=== PATIENT | male | born 1990 | race Caucasian/White ===

== ENCOUNTER 2024-02-25 16:17 | Outpatient (OUT) | payer OTHER, SELFPAY ==
[2024-02-25 16:43] LABS: Bilirubin Urine NEGATIVE (NEGATIVE); Blood Urine NEGATIVE (NEGATIVE); Clarity Urine CLEAR (CLEAR); Color Urine YELLOW (YELLOW); Glucose Urine UA NEGATIVE (NEGATIVE); Ketones Urine NEGATIVE (NEGATIVE); Leukocyte Esterase Urine NEGATIVE (NEGATIVE); Nitrite Urine NEGATIVE (NEGATIVE); Protein Urine NEGATIVE (NEG/TRACE); Specific Gravity Urine >=1.030 (1.005-1.025); Urobilinogen Urine 0.2 EU/dL (0.2-1.0)
[2024-02-25 16:44] LABS: Basophils Percent Auto 0.3 % (0.2-2.0); Eosinophils Absolute Auto 0.1 10^3/uL (0.0-0.7); Eosinophils Percent Auto 0.7 % (0.9-7.0); Hematocrit 46.3 % (42.0-54.0); Hemoglobin 15.6 g/dL (14.0-18.0); Immature Granulocytes Abs Auto 0.03 10^3/uL (0.00-0.03); Immature Granulocytes Pct Auto 0.2 % (0.0-0.5); Lymphocytes Absolute Auto 3.2 10^3/uL (1.2-3.8); Lymphocytes Percent Auto 25.8 % (20.5-60.0); Mean Corpuscular HGB Conc 33.7 g/dL (29.9-35.2); Mean Corpuscular Hemoglobin 29.8 pg (25.9-34.0); Mean Corpuscular Volume 88.4 fL (80.0-94.0); Mean Platelet Volume 9.9 fL (9.5-13.5); Monocytes Absolute Auto 0.8 10^3/uL (0.3-0.8); Monocytes Percent Auto 6.2 % (1.7-12.0); Neutrophils Absolute Auto 8.2 10^3/uL (1.4-6.5); Neutrophils Percent Auto 66.8 % (43.0-75.0); Platelet Count 349 10^3/uL (150-450); Red Blood Count 5.24 10^6/uL (4.70-6.10); Red Cell Distribution Width 12.4 % (11.0-15.0); White Blood Count 12.3 10^3/uL (4.0-11.0)
[2024-02-25 16:46] LABS: Urine Microscopic Indicated NO
[2024-02-25 16:52] LABS: Estimated Average Glucose 117 mg/dL; Glycohemoglobin A1C 5.7 % (4.5-6.2)
[2024-02-25 16:58] LABS: Creatinine Urine Random 216.52 mg/dL (20.00-300.00); Microalbum Creatinine Ratio Ur 7.3 mg/g (0.0-29.9); Microalbumin Urine Random 1.6 mg/dL (<=30.0)
[2024-02-25 17:06] LABS: Alanine Aminotransferase 60 U/L (16-63); Albumin Level 3.9 g/dL (3.4-5.0); Alkaline Phosphatase 54 U/L (46-116); Anion Gap 15.8; Aspartate Amino Transferase 19 U/L (15-37); BUN Creatinine Ratio 20.8; Bilirubin Total 0.5 mg/dL (0.2-1.0); Calcium 9.6 mg/dL (8.5-10.1); Chloride 100 mmol/L (98-107); Chol HDL Ratio 5.7; Cholesterol 278 mg/dL (<=200); Estimated GFR (African America >60 (>=60); Estimated GFR (Non-African Ame >60 (>=60); Globulin 4.1 g/dL; Glucose 81 mg/dL (74-106); HDL Cholesterol 49 mg/dL (40-60); Potassium 3.8 mmol/L (3.5-5.1); Sodium 139 mmol/L (136-145); Thyroid Stimulating Hormone 1.629 uIU/mL (0.358-3.740); Triglycerides 248 mg/dL (<=150); VLDL CHOLESTEROL 49.6 mg/dL
== END 2024-02-25 16:18 | disposition home or self-care (01) ==
LOC: LAB 16:20
PROVIDERS: PCP Nurse Practitioner; Visit Provider Nurse Practitioner
DX: R73.03 Prediabetes (principal); I10 Essential (primary) hypertension; F17.200 Nicotine dependence, unspecified, uncomplicated; E66.9 Obesity, unspecified; E78.2 Mixed hyperlipidemia
CPT/HCPCS: 36415; 80053; 80061; 81003; 82043; 82570; 83036; 84443; 85025

== ENCOUNTER 2024-03-16 06:45 | Outpatient (OUT) | payer OTHER, SELFPAY ==
--- OUTSIDE RECORDS SUMMARY | 2024-03-16 06:51 | XMS_ITS | CCD ---
Author Organization [place] [employer] [place] [facility] [employer] [facility] Care Team Providers Care Mortgage Banker Name Role Phone AICHHOLZ, OFFICE MAIL CLERK GENE Consulting Unavailable AICHHOLZ, OFFICE MAIL CLERK GENE Primary Care Unavailable AICHHOLZ, OFFICE MAIL CLERK GENE Admitting Unavailable AICHHOLZ, OFFICE MAIL CLERK GENE Attending Unavailable AICHHOLZ, OFFICE MAIL CLERK GENE Consulting Unavailable AICHHOLZ, OFFICE MAIL CLERK GENE Admitting Unavailable JERRELL ARZATE Primary Care Unavailable AICHHOLZ, OFFICE MAIL CLERK GENE Referring Unavailable AICHHOLZ, OFFICE MAIL CLERK GENE Attending Unavailable AICHHOLZ, OFFICE MAIL CLERK GENE Consulting Unavailable AICHHOLZ, OFFICE MAIL CLERK GENE Primary Care Unavailable AICHHOLZ, OFFICE MAIL CLERK GENE Admitting Unavailable AICHHOLZ, OFFICE MAIL CLERK GENE Attending Unavailable AICHHOLZ, GENE Attending Unavailable Allergies Allergy Classification Reported Allergen(s) Allergy Type Date of Onset Reaction(s) Facility (1 source) Penicillin Drug Allergy 03-15-2013 [facility] Repository Problems Active Problems Problem Classification Problem Date Documented Da te Episodic/Chronic Anxiety disorders (1 source) Anxiety disorder, unspecified; Translations: [ANXIETY DISORDER UNSPECIFIED] Onset: 03-25-2022 Chronic Diabetes mellitus without complication (1 source) Type 2 diabetes mellitus without complications; Translations: [TYPE 2 DM WITHOUT COMPLICATIONS] Onset: 07-09-2022 Chronic Disorders of lipid metabolism (5 sources) Hyperlipidemia, unspecified; Translations: [HYPERLIPIDEMIA UNSPECIFIED] Onset: 05-07-2022 Chronic Other nutritional; endocrine; and metabolic disorders (4 sources) Other disorders of plasma-protein metabolism, not elsewhere classified; 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 Cornell Sharma GLYCOHEMOGLOBIN A1Con 2021 ADA RECOMMENDATION SEE BELOW Normal [facility] Comment on above: Result Comment: ADA RECOMMENDED LIMIT 4.0 - 6.0 ADA THERAPEUTIC TARGET < 7.0 ACTION SUGGESTED > 7.0 Performed By: #### A 1C #### [facility] [address] [address] [address] Cornell Sharma Glucose [Mass/Vol] 114 mg/dL Normal [facility] Comment on above: Performed By: #### A 1C #### [facility] [address] [address] [address] Cornell Sharma HbA1c (Bld) [Mass fraction] 5.6 % Normal 4.5-6.2 [facility] Comment on above: Performed By: #### A 1C #### [facility] [address] [address] [address] Cornell Sharma LIPID PROFILEon 07-06-2022 CHOL-HDL RATIO NORM SEE BELOW Normal [facility] Comment on above: Result Comment: 3.3 - 4.4 LOW RISK 4.4 - 7.1 AVERAGE RISK 7.1 - 11.0 MODERATE RISK >11.0 HIGH RISK Performed By: #### A ST, GLUC, ALT, LIPID #### [facility] [address] [address] [address] Cornell Sharma Cholesterol [Mass/Vol] 197 mg/dL Normal <=200 [facility] Comment on above: Performed By: #### A ST, GLUC, ALT, LIPID #### [facility] [address] [address] [address] Cornell Sharma Cholesterol in HDL [Mass/Vol] 53 mg/dL Normal 40-60 [facility] Comment on above: Performed By: #### A ST, GLUC, ALT, LIPID #### [facility] [address] [address] [address] Cornell Sharma Cholesterol in LDL [Mass/Vol] 118.2 mg/dL Normal [facility] Comment on above: Performed By: #### A ST, GLUC, ALT, LIPID #### [facility] [address] [address] [address] Cornell Sharma Cholesterol.total/Cho lesterol in HDL [Mass ratio] 3.7 {ratio} Normal [facility] Comment on above: Performed By: #### A ST, GLUC, ALT, LIPID #### [facility] [address] [address] [address] Cornell Sharma HDL NORMAL > or = 60 mg/dl - LOW CARDIOVASCULAR RISK <40 mg/dl - HIGH CARDIOVASCULAR RISK Normal [facility] Comment on above: Performed By: #### A ST, GLUC, ALT, LIPID #### [facility] [address] [address] [address] Cornell Sharma LDL CALC NORMAL SEE BELOW Normal [facility] Comment on above: Result Comment: <100 mg/dl OPTIMAL 100 - 129 mg/dl NEAR OR ABOVE OPTIMAL 130 - 159 mg/dl BORDERLINE HIGH 160 - 189 mg/dl HIGH >190 mg/dl VERY HIGH Performed By: #### A ST, GLUC, ALT, LIPID #### [facility] [address] [address] [address] Cornell Sharma Triglyceride [Mass/Vol] 129 mg/dL Normal <=150 [facility] Comment on above: Performed By: #### A ST, GLUC, ALT, LIPID #### [facility] [address] [address] [address] Cornell Sharma VLDL CALC 25.8 mg/dL Normal [facility] Comment on above: Performed By: #### A ST, GLUC, ALT, LIPID #### [facility] [address] [address] [address] Cornell Sharma SGGyu 07-06-2022 AST [Catalytic activity/Vol] 15 U/L Normal 15-37 [facility] Comment on above: Performed By: #### A ST, GLUC, ALT, LIPID #### [facility] [address] [address] [address] Cornell Sharma SGPTon 07-06-2022 ALT [Catalytic activity/Vol] 50 U/L Normal 16-63 [facility] Comment on above: Performed By: #### A ST, GLUC, ALT, LIPID #### [facility] [address] [address] [address] Cornell Sharma LIPID PROFILEon 05-06-2022 CHOL-HDL RATIO NORM SEE BELOW Normal [facility] Comment on above: Result Comment: 3.3 - 4.4 LOW RISK 4.4 - 7.1 AVERAGE RISK 7.1 - 11.0 MODERATE RISK >11.0 HIGH RISK Performed By: #### L IPID, LIVER #### [facility] [address] [address] [address] Cornell Sharma Cholesterol [Mass/Vol] 181 mg/dL Normal <=200 [facility] Comment on above: Performed By: #### L IPID, LIVER #### [facility] [address] [address] [address] Cornell Sharma Cholesterol in HDL [Mass/Vol] 39 mg/dL Critically low 40-60 [facility] Comment on above: Performed By: #### L IPID, LIVER #### [facility] [address] [address] [address] Cornell Sharma Cholesterol in LDL [Mass/Vol] 81.6 mg/dL Normal [facility] Comment on above: Performed By: #### L IPID, LIVER #### [facility] [address] [place] [address] Dr. Cornell Sharma Cholesterol.total/Cho lesterol in HDL [Mass ratio] 4.6 {ratio} Normal [facility] Comment on above: Performed By: #### L IPID, LIVER #### [facility] [address] [place] [address] Dr. Cornell Sharma HDL NORMAL > or = 60 mg/dl - LOW CARDIOVASCULAR RISK <40 mg/dl - HIGH CARDIOVASCULAR RISK Normal [facility] Comment on above: Performed By: #### L IPID, LIVER #### [facility] [address] [place] [address] Dr. Cornlel Sharma LDL CALC NORMAL SEE BELOW Normal [facility] Comment on above: Result Comment: <100 mg/dl OPTIMAL 100 - 129 mg/dl NEAR OR ABOVE OPTIMAL 130 - 159 mg/dl BORDERLINE HIGH 160 - 189 mg/dl HIGH >190 mg/dl VERY HIGH Performed By: #### L IPID, LIVER #### [facility] [address] [place] [address] Dr. Cornell Sharma Triglyceride [Mass/Vol] 302 mg/dL Critically high <=150 [facility] Comment on above: Performed By: #### L IPID, LIVER #### [facility] [address] [place] [address] Dr. Cornell Sharma VLDL CALC 60.4 mg/dL Normal [facility] Comment on above: Performed By: #### L IPID, LIVER #### [facility] [address] [place] [address] Dr. Cornell Sharma LIVER PROFILEon 05-06-2022 Albumin [Mass/Vol] 3.6 g/dL Normal 3.4-5.0 [facility] Comment on above: Performed By: #### L IPID, LIVER #### [facility] [address] [place] [address] Dr. Cornell Sharma Albumin/Globulin [Mass ratio] 0.9 {ratio} Normal [facility] Comment on above: Performed By: #### L IPID, LIVER #### [facility] [address] [place] [address] Dr. Cornell Sharma ALP [Catalytic activity/Vol] 56 U/L Normal 46-116 [facility] Comment on above: Performed By: #### L IPID, LIVER #### [facility] [address] [place] [address] Dr. Cornell Sharma ALT [Catalytic activity/Vol] 46 U/L Normal 16-63 [facility] Comment on above: Performed By: #### L IPID, LIVER #### [facility] [address] [place] [address] Dr. Cornell Sharma AST [Catalytic activity/Vol] 17 U/L Normal 15-37 [facility] Comment on above: Performed By: #### L IPID, LIVER #### [facility] [address] [place] [address] Dr. Cornell Sharma BILI, CONJUGATED 0.1 mg/dL Normal 0.0-0.2 [facility] Comment on above: Performed By: #### L IPID, LIVER #### [facility] [address] [place] [address] Dr. Cornell Sharma Bilirubin [Mass/Vol] 0.3 mg/dL Normal 0.2-1.0 [facility] Comment on above: Performed By: #### L IPID, LIVER #### [facility] [address] [place] [address] Dr. Cornell Sharma Globulin (S) [Mass/Vol] 3.9 g/dL Normal [facility] Comment on above: Performed By: #### L IPID, LIVER #### [facility] [address] [place] [address] Dr. Cornell Sharma Protein [Mass/Vol] 7.5 g/dL Normal 6.4-8.2 [facility] Comment on above: Performed By: #### L IPID, LIVER #### [facility] [address] [place] [address] Dr. Cornell Sharma CBC AUTO DIFFon 03-15-2022 BASO # 0.0 103/ul Normal 0.0-0.1 [facility] Comment on above: Performed By: #### C BC #### [facility] [address] [place] [address] Dr. Cornell Sharma Basophils/100 WBC (Bld) 0.5 % Normal 0.2-2.0 [facility] Comment on above: Performed By: #### C BC #### [facility] [address] [place] [address] Dr. Cornell Sharma EO # 0.1 103/ul Normal 0.0-0.7 [facility] Comment on above: Performed By: #### C BC #### [facility] [address] [place] [address] Dr. Cornell Sharma Eosinophils/100 WBC (Bld) 1.1 % Normal 0.9-7.0 [facility] Comment on above: Performed By: #### C BC #### [facility] [address] [place] [address] Dr. Cornell Sharma Erythrocyte distribution width (RBC) [Ratio] 13.2 % Normal 11.0-15.0 [facility] Comment on above: Performed By: #### C BC #### [facility] [address] [place] [address] Dr. Cornell Sharma Hematocrit (Bld) [Volume fraction] 44.7 % Normal 42.0-54.0 [facility] Comment on above: Performed By: #### C BC #### [facility] [address] [place] [address] Dr. Cornell Sharma Hemoglobin (Bld) [Mass/Vol] 14.4 g/dL Normal 14.0-18.0 [facility] Comment on above: Performed By: #### C BC #### [facility] [address] [place] [address] Dr. Cornell Sharma IG # 0.02 10e3/ul Normal 0.00-0.03 [facility] Comment on above: Performed By: #### C BC #### [facility] [address] [place] [address] Dr. Cornell Sharma IG % 0.3 % Normal 0.0-0.5 [facility] Comment on above: Performed By: #### C BC #### [facility] [address] [place] [address] Dr. Cornell Sharma LYMPH # 2.2 103/ul Normal 1.2-3.8 [facility] Comment on above: Performed By: #### C BC #### [facility] [address] [place] [address] Dr. Cornell Sharma Lymphocytes/100 WBC (Bld) 28.8 % Normal 20.5-60.0 [facility] Comment on above: Performed By: #### C BC #### [facility] [address] [place] [address] Dr. Cornell Sharma MANUAL DIFF REQ NO Normal [facility] Comment on above: Performed By: #### C BC #### [facility] [address] [place] [address] Dr. Cornell Sharma MCH (RBC) [Entitic mass] 29.4 pg Normal 25.9-34.0 [facility] Comment on above: Performed By: #### C BC #### [facility] [address] [place] [address] Dr. Cornell Sharma MCHC (RBC) [Mass/Vol] 32.2 g/dL Normal 29.9-35.2 [facility] Comment on above: Performed By: #### C BC #### [facility] [address] [place] [address] Dr. Cornell Sharma MCV (RBC) [Entitic vol] 91.2 fL Normal 80.0-94.0 [facility] Comment on above: Performed By: #### C BC #### [facility] [address] [place] [address] Dr. Cornell Sharma MONO # 0.7 103/ul Normal 0.3-0.8 [facility] Comment on above: Performed By: #### C BC #### [facility] [address] [place] [address] Dr. Cornell Sharma Monocytes/100 WBC (Bld) 9.1 % Normal 1.7-12.0 [facility] Comment on above: Performed By: #### C BC #### [facility] [address] [place] [address] Dr. Cornell Sharma NEUT # 4.6 103/ul Normal 1.4-6.5 [facility] Comment on above: Performed By: #### C BC #### [facility] [address] [place] [address] Dr. Cornell Sharma Neutrophils/100 WBC (Bld) 60.2 % Normal 43.0-75.0 [facility] Comment on above: Performed By: #### C BC #### [facility] [address] [place] [address] Dr. Cornell Sharma Platelet mean volume (Bld) [Entitic vol] 9.9 fL Normal 9.5-13.5 [facility] Comment on above: Performed By: #### C BC #### [facility] [address] [place] [address] Dr. Cornell Sharma PLT 294 103/ul Normal 150-450 [facility] Comment on above: Performed By: #### C BC #### [facility] [address] [place] [address] Dr. Cornell Sharma RBC 4.90 106/ul Normal 4.70-6.10 [facility] Comment on above: Performed By: #### C BC #### [facility] [address] [place] [address] Dr. Cornell Sharma WBC 7.6 103/ul Normal 4.0-11.0 [facility] Comment on above: Performed By: #### C BC #### [facility] [address] [place] [address] Dr. Cornell Sharma FREE T4on 03-15-2022 Free T4 [Mass/Vol] 0.83 ng/dL Normal 0.76-1.46 [facility] Comment on above: Performed By: #### M ALBR #### [facility] [address] [place] [address] Dr. Cornell Sharma GLYCOHEMOGLOBIN A1Con 2021 ADA RECOMMENDATION SEE BELOW Normal [facility] Comment on above: Result Comment: ADA RECOMMENDED LIMIT 4.0 - 6.0 ADA THERAPEUTIC TARGET < 7.0 ACTION SUGGESTED > 7.0 Performed By: #### M ALBR #### [facility] [address] [place] [address] Dr. Cornell Sharma Glucose [Mass/Vol] 120 mg/dL Critically high 74-106 [facility] Comment on above: Performed By: #### M ALBR #### [facility] [address] [place] [address] Dr. Cornell Sharma HbA1c (Bld) [Mass fraction] 5.8 % Normal 4.5-6.2 [facility] Comment on above: Performed By: #### M ALBR #### [facility] [address] [address] [address] Cornell Sharma LIPID PROFILEon 03-15-2022 CHOL-HDL RATIO NORM SEE BELOW Normal [facility] Comment on above: Result Comment: 3.3 - 4.4 LOW RISK 4.4 - 7.1 AVERAGE RISK 7.1 - 11.0 MODERATE RISK >11.0 HIGH RISK Performed By: #### M ALBR #### [facility] [address] [address] [address] Cornell Sharma Cholesterol [Mass/Vol] 228 mg/dL Critically high <=200 [facility] Comment on above: Performed By: #### M ALBR #### [facility] [address] [address] [address] Cornell Sharma Cholesterol in HDL [Mass/Vol] 39 mg/dL Critically low 40-60 [facility] Comment on above: Performed By: #### M ALBR #### [facility] [address] [address] [address] Cornell Sharma Cholesterol in LDL [Mass/Vol] 143.6 mg/dL Normal [facility] Comment on above: Performed By: #### M ALBR #### [facility] [address] [address] [address] Cornell Sharma Cholesterol.total/Cho lesterol in HDL [Mass ratio] 5.8 {ratio} Normal [facility] Comment on above: Performed By: #### M ALBR #### [facility] [address] [address] [address] Cornell Sharma HDL NORMAL > or = 60 mg/dl - LOW CARDIOVASCULAR RISK <40 mg/dl - HIGH CARDIOVASCULAR RISK Normal [facility] Comment on above: Performed By: #### M ALBR #### [facility] [address] [address] [address] Cornell Sharma LDL CALC NORMAL SEE BELOW Normal [facility] Comment on above: Result Comment: <100 mg/dl OPTIMAL 100 - 129 mg/dl NEAR OR ABOVE OPTIMAL 130 - 159 mg/dl BORDERLINE HIGH 160 - 189 mg/dl HIGH >190 mg/dl VERY HIGH Performed By: #### M ALBR #### [facility] [address] [address] [address] Cornell Sharma Triglyceride [Mass/Vol] 227 mg/dL Critically high <=150 [facility] Comment on above: Performed By: #### M ALBR #### [facility] [address] [place] [address] Dr. Cornell Sharma VLDL CALC 45.4 mg/dL Normal [facility] Comment on above: Performed By: #### M ALBR #### [facility] [address] [place] [address] Dr. Cornell Sharma MICROALBUMIN, RAND URon - mALB <1.3 Normal <=30.0 [facility] Comment on above: Performed By: #### M ALBR #### [facility] [address] [place] [address] Dr. Cornell Sharma PROF 14(COMP METB)on 022 Albumin [Mass/Vol] 2.5 g/dL Critically low 3.4-5.0 [facility] Comment on above: Performed By: #### M ALBR #### [facility] [address] [place] [address] Dr. Cornell Sharma Albumin/Globulin [Mass ratio] 0.5 {ratio} Normal [facility] Comment on above: Performed By: #### M ALBR #### [facility] [address] [place] [address] Dr. Cornell Sharma ALP [Catalytic activity/Vol] 57 U/L Normal 46-116 [facility] Comment on above: Performed By: #### M ALBR #### [facility] [address] [place] [address] Dr. Cornell Sharma ALT [Catalytic activity/Vol] 55 U/L Normal 16-63 [facility] Comment on above: Performed By: #### M ALBR #### [facility] [address] [place] [address] Dr. Cornell Sharma Anion gap [Moles/Vol] 12.5 mmol/L Normal [facility] Comment on above: Performed By: #### M ALBR #### [facility] [address] [address] [address] Cornell Sharma AST [Catalytic activity/Vol] 14 U/L Critically low 15-37 [facility] Comment on above: Performed By: #### M ALBR #### [facility] [address] [place] [address] Dr. Cornell Sharma Bilirubin [Mass/Vol] 0.2 mg/dL Normal 0.2-1.0 [facility] Comment on above: Performed By: #### M ALBR #### [facility] [address] [place] [address] Dr. Cornell Sharma Calcium [Mass/Vol] 9.4 mg/dL Normal 8.5-10.1 [facility] Comment on above: Performed By: #### M ALBR #### [facility] [address] [place] [address] Dr. Cornell Sharma Chloride [Moles/Vol] 103 mmol/L Normal 98-107 [facility] Comment on above: Performed By: #### M ALBR #### [facility] [address] [place] [address] Dr. Cornell Sharma CO2 [Moles/Vol] 27.9 mmol/L Normal 21.0-32.0 [facility] Comment on above: Performed By: #### M ALBR #### [facility] [address] [place] [address] Dr. Cornell Sharma Creatinine [Mass/Vol] 0.74 mg/dL Normal 0.70-1.30 [facility] Comment on above: Performed By: #### M ALBR #### [facility] [address] [place] [address] Dr. Cornell Sharma EGFR-AF GHANAIAN >60 Normal >=60 [facility] Comment on above: Performed By: #### M ALBR #### [facility] [address] [place] [address] Dr. Cornell Sharma EGFR-NON AF GHANAIAN >60 Normal >=60 [facility] Comment on above: Performed By: #### M ALBR #### [facility] [address] [place] [address] Dr. Cornell Sharma Globulin (S) [Mass/Vol] 5.0 g/dL Normal [facility] Comment on above: Performed By: #### M ALBR #### [facility] [address] [place] [address] Dr. Cornell Sharma Potassium [Moles/Vol] 4.4 mmol/L Normal 3.5-5.1 [facility] Comment on above: Performed By: #### M ALBR #### [facility] [address] [place] [address] Dr. Cornell Sharma Protein [Mass/Vol] 7.5 g/dL Normal 6.4-8.2 [facility] Comment on above: Performed By: #### M ALBR #### [facility] [address] [place] [address] Dr. Cornell Sharma Sodium [Moles/Vol] 139 mmol/L Normal 136-145 [facility] Comment on above: Performed By: #### M ALBR #### [facility] [address] [place] [address] Dr. Cornell Sharma Urea nitrogen [Mass/Vol] 16.0 mg/dL Normal 7.0-18.0 [facility] Comment on above: Performed By: #### M ALBR #### [facility] [address] [place] [address] Dr. Cornell Sharma Urea nitrogen/Creatinine [Mass ratio] 21.6 mg/mg Normal [facility] Comment on above: Performed By: #### M ALBR #### [facility] [address] [place] [address] Dr. Cornell Sharma TSHon 03-15-2022 TSH 0.941 uIU/mL Normal 0.358-3.740 [facility] Comment on above: Performed By: #### M ALBR #### [facility] [address] [place] [address] Dr. Cornell Sharma TSH RANGE SEE BELOW Normal [facility] Comment on above: Result Comment: <0.3 4 UIU/ml HYPERTHYROID 0.34-5.60 UIU/ml EUTHYROID >5.60 UIU/ml HYPOTHYROID Performed By: #### M ALBR #### [facility] [address] [address] [address] Cornell Sharma UA RANDOM W/MICROSCOPICon BACTERIA NONE SEEN Normal NONE SEEN [facility] Comment on above: Performed By: #### U AMIC #### [facility] [address] [address] [address] Cornell Sharma Bilirubin Ql (U) Negative Normal NEGATIVE [facility] Comment on above: Performed By: #### U AMIC #### [facility] [address] [address] [address] Cornell Sharma CAST NONE SEEN Normal NONE SEEN [facility] Comment on above: Performed By: #### U AMIC #### [facility] [address] [address] [address] Cornell Sharma Clarity (U) CLEAR Normal CLEAR [facility] Comment on above: Performed By: #### U AMIC #### [facility] [address] [address] [address] Cornell Sharma Color (U) LT. YELLOW Normal YELLOW [facility] Comment on above: Performed By: #### U AMIC #### [facility] [address] [address] [address] Cornell Sharma Crystals LM Nom (Urine sed) NONE SEEN Normal NONE SEEN [facility] Comment on above: Performed By: #### U AMIC #### [facility] [address] [address] [address] Cornell Sharma Epithelial cells LM Ql (Urine sed) RARE Normal NONE SEEN /RARE [facility] Comment on above: Performed By: #### U AMIC #### [facility] [address] [address] [address] Cornell Sharma Glucose Ql (U) Negative Normal NEGATIVE [facility] Comment on above: Performed By: #### U AMIC #### [facility] [address] [address] [address] Cornell Sharma Hemoglobin Ql (U) Negative Normal NEGATIVE The [facility] Comment on above: Performed By: #### U AMIC #### [facility] [address] [address] [address] Cornell Sharma Ketones Ql (U) Negative Normal NEGATIVE [facility] Comment on above: Performed By: #### U AMIC #### [facility] [address] [place] [address] Dr. Cornell Sharma LEUKOCYTES Negative Normal NEGATIVE [facility] Comment on above: Performed By: #### U AMIC #### [facility] [address] [place] [address] Dr. Cornell Sharma MUCOUS NONE SEEN Normal NONE SEEN [facility] Comment on above: Performed By: #### U AMIC #### [facility] [address] [place] [address] Dr. Cornell Sharma Nitrite Ql (U) Negative Normal NEGATIVE [facility] Comment on above: Performed By: #### U AMIC #### [facility] [address] [place] [address] Dr. Cornell Sharma pH (U) 6.0 [pH] Normal 5-9 [facility] Comment on above: Performed By: #### U AMIC #### [facility] [address] [place] [address] Dr. Cornell Sharma RBC 0-2 Normal 0-2 [facility] Comment on above: Performed By: #### U AMIC #### [facility] [address] [place] [address] Dr. Cornell Sharma SPEC GRAVITY 1.025 Normal 1.005-<=1.025 The [facility] Comment on above: Performed By: #### U AMIC #### [facility] [address] [place] [address] Dr. Cornell Sharma UA PROTEIN Negative Normal NEGATIVE/ TRACE [facility] Comment on above: Performed By: #### U AMIC #### [facility] [address] [place] [address] Dr. Cornell Sharma Urobilinogen Qn (U) 0.2 {Ezequiel'U}/dL Normal 0.2 - 1. 0 [facility] Comment on above: Performed By: #### U AMIC #### [facility] [address] [place], [place] [address] Dr. Cornell Sharma WBC NONE SEEN Normal NONE SEEN [facility] Comment on above: Performed By: #### U AMIC #### [facility] [address] [place], [place] [address] Dr. Cornell Sharma Encounters Encounter Date Encounter Type Care Provider Facility Start: 02-25-2024 End: 02-25-2024 ambulatory GENE CRYSTAL Not Available Start: 07-06-2022 End: 07-07-2022 ambulatory OFFICE MAIL CLERK GENE CLEMENSHOLZ Facility:[facility] Start: 05-06-2022 End: 05-07-2022 ambulatory OFFICE MAIL CLERK GENE CLEMENSHOLZ Facility:[facility] Start: 03-15-2022 End: 03-16-2022 ambulatory OFFICE MAIL CLERK GENE CRYSTAL Facility:[facility] Payers Date Payer Category Payer Unknown [id number] 2.16.84 [id number] 1989 Unknown [id number] 2.16.84 [id number] 1989 Unknown [id number] 2.16.84 [id number] 1989 Unknown [id number] 2.16.84 [id number] 1959 Unknown [id number] Summary Purpose Family History No Family History Records FoundNo Family History Records Found Advance Directives No Advanced Directives Records FoundNo Advanced Directives Records Found Additional Source Comments (unrecognized sect ion and content) No Status Records FoundNo Status Records Found INFORMATION SOURCE (unrecogn ized section and content) DATE CREATED AUTHOR [facility]2022 [facility] DATE CREATED AUTHOR AUTHOR'S ORGANIZ ATDEBBIE 02/27/2024 [facility] EPIC FOR RECORDS PERTAINING TO PATIENTS WHO ARE OR HAVE BEEN ENROLLED IN A CHEMICAL DEPENDENCY/SUBSTANCEABUSE PROGRAM, SOME INFORMATION MAY BE OMITTED. This clinical summary was aggregated from multiple sources. Caution should be exercised in using it in the provision of clinical care. This summary normalizes information from multiple sources, and as a consequence, information in this document may materially change the coding, format and clinical context of patient data. In addition, data may be omitted in some cases. CLINICAL DECISIONS SHOULD BE BASED ON THE PRIMARY CLINICAL RECORDS. [facility] [employer] [facility]. provides no warranty or guarantee of the accuracy or completeness of information in this document.
--- NOTE | 2024-03-16 10:56 | P.STRESS_ITS ---
Stress Test Stress Test Requesting physician: Trina Talley General Information: Reason for Stress Test: Chest pain Cardiac History and Risk Factors: DM2, HTN. Family history of CAD. Resting 12 - Lead Electrocardiogram: Rate & rhythm: Normal sinus at a rate of 73. [employer]: Normal T-waves: Normal orientation ST-segments: Normal orientation Stress Test: Protocol: Daljit protocol was followed Exercise capacity: Fair exercise capacity. Total exercise time of 5 minutes 19 seconds reached Daljit stage 2 at 2.5MPH, 12% grade, & 7 METs. Blood pressure: Initial: 118/80, Maximum: 172/98 Rate & rhythm: Patient remained in sinus rhythm during the exercise and recovery portions of the study.? The maximum heart rate was 160, which was 86% of the maximum predicted heart rate. ST-segments & T-waves: There were no T-wave changes or ST-segment changes when compared to the baseline EKG. Patient response/symptoms: There were no symptoms similar to the chief complaint. Interpretation: Normal exercise stress test without electrocardiographical evidence of ischemia. Asymptomatic of chief complaint. Johnson treadmill score is 5.3, which places patient in a low risk category. Clinical correlation required.
== END 2024-03-16 06:46 | disposition home or self-care (01) ==
LOC: CARD 06:45
PROVIDERS: PCP Nurse Practitioner; Visit Provider Nurse Practitioner
DX: R07.89 Other chest pain (principal); I10 Essential (primary) hypertension
CPT/HCPCS: 93017

== ENCOUNTER 2024-04-20 15:59 | Outpatient (OUT) | payer OTHER, SELFPAY ==
[2024-04-20 16:21] LABS: Basophils Percent Auto 0.3 % (0.2-2.0); Eosinophils Absolute Auto 0.1 10^3/uL (0.0-0.7); Eosinophils Percent Auto 0.5 % (0.9-7.0); Hemoglobin 15.1 g/dL (14.0-18.0); Immature Granulocytes Pct Auto 0.9 % (0.0-0.5); Lymphocytes Absolute Auto 2.4 10^3/uL (1.2-3.8); Lymphocytes Percent Auto 20.5 % (20.5-60.0); Mean Corpuscular HGB Conc 34.3 g/dL (29.9-35.2); Mean Corpuscular Hemoglobin 30.3 pg (25.9-34.0); Mean Corpuscular Volume 88.2 fL (80.0-94.0); Mean Platelet Volume 9.3 fL (9.5-13.5); Monocytes Percent Auto 8.3 % (1.7-12.0); Neutrophils Absolute Auto 8.2 10^3/uL (1.4-6.5); Neutrophils Percent Auto 69.5 % (43.0-75.0); Platelet Count 348 10^3/uL (150-450); Red Blood Count 4.99 10^6/uL (4.70-6.10); Red Cell Distribution Width 12.8 % (11.0-15.0); White Blood Count 11.7 10^3/uL (4.0-11.0)
--- OUTSIDE RECORDS SUMMARY | 2024-04-20 16:24 | XMS_ITS | CCD ---
Author Organization [place] [employer] [facility] [employer] [facility] Care Team Providers Care Sand Digger Name Role Phone AICHHOLZ, GREENKEEPER GENE Consulting Unavailable AICHHOLZ, GREENKEEPER GENE Primary Care Unavailable AICHHOLZ, GREENKEEPER GENE Admitting Unavailable AICHHOLZ, GREENKEEPER GENE Attending Unavailable AICHHOLZ, GREENKEEPER GENE Consulting Unavailable AICHHOLZ, GREENKEEPER GENE Admitting Unavailable JERRELL ARZATE Primary Care Unavailable AICHHOLZ, GREENKEEPER GENE Referring Unavailable AICHHOLZ, GREENKEEPER GENE Attending Unavailable AICHHOLZ, GREENKEEPER GENE Consulting Unavailable AICHHOLZ, GREENKEEPER GENE Primary Care Unavailable AICHHOLZ, GREENKEEPER GENE Admitting Unavailable AICHHOLZ, GREENKEEPER GENE Attending Unavailable AICHHOLZ, GENE Attending Unavailable Allergies Allergy Classification Reported Allergen(s) Allergy Type Date of Onset Reaction(s) Facility (1 source) Penicillin Drug Allergy 03-15-2013 [facility] Repository Problems Active Problems Problem Classification [...] 07-06-2022 Glucose [Mass/Vol] 105 mg/dL Normal 74-106 [facility] Comment on above: Performed By: #### A ST, GLUC, ALT, LIPID #### [facility] [address] [address] [address] Cornell Sharma GLYCOHEMOGLOBIN A1Con 2021 ADA RECOMMENDATION SEE BELOW Normal [facility] Comment on above: Result Comment: ADA RECOMMENDED LIMIT 4.0 - 6.0 ADA THERAPEUTIC TARGET < 7.0 ACTION SUGGESTED > 7.0 Performed By: #### A 1C #### [facility] [address] [address] [address] Cornell Sharma Glucose [Mass/Vol] 114 mg/dL Normal [facility] Comment on above: Performed By: #### A 1C #### [facility] [address] [address] [address] Cornell Sharma HbA1c (Bld) [Mass fraction] 5.6 % Normal 4.5-6.2 [facility] Comment on above: Performed By: #### A 1C #### [facility] [address] [address] [address] Cornell Sharma LIPID PROFILEon 07-06-2022 CHOL-HDL RATIO NORM SEE BELOW Normal [facility] Comment on above: Result Comment: 3.3 - 4.4 LOW RISK 4.4 - 7.1 AVERAGE RISK 7.1 - 11.0 MODERATE RISK >11.0 HIGH RISK Performed By: #### A ST, GLUC, ALT, LIPID #### [facility] [address] [address] [address] Cornell Sharma Cholesterol [Mass/Vol] 197 mg/dL Normal <=200 [facility] Comment on above: Performed By: #### A ST, GLUC, ALT, LIPID #### [facility] [address] [address] [address] Cornell Sharma Cholesterol in HDL [Mass/Vol] 53 mg/dL Normal 40-60 [facility] Comment on above: Performed By: #### A ST, GLUC, ALT, LIPID #### [facility] [address] [address] [address] Cornell Sharma Cholesterol in LDL [Mass/Vol] 118.2 mg/dL Normal [facility] Comment on above: Performed By: #### A ST, GLUC, ALT, LIPID #### [facility] [address] [address] [address] Cornell Sharma Cholesterol.total/Cho lesterol in HDL [Mass ratio] 3.7 {ratio} Normal [facility] Comment on above: Performed By: #### A ST, GLUC, ALT, LIPID #### [facility] [address] [address] [address] Cornell Sharma HDL NORMAL > or = 60 mg/dl - LOW CARDIOVASCULAR RISK <40 mg/dl - HIGH CARDIOVASCULAR RISK Normal [facility] Comment on above: Performed By: #### A ST, GLUC, ALT, LIPID #### [facility] [address] [address] [address] Cornell Sharma LDL CALC NORMAL SEE BELOW Normal [facility] Comment on above: Result Comment: <100 mg/dl OPTIMAL 100 - 129 mg/dl NEAR OR ABOVE OPTIMAL 130 - 159 mg/dl BORDERLINE HIGH 160 - 189 mg/dl HIGH >190 mg/dl VERY HIGH Performed By: #### A ST, GLUC, ALT, LIPID #### [facility] [address] [address] [address] Cornell Sharma Triglyceride [Mass/Vol] 129 mg/dL Normal <=150 [facility] Comment on above: Performed By: #### A ST, GLUC, ALT, LIPID #### [facility] [address] [address] [address] Cornell Sharma VLDL CALC 25.8 mg/dL Normal [facility] Comment on above: Performed By: #### A ST, GLUC, ALT, LIPID #### [facility] [address] [address] [address] Cornell Sharma SGGuy 07-06-2022 AST [Catalytic activity/Vol] 15 U/L Normal 15-37 [facility] Comment on above: Performed By: #### A ST, GLUC, ALT, LIPID #### [facility] [address] [address] [address] Cornell Sharma SGPTon 07-06-2022 ALT [Catalytic activity/Vol] 50 U/L Normal 16-63 [facility] Comment on above: Performed By: #### A ST, GLUC, ALT, LIPID #### [facility] [address] [address] [address] Cornell Sharma LIPID PROFILEon 05-06-2022 CHOL-HDL RATIO NORM SEE BELOW Normal [facility] Comment on above: Result Comment: 3.3 - 4.4 LOW RISK 4.4 - 7.1 AVERAGE RISK 7.1 - 11.0 MODERATE RISK >11.0 HIGH RISK Performed By: #### L IPID, LIVER #### [facility] [address] [address] [address] Cornell Sharma Cholesterol [Mass/Vol] 181 mg/dL Normal <=200 [facility] Comment on above: Performed By: #### L IPID, LIVER #### [facility] [address] [address] [address] Cornell Sharma Cholesterol in HDL [Mass/Vol] 39 mg/dL Critically low 40-60 [facility] Comment on above: Performed By: #### L IPID, LIVER #### [facility] [address] [address] [address] Cornell Sharma Cholesterol in LDL [Mass/Vol] 81.6 mg/dL Normal [facility] Comment on above: Performed By: #### L IPID, LIVER #### [facility] [address] [place] [address] Dr. Cornell Sharma Cholesterol.total/Cho lesterol in HDL [Mass ratio] 4.6 {ratio} Normal [facility] Comment on above: Performed By: #### L IPID, LIVER #### [facility] [address] [place] [address] Dr. Cornell Sharma HDL NORMAL > or = 60 mg/dl - LOW CARDIOVASCULAR RISK <40 mg/dl - HIGH CARDIOVASCULAR RISK Normal [facility] Comment on above: Performed By: #### L IPID, LIVER #### [facility] [address] [place] [address] Dr. Cornell Sharma LDL CALC NORMAL SEE BELOW Normal [facility] Comment on above: Result Comment: <100 mg/dl OPTIMAL 100 - 129 mg/dl NEAR OR ABOVE OPTIMAL 130 - 159 mg/dl BORDERLINE HIGH 160 - 189 mg/dl HIGH >190 mg/dl VERY HIGH Performed By: #### L IPID, LIVER #### [facility] [address] [place] [address] Dr. Cornell Sharma Triglyceride [Mass/Vol] 302 mg/dL Critically high <=150 [facility] Comment on above: Performed By: #### L IPID, LIVER #### [facility] [address] [place] [address] Dr. Cornell Sharma VLDL CALC 60.4 mg/dL Normal [facility] Comment on above: Performed By: #### L IPID, LIVER #### [facility] [address] [place] [address] Dr. Cornell Sharma LIVER PROFILEon 05-06-2022 Albumin [Mass/Vol] 3.6 g/dL Normal 3.4-5.0 [facility] Comment on above: Performed By: #### L IPID, LIVER #### [facility] [address] [place] [address] Dr. Cornell Sharma Albumin/Globulin [Mass ratio] 0.9 {ratio} Normal [facility] Comment on above: Performed By: #### L IPID, LIVER #### [facility] [address] [place] [address] Dr. Cornell Sharma ALP [Catalytic activity/Vol] 56 U/L Normal 46-116 [facility] Comment on above: Performed By: #### L IPID, LIVER #### [facility] [address] [place] [address] Dr. Cornell Sharma ALT [Catalytic activity/Vol] 46 U/L Normal 16-63 [facility] Comment on above: Performed By: #### L IPID, LIVER #### [facility] [address] [place] [address] Dr. Cornell Sharma AST [Catalytic activity/Vol] 17 U/L Normal 15-37 [facility] Comment on above: Performed By: #### L IPID, LIVER #### [facility] [address] [place] [address] Dr. Cornell Sharma BILI, CONJUGATED 0.1 mg/dL Normal 0.0-0.2 [facility] Comment on above: Performed By: #### L IPID, LIVER #### [facility] [address] [place] [address] Dr. Cornell Sharma Bilirubin [Mass/Vol] 0.3 mg/dL Normal 0.2-1.0 [facility] Comment on above: Performed By: #### L IPID, LIVER #### [facility] [address] [place] [address] Dr. Cornell Sharma Globulin (S) [Mass/Vol] 3.9 g/dL Normal [facility] Comment on above: Performed By: #### L IPID, LIVER #### [facility] [address] [place] [address] Dr. Cornell Sharma Protein [Mass/Vol] 7.5 g/dL Normal 6.4-8.2 [facility] Comment on above: Performed By: #### L IPID, LIVER #### [facility] [address] [place] [address] Dr. Cornell Sharma CBC AUTO DIFFon 03-15-2022 BASO # 0.0 103/ul Normal 0.0-0.1 [facility] Comment on above: Performed By: #### C BC #### [facility] [address] [place] [address] Dr. Cornell Sharma Basophils/100 WBC (Bld) 0.5 % Normal 0.2-2.0 [facility] Comment on above: Performed By: #### C BC #### [facility] [address] [place] [address] Dr. Cornell Sharma EO # 0.1 103/ul Normal 0.0-0.7 [facility] Comment on above: Performed By: #### C BC #### [facility] [address] [place] [address] Dr. Cornell Sharma Eosinophils/100 WBC (Bld) 1.1 % Normal 0.9-7.0 [facility] Comment on above: Performed By: #### C BC #### [facility] [address] [place] [address] Dr. Cornell Sharma Erythrocyte distribution width (RBC) [Ratio] 13.2 % Normal 11.0-15.0 [facility] Comment on above: Performed By: #### C BC #### [facility] [address] [place] [address] Dr. Cornell Sharma Hematocrit (Bld) [Volume fraction] 44.7 % Normal 42.0-54.0 [facility] Comment on above: Performed By: #### C BC #### [facility] [address] [place] [address] Dr. Cornell Sharma Hemoglobin (Bld) [Mass/Vol] 14.4 g/dL Normal 14.0-18.0 [facility] Comment on above: Performed By: #### C BC #### [facility] [address] [place] [address] Dr. Cornell Sharma IG # 0.02 10e3/ul Normal 0.00-0.03 [facility] Comment on above: Performed By: #### C BC #### [facility] [address] [place] [address] Dr. Cornell Sharma IG % 0.3 % Normal 0.0-0.5 [facility] Comment on above: Performed By: #### C BC #### [facility] [address] [place] [address] Dr. Cornell Sharma LYMPH # 2.2 103/ul Normal 1.2-3.8 [facility] Comment on above: Performed By: #### C BC #### [facility] [address] [place] [address] Dr. Cornell Sharma Lymphocytes/100 WBC (Bld) 28.8 % Normal 20.5-60.0 [facility] Comment on above: Performed By: #### C BC #### [facility] [address] [place] [address] Dr. Cornell Sharma MANUAL DIFF REQ NO Normal [facility] Comment on above: Performed By: #### C BC #### [facility] [address] [place] [address] Dr. Cornell Sharma MCH (RBC) [Entitic mass] 29.4 pg Normal 25.9-34.0 [facility] Comment on above: Performed By: #### C BC #### [facility] [address] [place] [address] Dr. Cornell Sharma MCHC (RBC) [Mass/Vol] 32.2 g/dL Normal 29.9-35.2 [facility] Comment on above: Performed By: #### C BC #### [facility] [address] [place] [address] Dr. Cornell Sharma MCV (RBC) [Entitic vol] 91.2 fL Normal 80.0-94.0 [facility] Comment on above: Performed By: #### C BC #### [facility] [address] [place] [address] Dr. Cornell Sharma MONO # 0.7 103/ul Normal 0.3-0.8 [facility] Comment on above: Performed By: #### C BC #### [facility] [address] [place] [address] Dr. Cornell Sharma Monocytes/100 WBC (Bld) 9.1 % Normal 1.7-12.0 [facility] Comment on above: Performed By: #### C BC #### [facility] [address] [place] [address] Dr. Cornell Sharma NEUT # 4.6 103/ul Normal 1.4-6.5 [facility] Comment on above: Performed By: #### C BC #### [facility] [address] [place] [address] Dr. Cornell Sharma Neutrophils/100 WBC (Bld) 60.2 % Normal 43.0-75.0 [facility] Comment on above: Performed By: #### C BC #### [facility] [address] [place] [address] Dr. Cornell Sharma Platelet mean volume (Bld) [Entitic vol] 9.9 fL Normal 9.5-13.5 [facility] Comment on above: Performed By: #### C BC #### [facility] [address] [place] [address] Dr. Cornell Sharma PLT 294 103/ul Normal 150-450 [facility] Comment on above: Performed By: #### C BC #### [facility] [address] [place] [address] Dr. Cornell Sharma RBC 4.90 106/ul Normal 4.70-6.10 [facility] Comment on above: Performed By: #### C BC #### [facility] [address] [place] [address] Dr. Cornell Sharma WBC 7.6 103/ul Normal 4.0-11.0 [facility] Comment on above: Performed By: #### C BC #### [facility] [address] [place] [address] Dr. Cornell Sharma FREE T4on 03-15-2022 Free T4 [Mass/Vol] 0.83 ng/dL Normal 0.76-1.46 [facility] Comment on above: Performed By: #### M ALBR #### [facility] [address] [place] [address] Dr. Cornell Sharma GLYCOHEMOGLOBIN A1Con 2021 ADA RECOMMENDATION SEE BELOW Normal [facility] Comment on above: Result Comment: ADA RECOMMENDED LIMIT 4.0 - 6.0 ADA THERAPEUTIC TARGET < 7.0 ACTION SUGGESTED > 7.0 Performed By: #### M ALBR #### [facility] [address] [place] [address] Dr. Cornell Sharma Glucose [Mass/Vol] 120 mg/dL Critically high 74-106 [facility] Comment on above: Performed By: #### M ALBR #### [facility] [address] [place] [address] Dr. Cornell Sharma HbA1c (Bld) [Mass fraction] 5.8 % Normal 4.5-6.2 [facility] Comment on above: Performed By: #### M ALBR #### [facility] [address] [address] [address] Cornell Sharma LIPID PROFILEon 03-15-2022 CHOL-HDL RATIO NORM SEE BELOW Normal [facility] Comment on above: Result Comment: 3.3 - 4.4 LOW RISK 4.4 - 7.1 AVERAGE RISK 7.1 - 11.0 MODERATE RISK >11.0 HIGH RISK Performed By: #### M ALBR #### [facility] [address] [address] [address] Cornell Sharma Cholesterol [Mass/Vol] 228 mg/dL Critically high <=200 [facility] Comment on above: Performed By: #### M ALBR #### [facility] [address] [address] [address] Cornell Sharma Cholesterol in HDL [Mass/Vol] 39 mg/dL Critically low 40-60 [facility] Comment on above: Performed By: #### M ALBR #### [facility] [address] [address] [address] Cornell Sharma Cholesterol in LDL [Mass/Vol] 143.6 mg/dL Normal [facility] Comment on above: Performed By: #### M ALBR #### [facility] [address] [address] [address] Cornell Sharma Cholesterol.total/Cho lesterol in HDL [Mass ratio] 5.8 {ratio} Normal [facility] Comment on above: Performed By: #### M ALBR #### [facility] [address] [address] [address] Cornell Sharma HDL NORMAL > or = 60 mg/dl - LOW CARDIOVASCULAR RISK <40 mg/dl - HIGH CARDIOVASCULAR RISK Normal [facility] Comment on above: Performed By: #### M ALBR #### [facility] [address] [address] [address] Cornell Sharma LDL CALC NORMAL SEE BELOW Normal [facility] Comment on above: Result Comment: <100 mg/dl OPTIMAL 100 - 129 mg/dl NEAR OR ABOVE OPTIMAL 130 - 159 mg/dl BORDERLINE HIGH 160 - 189 mg/dl HIGH >190 mg/dl VERY HIGH Performed By: #### M ALBR #### [facility] [address] [address] [address] Cornell Sharma Triglyceride [Mass/Vol] 227 mg/dL Critically high <=150 [facility] Comment on above: Performed By: #### M ALBR #### [facility] [address] [place] [address] Dr. Cornell Sharma VLDL CALC 45.4 mg/dL Normal [facility] Comment on above: Performed By: #### M ALBR #### [facility] [address] [place] [address] Dr. Cornell Sharma MICROALBUMIN, RAND URon - mALB <1.3 Normal <=30.0 [facility] Comment on above: Performed By: #### M ALBR #### [facility] [address] [place] [address] Dr. Cornell Sharma PROF 14(COMP METB)on 022 Albumin [Mass/Vol] 2.5 g/dL Critically low 3.4-5.0 [facility] Comment on above: Performed By: #### M ALBR #### [facility] [address] [place] [address] Dr. Cornell Sharma Albumin/Globulin [Mass ratio] 0.5 {ratio} Normal [facility] Comment on above: Performed By: #### M ALBR #### [facility] [address] [place] [address] Dr. Cornell Sharma ALP [Catalytic activity/Vol] 57 U/L Normal 46-116 [facility] Comment on above: Performed By: #### M ALBR #### [facility] [address] [place] [address] Dr. Cornell Sharma ALT [Catalytic activity/Vol] 55 U/L Normal 16-63 [facility] Comment on above: Performed By: #### M ALBR #### [facility] [address] [place] [address] Dr. Cornell Sharma Anion gap [Moles/Vol] 12.5 mmol/L Normal [facility] Comment on above: Performed By: #### M ALBR #### [facility] [address] [address] [address] Cornell Sharma AST [Catalytic activity/Vol] 14 U/L Critically low 15-37 [facility] Comment on above: Performed By: #### M ALBR #### [facility] [address] [place] [address] Dr. Cornell Sharma Bilirubin [Mass/Vol] 0.2 mg/dL Normal 0.2-1.0 [facility] Comment on above: Performed By: #### M ALBR #### [facility] [address] [place] [address] Dr. Cornell Sharma Calcium [Mass/Vol] 9.4 mg/dL Normal 8.5-10.1 [facility] Comment on above: Performed By: #### M ALBR #### [facility] [address] [place] [address] Dr. Cornell Sharma Chloride [Moles/Vol] 103 mmol/L Normal 98-107 [facility] Comment on above: Performed By: #### M ALBR #### [facility] [address] [place] [address] Dr. Cornell Sharma CO2 [Moles/Vol] 27.9 mmol/L Normal 21.0-32.0 [facility] Comment on above: Performed By: #### M ALBR #### [facility] [address] [place] [address] Dr. Cornell Sharma Creatinine [Mass/Vol] 0.74 mg/dL Normal 0.70-1.30 [facility] Comment on above: Performed By: #### M ALBR #### [facility] [address] [place] [address] Dr. Cornell Sharma EGFR-AF HONDURAN >60 Normal >=60 [facility] Comment on above: Performed By: #### M ALBR #### [facility] [address] [place] [address] Dr. Cornell Sharma EGFR-NON AF HONDURAN >60 Normal >=60 [facility] Comment on above: Performed By: #### M ALBR #### [facility] [address] [place] [address] Dr. Cornell Sharma Globulin (S) [Mass/Vol] 5.0 g/dL Normal [facility] Comment on above: Performed By: #### M ALBR #### [facility] [address] [place] [address] Dr. Cornell Sharma Potassium [Moles/Vol] 4.4 mmol/L Normal 3.5-5.1 [facility] Comment on above: Performed By: #### M ALBR #### [facility] [address] [place] [address] Dr. Cornell Sharma Protein [Mass/Vol] 7.5 g/dL Normal 6.4-8.2 [facility] Comment on above: Performed By: #### M ALBR #### [facility] [address] [place] [address] Dr. Cornell Sharma Sodium [Moles/Vol] 139 mmol/L Normal 136-145 [facility] Comment on above: Performed By: #### M ALBR #### [facility] [address] [place] [address] Dr. Cornell Sharma Urea nitrogen [Mass/Vol] 16.0 mg/dL Normal 7.0-18.0 [facility] Comment on above: Performed By: #### M ALBR #### [facility] [address] [place] [address] Dr. Cornell Sharma Urea nitrogen/Creatinine [Mass ratio] 21.6 mg/mg Normal [facility] Comment on above: Performed By: #### M ALBR #### [facility] [address] [place] [address] Dr. Cornell Sharma TSHon 03-15-2022 TSH 0.941 uIU/mL Normal 0.358-3.740 [facility] Comment on above: Performed By: #### M ALBR #### [facility] [address] [place] [address] Dr. Cornell Sharma TSH RANGE SEE BELOW Normal [facility] Comment on above: Result Comment: <0.3 4 UIU/ml HYPERTHYROID 0.34-5.60 UIU/ml EUTHYROID >5.60 UIU/ml HYPOTHYROID Performed By: #### M ALBR #### [facility] [address] [address] [address] Cornell Sharma UA RANDOM W/MICROSCOPICon BACTERIA NONE SEEN Normal NONE SEEN [facility] Comment on above: Performed By: #### U AMIC #### [facility] [address] [address] [address] Cornell Sharma Bilirubin Ql (U) Negative Normal NEGATIVE [facility] Comment on above: Performed By: #### U AMIC #### [facility] [address] [address] [address] Cornell Sharma CAST NONE SEEN Normal NONE SEEN [facility] Comment on above: Performed By: #### U AMIC #### [facility] [address] [address] [address] Cornell Sharma Clarity (U) CLEAR Normal CLEAR [facility] Comment on above: Performed By: #### U AMIC #### [facility] [address] [address] [address] Cornell Sharma Color (U) LT. YELLOW Normal YELLOW [facility] Comment on above: Performed By: #### U AMIC #### [facility] [address] [address] [address] Cornell Sharma Crystals LM Nom (Urine sed) NONE SEEN Normal NONE SEEN [facility] Comment on above: Performed By: #### U AMIC #### [facility] [address] [address] [address] Cornell Sharma Epithelial cells LM Ql (Urine sed) RARE Normal NONE SEEN /RARE [facility] Comment on above: Performed By: #### U AMIC #### [facility] [address] [address] [address] Cornell Sharma Glucose Ql (U) Negative Normal NEGATIVE [facility] Comment on above: Performed By: #### U AMIC #### [facility] [address] [address] [address] Cornell Sharma Hemoglobin Ql (U) Negative Normal NEGATIVE [facility] Comment on above: Performed By: #### U AMIC #### [facility] [address] [address] [address] Cornell Sharma Ketones Ql (U) Negative Normal NEGATIVE [facility] Comment on above: Performed By: #### U AMIC #### [facility] [address] [place] [address] Dr. Cornell Sharma LEUKOCYTES Negative Normal NEGATIVE [facility] [facility] Comment on above: Performed By: #### U AMIC #### [facility] [address] [place] [address] Dr. Cornell Sharma MUCOUS NONE SEEN Normal NONE SEEN [facility] Comment on above: Performed By: #### U AMIC #### [facility] [address] [place] [address] Dr. Cornell Sharma Nitrite Ql (U) Negative Normal NEGATIVE [facility] Comment on above: Performed By: #### U AMIC #### [facility] [address] [place] [address] Dr. Cornell Sharma pH (U) 6.0 [pH] Normal 5-9 [facility] Comment on above: Performed By: #### U AMIC #### [facility] [address] [place] [address] Dr. Cornell Sharma RBC 0-2 Normal 0-2 [facility] Comment on above: Performed By: #### U AMIC #### [facility] [address] [place] [address] Dr. Cornell Sharma SPEC GRAVITY 1.025 Normal 1.005-<=1.025 [facility] Comment on above: Performed By: #### U AMIC #### [facility] [address] [place] [address] Dr. Cornell Sharma UA PROTEIN Negative Normal NEGATIVE/ TRACE [facility] Comment on above: Performed By: #### U AMIC #### [facility] [address] [place] [address] Dr. Cornell Sharma Urobilinogen Qn (U) 0.2 {Ezequiel'U}/dL Normal 0.2 - 1. 0 [facility] Comment on above: Performed By: #### U AMIC #### [facility] [address] [place], [place] [address] Dr. Cornell Sharma WBC NONE SEEN Normal NONE SEEN [facility] Comment on above: Performed By: #### U AMIC #### [facility] [address] [place], [place] [address] Dr. Cornell Sharma Encounters Encounter Date Encounter Type Care Provider Facility Start: 02-25-2024 End: 02-25-2024 ambulatory GENE CRYSTAL Not Available Start: 07-06-2022 End: 07-07-2022 ambulatory GREENKEEPER GENE CLEMENSHOLZ Facility:[facility] Start: 05-06-2022 End: 05-07-2022 ambulatory GREENKEEPER GENE CLEMENSHOLZ Facility:[facility] Start: 03-15-2022 End: 03-16-2022 ambulatory GREENKEEPER GENE CRYSTAL Facility:[facility] Payers Date Payer Category Payer Unknown [id number] 2.16.84 [id number] 1989 Unknown [id number] 2.16.84 [id number] 1989 Unknown [id number] 2.16.84 [id number] 1989 Unknown [id number] 2.16.84 [id number] 1959 Unknown [id number] Summary Purpose Family History No Family History Records FoundNo Family History Records Found Advance Directives No Advanced Directives Records FoundNo Advanced Directives Records Found Additional Source Comments (unrecognized sect ion and content) No Status Records FoundNo Status Records Found INFORMATION SOURCE (unrecogn ized section and content) DATE CREATED AUTHOR [facility]/20/2022 [facility] DATE CREATED AUTHOR AUTHOR'S ORGANIZ ATDEBBIE 02/27/2024 [facility] EPIC FOR RECORDS PERTAINING TO [...] BE BASED ON THE PRIMARY CLINICAL RECORDS. [facility]. provides no warranty or guarantee of the accuracy or completeness of information in this document.
[2024-04-20 16:47] LABS: Alanine Aminotransferase 153 U/L (16-63); Albumin Level 3.8 g/dL (3.4-5.0); Alkaline Phosphatase 67 U/L (46-116); Amylase 29 U/L (25-115); Anion Gap 14.8; Aspartate Amino Transferase 45 U/L (15-37); BUN Creatinine Ratio 16.9; Bilirubin Total 0.4 mg/dL (0.2-1.0); Calcium 8.6 mg/dL (8.5-10.1); Carbon Dioxide 26.5 mmol/L (21.0-32.0); Chloride 100 mmol/L (98-107); Chol HDL Ratio 2.8; Cholesterol 94 mg/dL (<=200); Estimated GFR (African America >60 (>=60); Estimated GFR (Non-African Ame >60 (>=60); Globulin 3.8 g/dL; Glucose 94 mg/dL (74-106); HDL Cholesterol 34 mg/dL (40-60); Potassium 3.3 mmol/L (3.5-5.1); Sodium 138 mmol/L (136-145); Total Protein 7.6 g/dL (6.4-8.2); Triglycerides 90 mg/dL (<=150)
== END 2024-04-20 16:00 | disposition home or self-care (01) ==
PROVIDERS: PCP Nurse Practitioner; Visit Provider Nurse Practitioner
DX: R11.2 Nausea with vomiting, unspecified (principal); D72.829 Elevated white blood cell count, unspecified; E78.2 Mixed hyperlipidemia
CPT/HCPCS: 36415; 80053; 80061; 82150; 83690; 85025

== ENCOUNTER 2024-04-23 10:00 | Outpatient (OUT) | payer OTHER, SELFPAY ==
--- NOTE | 2024-04-23 10:00 | CA_ITS ---
Patient Name: DRAGAN MATSON MR#: [id number] : 1990 Exam Date: 04/23/2024 Ordering Doctor: YENI Talley CNP ECHOCARDIOGRAM REPORT PROCEDURE: CA ECHO DOPPLER COMPLETE INDICATIONS: Chest pain, hypertension, diabetes COMPARISON: None. DESCRIPTION: COMPLETE ECHOCARDIOGRAM Real-time transthoracic echocardiography with 2D, M-mode, spectral and color flow Doppler performed. QUALITY: Technical quality was good. LEFT VENTRICLE: Normal chamber size. Normal left ventricular wall thickness. Normal systolic function. LV EF: Normal left ventricular ejection fraction, (55-60%). DIASTOLIC: Normal diastolic function. ATRIAL SEPTUM: LEFT ATRIUM: Normal chamber size. RIGHT ATRIUM: Normal chamber size. RIGHT VENTRICLE: Normal chamber size. Normal right ventricular systolic function. TRICUSPID VALVE: Normal mobility and thickness. No stenosis with no regurgitation. Unable to assess right-sided pressures due to lack of measurable tricuspid regurgitation. MITRAL VALVE: Normal mobility and thickness. No evidence of mitral valve stenosis. There is no mitral annular calcification. No mitral regurgitation. AORTIC VALVE: Normal trileaflet appearance. No visible sclerosis. Normal leaflet mobility. No evidence of aortic valve stenosis. No aortic regurgitation. AORTIC ROOT: Normal diameter and appearance. Ascending aorta is normal in size. PULMONIC VALVE: Normal thickness and mobility. No stenosis. No regurgitation. PERICARDIUM: No evidence of pericardial effusion. IVC: Collapses with inspirations. IVC is normal in size. PLEURA: CONCLUSION: 1. Normal left ventricular size and systolic function. LVEF is 55 to 60%. 2. Normal right ventricular size and systolic function. 3. Normal diastolic function. 4. No significant valvular dysfunction. 5. Unable to assess right-sided pressures due to lack of measurable tricuspid regurgitation. 6. No pericardial effusion. Adult Echocardiography Procedure Report Left Ventricle LVEDD (3.7 - 5.6 cm): 4.64 cm LVESD (2.2 - 4.0 cm): 2.94 cm LVIVS thickness (0.6 - 1.2 cm): 0.98 cm LVPW thickness (0.5 - 1.0 cm): 0.92 cm e': 0.10 m/s E - e': 7.20 LVOT Max Gradient: 3.24 mm[Hg] LVOT Area (cm2): 0.90 m/s Peak Velocity (LVOT): 0.90 m/s Mean Velocity (LVOT): 0.54 m/s LVOT Diameter 2.69 cm Left Atrium LA Volume Index (2D A2C): 18.50 ml/m2 Left Atrium Systolic Dimension: 3.47 cm Mitral Valve MV E to A Ratio: 1.33 Mitral Valve A-Wave Peak Velocity: 0.53 m/s Mitral Valve E-Wave Peak Velocity: 0.71 m/s Right Ventricle Aorta AO Root Diam: 3.78 cm Ascending Ao Diam: 2.64 cm Aortic Valve AoV Area (Peak Ag): 5.48 cm2, 5.48 cm2 AoV Area (VTI): 5.08 cm2, 5.08 cm2 Peak Velocity(Antegrade Flow): 0.93 m/s Peak Gradient(Antegrade Flow): 3.46 mm[Hg] Mean Velocity(Antegrade Flow): 0.65 m/s Mean Gradient(Antegrade Flow): 1.88 mm[Hg] Velocity Time Integral: 19.62 cm Tricuspid Valve Pulmonic Valve Mean Gradient: 3.04 mm[Hg] Mean Velocity: 0.82 m/s Peak Velocity: 1.19 m/s, 1.17 m/s Peak Gradient: 5.51 mm[Hg], 5.68 mm[Hg] Right Atrium Right Atrium Systolic Pressure: 52.76 ml, 52.76 ml Dictated by: Barry Beckham M.D. on 04/23/2024 at 20:20 Approved by: Barry Beckham M.D. on 04/23/2024 at 20:22
--- OUTSIDE RECORDS SUMMARY | 2024-04-23 10:06 | XMS_ITS ---
Patient Summarization (C-CDA 2.1 CCD) Created on: April 23, 2024 DRAGAN MATSON : 1990 Sex: Male Author Organization Sample organization Care Team Providers Care Visiting Teacher Name Role Phone AICHHOLZ, PERINATAL SPECIALIST GENE Consulting Unavailable AICHHOLZ, PERINATAL SPECIALIST GENE Primary Care Unavailable AICHHOLZ, PERINATAL SPECIALIST GENE Admitting Unavailable AICHHOLZ, PERINATAL SPECIALIST GENE Attending Unavailable AICHHOLZ, PERINATAL SPECIALIST GENE Consulting Unavailable AICHHOLZ, PERINATAL SPECIALIST GENE Admitting Unavailable JERRELL ARZATE Primary Care Unavailable AICHHOLZ, PERINATAL SPECIALIST GENE Referring Unavailable AICHHOLZ, PERINATAL SPECIALIST GENE Attending Unavailable AICHHOLZ, PERINATAL SPECIALIST GENE Consulting Unavailable AICHHOLZ, PERINATAL SPECIALIST GENE Primary Care Unavailable AICHHOLZ, PERINATAL SPECIALIST GENE Admitting Unavailable AICHHOLZ, PERINATAL SPECIALIST GENE Attending Unavailable AICHHOLZ, GENE Attending Unavailable AICHHOLZ, GENE Attending Unavailable Allergies Allergy Classification Reported Allergen(s) Allergy Type Date of Onset Reaction(s) Facility (1 source) Penicillin Drug Allergy 03-15-2013 [facility] Encounters Encounter Date Encounter Type Care Provider Facility Start: 04-20-2024 End: 04-20-2024 ambulatory GENE AICHHOLZ Not Available Start: 02-25-2024 End: 02-25-2024 ambulatory GENE AICHHOLZ Not Available Start: 07-06-2022 End: 07-07-2022 ambulatory PERINATAL SPECIALIST GENE AICHHOLZ Facility:[facility] Start: 05-06-2022 End: 05-07-2022 ambulatory PERINATAL SPECIALIST GENE AICHHOLZ Facility:[facility] Start: 03-15-2022 End: 03-16-2022 ambulatory PERINATAL SPECIALIST GENE AICHHOLZ Facility:[facility] Payers Date Payer Category Payer Unknown [id number] 2.16.84 [id number] 1990 Unknown [id number] 2.16.84 [id number] 1990 Unknown [id number] 2.16.84 [id number] 1989 Unknown [id number] 2.16.84 [id number] 1989 Unknown [id number] 2.16.84 [id number] 1959 Unknown [id number] Problems Active Problems Problem Classification Problem Date [...] 07-06-2022 Glucose [Mass/Vol] 105 mg/dL Normal 74-106 [facility] [place] [facility] Comment on above: Performed By: #### A ST, GLUC, ALT, LIPID #### [facility] [address] [place], [place] [address] Dr. Cornell Sharma GLYCOHEMOGLOBIN A1Con 2021 ADA RECOMMENDATION SEE BELOW Normal [facility] [place] [facility] Comment on above: Result Comment: ADA RECOMMENDED LIMIT 4.0 - 6.0 ADA THERAPEUTIC TARGET < 7.0 ACTION SUGGESTED > 7.0 Performed By: #### A 1C #### [facility] [address] [place] [address] [address] Cornell Sharma Glucose [Mass/Vol] 114 mg/dL Normal [facility] Comment on above: Performed By: #### A 1C #### [facility] [address] [address] [address] Cornell Sharma HbA1c (Bld) [Mass fraction] 5.6 % Normal 4.5-6.2 [facility] Comment on above: Performed By: #### A 1C #### [facility] [address] [address] [address] Cornell Sharma LIPID PROFILEon 07-06-2022 CHOL-HDL RATIO NORM SEE BELOW Normal [facility] Comment on above: Result Comment: 3.3 - 4.4 LOW RISK 4.4 - 7.1 AVERAGE RISK 7.1 - 11.0 MODERATE RISK >11.0 HIGH RISK Performed By: #### A ST, GLUC, ALT, LIPID #### [facility] [address] [address] [address] Cornell Sharma Cholesterol [Mass/Vol] 197 mg/dL Normal <=200 [facility] Comment on above: Performed By: #### A ST, GLUC, ALT, LIPID #### [facility] [address] [address] [address] Cornell Sharma Cholesterol in HDL [Mass/Vol] 53 mg/dL Normal 40-60 [facility] Comment on above: Performed By: #### A ST, GLUC, ALT, LIPID #### [facility] [address] [address] [address] Cornell Sharma Cholesterol in LDL [Mass/Vol] 118.2 mg/dL Normal [facility] Comment on above: Performed By: #### A ST, GLUC, ALT, LIPID #### [facility] [address] [address] [address] Cornell Sharma Cholesterol.total/Cho lesterol in HDL [Mass ratio] 3.7 {ratio} Normal [facility] Comment on above: Performed By: #### A ST, GLUC, ALT, LIPID #### [facility] [address] [address] [address] Cornell Sharma HDL NORMAL > or = 60 mg/dl - LOW CARDIOVASCULAR RISK <40 mg/dl - HIGH CARDIOVASCULAR RISK Normal [facility] Comment on above: Performed By: #### A ST, GLUC, ALT, LIPID #### [facility] [address] [address] [address] Cornell Sharma LDL CALC NORMAL SEE BELOW Normal [facility] Comment on above: Result Comment: <100 mg/dl OPTIMAL 100 - 129 mg/dl NEAR OR ABOVE OPTIMAL 130 - 159 mg/dl BORDERLINE HIGH 160 - 189 mg/dl HIGH >190 mg/dl VERY HIGH Performed By: #### A ST, GLUC, ALT, LIPID #### [facility] [address] [address] [address] Cornell Sharma Triglyceride [Mass/Vol] 129 mg/dL Normal <=150 [facility] Comment on above: Performed By: #### A ST, GLUC, ALT, LIPID #### [facility] [address] [address] [address] Cornell Sharma VLDL CALC 25.8 mg/dL Normal [facility] Comment on above: Performed By: #### A ST, GLUC, ALT, LIPID #### [facility] [address] [address] [address] Cornell Anaya 07-06-2022 AST [Catalytic activity/Vol] 15 U/L Normal 15-37 [facility] Comment on above: Performed By: #### A ST, GLUC, ALT, LIPID #### [facility] [address] [address] [address] Cornell Whitney 07-06-2022 ALT [Catalytic activity/Vol] 50 U/L Normal 16-63 [facility] Comment on above: Performed By: #### A ST, GLUC, ALT, LIPID #### [facility] [address] [address] [address] Cornell Sharma LIPID PROFILEon 05-06-2022 CHOL-HDL RATIO NORM SEE BELOW Normal [facility] Comment on above: Result Comment: 3.3 - 4.4 LOW RISK 4.4 - 7.1 AVERAGE RISK 7.1 - 11.0 MODERATE RISK >11.0 HIGH RISK Performed By: #### L IPID, LIVER #### [facility] [address] [address] [address] Cornell Sharma Cholesterol [Mass/Vol] 181 mg/dL Normal <=200 [facility] Comment on above: Performed By: #### L IPID, LIVER #### [facility] [address] [address] [address] Cornell Sharma Cholesterol in HDL [Mass/Vol] 39 mg/dL Critically low 40-60 [facility] Comment on above: Performed By: #### L IPID, LIVER #### [facility] [address] [address] [address] Cornell Sharma Cholesterol in LDL [Mass/Vol] 81.6 mg/dL Normal [facility] Comment on above: Performed By: #### L IPID, LIVER #### [facility] [address] [address] [address] Cornell Sharma Cholesterol.total/Cho lesterol in HDL [Mass ratio] 4.6 {ratio} Normal [facility] Comment on above: Performed By: #### L IPID, LIVER #### [facility] [address] [address] [address] Cornell Sharma HDL NORMAL > or = 60 mg/dl - LOW CARDIOVASCULAR RISK <40 mg/dl - HIGH CARDIOVASCULAR RISK Normal [facility] Comment on above: Performed By: #### L IPID, LIVER #### [facility] [address] [address] [address] Cornell Sharma LDL CALC NORMAL SEE BELOW Normal [facility] Comment on above: Result Comment: <100 mg/dl OPTIMAL 100 - 129 mg/dl NEAR OR ABOVE OPTIMAL 130 - 159 mg/dl BORDERLINE HIGH 160 - 189 mg/dl HIGH >190 mg/dl VERY HIGH Performed By: #### L IPID, LIVER #### [facility] [address] [address] [address] Cornell Sharma Triglyceride [Mass/Vol] 302 mg/dL Critically high <=150 [facility] Comment on above: Performed By: #### L IPID, LIVER #### [facility] [address] [address] [address] Cornell Sharma VLDL CALC 60.4 mg/dL Normal [facility] Comment on above: Performed By: #### L IPID, LIVER #### [facility] [address] [place] [address] Dr. Cornell Sharma LIVER PROFILEon 05-06-2022 Albumin [Mass/Vol] 3.6 g/dL Normal 3.4-5.0 [facility] [place] [facility] Comment on above: Performed By: #### L IPID, LIVER #### [facility] [address] [place] [address] Dr. Cornell Sharma Albumin/Globulin [Mass ratio] 0.9 {ratio} Normal [facility] Comment on above: Performed By: #### L IPID, LIVER #### [facility] [address] [place] [address] Dr. Cornell Sharma ALP [Catalytic activity/Vol] 56 U/L Normal 46-116 [facility] Comment on above: Performed By: #### L IPID, LIVER #### [facility] [address] [place] [address] Dr. Cornell Sharma ALT [Catalytic activity/Vol] 46 U/L Normal 16-63 [facility] Comment on above: Performed By: #### L IPID, LIVER #### [facility] [address] [place] [address] Dr. Cornell Sharma AST [Catalytic activity/Vol] 17 U/L Normal 15-37 [facility] Comment on above: Performed By: #### L IPID, LIVER #### [facility] [address] [place] [address] Dr. Cornell Sharma BILI, CONJUGATED 0.1 mg/dL Normal 0.0-0.2 [facility] Comment on above: Performed By: #### L IPID, LIVER #### [facility] [address] [place] [address] Dr. Cornell Sharma Bilirubin [Mass/Vol] 0.3 mg/dL Normal 0.2-1.0 [facility] Comment on above: Performed By: #### L IPID, LIVER #### [facility] [address] [place] [address] Dr. Cornell Sharma Globulin (S) [Mass/Vol] 3.9 g/dL Normal [facility] Comment on above: Performed By: #### L IPID, LIVER #### [facility] [address] [place] [address] Dr. Cornell Sharma Protein [Mass/Vol] 7.5 g/dL Normal 6.4-8.2 [facility] Comment on above: Performed By: #### L IPID, LIVER #### [facility] [address] [place] [address] Dr. Cornell Sharma CBC AUTO DIFFon 03-15-2022 BASO # 0.0 103/ul Normal 0.0-0.1 [facility] Comment on above: Performed By: #### C BC #### [facility] [address] [place] [address] Dr. Cornell Sharma Basophils/100 WBC (Bld) 0.5 % Normal 0.2-2.0 [facility] Comment on above: Performed By: #### C BC #### [facility] [address] [place] [address] Dr. Cornell Sharma EO # 0.1 103/ul Normal 0.0-0.7 [facility] Comment on above: Performed By: #### C BC #### [facility] [address] [place] [address] Dr. Cornell Sharma Eosinophils/100 WBC (Bld) 1.1 % Normal 0.9-7.0 [facility] Comment on above: Performed By: #### C BC #### [facility] [address] [place] [address] Dr. Cornell Sharma Erythrocyte distribution width (RBC) [Ratio] 13.2 % Normal 11.0-15.0 [facility] Comment on above: Performed By: #### C BC #### [facility] [address] [place] [address] Dr. Cornell Sharma Hematocrit (Bld) [Volume fraction] 44.7 % Normal 42.0-54.0 [facility] Comment on above: Performed By: #### C BC #### [facility] [address] [place] [address] Dr. Cornell Sharma Hemoglobin (Bld) [Mass/Vol] 14.4 g/dL Normal 14.0-18.0 [facility] Comment on above: Performed By: #### C BC #### [facility] [address] [place] [address] Dr. Cornell Sharma IG # 0.02 10e3/ul Normal 0.00-0.03 [facility] Comment on above: Performed By: #### C BC #### [facility] [address] [place] [address] Dr. Cornell Sharma IG % 0.3 % Normal 0.0-0.5 [facility] Comment on above: Performed By: #### C BC #### [facility] [address] [place] [address] Dr. Cornell Sharma LYMPH # 2.2 103/ul Normal 1.2-3.8 [facility] Comment on above: Performed By: #### C BC #### [facility] [address] [place] [address] Dr. Cornell Sharma Lymphocytes/100 WBC (Bld) 28.8 % Normal 20.5-60.0 [facility] Comment on above: Performed By: #### C BC #### [facility] [address] [place] [address] Dr. Cornell Sharma MANUAL DIFF REQ NO Normal [facility] Comment on above: Performed By: #### C BC #### [facility] [address] [place] [address] Dr. Cornell Sharma MCH (RBC) [Entitic mass] 29.4 pg Normal 25.9-34.0 [facility] Comment on above: Performed By: #### C BC #### [facility] [address] [place] [address] Dr. Cornell Sharma MCHC (RBC) [Mass/Vol] 32.2 g/dL Normal 29.9-35.2 [facility] Comment on above: Performed By: #### C BC #### [facility] [address] [place] [address] Dr. Cornell Sharma MCV (RBC) [Entitic vol] 91.2 fL Normal 80.0-94.0 [facility] Comment on above: Performed By: #### C BC #### [facility] [address] [place] [address] Dr. Cornell Sharma MONO # 0.7 103/ul Normal 0.3-0.8 [facility] Comment on above: Performed By: #### C BC #### [facility] [address] [place] [address] Dr. Cornell Sharma Monocytes/100 WBC (Bld) 9.1 % Normal 1.7-12.0 [facility] Comment on above: Performed By: #### C BC #### [facility] [address] [place] [address] Dr. Cornell Sharma NEUT # 4.6 103/ul Normal 1.4-6.5 [facility] Comment on above: Performed By: #### C BC #### [facility] [address] [place] [address] Dr. Cornell Sharma Neutrophils/100 WBC (Bld) 60.2 % Normal 43.0-75.0 [facility] Comment on above: Performed By: #### C BC #### [facility] [address] [place] [address] Dr. Cornell Sharma Platelet mean volume (Bld) [Entitic vol] 9.9 fL Normal 9.5-13.5 [facility] Comment on above: Performed By: #### C BC #### [facility] [address] [place] [address] Dr. Cornell Sharma PLT 294 103/ul Normal 150-450 [facility] Comment on above: Performed By: #### C BC #### [facility] [address] [place] [address] Dr. Cornell Sharma RBC 4.90 106/ul Normal 4.70-6.10 [facility] Comment on above: Performed By: #### C BC #### [facility] [address] [place] [address] Dr. Cornell Sharma WBC 7.6 103/ul Normal 4.0-11.0 [facility] Comment on above: Performed By: #### C BC #### [facility] [address] [address] [address] Cornell Sharma FREE T4on 03-15-2022 Free T4 [Mass/Vol] 0.83 ng/dL Normal 0.76-1.46 [facility] Comment on above: Performed By: #### M ALBR #### [facility] [address] [place] [address] Dr. Cornell Sharma GLYCOHEMOGLOBIN A1Con 2021 ADA RECOMMENDATION SEE BELOW Normal [facility] Comment on above: Result Comment: ADA RECOMMENDED LIMIT 4.0 - 6.0 ADA THERAPEUTIC TARGET < 7.0 ACTION SUGGESTED > 7.0 Performed By: #### M ALBR #### [facility] [address] [place] [address] Dr. Cornell Sharma Glucose [Mass/Vol] 120 mg/dL Critically high 74-106 [facility] Comment on above: Performed By: #### M ALBR #### [facility] [address] [place] [address] Dr. Cornell Sharma HbA1c (Bld) [Mass fraction] 5.8 % Normal 4.5-6.2 [facility] Comment on above: Performed By: #### M ALBR #### [facility] [address] [place] [address] Dr. Cornell Sharma LIPID PROFILEon 03-15-2022 CHOL-HDL RATIO NORM SEE BELOW Normal [facility] Comment on above: Result Comment: 3.3 - 4.4 LOW RISK 4.4 - 7.1 AVERAGE RISK 7.1 - 11.0 MODERATE RISK >11.0 HIGH RISK Performed By: #### M ALBR #### [facility] [address] [place] [address] Dr. Cornell Sharma Cholesterol [Mass/Vol] 228 mg/dL Critically high <=200 [facility] Comment on above: Performed By: #### M ALBR #### [facility] [address] [place] [address] Dr. Cornell Sharma Cholesterol in HDL [Mass/Vol] 39 mg/dL Critically low 40-60 [facility] Comment on above: Performed By: #### M ALBR #### [facility] [address] [place] [address] Dr. Cornell Sharma Cholesterol in LDL [Mass/Vol] 143.6 mg/dL Normal [facility] Comment on above: Performed By: #### M ALBR #### [facility] [address] [place] [address] Dr. Cornell Sharma Cholesterol.total/Cho lesterol in HDL [Mass ratio] 5.8 {ratio} Normal [facility] Comment on above: Performed By: #### M ALBR #### [facility] [address] [place] [address] Dr. Cornell Sharma HDL NORMAL > or = 60 mg/dl - LOW CARDIOVASCULAR RISK <40 mg/dl - HIGH CARDIOVASCULAR RISK Normal [facility] Comment on above: Performed By: #### M ALBR #### [facility] [address] [place] [address] Dr. Cornell Sharma LDL CALC NORMAL SEE BELOW Normal [facility] Comment on above: Result Comment: <100 mg/dl OPTIMAL 100 - 129 mg/dl NEAR OR ABOVE OPTIMAL 130 - 159 mg/dl BORDERLINE HIGH 160 - 189 mg/dl HIGH >190 mg/dl VERY HIGH Performed By: #### M ALBR #### [facility] [address] [place] [address] Dr. Cornell Sharma Triglyceride [Mass/Vol] 227 mg/dL Critically high <=150 [facility] Comment on above: Performed By: #### M ALBR #### [facility] [address] [place] [address] Dr. Cornell Sharma VLDL CALC 45.4 mg/dL Normal [facility] Comment on above: Performed By: #### M ALBR #### [facility] [address] [place] [address] Dr. Cornell Sharma MICROALBUMIN, RAND URon 05-2 mALB <1.3 Normal <=30.0 [facility] Comment on above: Performed By: #### M ALBR #### [facility] [address] [place] [address] Dr. Cornell Sharma PROF 14(COMP METB)on 022 Albumin [Mass/Vol] 2.5 g/dL Critically low 3.4-5.[address] [facility] Comment on above: Performed By: #### M ALBR #### [facility] [address] [place] [address] Dr. Cornell Sharma Albumin/Globulin [Mass ratio] 0.5 {ratio} Normal [facility] Comment on above: Performed By: #### M ALBR #### [facility] [address] [place] [address] Dr. Cornell Sharma ALP [Catalytic activity/Vol] 57 U/L Normal 46-116 [facility] Comment on above: Performed By: #### M ALBR #### [facility] [address] [place] [address] Dr. Cornell Sahrma ALT [Catalytic activity/Vol] 55 U/L Normal 16-63 [facility] Comment on above: Performed By: #### M ALBR #### [facility] [address] [place] [address] Dr. Cornell Sharma Anion gap [Moles/Vol] 12.5 mmol/L Normal [facility] Comment on above: Performed By: #### M ALBR #### [facility] [address] [place] [address] Dr. Cornell Sharma AST [Catalytic activity/Vol] 14 U/L Critically low 15-37 [facility] Comment on above: Performed By: #### M ALBR #### [facility] [address] [place] [address] Dr. Cornell Sharma Bilirubin [Mass/Vol] 0.2 mg/dL Normal 0.2-1.0 [facility] Comment on above: Performed By: #### M ALBR #### [facility] [address] [place] [address] Dr. Cornell Sharma Calcium [Mass/Vol] 9.4 mg/dL Normal 8.5-10.1 [facility] Comment on above: Performed By: #### M ALBR #### [facility] [address] [address] [address] Cornell Sharma Chloride [Moles/Vol] 103 mmol/L Normal 98-107 [facility] Comment on above: Performed By: #### M ALBR #### [facility] [address] [address] [address] Cornell Sharma CO2 [Moles/Vol] 27.9 mmol/L Normal 21.0-32.0 [facility] Comment on above: Performed By: #### M ALBR #### [facility] [address] [address] [address] Cornell Sharma Creatinine [Mass/Vol] 0.74 mg/dL Normal 0.70-1.30 [facility] Comment on above: Performed By: #### M ALBR #### [facility] [address] [place] [address] Dr. Cornell Sharma EGFR-AF TUVALUAN >60 Normal >=60 [facility] Comment on above: Performed By: #### M ALBR #### [facility] [address] [place] [address] Dr. Cornell Sharma EGFR-NON AF TUVALUAN >60 Normal >=60 [facility] Comment on above: Performed By: #### M ALBR #### [facility] [address] [place] [address] Dr. Cornell Sharma Globulin (S) [Mass/Vol] 5.0 g/dL Normal [facility] Comment on above: Performed By: #### M ALBR #### [facility] [address] [address] [address] Cornell Sharma Potassium [Moles/Vol] 4.4 mmol/L Normal 3.5-5.1 [facility] Comment on above: Performed By: #### M ALBR #### [facility] [address] [place] [address] Dr. Cornell Sharma Protein [Mass/Vol] 7.5 g/dL Normal 6.4-8.2 [facility] Comment on above: Performed By: #### M ALBR #### [facility] [address] [address] [address] Cornell Sharma Sodium [Moles/Vol] 139 mmol/L Normal 136-145 [facility] Comment on above: Performed By: #### M ALBR #### [facility] [address] [address] [address] Cornell Sharma Urea nitrogen [Mass/Vol] 16.0 mg/dL Normal 7.0-18.0 [facility] Comment on above: Performed By: #### M ALBR #### [facility] [address] [place] [address] Dr. Cornell Sharma Urea nitrogen/Creatinine [Mass ratio] 21.6 mg/mg Normal [facility] Comment on above: Performed By: #### M ALBR #### [facility] [address] [place] [address] Dr. Cornell Sharma TSHon 03-15-2022 TSH 0.941 uIU/mL Normal 0.358-3.740 [facility] Comment on above: Performed By: #### M ALBR #### [facility] [address] [place] [address] Dr. Cornell Sharma TSH RANGE SEE BELOW Normal [facility] Comment on above: Result Comment: <0.3 4 UIU/ml HYPERTHYROID 0.34-5.60 UIU/ml EUTHYROID >5.60 UIU/ml HYPOTHYROID Performed By: #### M ALBR #### [facility] [address] [place] [address] Dr. Cronell Sharma UA RANDOM W/MICROSCOPICon BACTERIA NONE SEEN Normal NONE SEEN [facility] Comment on above: Performed By: #### U AMIC #### [facility] [address] [place] [address] Dr. Cornell Sharma Bilirubin Ql (U) Negative Normal NEGATIVE [facility] Comment on above: Performed By: #### U AMIC #### [facility] Laboratory [address] [place] [address] Dr. Cornell Sharma CAST NONE SEEN Normal NONE SEEN [facility] Comment on above: Performed By: #### U AMIC #### [facility] [address] [address] [address] Cornell Sharma Clarity (U) CLEAR Normal CLEAR [facility] Comment on above: Performed By: #### U AMIC #### [facility] [address] [address] [address] Cornell Sharma Color (U) LT. YELLOW Normal YELLOW [facility] Comment on above: Performed By: #### U AMIC #### [facility] [address] [address] [address] Cornell Sharma Crystals LM Nom (Urine sed) NONE SEEN Normal NONE SEEN [facility] Comment on above: Performed By: #### U AMIC #### [facility] [address] [place] [address] Dr. Cornell Sharma Epithelial cells LM Ql (Urine sed) RARE Normal NONE SEEN /RARE [facility] Comment on above: Performed By: #### U AMIC #### [facility] [address] [place] [address] Dr. Cornell Sharma Glucose Ql (U) Negative Normal NEGATIVE [facility] Comment on above: Performed By: #### U AMIC #### [facility] [address] [place] [address] Dr. Cornell Sharma Hemoglobin Ql (U) Negative Normal NEGATIVE [facility] Comment on above: Performed By: #### U AMIC #### [facility] [address] [place] [address] Dr. Cornell Sharma Ketones Ql (U) Negative Normal NEGATIVE [facility] Comment on above: Performed By: #### U AMIC #### [facility] [address] [place] [address] Dr. Cornell Sharma LEUKOCYTES Negative Normal NEGATIVE [facility] Comment on above: Performed By: #### U AMIC #### [facility] [address] [place] [address] Dr. Cornell Sharma MUCOUS NONE SEEN Normal NONE SEEN [facility] Comment on above: Performed By: #### U AMIC #### [facility] [address] [address] [address] Cornell Sharma Nitrite Ql (U) Negative Normal NEGATIVE [facility] Comment on above: Performed By: #### U AMIC #### [facility] [address] [address] [address] Cornell Sharma pH (U) 6.0 [pH] Normal 5-9 [facility] Comment on above: Performed By: #### U AMIC #### [facility] [address] [place] [address] Dr. Cornell Sharma RBC 0-2 Normal 0-2 [facility] Comment on above: Performed By: #### U AMIC #### [facility] [address] [address] [address] Cornell Sharma SPEC GRAVITY 1.025 Normal 1.005-<=1.025 [facility] Comment on above: Performed By: #### U AMIC #### [facility] [address] [place] [address] Dr. Cornell Sharma UA PROTEIN Negative Normal NEGATIVE/ TRACE [facility] Comment on above: Performed By: #### U AMIC #### [facility] [address] [place] [address] Dr. Cornell Sharma Urobilinogen Qn (U) 0.2 {Ezequiel'U}/dL Normal 0.2 - 1. 0 [facility] Comment on above: Performed By: #### U AMIC #### [facility] [address] [place] [address] Dr. Cornell Sharma WBC NONE SEEN Normal NONE SEEN [facility] Comment on above: Performed By: #### U AMIC #### [facility] [address] [place] [address] Dr. Cornell Sharma Summary Purpose Family History No Family History Records FoundNo Family History Records Found Advance Directives No Advanced Directives Records FoundNo Advanced Directives Records Found Additional Source Comments (unrecognized sect ion and content) No Status Records FoundNo Status Records Found INFORMATION SOURCE (unrecogn ized section and content) DATE CREATED AUTHOR 07/20/2022 [facility] DATE CREATED AUTHOR AUTHOR'S ORGANIZ ATION 04/22/2024 [facility] EPIC FOR RECORDS PERTAINING [...] BE BASED ON THE PRIMARY CLINICAL RECORDS. [facility] provides no warranty or guarantee of the accuracy or completeness of information in this document.
--- OUTSIDE RECORDS SUMMARY | 2024-04-23 10:11 | XMS_ITS | CCD ---
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 SUPPORT ENGINEER [facility] Care Team Providers Care Grab Jack Man Name Role Phone AICHHOLZ, TRAVEL ATTENDANTS GENE Consulting Unavailable AICHHOLZ, TRAVEL ATTENDANTS GENE Primary Care Unavailable AICHHOLZ, TRAVEL ATTENDANTS GENE Admitting Unavailable AICHHOLZ, TRAVEL ATTENDANTS GENE Attending Unavailable AICHHOLZ, TRAVEL ATTENDANTS GENE Consulting Unavailable AICHHOLZ, TRAVEL ATTENDANTS GENE Admitting Unavailable JERRELL ARZATE Primary Care Unavailable AICHHOLZ, TRAVEL ATTENDANTS GENE Referring Unavailable AICHHOLZ, TRAVEL ATTENDANTS GENE Attending Unavailable AICHHOLZ, TRAVEL ATTENDANTS GENE Consulting Unavailable AICHHOLZ, TRAVEL ATTENDANTS GENE Primary Care Unavailable AICHHOLZ, TRAVEL ATTENDANTS GENE Admitting Unavailable AICHHOLZ, TRAVEL ATTENDANTS GENE Attending Unavailable AICHHOLZ, GENE Attending Unavailable AICHHOLZ, GENE Attending Unavailable Allergies Allergy Classification Reported Allergen(s) Allergy Type Date of Onset Reaction(s) Facility (1 source) Penicillin Drug Allergy 03-15-2013 [facility] Repository Problems Active Problems Problem [...] 07-06-2022 Glucose [Mass/Vol] 105 mg/dL Normal 74-106 [facility] Comment on above: Performed By: #### A ST, GLUC, ALT, LIPID #### [facility] [address] [address] [address] Cornell Sharma GLYCOHEMOGLOBIN A1Con 2021 ADA RECOMMENDATION SEE BELOW Normal [facility] Comment on above: Result Comment: ADA RECOMMENDED LIMIT 4.0 - 6.0 ADA THERAPEUTIC TARGET < 7.0 ACTION SUGGESTED > 7.0 Performed By: #### A 1C #### [facility] [address] [address] [address] Cornell Sharma Glucose [Mass/Vol] 114 mg/dL Normal [facility] Comment on above: Performed By: #### A 1C #### [facility] [address] [address] [address] Cornell Sharma HbA1c (Bld) [Mass fraction] 5.6 % Normal 4.5-6.2 [facility] Comment on above: Performed By: #### A 1C #### [facility] [address] [address] [address] Cornell Sharma LIPID PROFILEon 07-06-2022 CHOL-HDL RATIO NORM SEE BELOW Normal [facility] Comment on above: Result Comment: 3.3 - 4.4 LOW RISK 4.4 - 7.1 AVERAGE RISK 7.1 - 11.0 MODERATE RISK >11.0 HIGH RISK Performed By: #### A ST, GLUC, ALT, LIPID #### [facility] [address] [address] [address] Cornell Sharma Cholesterol [Mass/Vol] 197 mg/dL Normal <=200 [facility] Comment on above: Performed By: #### A ST, GLUC, ALT, LIPID #### [facility] [address] [address] [address] Cornell Sharma Cholesterol in HDL [Mass/Vol] 53 mg/dL Normal 40-60 [facility] Comment on above: Performed By: #### A ST, GLUC, ALT, LIPID #### [facility] [address] [address] [address] Cornell Sharma Cholesterol in LDL [Mass/Vol] 118.2 mg/dL Normal [facility] Comment on above: Performed By: #### A ST, GLUC, ALT, LIPID #### [facility] [address] [address] [address] Cornell Sharma Cholesterol.total/Cho lesterol in HDL [Mass ratio] 3.7 {ratio} Normal [facility] Comment on above: Performed By: #### A ST, GLUC, ALT, LIPID #### [facility] [address] [address] [address] Cornell Sharma HDL NORMAL > or = 60 mg/dl - LOW CARDIOVASCULAR RISK <40 mg/dl - HIGH CARDIOVASCULAR RISK Normal [facility] Comment on above: Performed By: #### A ST, GLUC, ALT, LIPID #### [facility] [address] [address] [address] Cornell Sharma LDL CALC NORMAL SEE BELOW Normal [facility] Comment on above: Result Comment: <100 mg/dl OPTIMAL 100 - 129 mg/dl NEAR OR ABOVE OPTIMAL 130 - 159 mg/dl BORDERLINE HIGH 160 - 189 mg/dl HIGH >190 mg/dl VERY HIGH Performed By: #### A ST, GLUC, ALT, LIPID #### [facility] [address] [address] [address] Cornell Sharma Triglyceride [Mass/Vol] 129 mg/dL Normal <=150 [facility] Comment on above: Performed By: #### A ST, GLUC, ALT, LIPID #### [facility] [address] [address] [address] Cornell Sharma VLDL CALC 25.8 mg/dL Normal [facility] Comment on above: Performed By: #### A ST, GLUC, ALT, LIPID #### [facility] [address] [address] [address] Cornell Sharma SGGuy 07-06-2022 AST [Catalytic activity/Vol] 15 U/L Normal 15-37 [facility] Comment on above: Performed By: #### A ST, GLUC, ALT, LIPID #### [facility] [address] [address] [address] Cornell Sharma SGPTon 07-06-2022 ALT [Catalytic activity/Vol] 50 U/L Normal 16-63 [facility] Comment on above: Performed By: #### A ST, GLUC, ALT, LIPID #### [facility] [address] [address] [address] Cornell Sharma LIPID PROFILEon 05-06-2022 CHOL-HDL RATIO NORM SEE BELOW Normal [facility] Comment on above: Result Comment: 3.3 - 4.4 LOW RISK 4.4 - 7.1 AVERAGE RISK 7.1 - 11.0 MODERATE RISK >11.0 HIGH RISK Performed By: #### L IPID, LIVER #### [facility] [address] [place] [address] Dr. Cornell Sharma Cholesterol [Mass/Vol] 181 mg/dL Normal <=200 [facility] Comment on above: Performed By: #### L IPID, LIVER #### [facility] [address] [address] [address] Cornell Sharma Cholesterol in HDL [Mass/Vol] 39 mg/dL Critically low 40-60 [facility] Comment on above: Performed By: #### L IPID, LIVER #### [facility] [address] [address] [address] Cornell Sharma Cholesterol in LDL [Mass/Vol] 81.6 mg/dL Normal [facility] Comment on above: Performed By: #### L IPID, LIVER #### [facility] [address] [address] [address] Cornell Sharma Cholesterol.total/Cho lesterol in HDL [Mass ratio] 4.6 {ratio} Normal [facility] Comment on above: Performed By: #### L IPID, LIVER #### [facility] [address] [address] [address] Cornell Sharma HDL NORMAL > or = 60 mg/dl - LOW CARDIOVASCULAR RISK <40 mg/dl - HIGH CARDIOVASCULAR RISK Normal [facility] Comment on above: Performed By: #### L IPID, LIVER #### [facility] [address] [place] [address] Dr. Cornell Sharma LDL CALC NORMAL SEE BELOW Normal [facility] Comment on above: Result Comment: <100 mg/dl OPTIMAL 100 - 129 mg/dl NEAR OR ABOVE OPTIMAL 130 - 159 mg/dl BORDERLINE HIGH 160 - 189 mg/dl HIGH >190 mg/dl VERY HIGH Performed By: #### L IPID, LIVER #### [facility] [address] [address] [address] Cornell Sharma Triglyceride [Mass/Vol] 302 mg/dL Critically high <=150 [facility] Comment on above: Performed By: #### L IPID, LIVER #### [facility] [address] [place] [address] Dr. Cornell Sharma VLDL CALC 60.4 mg/dL Normal [facility] Comment on above: Performed By: #### L IPID, LIVER #### [facility] [address] [place] [address] Dr. Cornell Sharma LIVER PROFILEon 05-06-2022 Albumin [Mass/Vol] 3.6 g/dL Normal 3.4-5.0 [facility] Comment on above: Performed By: #### L IPID, LIVER #### [facility] [address] [place] [address] Dr. Cornell Sharma Albumin/Globulin [Mass ratio] 0.9 {ratio} Normal [facility] Comment on above: Performed By: #### L IPID, LIVER #### [facility] [address] [place] [address] Dr. Cornell Sharma ALP [Catalytic activity/Vol] 56 U/L Normal 46-116 [facility] Comment on above: Performed By: #### L IPID, LIVER #### [facility] [address] [place] [address] Dr. Cornell Sharma ALT [Catalytic activity/Vol] 46 U/L Normal 16-63 [facility] Comment on above: Performed By: #### L IPID, LIVER #### [facility] [address] [place] [address] Dr. Cornell Sharma AST [Catalytic activity/Vol] 17 U/L Normal 15-37 [facility] Comment on above: Performed By: #### L IPID, LIVER #### [facility] [address] [place] [address] Dr. Cornell Sharma BILI, CONJUGATED 0.1 mg/dL Normal 0.0-0.2 [facility] Comment on above: Performed By: #### L IPID, LIVER #### [facility] [address] [place] [address] Dr. Cornell Sharma Bilirubin [Mass/Vol] 0.3 mg/dL Normal 0.2-1.0 [facility] Comment on above: Performed By: #### L IPID, LIVER #### [facility] [address] [place] [address] Dr. Cornell Sharma Globulin (S) [Mass/Vol] 3.9 g/dL Normal [facility] Comment on above: Performed By: #### L IPID, LIVER #### [facility] [address] [place] [address] Dr. Cornell Sharma Protein [Mass/Vol] 7.5 g/dL Normal 6.4-8.2 [facility] Comment on above: Performed By: #### L IPID, LIVER #### [facility] [address] [place] [address] Dr. Cornell Sharma CBC AUTO DIFFon 03-15-2022 BASO # 0.0 103/ul Normal 0.0-0.1 [facility] Comment on above: Performed By: #### C BC #### [facility] [address] [place] [address] Dr. Cornell Sharma Basophils/100 WBC (Bld) 0.5 % Normal 0.2-2.0 [facility] Comment on above: Performed By: #### C BC #### [facility] [address] [place] [address] Dr. Cornell Sharma EO # 0.1 103/ul Normal 0.0-0.7 [facility] Comment on above: Performed By: #### C BC #### [facility] [address] [place] [address] Dr. Cornell Sharma Eosinophils/100 WBC (Bld) 1.1 % Normal 0.9-7.0 [facility] Comment on above: Performed By: #### C BC #### [facility] [address] [place] [address] Dr. Cornell Sharma Erythrocyte distribution width (RBC) [Ratio] 13.2 % Normal 11.0-15.0 [facility] Comment on above: Performed By: #### C BC #### [facility] [address] [place] [address] Dr. Cornell Sharma Hematocrit (Bld) [Volume fraction] 44.7 % Normal 42.0-54.0 [facility] Comment on above: Performed By: #### C BC #### [facility] [address] [place] [address] Dr. Cornell Sharma Hemoglobin (Bld) [Mass/Vol] 14.4 g/dL Normal 14.0-18.0 [facility] Comment on above: Performed By: #### C BC #### [facility] [address] [place] [address] Dr. Cornell Sharma IG # 0.02 10e3/ul Normal 0.00-0.03 [facility] Comment on above: Performed By: #### C BC #### [facility] [address] [place] [address] Dr. Cornell Sharma IG % 0.3 % Normal 0.0-0.5 [facility] Comment on above: Performed By: #### C BC #### [facility] [address] [place] [address] Dr. Cornell Sharma LYMPH # 2.2 103/ul Normal 1.2-3.8 [facility] Comment on above: Performed By: #### C BC #### [facility] [address] [place] [address] Dr. Cornell Sharma Lymphocytes/100 WBC (Bld) 28.8 % Normal 20.5-60.0 [facility] Comment on above: Performed By: #### C BC #### [facility] [address] [place] [address] Dr. Cornell Sharma MANUAL DIFF REQ NO Normal [facility] Comment on above: Performed By: #### C BC #### [facility] [address] [place] [address] Dr. Cornell Sharma MCH (RBC) [Entitic mass] 29.4 pg Normal 25.9-34.0 [facility] Comment on above: Performed By: #### C BC #### [facility] [address] [place] [address] Dr. Cornell Sahrma MCHC (RBC) [Mass/Vol] 32.2 g/dL Normal 29.9-35.2 [facility] Comment on above: Performed By: #### C BC #### [facility] [address] [place] [address] Dr. Cornell Sharma MCV (RBC) [Entitic vol] 91.2 fL Normal 80.0-94.0 [facility] Comment on above: Performed By: #### C BC #### [facility] [address] [place] [address] Dr. Cornell Sharma MONO # 0.7 103/ul Normal 0.3-0.8 [facility] Comment on above: Performed By: #### C BC #### [facility] [address] [place] [address] Dr. Cornell Sharma Monocytes/100 WBC (Bld) 9.1 % Normal 1.7-12.0 [facility] Comment on above: Performed By: #### C BC #### [facility] [address] [place] [address] Dr. Cornell Sharma NEUT # 4.6 103/ul Normal 1.4-6.5 [facility] Comment on above: Performed By: #### C BC #### [facility] [address] [place] [address] Dr. Cornell Sharma Neutrophils/100 WBC (Bld) 60.2 % Normal 43.0-75.0 [facility] Comment on above: Performed By: #### C BC #### [facility] [address] [place] [address] Dr. Cornell Sharma Platelet mean volume (Bld) [Entitic vol] 9.9 fL Normal 9.5-13.5 [facility] Comment on above: Performed By: #### C BC #### [facility] [address] [place] [address] Dr. Cornell Sharma PLT 294 103/ul Normal 150-450 [facility] Comment on above: Performed By: #### C BC #### [facility] [address] [place] [address] Dr. Cornell Sharma RBC 4.90 106/ul Normal 4.70-6.10 [facility] Comment on above: Performed By: #### C BC #### [facility] [address] [place] [address] Dr. Cornell Sharma WBC 7.6 103/ul Normal 4.0-11.0 [facility] Comment on above: Performed By: #### C BC #### [facility] [address] [place] [address] Dr. Cornell Sharma FREE T4on 03-15-2022 Free T4 [Mass/Vol] 0.83 ng/dL Normal 0.76-1.46 [facility] Comment on above: Performed By: #### M ALBR #### [facility] [address] [place] [address] Dr. Cornell Sharma GLYCOHEMOGLOBIN A1Con 2021 ADA RECOMMENDATION SEE BELOW Normal [facility] Comment on above: Result Comment: ADA RECOMMENDED LIMIT 4.0 - 6.0 ADA THERAPEUTIC TARGET < 7.0 ACTION SUGGESTED > 7.0 Performed By: #### M ALBR #### [facility] [address] [place] [address] Dr. Cornell Sharma Glucose [Mass/Vol] 120 mg/dL Critically high 74-106 [facility] Comment on above: Performed By: #### M ALBR #### [facility] [address] [place] [address] Dr. Cornell Sharma HbA1c (Bld) [Mass fraction] 5.8 % Normal 4.5-6.2 [facility] Comment on above: Performed By: #### M ALBR #### [facility] [address] [address] [address] Cornell Sharma LIPID PROFILEon 03-15-2022 CHOL-HDL RATIO NORM SEE BELOW Normal [facility] Comment on above: Result Comment: 3.3 - 4.4 LOW RISK 4.4 - 7.1 AVERAGE RISK 7.1 - 11.0 MODERATE RISK >11.0 HIGH RISK Performed By: #### M ALBR #### [facility] [address] [address] [address] Cornell Sharma Cholesterol [Mass/Vol] 228 mg/dL Critically high <=200 [facility] Comment on above: Performed By: #### M ALBR #### [facility] [address] [address] [address] Cornell Sharma Cholesterol in HDL [Mass/Vol] 39 mg/dL Critically low 40-60 [facility] Comment on above: Performed By: #### M ALBR #### [facility] [address] [address] [address] Cornell Sharma Cholesterol in LDL [Mass/Vol] 143.6 mg/dL Normal [facility] Comment on above: Performed By: #### M ALBR #### [facility] [address] [address] [address] Cornell Sharma Cholesterol.total/Cho lesterol in HDL [Mass ratio] 5.8 {ratio} Normal [facility] Comment on above: Performed By: #### M ALBR #### [facility] [address] [address] [address] Cornell Sharma HDL NORMAL > or = 60 mg/dl - LOW CARDIOVASCULAR RISK <40 mg/dl - HIGH CARDIOVASCULAR RISK Normal [facility] Comment on above: Performed By: #### M ALBR #### [facility] [address] [address] [address] Cornell Sharma LDL CALC NORMAL SEE BELOW Normal [facility] Comment on above: Result Comment: <100 mg/dl OPTIMAL 100 - 129 mg/dl NEAR OR ABOVE OPTIMAL 130 - 159 mg/dl BORDERLINE HIGH 160 - 189 mg/dl HIGH >190 mg/dl VERY HIGH Performed By: #### M ALBR #### [facility] [address] [address] [address] Cornell Sharma Triglyceride [Mass/Vol] 227 mg/dL Critically high <=150 [facility] Comment on above: Performed By: #### M ALBR #### [facility] [address] [address] [address] Cornell Sharma VLDL CALC 45.4 mg/dL Normal [facility] Comment on above: Performed By: #### M ALBR #### [facility] [address] [address] [address] Cornell Sharma MICROALBUMIN, RAND URon 02-18 mALB <1.3 Normal <=30.0 [facility] Comment on above: Performed By: #### M ALBR #### [facility] [address] [place] [address] Dr. Cornell Sharma PROF 14(COMP METB)on 022 Albumin [Mass/Vol] 2.5 g/dL Critically low 3.4-5.0 [facility] Comment on above: Performed By: #### M ALBR #### [facility] [address] [address] [address] Cornell Sharma Albumin/Globulin [Mass ratio] 0.5 {ratio} Normal [facility] Comment on above: Performed By: #### M ALBR #### [facility] [address] [place] [address] Dr. Cornell Sharma ALP [Catalytic activity/Vol] 57 U/L Normal 46-116 [facility] Comment on above: Performed By: #### M ALBR #### [facility] [address] [address] [address] Cornell Sharma ALT [Catalytic activity/Vol] 55 U/L Normal 16-63 [facility] Comment on above: Performed By: #### M ALBR #### [facility] [address] [place] [address] Dr. Cornell Sharma Anion gap [Moles/Vol] 12.5 mmol/L Normal [facility] Comment on above: Performed By: #### M ALBR #### [facility] [address] [address] [address] Cornell Sharma AST [Catalytic activity/Vol] 14 U/L Critically low 15-37 [facility] Comment on above: Performed By: #### M ALBR #### [facility] [address] [address] [address] Cornell Sharma Bilirubin [Mass/Vol] 0.2 mg/dL Normal 0.2-1.0 [facility] Comment on above: Performed By: #### M ALBR #### [facility] [address] [address] [address] Cornell Sharma Calcium [Mass/Vol] 9.4 mg/dL Normal 8.5-10.1 [facility] Comment on above: Performed By: #### M ALBR #### [facility] [address] [place] [address] Dr. Cornell Sharma Chloride [Moles/Vol] 103 mmol/L Normal 98-107 [facility] Comment on above: Performed By: #### M ALBR #### [facility] [address] [address] [address] Cornell Sharma CO2 [Moles/Vol] 27.9 mmol/L Normal 21.0-32.0 [facility] Comment on above: Performed By: #### M ALBR #### [facility] [address] [place] [address] Dr. Cornell Sharma Creatinine [Mass/Vol] 0.74 mg/dL Normal 0.70-1.30 [facility] Comment on above: Performed By: #### M ALBR #### [facility] [address] [place] [address] Dr. Cornell Sharma EGFR-AF BAHAMIAN >60 Normal >=60 [facility] Comment on above: Performed By: #### M ALBR #### [facility] [address] [place] [address] Dr. Cornell Sharma EGFR-NON AF BAHAMIAN >60 Normal >=60 [facility] Comment on above: Performed By: #### M ALBR #### [facility] [address] [place] [address] Dr. Cornell Sharma Globulin (S) [Mass/Vol] 5.0 g/dL Normal [facility] Comment on above: Performed By: #### M ALBR #### [facility] [address] [address] [address] Cornell Sharma Potassium [Moles/Vol] 4.4 mmol/L Normal 3.5-5.1 [facility] Comment on above: Performed By: #### M ALBR #### [facility] [address] [place] [address] Dr. Cornell Sharma Protein [Mass/Vol] 7.5 g/dL Normal 6.4-8.2 [facility] Comment on above: Performed By: #### M ALBR #### [facility] [address] [place] [address] Dr. Cornell Sharma Sodium [Moles/Vol] 139 mmol/L Normal 136-145 [facility] Comment on above: Performed By: #### M ALBR #### [facility] [address] [place] [address] Dr. Cornell Sharma Urea nitrogen [Mass/Vol] 16.0 mg/dL Normal 7.0-18.0 [facility] Comment on above: Performed By: #### M ALBR #### [facility] [address] [place] [address] Dr. Cornell Sharma Urea nitrogen/Creatinine [Mass ratio] 21.6 mg/mg Normal [facility] Comment on above: Performed By: #### M ALBR #### [facility] [address] [place] [address] Dr. Cornell Sharma TSHon 03-15-2022 TSH 0.941 uIU/mL Normal 0.358-3.740 [facility] Comment on above: Performed By: #### M ALBR #### [facility] [address] [place] [address] Dr. Cornell Sharma TSH RANGE SEE BELOW Normal [facility] Comment on above: Result Comment: <0.3 4 UIU/ml HYPERTHYROID 0.34-5.60 UIU/ml EUTHYROID >5.60 UIU/ml HYPOTHYROID Performed By: #### M ALBR #### [facility] [address] [place] [address] Dr. Cornell Sharma UA RANDOM W/MICROSCOPICon BACTERIA NONE SEEN Normal NONE SEEN [facility] Comment on above: Performed By: #### U AMIC #### [facility] [address] [place] [address] Dr. Cornell Sharma Bilirubin Ql (U) Negative Normal NEGATIVE [facility] Comment on above: Performed By: #### U AMIC #### [facility] [address] [address] [address] Cornell Sharma CAST NONE SEEN Normal NONE SEEN [facility] Comment on above: Performed By: #### U AMIC #### [facility] [address] [place] [address] Dr. Cornell Sharma Clarity (U) CLEAR Normal CLEAR [facility] Comment on above: Performed By: #### U AMIC #### [facility] [address] [address] [address] Cornell Sharma Color (U) LT. YELLOW Normal YELLOW [facility] Comment on above: Performed By: #### U AMIC #### [facility] [address] [place] [address] Dr. Cornell Sharma Crystals LM Nom (Urine sed) NONE SEEN Normal NONE SEEN [facility] Comment on above: Performed By: #### U AMIC #### [facility] [address] [place] [address] Dr. Cornell Sharma Epithelial cells LM Ql (Urine sed) RARE Normal NONE SEEN /RARE [facility] Comment on above: Performed By: #### U AMIC #### [facility] [address] [address] [address] Cornell Sharma Glucose Ql (U) Negative Normal NEGATIVE [facility] [place] [facility] Comment on above: Performed By: #### U AMIC #### [facility] [address] [place] [address] Dr. Cornell Sharma Hemoglobin Ql (U) Negative Normal NEGATIVE The [facility] Comment on above: Performed By: #### U AMIC #### [facility] [address] [address] [address] Cornell Sharma Ketones Ql (U) Negative Normal NEGATIVE [facility] Comment on above: Performed By: #### U AMIC #### [facility] [address] [address] [address] Cornell Sharma LEUKOCYTES Negative Normal NEGATIVE [facility] Comment on above: Performed By: #### U AMIC #### [facility] [address] [address] [address] Cornell Sharma MUCOUS NONE SEEN Normal NONE SEEN [facility] Comment on above: Performed By: #### U AMIC #### [facility] [address] [place] [address] Dr. Cornell Sharma Nitrite Ql (U) Negative Normal NEGATIVE [facility] Comment on above: Performed By: #### U AMIC #### [facility] [address] [place] [address] Dr. Cornell Sharma pH (U) 6.0 [pH] Normal 5-9 [facility] Comment on above: Performed By: #### U AMIC #### [facility] [address] [address] [address] Cornell Sharma RBC 0-2 Normal 0-2 [facility] Comment on above: Performed By: #### U AMIC #### [facility] [address] [place] [address] Dr. Cornell Sharma SPEC GRAVITY 1.025 Normal 1.005-<=1.025 The [facility] Comment on above: Performed By: #### U AMIC #### [facility] [address] [place] [address] Dr. Cornell Sharma UA PROTEIN Negative Normal NEGATIVE/ TRACE The [facility] Comment on above: Performed By: #### U AMIC #### [facility] [address] [place] [address] Dr. Cornell Sharma Urobilinogen Qn (U) 0.2 {Ezequiel'U}/dL Normal 0.2 - 1. 0 [facility] Comment on above: Performed By: #### U AMIC #### [facility] [address] [place], [place] [address] Dr. Cornell Sharma WBC NONE SEEN Normal NONE SEEN [facility] Comment on above: Performed By: #### U AMIC #### [facility] [address] [place], [place] [address] Dr. Cornell Sharma Encounters Encounter Date Encounter Type Care Provider Facility Start: 04-20-2024 End: 04-20-2024 ambulatory GENE AICHHOLZ Not Available Start: 02-25-2024 End: 02-25-2024 ambulatory GENE AICHHOLZ Not Available Start: 07-06-2022 End: 07-07-2022 ambulatory [facility] GENE AICHHOLZ Facility:[facility] Start: 05-06-2022 End: 05-07-2022 ambulatory [facility] GENE AICHHOLZ Facility:[facility] Start: 03-15-2022 End: 03-16-2022 ambulatory [facility] GENE AICHHOLZ Facility:[facility] Payers Date Payer Category Payer Unknown [id number] 2.16.84 [id number] 1989 Unknown [id number] 2.16.84 [id number] 1989 Unknown [id number] 2.16.84 [id number] 1989 Unknown [id number] 2.16.84 [id number] 1989 Unknown [id number] 2.16.84 [id number] 1959 Unknown [id number] Summary Purpose Family History No Family History Records FoundNo Family History Records Found Advance Directives No Advanced Directives Records FoundNo Advanced Directives Records Found Additional Source Comments (unrecognized sect ion and content) No Status Records FoundNo Status Records Found INFORMATION SOURCE (unrecogn ized section and content) DATE CREATED AUTHOR [facility]/20/[address] [facility] DATE CREATED AUTHOR AUTHOR'S ORGANIZ ATION 04/22/2024 [facility] EPIC FOR RECORDS PERTAINING [...] BE BASED ON THE PRIMARY CLINICAL RECORDS. [facility] [employer] [facility] provides no warranty or guarantee of the accuracy or completeness of information in this document.
== END 2024-04-23 10:02 | disposition home or self-care (01) ==
PROVIDERS: PCP Nurse Practitioner; Visit Provider Nurse Practitioner
DX: R07.89 Other chest pain (principal); I10 Essential (primary) hypertension
CPT/HCPCS: 93306

== ENCOUNTER 2024-04-29 15:42 | Outpatient (OUT) | payer OTHER, SELFPAY ==
[2024-04-29 16:13] LABS: Basophils Absolute Auto 0.1 10^3/uL (0.0-0.1); Basophils Percent Auto 0.6 % (0.2-2.0); Eosinophils Absolute Auto 0.1 10^3/uL (0.0-0.7); Eosinophils Percent Auto 0.8 % (0.9-7.0); Hematocrit 39.1 % (42.0-54.0); Hemoglobin 13.2 g/dL (14.0-18.0); Immature Granulocytes Abs Auto 0.12 10^3/uL (0.00-0.03); Immature Granulocytes Pct Auto 1.2 % (0.0-0.5); Lymphocytes Absolute Auto 2.9 10^3/uL (1.2-3.8); Lymphocytes Percent Auto 29.6 % (20.5-60.0); Mean Corpuscular HGB Conc 33.8 g/dL (29.9-35.2); Mean Corpuscular Hemoglobin 30.5 pg (25.9-34.0); Mean Corpuscular Volume 90.3 fL (80.0-94.0); Mean Platelet Volume 9.5 fL (9.5-13.5); Monocytes Absolute Auto 0.6 10^3/uL (0.3-0.8); Monocytes Percent Auto 6.1 % (1.7-12.0); Neutrophils Percent Auto 61.7 % (43.0-75.0); Platelet Count 279 10^3/uL (150-450); Red Blood Count 4.33 10^6/uL (4.70-6.10); Red Cell Distribution Width 12.8 % (11.0-15.0); White Blood Count 9.8 10^3/uL (4.0-11.0)
[2024-04-29 17:37] LABS: Alanine Aminotransferase 33 U/L (16-63); Albumin Globulin Ratio 0.9; Albumin Level 2.9 g/dL (3.4-5.0); Alkaline Phosphatase 52 U/L (46-116); Anion Gap 9.9; Aspartate Amino Transferase <5 U/L (15-37); BUN Creatinine Ratio 16.9; Bilirubin Total 0.2 mg/dL (0.2-1.0); Calcium 8.5 mg/dL (8.5-10.1); Carbon Dioxide 29.5 mmol/L (21.0-32.0); Chloride 105 mmol/L (98-107); Estimated GFR (African America >60 (>=60); Estimated GFR (Non-African Ame >60 (>=60); Globulin 3.4 g/dL; Sodium 141 mmol/L (136-145); Total Protein 6.3 g/dL (6.4-8.2)
[2024-04-29 18:49] LABS: Glucose 155 mg/dL (74-106); Potassium 3.4 mmol/L (3.5-5.1)
== END 2024-04-29 15:43 | disposition home or self-care (01) ==
LOC: LAB 15:44
PROVIDERS: PCP Nurse Practitioner; Visit Provider Nurse Practitioner
DX: R11.2 Nausea with vomiting, unspecified (principal); D72.829 Elevated white blood cell count, unspecified
CPT/HCPCS: 36415; 80053; 85025

== ENCOUNTER 2025-03-25 16:46 | Outpatient (OUT) | payer OTHER, SELFPAY ==
--- OUTSIDE RECORDS SUMMARY | 2025-03-25 16:49 | XMS_ITS | Clinical Summary ---
Author Organization [facility] Healthcare Address [address] [place] [address] Care Team Providers Care Security Compliance Engineer Name Role Phone Trina Talley NP Unavailable [phone] Too Head MD Primary Care Provider [phone] Trina Talley SOLE SKIVER Unavailable [phone] Trina Talley NP Unavailable [phone] Allergies Active Allergy Reactions Criticality Noted Date Comments Penicillin V Rash Low 02/25/2024 Medications pen needle 31G x 6 mm miscIndications:Pr e-diabetes For daily use with victoza injection. Use as instructed 100 each 3 05/27/20 24 025 Active Continuous Glucose Sensor (Dexcom G7 Sensor) misc 1 each by Other route Daily 06/22/20 24 Active aspirin 81 MG EC tablet Take 81 mg by mouth Daily Active atorvastatin (Lipitor) 20 MG tabletIndications: Mixed hyperlipidemia (CMS/HCC) Take 1 tablet (20 mg) by mouth at bedtime 90 tablet 1 11/25/19 25 Active buPROPion XL (Wellbutrin XL) 150 MG 24 hr tabletIndications: Moderate episode of recurrent major depressive disorder (CMS/HCC) Take 1 tablet (150 mg) by mouth Daily Do not crush, chew, or split. 90 tablet 1 11/25/19 25 Active dapagliflozin (Farxiga) 5 MGIndications:Pre- diabetes Take 1 tablet (5 mg) by mouth Daily 90 tablet 1 11/25/19 25 Active FLUoxetine (PROzac) 10 MG capsuleIndications :NORMAN (generalized anxiety disorder) (CMS/HCC) Take 1 capsule (10 mg) by mouth Daily 90 capsule 1 11/25/19 25 Active omeprazole (PriLOSEC) [address] capsuleIndications :Gastroesophageal reflux disease without esophagitis Take 1 capsule (40 mg) by mouth in the morning. Take before meals. 90 capsule 1 11/25/19 25 Active losartan (Cozaar) 50 MG tabletIndications: Primary hypertension (CMS/HCC) Take 1 tablet (50 mg) by mouth Daily 90 tablet 12/07/19 25 Active Dulaglutide (Trulicity) 1.5 MG/0.5ML solution auto-injectorIndic ations:Type 2 diabetes mellitus without complication, without long-term current use of insulin Inject 1.5 mg under the skin every 7 (seven) days for 28 days 2 mL 3 01/25/20 25 Active glucose blood (True Metrix Blood Glucose Test) test stripIndications:P re-diabetes Daily. Use as instructed 100 each 4 02/25/20 24 025 Active Problems Problem Noted Date Diagnosed Date Needs flu shot 08/25/2024 Assessment & Plan (08/25/2024 3:38 PM EST): decline Sciatica of left side 08/25/2024 Assessment & Plan (08/25/2024 3:50 PM EST): Ice to affected area 3-4 times daily for 20 minutes each NSAIDS and muscle relaxer Stretching exercises Morbid (severe) obesity due to excess calories 0 05/25/2024 Assessment & Plan (01/24/2025 7:25 AM EDT): Discussed with patient their BMI (actual, verses recommended). We have also discussed lifestyle modifications: attempts to perform physical activity as chronic conditions allow, also to monitor dietary intake: increasing protein/fruits/veggies and lowering carb intake (unless contraindicated). Limit sodas, juices, and sugary drinks. Also discussed oral medications that can be utilized for weight loss, as well as surgical options for weight loss. Assessment & Plan (11/25/2024 7:40 AM EST): Discussed with patient their BMI (actual, verses recommended). We have also discussed lifestyle modifications: attempts to perform physical activity as chronic conditions allow, also to monitor dietary intake: increasing protein/fruits/veggies and lowering carb intake (unless contraindicated). Limit sodas, juices, and sugary drinks. Also discussed oral medications that can be utilized for weight loss, as well as surgical options for weight loss. Assessment & Plan (08/25/2024 7:23 AM EST): Discussed with patient their BMI (actual, verses recommended). We have also discussed lifestyle modifications: attempts to perform physical activity as chronic conditions allow, also to monitor dietary intake: increasing protein/fruits/veggies and lowering carb intake (unless contraindicated). Limit sodas, juices, and sugary drinks. Also discussed oral medications that can be utilized for weight loss, as well as surgical options for weight loss. Body mass index (BMI) 40.0-44.9, adult 4 Hypoglycemia 05/25/2024 Moderate episode of recurrent major depressive d isorder 05/25/2024 Overview (11/25/2024): PHQ 9=3 NORMAN 7=3 Assessment & Plan (11/25/2024 3:27 PM EST): Current meds: fluoxetine and wellbutrin PHQ 9=3 NORMAN 7=3 No dose changes Assessment & Plan (05/25/2024 5:15 PM EDT): Cont fluoxetine Will add wellbutrin XL in 2 weeeks Take medication only as directed. This medication will take approximately 4-6 weeks to become effective. If any suicidal thoughts, thoughts of hurting others, or hallucinations contact the office or proceed to the Emergency Room for mental health evaluation. Medication may cause dry mouth, dizziness, and in some cases worsening in depression symptoms. Please contact the office if these occur. Nausea and vomiting 04/20/2024 Assessment & Plan (04/20/2024 3:46 PM EDT): Possible side effect of sertraline, we will discontinue Will check labs Give zofran prn Elevated WBC count 04/20/2024 Assessment & Plan (04/20/2024 3:47 PM EDT): Recheck CBC NORMAN (generalized anxiety disorder) 02/25/2024 Overview (11/25/2024): 11/25/24: PHQ 9= 3, NORMAN 7=3 Assessment & Plan (01/24/2025 7:26 AM EDT): Current meds: wellbutrin as well as fluoxetine PHQ 9=3 NORMAN 7=3 Feels good on current regimine Assessment & Plan (11/25/2024 3:27 PM EST): Current meds: wellbutrin as well as fluoxetine PHQ 9=3 NORMAN 7=3 Feels good on current regimine Assessment & Plan (08/25/2024 3:31 PM EST): Continue wellbutrin and fluoxetine Assessment & Plan (07/14/2024 4:37 PM EDT): Only currently on wellbutrin , will add back fluoxetine, and fu in 6 weeks Assessment & Plan (04/20/2024 3:47 PM EDT): Stop sertraline Trial fluoxetine Take medication only as directed. This medication will take approximately 4-6 weeks to become effective. If any suicidal thoughts, thoughts of hurting others, or hallucinations contact the office or proceed to the Emergency Room for mental health evaluation. Medication may cause dry mouth, dizziness, and in some cases worsening in depression symptoms. Please contact the office if these occur. Fu in 4 weeks Assessment & Plan (02/25/2024 4:29 PM EDT): Start sertraline at 50mg daily. Take medication only as directed. This medication will take approximately 4-6 weeks to become effective. If any suicidal thoughts, thoughts of hurting others, or hallucinations contact the office or proceed to the Emergency Room for mental health evaluation. Medication may cause dry mouth, dizziness, and in some cases worsening in depression symptoms. Please contact the office if these occur. Fu in 4 weeks Gastroesophageal reflux disease without esophagi tis 02/25/2024 Assessment & Plan (01/24/2025 7:25 AM EDT): Omeprazole is working, cannot tolerated being off of the medication Recommendations: freq small meals, nothing to eat or drink at least 2 hours prior to bed, limit caffeine, alcohol, as well as spicy foods Meds to limit or avoid if possible: NSAIDS if possible Elevate HOB if possible Current med: omeprazole Assessment & Plan (11/25/2024 7:40 AM EST): Omeprazole is working, cannot tolerated being off of the medication Recommendations: freq small meals, nothing to eat or drink at least 2 hours prior to bed, limit caffeine, alcohol, as well as spicy foods Meds to limit or avoid if possible: NSAIDS if possible Elevate HOB if possible Current med: omeprazole Assessment & Plan (08/25/2024 3:37 PM EST): Omeprazole is working, cannot tolerated being off of the medication Recommendations: freq small meals, nothing to eat or drink at least 2 hours prior to bed, limit caffeine, alcohol, as well as spicy foods Meds to limit or avoid if possible: NSAIDS if possible Elevate HOB if possible Mixed hyperlipidemia 02/25/2024 Assessment & Plan (04/20/2024 3:47 PM EDT): Check labs Assessment & Plan (02/25/2024 4:28 PM EDT): Restart statin, check labs Primary hypertension 02/25/2024 Assessment & Plan (01/24/2025 7:25 AM EDT): Please check blood pressure daily and record DASH diet Limit caffeine Take medication as directed Contact office if chest pain, pressure, dizziness, shortness of breath, swelling legs Recommend slow position changes Current meds: losartan Assessment & Plan (11/25/2024 7:39 AM EST): Please check blood pressure daily and record DASH diet Limit caffeine Take medication as directed Contact office if chest pain, pressure, dizziness, shortness of breath, swelling legs Recommend slow position changes Current meds: losartan Assessment & Plan (08/25/2024 7:23 AM EST): Please check blood pressure daily and record DASH diet Limit caffeine Take medication as directed Contact office if chest pain, pressure, dizziness, shortness of breath, swelling legs Recommend slow position changes Assessment & Plan (02/25/2024 4:27 PM EDT): Restart blood pressure meds Recommend weight loss as well Check labs JAKOB (obstructive sleep apnea) 02/25/2024 Assessment & Plan (02/25/2024 4:27 PM EDT): Non compliant with use of PAP Tension headache 02/25/2024 Hypoalbuminemia 02/25/2024 Other chest pain 02/25/2024 Assessment & Plan (02/25/2024 4:31 PM EDT): Strong family hx of CAD and early AL Pt is also smoker, DM not taking meds currently and HTN Will order EKG, as well as stress test and ECHO Differentials: anxiety, GERD as well Type 2 diabetes mellitus wit hout complication, without long-term current use of insulin 02/25/2024 Assessment & Plan (01/24/2025 3:33 PM EDT): >>ASSESSMENT AND PLAN FOR PRE-DIABETES WRITTEN ON 02/25/2024 4:28 PM BY TRINA TALLEY NP Weight gain, has been off meds Check labs Restart farxiga, and try to get ozempic approved Assessment & Plan (01/24/2025 3:33 PM EDT): >>ASSESSMENT AND PLAN FOR PRE-DIABETES WRITTEN ON 04/20/2024 3:47 PM BY TRINA TALLEY NP Continue with farxiga, will try victoza in 4 weeks when stomach symptoms are better Assessment & Plan (01/24/2025 3:33 PM EDT): >>ASSESSMENT AND PLAN FOR PRE-DIABETES WRITTEN ON 05/25/2024 4:21 PM BY TRINA TALLEY NP Continue with rodrigo, appears to be tolerating well Insurance will not cover current established once a week GLP 1 meds Instead we must trial older GLP1 such as byetta and victoza or bydrueon. We will trial victoza and go from there. Also he is having some episodes of hypoglycemia where he is getting to 60's. He is asking for a CGM to help monitor for fluctuations in blood sugar Assessment & Plan (01/24/2025 3:33 PM EDT): >>ASSESSMENT AND PLAN FOR PRE-DIABETES WRITTEN ON 07/14/2024 4:35 PM BY TRINA TALLEY NP Continue victoza for another month Assessment & Plan (01/24/2025 3:33 PM EDT): >>ASSESSMENT AND PLAN FOR PRE-DIABETES WRITTEN ON 08/25/2024 3:54 PM BY TRINA TALLEY NP Check blood sugars daily, notify if <70 or >200. Take medications (pills or insulin) as directed. Monitor for s/s of hypoglycemia (sweaty, dizziness, nausea, vomiting, or shakiness). Watch for increase in thirst, urination, or appetite. Inspect feet frequently monitoring for open wounds , and also recommend yearly eye exam. Pt should attempt to remain as physically active as chronic conditions allow, as well as trying to follow a diet low in carbohydrates, and simple sugars. Check A1c test in office today 5.6% Assessment & Plan (01/24/2025 3:33 PM EDT): >>ASSESSMENT AND PLAN FOR PRE-DIABETES WRITTEN ON 11/25/2024 7:41 AM BY TRINA TALLEY NP Check blood sugars daily, notify if <70 or >200. Take medications (pills or insulin) as directed. Monitor for s/s of hypoglycemia (sweaty, dizziness, nausea, vomiting, or shakiness). Watch for increase in thirst, urination, or appetite. Inspect feet frequently monitoring for open wounds , and also recommend yearly eye exam. Pt should attempt to remain as physically active as chronic conditions allow, as well as trying to follow a diet low in carbohydrates, and simple sugars. Current meds: farxiga, statin, Difficulty with getting GLP 1 coverage A1c: 5.6 on 08/25/24 Assessment & Plan (01/24/2025 3:34 PM EDT): Check blood sugars daily, notify if <70 or >200. Take medications (pills or insulin) as directed. Monitor for s/s of hypoglycemia (sweaty, dizziness, nausea, vomiting, or shakiness). Watch for increase in thirst, urination, or appetite. Inspect feet frequently monitoring for open wounds , and also recommend yearly eye exam. Pt should attempt to remain as physically active as chronic conditions allow, as well as trying to follow a diet low in carbohydrates, and simple sugars. Current meds: asa, farxiga, statin, trulicity A1c: Resolved Problems Problem Noted Date Diagnosed Date Resolved Date Obesity (BMI 30-39.9) 02/25/20242023 Tobacco dependence 02/25/2024 Assessment & Plan (08/25/2024 7:22 AM EST): The patient has been advised of the risks of continued smoking: stroke, AL, all forms of cancer, lung disease, and . Options for quitting smoking include: cold turkey, hypnosis, acupuncture, nicotine replacement meds (gum, lozenges, and patches), Buproprion, and Varenicline. At this time pt is encouraged to evaluate their goals for wanting to quit smoking, and reach out to provider when ready to start this process Assessment & Plan (02/25/2024 4:28 PM EDT): Recommend quitting smoking Encounters Date Type Department Care Team Description 01/24/2025 3:00 PM EDT Office Visit [facility] [address] [place] [address] Trina Talley NP Type 2 diabetes mellitus without complication, without long-term current use of insulin (Primary Dx); Primary hypertension (CMS/HCC); Gastroesophageal reflux disease without esophagitis; Morbid (severe) obesity due to excess calories (CMS/HCC); Pre-diabetes 01/24/2025 Bamboo flowsheet [facility] [address] [place] [phone] Trina Talley NP 01/19/2025 Travel from Last 3 Months Family History Medical History Relation Name Comments Diabetes Father Heart attack Father Hypertension Father Diabetes Maternal Grandfather Heart attack Maternal Grandfather Hypertension Maternal Grandfather Diabetes Maternal Grandmother bowel cancer Maternal Grandmother Diabetes Mother Diabetes Paternal Grandfather Diabetes Paternal Grandmother Relation Name Status Comments Father Maternal Grandfather Maternal Grandmother Mother Paternal Grandfather Paternal Grandmother Social History Tobacco Use Types Packs/Day Years Used Date Smoking Tobacco: Former Cigarettes Q uit: 2021 Smokeless Tobacco: Current Snuff Tobacco Cessation:Ready to Q uit: Not Asked; Counseling Given: Not Answered Alcohol Use Standard Drinks/Week Comments Never 0 (1 standard drink = 0.6 oz pure alcohol) caffine: 20oz coffee cup that is filled 5-7 times daily [id number] Health Literacy Answer Date Recor ded How often do you need to hav e someone help you when you read instructions, pamphlets, or other written material from your doctor or pharmacy? Never 04/13/2024 Social Connection and Isolat ion Panel [NHANES] Answer Date Recorded In a typical week, how many times do you talk on the phone with family, friends, or neighbors? More than three times a week 04/13/2024 How often do you get togethe r with friends or relatives? Once a week 04/13/2024 How often do you attend chur or presybeterian services? 1 to 4 times per year 04/13/2024 Do you belong to any clubs o r organizations such as yazidi groups, unions, fraternal or athletic groups, or school groups? Yes 04/13/2024 How often do you attend meet ings of the clubs or organizations you belong to? More than 4 times per year 04/13/2024 Are you , , di vorced, , never , or living with a partner? 04/13/2024 AUDIT-C Answer Date Recorded Q1: How often do you have a drink containing alc ohol? Monthly or less 04/13/2024 Q2: How many drinks containi ng alcohol do you have on a typical day when you are drinking? 1 or 2 04/13/2024 Q3: How often do you have si x or more drinks on one occasion? Less than monthly 04/13/2024 Overall Financial Resource Strain (CARDIA) Answe r Date Recorded How hard is it for you to pa y for the very basics like food, housing, medical care, and heating? Not hard at all 04/13/2024 [facility] - Occupational Stress Questionnaire Answer Date Recorded Do you feel stress - tense, restless, nervous, or anxious, or unable to sleep at night because your mind is troubled all the time - these days? To some extent 04/13/2024 Exercise Vital Sign Answer Date Recorde d On average, how many days pe r week do you engage in moderate to strenuous exercise (like a brisk walk)? Patient declined On average, how many minutes do you engage in exercise at this level? Patient declined 04/13/2024 Hunger Vital Sign Answer Date Recorded Within the past 12 months, y ou worried that your food would run out before you got the money to buy more. Never true 04/13/20 24 Within the past 12 months, t he food you bought just didn't last and you didn't have money to get more. Never true 04/13/2024 PRAPARE - Transportation Answer Date Re corded In the past 12 months, has l ack of transportation kept you from medical appointments or from getting medications? No 03/21 In the past 12 months, has l ack of transportation kept you from meetings, work, or from getting things needed for daily living? No 04/13/2024 Housing Stability Vital Sign Answer Manuel e Recorded In the last 12 months, was t here a time when you were not able to pay the mortgage or rent on time? No 04/13/2024 Number of Times Moved in the Last Year Not on fi le 04/13/2024 At any time in the past 12 m [facility], were you homeless or living in a assisted (including now)? No 04/13/2024 Sex and Gender Information Value Date Recorded Sex Assigned at Not on file Legal Sex Male 6:44 PM EDT Gender Identity Not on file Sexual Orientation Not on file Last Filed Vital Signs Vital Sign Reading Time Taken Comments Blood Pressure 128/70 01/24/2025 3:07 PM EDT Pulse 90 01/24/2025 3:07 PM EDT Temperature 36.9 C (98.5 F) 01/24/2025 3:07 PM EDT Respiratory Rate 18 01/24/2025 3:07 PM EDT Oxygen Saturation 94% 01/24/2025 3:07 PM EDT Inhaled Oxygen Concentration - - Weight 144 kg (318 lb 3.2 oz) 01/24/2025 3:07 PM EDT Height 182.9 cm (6') 11/25/2024 3:03 PM EST Body Mass Index 43.16 11/25/2024 3:03 PM EST Plan of Treatment Upcoming Encounters Date Type Department Care Team (Late st Contact Info) Description 04/26/2025 3:00 PM EDT Office Visit [facility] [address] [place] [address] Trina Talley NP [address] [place] [address] Health Maintenance Due Date Last Done Comments Diabetes: Retinopathy Screening 1999 Diabetes: Hemoglobin A1C 11/25/2024 08/25/2024 Diabetes: Urine Protein Screening 02/24/2025 024 Influenza Vaccine Discontinued Procedures Procedure Name Priority Date/Time Associated Diagnosis Comments POCT GLYCOSYLATED HEMOGLOBIN (HGB A1C) Routine 08/25/2024 5:08 PM EST Pre-diabetes from Last 3 Months or Most Recently Relevant to Health Maintenance Results * POCT glycosylated hemoglobin (Hb A1C) docked device (08/25/2024 5:08 PM EST) Hemoglobin A1C 5.6 Blood Venous blood specimen / Unknown 08/25/2024 5:08 PM EST Trina Talley NP POINT OF CARE TEST ENTER/EDIT O RDERABLES Final Result from Last 3 Months or Most Recently Relevant to Health Maintenance Insurance [employer] Care Teams Security Compliance Engineer Relationship Specialty Start Date End Date Too Head MD [address] [place] [phone] PCP - General Family Medicine 02/25/24 Trina Talley NP [address] [place] [phone] PCP - [facility] 07/20/24 Trina Talley NP [address] [place] [phone] Referring Physician Nurse Practitioner 05/12/23 Trina Talley NP [address] [place] [phone] Nurse Practitioner Family Medicine 02/25/24
--- OUTSIDE RECORDS SUMMARY | 2025-03-25 16:49 | XMS_ITS | Patient Health Record ---
Author Organization [facility] in [place] Address [address] [place] [address] Care Team Providers Care Chief Radiology Name Role Phone Tiara Arcos MD Primary Care Provider Unavailabl e Allergies Allergen (clinical drug ingredient) Drug/Non Drug Allergy documented on EMR Reaction Allergy Type Onset Date Status Penicillin (uncoded) Unknown Allergy Active Reason For Referral No Information Medications Medication SIG (Take, Route, Frequency, Duration) Notes Start Date End Date Status metFORMIN HCl 500 MG 1 tablet with meals Orally Twice a day Active Omeprazole 40 MG 1 capsule Orally Onc e a day Active Cyproheptadine HCl 4 MG 1 tablet Orally Twice a day Active Gabapentin 300 MG 1 capsule Orally Thr ee times a day Active Cyclobenzaprine HCl 10 MG 1 tablet Orall y Three times a day Active Percocet 5-325 MG 1-2 tablet as needed Orally every 4-6 hrs for 7 days Active Rizatriptan Benzoate 5 MG 1 tablet as ne eded one time Orally Once a day Active Social History Tobacco Use: Social History Observation Description Date Details (start date - stop date) Current Smoker NA - NA Tobacco Use/Smoking Question Answer Notes Patient is a current smoker Problems Problem Type SNOMED Code ICD Code Onset Dates Problem Status W/U Status Risk Notes Problem 220779603 Plica syndrome, 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 Problem [id number] Complete tear of anterior cruciate ligament of right knee, initial encounter (S83.511A) Active confirmed Plan Of Treatment No Information Insurance Providers Payer Name Payer Address Payer Phone Subscriber Number Group Number Insured Name Patient Relationship to Insured Coverage Start Date Coverage End Date [employer] [place] [employer] [address] [place] [address] [id number] Jose Carey Self - patient is the insured 3 Medical (General) History Medical History History ICD Code Diabetes 2 Surgical History Surgery Date(Month/Year) Gall Bladder 2009 LT Knee 2008
--- OUTSIDE RECORDS SUMMARY | 2025-03-25 16:49 | XMS_ITS | Encounter Summary ---
Author Organization [facility] Address [address] [place] [address] Care Team Providers Care Gameplay Programmer Name Role Phone Trina Talley REPORTER ANCHOR Unavailable [phone] Too Head MD Primary Care Provider [phone] Trina Talley REPORTER ANCHOR Unavailable [phone] Trina Talley NP Unavailable [phone] Reason for Visit * Reason Comments Med Change Request Encounter Details Date Type Department Care Team (Late st Contact Info) Description 10/11/2024 Refill [facility] [address] [place] [address] Trina Talley NP [address] [place] [address] Pre-diabetes Social History Tobacco Use Types Packs/Day Years Used Date Smoking Tobacco: Former Cigarettes Q uit: 2021 Smokeless Tobacco: Current Snuff Alcohol Use Standard Drinks/Week Comments Never 0 [...] 04/13/2024 How often do you attend chur ch or holiness services? 1 to 4 times per year 04/13/2024 Do you belong to any clubs o r organizations such as islam groups, unions, fraternal or athletic groups, or [...] and heating? Not hard at all 04/13/2024 [facility] [place] of Occupat ional Health - Occupational Stress Questionnaire Answer Date Recorded [...] any time in the past 12 m [facility], were you homeless or living in a fpc (including now)? No 04/13/2024 Sex and Gender Information Value Date Recorded Sex Assigned at Not on file Legal Sex Male 6:44 PM EDT Gender Identity Not on file Sexual Orientation Not on file documented as of this encounter Plan of Treatment Upcoming Encounters Date Type Department Care Team (Late st Contact Info) Description 04/26/2025 3:00 PM EDT [facility] [address] [place] [address] Trina Talley NP [address] [place] [address] documented as of this encounter Visit Diagnoses Diagnosis Pre-diabetes Other abnormal glucose documented in this encounter Care Teams Gameplay Programmer Relationship Specialty Start Date End Date Too Head MD [address] [place] [address] PCP - General Family Medicine 02/25/24 Trina Talley NP [address] [place] [address] PCP - [facility] 07/20/24 Trina Talley NP [address] [place] [address] Referring Physician Nurse Practitioner 05/12/23 Trina Talley NP [address] [place] [address] Nurse Practitioner Family Medicine 02/25/24 documented as of this encounter
--- OUTSIDE RECORDS SUMMARY | 2025-03-25 16:49 | XMS_ITS | Encounter Summary ---
Author Organization [facility] Address [address] [place] [address] Care Team Providers Care Stage Settings Painter Name Role Phone Trina Talley NP Unavailable [phone] Too Head MD Primary Care Provider [phone] Trina Talley WEB OPERATIONS ADMINISTRATOR Unavailable [phone] Trina Talley NP Unavailable [phone] Encounter Details Date Type Department Care Team (Late st Contact Info) Description 04/26/2024 Orders Only [facility] [address] [place] [address] Trina Talley NP [address] [place] [address] Social History Tobacco Use Types Packs/Day Years [...] often do you attend chur ch or tenriism services? 1 to 4 times per year 04/13/2024 Do you belong to any clubs o r organizations such as jewish groups, unions, fraternal or athletic groups, or [...] and heating? Not hard at all 04/13/2024 [facility] of Occupat ional Health - Occupational Stress [...] any time in the past [address] [facility], were you homeless or living [...] 04/26/2025 3:00 PM EDT Office Visit [facility] [address] [place] [address] Trina Talley NP [address] [facility] [place] [address] documented as of this encounter Procedures Procedure Name Priority Date/Time Associated Diagnosis Comments ECHOCARDIOGRAM WITH DOPPLER IF INDICATED Routine 04/26/2024 9:00 AM EDT documented in this encounter Results * ECHOCARDIOGRAM WITH DOPPLER IF INDICATED (04/26/2024 9:00 AM EDT) Anatomical Region Laterality Modality Radiographic Nancy ging Trina Talley NP IMG XR PROCEDURES Final Result documented in this encounter Visit Diagnoses Not on filedocumented in this encounter Care Teams Stage Settings Painter Relationship Specialty Start Date End Date Too Head MD [address] [place] [address] PCP - General Family Medicine 02/25/24 Trina Talley NP [address] [place] [address] [facility] 07/20/24 Trina Talley NP [address] [place] [address] Referring Physician Nurse Practitioner 05/12/23 Trina Talley NP [address] [place] [address] Nurse Practitioner Family Medicine 02/25/24 documented as of this encounter
--- OUTSIDE RECORDS SUMMARY | 2025-03-25 16:49 | XMS_ITS | Encounter Summary ---
Author Organization [facility] Address [address] [place] [address] Care Team Providers Care Kraft Digester Operator Name Role Phone Trina Talley ENGINE SETTER Unavailable [phone] Too Head MD Primary Care Provider [phone] Trina Talley ENGINE SETTER Unavailable [phone] Trina Talley NP Unavailable [phone] Reason for Visit * Reason Comments Med Refill Encounter Details Date Type Department Care Team (Late st Contact Info) Description 08/30/2024 Refill [facility] [address] [place] [address] Trina Talley NP [address] [place] [address] Gastroesophageal reflux disease without esophagitis Social History Tobacco Use Types Packs/Day Years [...] How often do you attend chur or denominational services? 1 to 4 times per year 04/13/2024 Do you belong to any clubs o r organizations such as congregation groups, unions, fraternal or athletic groups, or [...] and heating? Not hard at all 04/13/2024 [facility] of Occupat ional Health - Occupational Stress [...] any time in the past 12 m [facility], were you homeless or living in [...] 04/26/2025 3:00 PM EDT [facility] [address] [place] [address] Trina Talley NP [address] [place] [address] documented as of this encounter Visit Diagnoses Diagnosis Gastroesophageal reflux disease without esophagitis Esophageal reflux documented in this encounter Care Teams Kraft Digester Operator Relationship Specialty Start Date End Date Too Head MD [address] [place] [address] PCP - General Family Medicine 02/25/24 Trina Talley NP [address] [place] [address] PCP - [facility] 07/20/24 Trina Talley NP [address] [place] [address] Referring Physician Nurse Practitioner 05/12/23 Trina Talley NP [address] [place] [address] Nurse Practitioner Family Medicine 02/25/24 documented as of this encounter
--- OUTSIDE RECORDS SUMMARY | 2025-03-25 16:49 | XMS_ITS | Encounter Summary ---
Author Organization [facility] Address [address] [place] [address] Care Team Providers Care Land Surveying Manager Name Role Phone Trina Talley PROGRAM COUNSELOR Unavailable [phone] Too Head MD Primary Care Provider [phone] Trina Talley PROGRAM COUNSELOR Unavailable [phone] Trina Talley PROGRAM COUNSELOR Unavailable [phone] Reason for Visit * Reason Comments Med Refill Encounter Details Date Type Department Care Team (Late Contact Info) Description 02/26/[address] [facility] [address] [place] [address] Trina Talley, PROGRAM COUNSELOR [address] [place] [address] Social History Tobacco Use Types Packs/Day Years Used Date Smoking Tobacco: Former Cigarettes Q uit: 2021 Smokeless Tobacco: Current Snuff Alcohol Use Standard Drinks/Week Comments Never 0 (1 standard drink = 0.6 oz pure alcohol) caffine: 20oz coffee cup that is filled 5-7 times daily Sex and Gender Information Value Date Recorded Sex Assigned at Not on file Legal Sex Male 6:44 PM EDT Gender Identity Not on file Sexual Orientation Not on file documented as of this encounter Plan of Treatment Upcoming Encounters Date Type Department Care Team ([facility] Contact Info) Description 04/26/2025 3:00 PM EDT Office Visit [facility] [address] [place] [address] Trina Talley NP [address] [place] [address] documented as of this encounter Visit Diagnoses Not on filedocumented in this encounter Care Teams Land Surveying Manager Relationship Specialty Start Date End Date Too Head MD [address] [place] [address] PCP - General Family [facility] 02/25/24 Trina Talley NP [address] [place] [address] PCP - [facility] 07/20/24 Trina Talley NP [address] [place] [address] Referring Physician Nurse Practitioner 05/12/23 Trina Talley NP [address] [place] [address] Nurse Practitioner Family Medicine 02/25/24 documented as of this encounter
--- OUTSIDE RECORDS SUMMARY | 2025-03-25 16:49 | XMS_ITS | Encounter Summary ---
Author Organization [facility] Address [address] [place] [address] Care Team Providers Care Veneer Grader Name Role Phone Trina Talley NP Unavailable [phone] Too Head MD Primary Care Provider [phone] Trina Talley COMMERCIAL INSTRUCTOR SUPERVISOR Unavailable [phone] Trina Talley NP Unavailable [phone] Encounter Details Date Type Department Care Team (Late st Contact Info) Description 04/23/2024 Clinisync Result Encounter [facility] External Department Unsolicited Trina Talley, COMMERCIAL INSTRUCTOR SUPERVISOR [address] [place] [address] Social History Tobacco Use Types Packs/Day Years [...] often do you attend chur ch or muslim services? 1 to 4 times per year 04/13/2024 Do you belong to any clubs o r organizations such as sabianist groups, unions, fraternal or athletic groups, or [...] and heating? Not hard at all 04/13/2024 [facility] of Occupat ional Health - Occupational Stress [...] any time in the past 12 m [facility], were you homeless or living in a alf (including now)? No 04/13/2024 Sex and Gender Information Value Date Recorded Sex Assigned at Not on file Legal Sex Male 6:44 PM EDT Gender Identity Not on file Sexual Orientation Not on file documented as of this encounter Plan of Treatment Upcoming Encounters Date Type Department Care Team (Late st Contact Info) Description 04/26/2025 3:00 PM EDT Office Visit [facility] [address] [place] [address] Trina Talley NP [address] [place] [address] documented as of this encounter Procedures Procedure Name Priority Date/Time Associated Diagnosis Comments CA ECHO DOPPLER COMPLETE 04/23/2024 8:22 PM EDT documented in this encounter Results * CA ECHO DOPPLER COMPLETE (04/23/2024 8:22 PM EDT) Anatomical Region Laterality Modality Other 04/23/2024 8:22 PM EDT Narrative 04/23/2024 8:23 PM EDT The [address] [address] Cardiology Report Signed Patient: JOSE CAREY MR#: [id number] : 1990 Acct:[id number] Age/Sex: 34 / M ADM Date: 04/23/24 Loc: CARD Attending Dr: Trina Talley NP Ordering Physician: Trina Talley NP Date of Service: 04/23/24 Procedure(s): CA echo doppler complete Accession Number(s): [id number] cc: Trina Talley NP Patient Name: JOSE CAREY MR#: [id number] : 1990 Exam Date: 04/23/2024 Ordering Doctor: YENI Talley CNP ECHOCARDIOGRAM REPORT PROCEDURE: CA ECHO DOPPLER COMPLETE INDICATIONS: Chest pain, hypertension, diabetes COMPARISON: None. DESCRIPTION: COMPLETE ECHOCARDIOGRAM Real-time transthoracic echocardiography with 2D, M-mode, spectral and color flow Doppler performed. QUALITY: Technical quality was good. LEFT VENTRICLE: Normal chamber size. Normal left ventricular wall thickness. Normal systolic function. LV EF: Normal left ventricular ejection fraction, (55-60%). DIASTOLIC: Normal diastolic function. ATRIAL SEPTUM: LEFT ATRIUM: Normal chamber size. RIGHT ATRIUM: Normal chamber size. RIGHT VENTRICLE: Normal chamber size. Normal right ventricular systolic function. TRICUSPID VALVE: Normal mobility and thickness. No stenosis with no regurgitation. Unable to assess right-sided pressures due to lack of measurable tricuspid regurgitation. MITRAL VALVE: Normal mobility and thickness. No evidence of mitral valve stenosis. There is no mitral annular calcification. No mitral regurgitation. AORTIC VALVE: Normal trileaflet appearance. No visible sclerosis. Normal leaflet mobility. No evidence of aortic valve stenosis. No aortic regurgitation. AORTIC ROOT: Normal diameter and appearance. Ascending aorta is normal in size. PULMONIC VALVE: Normal thickness and mobility. No stenosis. No regurgitation. PERICARDIUM: No evidence of pericardial effusion. IVC: Collapses with inspirations. IVC is normal in size. PLEURA: CONCLUSION: 1. Normal left ventricular size and systolic function. LVEF is 55 to 60%. 2. Normal right ventricular size and systolic function. 3. Normal diastolic function. 4. No significant valvular dysfunction. 5. Unable to assess right-sided pressures due to lack of measurable tricuspid regurgitation. 6. No pericardial effusion. Adult Echocardiography Procedure Report Left Ventricle LVEDD (3.7 - 5.6 cm): 4.64 cm LVESD (2.2 - 4.0 cm): 2.94 cm LVIVS thickness (0.6 - 1.2 cm): 0.98 cm LVPW thickness (0.5 - 1.0 cm): 0.92 cm e': 0.10 m/s E - e': 7.20 LVOT Max Gradient: 3.24 mm[Hg] LVOT Area (cm2): 0.90 m/s Peak Velocity (LVOT): 0.90 m/s Mean Velocity (LVOT): 0.54 m/s LVOT Diameter 2.69 cm Left Atrium LA Volume Index (2D A2C): 18.50 ml/m2 Left Atrium Systolic Dimension: 3.47 cm Mitral Valve MV E to A Ratio: 1.33 Mitral Valve A-Wave Peak Velocity: 0.53 m/s Mitral Valve E-Wave Peak Velocity: 0.71 m/s Right Ventricle Aorta AO Root Diam: 3.78 cm Ascending Ao Diam: 2.64 cm Aortic Valve AoV Area (Peak Ag): 5.48 cm2, 5.48 cm2 AoV Area (VTI): 5.08 cm2, 5.08 cm2 Peak Velocity(Antegrade Flow): 0.93 m/s Peak Gradient(Antegrade Flow): 3.46 mm[Hg] Mean Velocity(Antegrade Flow): 0.65 m/s Mean Gradient(Antegrade Flow): 1.88 mm[Hg] Velocity Time Integral: 19.62 cm Tricuspid Valve Pulmonic Valve Mean Gradient: 3.04 mm[Hg] Mean Velocity: 0.82 m/s Peak Velocity: 1.19 m/s, 1.17 m/s Peak Gradient: 5.51 mm[Hg], 5.68 mm[Hg] Right Atrium Right Atrium Systolic Pressure: 52.76 ml, 52.76 ml Dictated by: Alyssa Beckham M.D. on 04/23/2024 at 20:20 Approved by: Alyssa Beckham M.D. on 04/23/2024 at 20:22 Dictated By: ALYSSA BECKHAM Signed By: 04/23/242022 DD/ 21 TD/TT: Flight Crew Ordnanceman: Procedure Note Radiology, Radiologist, MD - 04/23/2024 [place] [address] Cardiology Report Signed Patient: JOSE CAREY [facility]#: [id number] : 1990Acct:[id number] Age/Sex: 34 / MADM Date: 04/23/24 Loc: CARD Attending Dr: Trina Talley NP Ordering Physician: Trina Talley NP Date of Service: 04/23/24 Procedure(s): CA echo doppler complete Accession Number(s): [id number] cc: Trina Talley NP Patient Name: JOSE CAREY MR#: [id number] : 1990 Exam Date: 04/23/2024 Ordering Doctor: YENI Talley CNP ECHOCARDIOGRAM REPORT PROCEDURE: CA ECHO DOPPLER COMPLETE INDICATIONS: Chest pain, hypertension, diabetes COMPARISON: None. DESCRIPTION: COMPLETE ECHOCARDIOGRAM Real-time transthoracic echocardiography with 2D, M-mode, spectral and color flow Dopplerperformed. QUALITY: Technical quality was good. LEFT VENTRICLE: Normal chamber size. Normal left ventricular wall thickness. Normal systolic function. LV EF: Normal left ventricular ejection fraction, (55-60%). DIASTOLIC: Normal diastolic function. ATRIAL SEPTUM: LEFT ATRIUM: Normal chamber size. RIGHT ATRIUM: Normal chamber size. RIGHT VENTRICLE: Normal chamber size. Normal right ventricularsystolic function. TRICUSPID VALVE: Normal mobility and thickness. No stenosis with no regurgitation. Unable to assess right-sided pressures due to lack of measurable tricuspid regurgitation. MITRAL VALVE: Normal mobility and thickness. No evidence of mitralvalve stenosis. There is no mitral annular calcification. No mitralregurgitation. AORTIC VALVE: Normal trileaflet appearance. No visible sclerosis.Normal leaflet mobility. No evidence of aortic valve stenosis. No aortic regurgitation. AORTIC ROOT: Normal diameter and appearance. Ascending aorta is normalin size. PULMONIC VALVE: Normal thickness and mobility. No stenosis. No regurgitation. PERICARDIUM: No evidence of pericardial effusion. IVC: Collapses with inspirations. IVC is normal in size. PLEURA: CONCLUSION: 1. Normal left ventricular size and systolic function. LVEF is 55 to 60%. 2. Normal right ventricular size and systolic function. 3. Normal diastolic function. 4. No significant valvular dysfunction. 5. Unable to assess right-sided pressures due to lack of measurabletricuspid regurgitation. 6. No pericardial effusion. Adult Echocardiography Procedure Report Left Ventricle LVEDD (3.7 - 5.6 cm): 4.64 cm LVESD (2.2 - 4.0 cm): 2.94 cm LVIVS thickness (0.6 - 1.2 cm): 0.98 cm LVPW thickness (0.5 - 1.0 cm): 0.92 cm e': 0.10 m/s E - e': 7.20 LVOT Max Gradient: 3.24 mm[Hg] LVOT Area (cm2): 0.90 m/s Peak Velocity (LVOT): 0.90 m/s Mean Velocity (LVOT): 0.54 m/s LVOT Diameter 2.69 cm Left Atrium LA Volume Index (2D A2C): 18.50 ml/m2 Left Atrium Systolic Dimension: 3.47 cm Mitral Valve MV E to A Ratio: 1.33 Mitral Valve A-Wave Peak Velocity: 0.53 m/s Mitral Valve E-Wave Peak Velocity: 0.71 m/s Right Ventricle Aorta AO Root Diam: 3.78 cm Ascending Ao Diam: 2.64 cm Aortic Valve AoV Area (Peak Ag): 5.48 cm2, 5.48 cm2 AoV Area (VTI): 5.08 cm2, 5.08 cm2 Peak Velocity(Antegrade Flow): 0.93 m/s Peak Gradient(Antegrade Flow): 3.46 mm[Hg] Mean Velocity(Antegrade Flow): 0.65 m/s Mean Gradient(Antegrade Flow): 1.88 mm[Hg] Velocity Time Integral: 19.62 cm Tricuspid Valve Pulmonic Valve Mean Gradient: 3.04 mm[Hg] Mean Velocity: 0.82 m/s Peak Velocity: 1.19 m/s, 1.17 m/s Peak Gradient: 5.51 mm[Hg], 5.68 mm[Hg] Right Atrium Right Atrium Systolic Pressure: 52.76 ml, 52.76 ml Dictated by: Alyssa Beckham M.D. on 04/23/2024 at 20:20 Approved by: Alyssa Beckham M.D. on 04/23/2024 at 20:22 Dictated By: ALYSSA BECKHAM Signed By:04/23/242022 DD/ 21 TD/TT: Flight Crew Ordnanceman: us Trina Talley COMMERCIAL INSTRUCTOR SUPERVISOR [facility] Final Result documented in this encounter Visit Diagnoses Not on filedocumented in this encounter Care Teams Veneer Grader Relationship Specialty Start Date End Date Too Head MD [address] [place] [address] PCP - General Family Medicine 02/25/24 Trina Talley NP [address] [place] [address] PCP - [facility] 07/20/24 Trina Talley NP [address] [place] [address] Referring Physician Nurse Practitioner 05/12/23 Trina Talley NP [address] [place] [address] Nurse Practitioner Family Medicine 02/25/24 documented as of this encounter
--- OUTSIDE RECORDS SUMMARY | 2025-03-25 16:49 | XMS_ITS | Encounter Summary ---
Author Organization [facility] Address [address] [place] [address] Care Team Providers Care Sock Knitting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 Name Role Phone Trina Talley ELECTRO MECHANICAL DESIGNER Unavailable [phone] Head MD Primary Care Provider [phone] Trina Talley ELECTRO MECHANICAL DESIGNER Unavailable [phone] Trina Talley NP Unavailable [phone] Reason for Visit * Reason Comments Med Refill Encounter Details Date Type Department Care Team (Late st Contact Info) Description 06/23/2024 Refill [facility] [address] [place] [address] Trina aTlley NP [address] [place] [address] [place]MAN (generalized anxiety disorder) ([facility]) Social History Tobacco Use Types Packs/Day Years [...] often do you attend chur ch or baptism services? 1 to 4 times per year [...] and heating? Not hard at all 04/13/2024 [facility] [place] of Occupat ional Health - Occupational Stress [...] any time in the past 12 m [facility], were you homeless or living in a jail (including now)? No 04/13/2024 Sex and Gender Information Value Date Recorded Sex Assigned at Not on file Legal Sex Male 6:44 PM EDT Gender Identity Not on file Sexual Orientation Not on file documented as of this encounter Plan of Treatment Upcoming Encounters Date Type Department Care Team (Late st Contact Info) Description 04/26/2025 3:00 PM EDT Office Visit [facility] [address] [place] [address] Trina Talley NP [address] [place] [address] documented as of this encounter Visit Diagnoses Diagnosis NORMAN (generalized anxiety disorder) ([facility]) Generalized anxiety disorder documented in this encounter Care Teams Sock Knitting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 Start Date End Date Too Head MD [address] [place] [address] PCP - General Family Medicine 02/25/24 Trina Talley NP [address] [place] [address] PCP - [facility] 07/20/24 Trina Talley NP [address] [place] [address] Referring Physician Nurse Practitioner 05/12/23 Trina Talley NP [address] [place] [address] Nurse Practitioner Family Medicine 02/25/24 documented as of this encounter
--- OUTSIDE RECORDS SUMMARY | 2025-03-25 16:49 | XMS_ITS | Encounter Summary ---
Author Organization [facility] Address [address] [place] [address] Care Team Providers Care Switch House Operator Name Role Phone Trina Talley INDUSTRIAL MANUFACTURING TECHNICIAN Unavailable [phone] Head MD Primary Care Provider [phone] Trina Talley INDUSTRIAL MANUFACTURING TECHNICIAN Unavailable [phone] Trina Talley INDUSTRIAL MANUFACTURING TECHNICIAN Unavailable [phone] Reason for Visit * Reason Onset Date Comments Med Refill 06/22/2024 Encounter Details Date Type Department Care Team (Late st Contact Info) Description 06/22/2024 Refill [facility] [address] [place] [address] Trina Talley INDUSTRIAL MANUFACTURING TECHNICIAN [address] [place] [phone] NORMAN (generalized anxiety disorder) ([facility]) Social History Tobacco Use Types Packs/Day Years [...] often do you attend chur ch or quaker services? 1 to 4 times per year 04/13/2024 Do you belong to any clubs o r organizations such as adventist groups, unions, fraternal or athletic groups, or [...] and heating? Not hard at all 04/13/2024 [facility] - Occupational Stress [...] No 04/13/2024 Housing Stability Vital Sign Answer Amnuel e Recorded In the last 12 months, was t here a time when you were not able to pay the mortgage or rent on time? No 04/13/2024 Number of Times Moved in the Last Year Not on fi le 04/13/2024 At any time in the past 12 m [facility], were you homeless or living in a fci (including now)? No 04/13/2024 Sex and Gender [...] Office Visit [facility] [address] [place] [address] Trina Talley NP [address] [place] [phone] documented as of this encounter Visit Diagnoses Diagnosis NORMAN (generalized anxiety disorder) ([facility] Generalized anxiety disorder documented in this encounter Care Teams Switch House Operator Relationship Specialty Start Date End Date Too Head MD [address] [place] [phone] PCP - General Family Medicine 02/25/24 Trina Talley NP [address] [place] [phone] PCP - [facility] 07/20/24 Trina Talley NP [address] [place] [phone] Referring Physician Nurse Practitioner 05/12/23 Trina Talley NP [address] [place] [address] Nurse Practitioner Family Medicine 02/25/24 documented as of this encounter
--- OUTSIDE RECORDS SUMMARY | 2025-03-25 16:49 | XMS_ITS | Clinical Summary ---
Author Organization [facility] Address [address] [place] [address] Care Team Providers Care Moss Picker Name Role Phone Tiara Arcos MD Primary Care Provider Unavailab le Allergies Active Allergy Reactions Criticality Noted Date Comments Penicillins Rash Low 01/24/2017 Medications insulin glargine (LANTUS) 100 UNIT/ML injection vial Inject 10 Units into the skin every morning Active gabapentin (NEURONTIN) 300 MG capsule Take 300 mg by mouth 3 times daily Active omeprazole (PRILOSEC) 40 MG delayed release capsule Take 40 mg by mouth daily Active metFORMIN (GLUCOPHAGE) 500 MG tablet Take 500 mg by mouth daily Active cyclobenzaprine (FLEXERIL) 10 MG tablet Take 10 mg by mouth 4 times daily as needed for Muscle spasms Active cyproheptadine (PERIACTIN) 4 MG tabletIndicatio ns:Takes 2 tabs (=8mg) q8h prn Take 8 mg by mouth every 8 hours as needed Indications: Takes 2 tabs (=8mg) q8h prn Active rizatriptan (MAXALT) 5 MG tabletIndicatio ns:Max 2 tabs in 24 hours, no more than 5 tabs per week. Take 5 mg by mouth once as needed for Migraine Indications: Max 2 tabs in 24 hours, no more than 5 tabs per week. May repeat in 2 hours if needed Active Social History Tobacco Use Types Packs/Day Years Used Date Smoking Tobacco: Every Day Cigarettes Smokeless Tobacco: Former Comments:a pack a week Alcohol Use Standard Drinks/Week Comments No 0 (1 standard drink = 0.6 oz pur e alcohol) Sex and Gender Information Value Date Recorded Sex Assigned at Not on file Legal Sex Male 9:32 PM EST Gender Identity Not on file Sexual Orientation Not on file Last Filed Vital Signs Vital Sign Reading Time Taken Comments Blood Pressure 130/76 02/11/2017 4:30 PM EDT Pulse 98 02/11/2017 4:30 PM EDT Temperature 36.8 C (98.2 F) 02/11/2017 4:30 PM EDT Respiratory Rate 13 02/11/2017 4:30 PM EDT Oxygen Saturation 92% 02/11/2017 4:30 PM EDT Inhaled Oxygen Concentration - - Weight 128.2 kg (282 lb 10.1 oz) 01/24/2017 1:52 PM EDT Height 182.9 cm (6') 01/24/2017 1:52 PM EDT Body Mass Index 38.33 01/24/2017 1:52 PM EDT Plan of Treatment Not on file Insurance PLAN Member Subscriber Plan / Payer (Ef fective 2014-Present) Name:Jose Carey Relation to Subscriber:Self Name:Cherry Jose Payer ID:Not on file Group ID:Not on file Type:Not on file [address] Care Teams Moss Picker Relationship Specialty Start Date End Date Tiara Arcos MD [address] [place] [address] PCP - General 01/20/17
--- OUTSIDE RECORDS SUMMARY | 2025-03-25 16:53 | XMS_ITS | CCD ---
Author Organization [facility] Inform ion Partnership [facility] Care Team Providers Care Websphere Administrator Name Role Phone AICHBROOKLYNZ, SURGICAL PRODUCT SALES CONSULTANT TRINA Consulting Unavailable AICHHOLZ, SURGICAL PRODUCT SALES CONSULTANT TRINA Primary Care Unavailable AICHHOLZ, SURGICAL PRODUCT SALES CONSULTANT TRINA Admitting Unavailable AICHHOLZ, SURGICAL PRODUCT SALES CONSULTANT TRINA Attending Unavailable AICHHOLZ, SURGICAL PRODUCT SALES CONSULTANT TRINA Consulting Unavailable AICHHOLZ, SURGICAL PRODUCT SALES CONSULTANT TRINA Admitting Unavailable JERRELL ARZATE Primary Care Unavailable AICHHOLZ, SURGICAL PRODUCT SALES CONSULTANT TRINA Referring Unavailable AICHHOLZ, SURGICAL PRODUCT SALES CONSULTANT TRINA Attending Unavailable AICHHOLZ, SURGICAL PRODUCT SALES CONSULTANT TRINA Consulting Unavailable AICHHOLZ, SURGICAL PRODUCT SALES CONSULTANT TRINA Primary Care Unavailable AICHHOLZ, SURGICAL PRODUCT SALES CONSULTANT TRINA Admitting Unavailable AICHHOLZ, SURGICAL PRODUCT SALES CONSULTANT TRINA Attending Unavailable Aichholz BACTERIOLOGIST DAIRY, Trina Unavailable Too Head MD Primary Care Provider Aichholz BACTERIOLOGIST DAIRY, Trina Unavailable Aichholz BACTERIOLOGIST DAIRY, Trina Unavailable AICHHOLZ, TRINA Attending Unavailable AICHHOLZ, TRINA Attending Unavailable AICHHOLZ, TRINA Attending Unavailable AICHHOLZ, TRINA Attending Unavailable AICHHOLZ, TRINA Attending Unavailable AICHHOLZ, TRINA Attending Unavailable AICHHOLZ, TRINA Attending Unavailable Allergies Allergy Classification Reported Allergen(s) Allergy Type Date of Onset Reaction(s) Facility (1 source) Penicillin Drug Allergy 03-15-2013 [facility] Repository (20 sources) Penicillin V Drug Allergy 02-25-2024 [facility] Work Phone: Medications Current Medications Medication Drug Class(es) Dates Sig (Normalized) Sig (Original) aspirin 81 mg delayed release oral tablet (6 sources) Platelet Aggregation Inhibitor, Nonsteroidal Anti-inflammatory Drug take 1 tablet by mouth once daily aspirin 81 MG EC tablet Take 81 mg by mouth Daily Active atorvastatin 20 mg oral tablet (20 sources) HMG-CoA Reductase Inhibitor Start: 05-25-2024 End: 02-23-2025 take 1 tablet by mouth at bedtime atorvastatin (Lipitor) 20 MG tablet Indications: Mixed hyperlipidemia (CMS/HCC) Take 1 tablet (20 mg) by mouth at bedtime 90 tablet 1 11/25/2024 02/23/2025 Active 24 hr buPROPion hydrochloride 150 mg extended release oral tablet (20 sources) Aminoketone Start: 11-14-2024 End: 02-23-2025 take 1 tablet by mouth once daily buPROPion XL (Wellbutrin XL) 150 MG 24 hr tablet Indications: Moderate episode of recurrent major depressive disorder (CMS/HCC) Take 1 tablet (150 mg) by mouth Daily Do not crush, chew, or split. 90 tablet 1 11/25/2024 02/23/2025 Active Start: 05-25-2024 End: 09-02-2024 take 1 tablet by mouth once daily buPROPion XL (Wellbutrin XL) 150 MG 24 hr tablet Indications: Moderate episode of recurrent major depressive disorder (CMS/HCC) Take 1 tablet (150 mg) by mouth Daily Do not crush, chew, or split. 30 tablet 2 08/03/2024 Active Continuous Glucose Sensor (Dexcom G7 Sensor) misc (20 sources) Start: 06-22-2024 Continuous Glucose Sensor (Dexcom G7 Sensor) misc 1 each by Other route Daily 06/22/2024 Active dapagliflozin 5 mg oral tablet (20 sources) Sodium-Glucose Cotransporter 2 Inhibitor Start: 08-23-2024 End: 02-23-2025 take 1 tablet by mouth once daily dapagliflozin (Farxiga) 5 MG Indications: Pre-diabetes Take 1 tablet (5 mg) by mouth Daily 90 tablet 1 11/25/2024 02/23/2025 Active Start: 05-27-2024 take 1 tablet by clinton th once daily dapagliflozin (Farxiga) 5 MG Indications: Pre-diabetes Take 1 tablet (5 mg) by mouth Daily 30 tablet 2 05/27/2024 Active 0.5 ml dulaglutide 3 mg/ml auto-injector (8 sources) GLP-1 Receptor Agonist Start: 01-24-2025 End: 02-21-2025 Dulaglutide (Trulicity) 1.5 MG/0.5ML solution auto-injector Indications: Type 2 diabetes mellitus without complication, without long-term current use of insulin Inject 1.5 mg under the skin every 7 (seven) days for 28 days 2 mL 3 01/24/2025 02/21/2025 Active Start: 11-25-2024 End: 01-24-2025 Dulaglutide (Trulicity) 0.75 MG/0.5ML solution auto-injector Indications: Pre-diabetes Inject 0.75 mg under the skin every 7 (seven) days for 28 days 2 mL 2 11/25/2024 01/24/2025 Discontinued (Therapy completed) FLUoxetine 10 mg oral capsule (20 sources) Serotonin Reuptake Inhibitor Start: 04-20-2024 End: 02-23-2025 take 1 capsule by mouth once daily FLUoxetine (PROzac) 10 MG capsule Indications: NORMAN (generalized anxiety disorder) (CMS/HCC) Take 1 capsule (10 mg) by mouth Daily 90 capsule 1 11/25/2024 02/23/2025 Active losartan potassium 50 mg oral tablet (20 sources) Angiotensin 2 Receptor Willem Start: 05-27-2024 End: 03-07-2025 take 1 tablet by mouth once daily losartan (Cozaar) 50 MG tablet Indications: Primary hypertension (CMS/HCC) Take 1 tablet (50 mg) by mouth Daily 90 tablet 1 12/07/2024 03/07/2025 Active naproxen 500 mg oral tablet (3 sources) Nonsteroidal Anti-inflammatory Drug Start: 08-25-2024 End: 09-09-2024 take 1 tablet by mouth in the morning naproxen (Naprosyn) 500 MG tablet Indications: Sciatica of left side Take 1 tablet (500 mg) by mouth in the morning and 1 tablet (500 mg) in the evening. Take with meals. Do all this for 15 days. Take with food. 30 tablet 08/25/2024 09/09/2024 Active omeprazole 40 mg delayed release oral capsule (20 sources) Proton Pump Inhibitor Start: 06-01-2024 End: 02-23-2025 take 1 capsule by mouth before mealtime omeprazole (PriLOSEC) [address] capsule Indications: Gastroesophageal reflux disease without esophagitis Take 1 capsule (40 mg) by mouth in the morning. Take before meals. 90 capsule 1 11/25/2024 02/23/2025 Active Completed/Discontinued Medications Medication Drug Class(es) Dates Sig (Normalized) Sig (Original) Continuous Glucose Tar Heat Exchanger Cleaner (Dexcom G7 Tar Heat Exchanger Cleaner) device (11 sources) Start: 05-25-2024 End: 09-02-2024 Continuous Glucose Tar Heat Exchanger Cleaner (Dexcom G7 Tar Heat Exchanger Cleaner) device Indications: Pre-diabetes , Hypoglycemia 1 each Daily 1 each 1 05/25/2024 09/02/2024 Start: 05-25-2024 End: 09-02-2024 Continuous Glucose Tar Heat Exchanger Cleaner (Dexcom G7 Tar Heat Exchanger Cleaner) device Indications: Pre-diabetes , Hypoglycemia 1 each Daily 1 each 1 05/25/2024 09/02/2024 Active 3 ml liraglutide 6 mg/ml pen injector (20 sources) GLP-1 Receptor Agonist Start: 10-11-2024 End: 11-25-2024 liraglutide (Victoza) 18 MG/3ML injection Indications: Pre-diabetes INJECT 0.6mg ONCE DAILY FOR 7 DAYS then INCREASE 1.2mg FOR 7 DAYS then INCREASE to 1.8 mg DAILY 9 mL 2 10/12/2024 11/25/2024 Discontinued (Cost of medication) Start: 08-13-2024 End: 10-11-2024 inject 1.8 mg by subcutaneous injection once daily liraglutide (Victoza) 18 MG/3ML injection Indications: Pre-diabetes Inject 1.8 mg under the skin Daily for 28 days 3 pen 2 08/13/2024 10/11/2024 Discontinued (Reorder) Start: 05-31-2024 End: 08-13-2024 liraglutide (Victoza) 18 MG/ 3ML injection Indications: Pre-diabetes Start with 0.6mg once a day for 7 days, then increase to 1.2mg for 7 days, then 1.8mg daily 9 mL 1 05/31/2024 08/13/2024 Discontinued Semaglutide,0.25 or 0.5MG/DO S, (Ozempic, 0.25 or 0.5 MG/DOSE,) 2 MG/3ML solution pen-injector (2 sources) Start: 09-23-2024 End: 10-11-2024 Semaglutide,0.25 or 0.5MG/DO S, (Ozempic, 0.25 or 0.5 MG/DOSE,) 2 MG/3ML solution pen-injector Indications: Pre-diabetes Inject 0.5 mg under the skin every 7 (seven) days for 28 days 3 mL 2 09/23/2024 10/11/2024 Discontinued (Cost of medication) Start: 09-23-2024 End: 10-21-2024 Semaglutide,0.25 or 0.5MG/DO S, (Ozempic, 0.25 or 0.5 MG/DOSE,) 2 MG/3ML solution pen-injector Indications: Pre-diabetes Inject 0.5 mg under the skin every 7 (seven) days for 28 days 3 mL 2 09/23/2024 10/21/2024 Active tiZANidine 4 mg oral tablet (12 sources) Central alpha-2 Adrenergic Agonist Start: 08-25-2024 End: 11-25-2024 take 1 tablet by mouth once tiZANidine (Zanaflex) 4 MG tablet Indications: Sciatica of left side Take 1 tablet (4 mg) by mouth every 12 (twelve) hours if needed for muscle spasms for up to 10 days 20 tablet 08/25/2024 11/25/2024 Discontinued (Therapy completed) Problems Active Problems Problem Classification Problem Date Documented Date Episodic/Chronic Anxiety disorders (20 sources) Anxiety disorder, unspecified; Translations: [Generalized anxiety disorder] Onset: 03-25-2022 02-25-2024 Chronic Diabetes mellitus without complication (5 sources) Type 2 diabetes mellitus without complications; Translations: [Type 2 diabetes mellitus] Onset: 07-09-2022 01-24-2025 Chronic Diabetes mellitus without complication (20 sources) Prediabetes; Translations: [Prediabetes] Onset: 03-15-2022 Episodic Diseases of white blood cells (20 sources) Leukocytosis; Translations: [Elevated white blood cell count, unspecified] Onset: 04-20-2024 04-20-2024 Chronic Disorders of lipid metabolism (20 sources) Hyperlipidemia, unspecified; Translations: [Mixed hyperlipidemia] Onset: 05-07-2022 Chronic Esophageal disorders (20 sources) Gastroesophageal reflux disease without esophagitis; Translations: [Gastro-esophageal reflux disease without esophagitis] Onset: 02-25-2024 02-25-2024 Chronic Essential hypertension (20 sources) Essential hypertension; Translations: [Essential (primary) hypertension] Onset: 02-25-2024 02-25-2024 Chronic Headache; including migraine (20 sources) Tension-type headache; Translations: [Tension-type headache, unspecified, not intractable] Onset: 02-25-2024 02-25-2024 Chronic Mood disorders (20 sources) Moderate recurrent major depression; Translations: [Major depressive disorder, recurrent, moderate] Onset: 05-25-2024 08-03-2024 Chronic Other endocrine disorders (20 sources) Hypoglycemia; Translations: [Hypoglycemia, unspecified] Onset: 05-25-2024 05-25-2024 Chronic Other nutritional; endocrine; and metabolic disorders (4 sources) Other disorders of plasma-protein metabolism, not elsewhere classified; Translations: [OTHER D/O PLASMA-PROTEIN METAB NEC] Onset: 05-06-2022 Chronic Other nutritional; endocrine; and metabolic disorders (20 sources) Hypoalbuminemia; Translations: [Other disorders of plasma-protein metabolism, not elsewhere classified] Onset: 02-25-2024 02-25-2024 Chronic Other nutritional; endocrine; and metabolic disorders (20 sources) Obesity caused by energy imbalance; Translations: [Morbid (severe) obesity due to excess calories] Onset: 05-25-2024 05-25-2024 Chronic Other nutritional; endocrine; and metabolic disorders (20 sources) Body mass index 40+ - severely obese; Translations: [Body mass index (BMI) 40.0-44.9, adult] Onset: 05-25-2024 05-25-2024 Chronic Residual codes; unclassified (20 sources) Obstructive sleep apnea syndrome; Translations: [Obstructive sleep apnea (adult) (pediatric)] Onset: 02-25-2024 02-25-2024 Chronic Past or Other Problems Problem Classification Problem Date Documented Da te Episodic/Chronic Immunizations and screening for infectious disease (17 sources) Needs influenza immunization; Translations: [Encounter for immunization] Onset: 08-25-2024 08-25-2024 Episodic Nausea and vomiting (20 sources) Nausea and vomiting; Translations: [Nausea with vomiting, unspecified] Onset: 04-20-2024 04-20-2024 Episodic Nonspecific chest pain (20 sources) Chest pain; Translations: [Other chest pain] Onset: 02-25-2024 02-25-2024 Episodic Other nutritional; endocrine; and metabolic disorders (20 sources) Body mass index 30+ - obesity; Translations: [Obesity, unspecified] Onset: 02-25-2024 Resolved: 05-25-2024 05-25-2024 Chronic Spondylosis; intervertebral disc disorders; other back problems (17 sources) Disorder of left sciatic nerve; 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, left side] Onset: 08-25-2024 08-25-2024 Episodic Substance-related disorders (20 sources) Tobacco dependence syndrome; Translations: [Nicotine dependence, unspecified, uncomplicated] Onset: 02-25-2024 Resolved: 08-25-2024 02-25-2024 Chronic Results Test Name Value Interpretation Reference Range Facility HbA1c (Bld) [Mass fraction]o n 08-25-2024 Interpretation and review of laboratory results [facility] 08-25-2024 HbA1c (Bld) [Mass fraction] 5.6 % [facility] GLUCOSE BLOODon 07-06-2022 Glucose [Mass/Vol] 105 mg/dL Normal 74-106 [facility] Comment on above: Performed By: #### A ST, GLUC, ALT, LIPID #### [facility] [address] [address] [address] Cornell Sharma GLYCOHEMOGLOBIN A1Con 2021 ADA RECOMMENDATION SEE BELOW Normal [facility] Comment on above: Result Comment: ADA RECOMMENDED LIMIT 4.0 - 6.0 ADA THERAPEUTIC TARGET < 7.0 ACTION SUGGESTED > 7.0 Performed By: #### A 1C #### [facility] [address] [address] [address] Cornell Sharma Glucose [Mass/Vol] 114 mg/dL Normal [facility] Comment on above: Performed By: #### A 1C #### [facility] [address] [place] [address] Dr. Cornell Sharma HbA1c (Bld) [Mass fraction] 5.6 % Normal 4.5-6.2 [facility] Comment on above: Performed By: #### A 1C #### [facility] [address] [address] [address] Cornell Sharma LIPID PROFILEon 07-06-2022 CHOL-HDL RATIO NORM SEE BELOW Normal [facility] Comment on above: Result Comment: 3.3 - 4.4 LOW RISK 4.4 - 7.1 AVERAGE RISK 7.1 - 11.0 MODERATE RISK >11.0 HIGH RISK Performed By: #### A ST, GLUC, ALT, LIPID #### [facility] [address] [address] [address] Cornell Sharma Cholesterol [Mass/Vol] 197 mg/dL Normal <=200 [facility] Comment on above: Performed By: #### A ST, GLUC, ALT, LIPID #### [facility] [address] [address] [address] Cornell Sharma Cholesterol in HDL [Mass/Vol] 53 mg/dL Normal 40-60 [facility] Comment on above: Performed By: #### A ST, GLUC, ALT, LIPID #### [facility] [address] [address] [address] Cornell Sharma Cholesterol in LDL [Mass/Vol] 118.2 mg/dL Normal [facility] Comment on above: Performed By: #### A ST, GLUC, ALT, LIPID #### [facility] [address] [address] [address] Cornell Sharma Cholesterol.total/Cho lesterol in HDL [Mass ratio] 3.7 {ratio} Normal [facility] Comment on above: Performed By: #### A ST, GLUC, ALT, LIPID #### [facility] [address] [address] [address] Cornell Sharma HDL NORMAL > or = 60 mg/dl - LOW CARDIOVASCULAR RISK <40 mg/dl - HIGH CARDIOVASCULAR RISK Normal [facility] Comment on above: Performed By: #### A ST, GLUC, ALT, LIPID #### [facility] [address] [address] [address] Cornell Sharma LDL CALC NORMAL SEE BELOW Normal [facility] Comment on above: Result Comment: <100 mg/dl OPTIMAL 100 - 129 mg/dl NEAR OR ABOVE OPTIMAL 130 - 159 mg/dl BORDERLINE HIGH 160 - 189 mg/dl HIGH >190 mg/dl VERY HIGH Performed By: #### A ST, GLUC, ALT, LIPID #### [facility] [address] [place] [address] Dr. Cornell Sharma Triglyceride [Mass/Vol] 129 mg/dL Normal <=150 [facility] Comment on above: Performed By: #### A ST, GLUC, ALT, LIPID #### [facility] [address] [address] [address] Cornell Sharma VLDL CALC 25.8 mg/dL Normal [facility] Comment on above: Performed By: #### A ST, GLUC, ALT, LIPID #### [facility] [address] [place] [address] Dr. Cornell Sharma SGOTon 07-06-2022 AST [Catalytic activity/Vol] 15 U/L Normal 15-37 [facility] Comment on above: Performed By: #### A ST, GLUC, ALT, LIPID #### [facility] [address] [place] [address] Dr[facility] ALT [Catalytic activity/Vol] 50 U/L Normal 16-63 [facility] Comment on above: Performed By: #### A ST, GLUC, ALT, LIPID #### [facility] [address] [place] [address] Dr. Cornell Sharma LIPID PROFILEon 05-06-2022 CHOL-HDL RATIO NORM SEE BELOW Normal [facility] Comment on above: Result Comment: 3.3 - 4.4 LOW RISK 4.4 - 7.1 AVERAGE RISK 7.1 - 11.0 MODERATE RISK >11.0 HIGH RISK Performed By: #### L IPID, LIVER #### [facility] [address] [address] [address] Cornell Sharma Cholesterol [Mass/Vol] 181 mg/dL Normal <=200 [facility] Comment on above: Performed By: #### L IPID, LIVER #### [facility] [address] [place] [address] Dr. Cornell Sharma Cholesterol in HDL [Mass/Vol] 39 mg/dL Critically low 40-60 [facility] Comment on above: Performed By: #### L IPID, LIVER #### [facility] [address] [address] [address] Cornell Sharma Cholesterol in LDL [Mass/Vol] 81.6 mg/dL Normal [facility] Comment on above: Performed By: #### L IPID, LIVER #### [facility] [address] [address] [address] Cornell Sharma Cholesterol.total/Cho lesterol in HDL [Mass ratio] 4.6 {ratio} Normal [facility] Comment on above: Performed By: #### L IPID, LIVER #### [facility] [address] [address] [address] Cornell Sharma HDL NORMAL > or = 60 mg/dl - LOW CARDIOVASCULAR RISK <40 mg/dl - HIGH CARDIOVASCULAR RISK Normal [facility] Comment on above: Performed By: #### L IPID, LIVER #### [facility] [address] [place] [address] Dr. Cornell Sharma LDL CALC NORMAL SEE BELOW Normal [facility] Comment on above: Result Comment: <100 mg/dl OPTIMAL 100 - 129 mg/dl NEAR OR ABOVE OPTIMAL 130 - 159 mg/dl BORDERLINE HIGH 160 - 189 mg/dl HIGH >190 mg/dl VERY HIGH Performed By: #### L IPID, LIVER #### [facility] [address] [place] [address] Dr. Cornell Sharma Triglyceride [Mass/Vol] 302 mg/dL Critically high <=150 [facility] Comment on above: Performed By: #### L IPID, LIVER #### [facility] [address] [place] [address] Dr. Cornell Sharma VLDL CALC 60.4 mg/dL Normal [facility] Comment on above: Performed By: #### L IPID, LIVER #### [facility] [address] [place] [address] Dr. Cornell Sharma LIVER PROFILEon 05-06-2022 Albumin [Mass/Vol] 3.6 g/dL Normal 3.4-5.0 [facility] Comment on above: Performed By: #### L IPID, LIVER #### [facility] [address] [address] [address] Cornell Sharma Albumin/Globulin [Mass ratio] 0.9 {ratio} Normal [facility] Comment on above: Performed By: #### L IPID, LIVER #### [facility] [address] [address] [address] Cornell Sharma ALP [Catalytic activity/Vol] 56 U/L Normal 46-116 [facility] Comment on above: Performed By: #### L IPID, LIVER #### [facility] [address] [address] [address] Cornell Sharma ALT [Catalytic activity/Vol] 46 U/L Normal 16-63 [facility] Comment on above: Performed By: #### L IPID, LIVER #### [facility] [address] [address] [address] Cornell Sharma AST [Catalytic activity/Vol] 17 U/L Normal 15-37 [facility] Comment on above: Performed By: #### L IPID, LIVER #### [facility] [address] [address] [address] Cornell Sharma BILI, CONJUGATED 0.1 mg/dL Normal 0.0-0.2 [facility] Comment on above: Performed By: #### L IPID, LIVER #### [facility] [address] [address] [address] Cornell Sharma Bilirubin [Mass/Vol] 0.3 mg/dL Normal 0.2-1.0 [facility] Comment on above: Performed By: #### L IPID, LIVER #### [facility] [address] [address] [address] Cornell Sharma Globulin (S) [Mass/Vol] 3.9 g/dL Normal [facility] Comment on above: Performed By: #### L IPID, LIVER #### [facility] [address] [address] [address] Cornell Sharma Protein [Mass/Vol] 7.5 g/dL Normal 6.4-8.2 [facility] Comment on above: Performed By: #### L IPID, LIVER #### [facility] [address] [address] [address] Cornell Sharma CBC AUTO DIFFon 03-15-2022 BASO # 0.0 103/ul Normal 0.0-0.1 [facility] Comment on above: Performed By: #### C BC #### [facility] [address] [address] [address] Cornell Sharma Basophils/100 WBC (Bld) 0.5 % Normal 0.2-2.0 [facility] Comment on above: Performed By: #### C BC #### [facility] [address] [address] [address] Cornell Sharma EO # 0.1 103/ul Normal 0.0-0.7 [facility] Comment on above: Performed By: #### C BC #### [facility] [address] [place] [address] Dr. Cornell Sharma Eosinophils/100 WBC (Bld) 1.1 % Normal 0.9-7.0 [facility] Comment on above: Performed By: #### C BC #### [facility] [address] [address] [address] Cornell Sharma Erythrocyte distribution width (RBC) [Ratio] 13.2 % Normal 11.0-15.0 [facility] Comment on above: Performed By: #### C BC #### [facility] [address] [place] [address] Dr. Cornell Sharma Hematocrit (Bld) [Volume fraction] 44.7 % Normal 42.0-54.0 [facility] Comment on above: Performed By: #### C BC #### [facility] [address] [address] [address] Cornell Sharma Hemoglobin (Bld) [Mass/Vol] 14.4 g/dL Normal 14.0-18.0 [facility] Comment on above: Performed By: #### C BC #### [facility] [address] [address] [address] Cornell Sharma IG # 0.02 10e3/ul Normal 0.00-0.03 [facility] Comment on above: Performed By: #### C BC #### [facility] [address] [place] [address] Dr. Cornell Sharma IG % 0.3 % Normal 0.0-0.5 [facility] Comment on above: Performed By: #### C BC #### [facility] [address] [place] [address] Dr. Cornell Sharma LYMPH # 2.2 103/ul Normal 1.2-3.8 [facility] Comment on above: Performed By: #### C BC #### [facility] [address] [place] [address] Dr. Cornell Sharma Lymphocytes/100 WBC (Bld) 28.8 % Normal 20.5-60.0 [facility] Comment on above: Performed By: #### C BC #### [facility] [address] [place] [address] Dr. Cornell Sharma MANUAL DIFF REQ NO Normal [facility] Comment on above: Performed By: #### C BC #### [facility] [address] [place] [address] Dr. Cornell Sharma MCH (RBC) [Entitic mass] 29.4 pg Normal 25.9-34.0 [facility] Comment on above: Performed By: #### C BC #### [facility] [address] [place] [address] Dr. Cornell Sharma MCHC (RBC) [Mass/Vol] 32.2 g/dL Normal 29.9-35.2 [facility] Comment on above: Performed By: #### C BC #### [facility] [address] [place] [address] Dr. Cornell Sharma MCV (RBC) [Entitic vol] 91.2 fL Normal 80.0-94.0 [facility] Comment on above: Performed By: #### C BC #### [facility] [address] [place] [address] Dr. Cornell Sharma MONO # 0.7 103/ul Normal 0.3-0.8 [facility] Comment on above: Performed By: #### C BC #### [facility] [address] [place] [address] Dr. Cornell Sharma Monocytes/100 WBC (Bld) 9.1 % Normal 1.7-12.0 [facility] Comment on above: Performed By: #### C BC #### [facility] [address] [address] [address] Cornell Sharma NEUT # 4.6 103/ul Normal 1.4-6.5 [facility] Comment on above: Performed By: #### C BC #### [facility] [address] [place] [address] Dr. Cornell Sharma Neutrophils/100 WBC (Bld) 60.2 % Normal 43.0-75.0 [facility] Comment on above: Performed By: #### C BC #### [facility] [address] [place] [address] Dr. Cornell Sharma Platelet mean volume (Bld) [Entitic vol] 9.9 fL Normal 9.5-13.5 [facility] Comment on above: Performed By: #### C BC #### [facility] [address] [place] [address] Dr. Cornell Sharma PLT 294 103/ul Normal 150-450 [facility] Comment on above: Performed By: #### C BC #### [facility] [address] [place] [address] Dr. Cornell Sharma RBC 4.90 106/ul Normal 4.70-6.10 [facility] Comment on above: Performed By: #### C BC #### [facility] [address] [place] [address] Dr. Cornell Sharma WBC 7.6 103/ul Normal 4.0-11.0 [facility] Comment on above: Performed By: #### C BC #### [facility] [address] [place] [address] Dr. Cornell Sharma FREE T4on 03-15-2022 Free T4 [Mass/Vol] 0.83 ng/dL Normal 0.76-1.46 [facility] Comment on above: Performed By: #### M ALBR #### [facility] [address] [address] [address] Cornell Sharma GLYCOHEMOGLOBIN A1Con 2021 ADA RECOMMENDATION SEE BELOW Normal [facility] Comment on above: Result Comment: ADA RECOMMENDED LIMIT 4.0 - 6.0 ADA THERAPEUTIC TARGET < 7.0 ACTION SUGGESTED > 7.0 Performed By: #### M ALBR #### [facility] [address] [address] [address] Cornell Sharma Glucose [Mass/Vol] 120 mg/dL Critically high 74-106 [facility] Comment on above: Performed By: #### M ALBR #### [facility] [address] [place] [address] Dr. Cornell Sharma HbA1c (Bld) [Mass fraction] 5.8 % Normal 4.5-6.2 [facility] Comment on above: Performed By: #### M ALBR #### [facility] [address] [place] [address] Dr. Cornell Sharma LIPID PROFILEon 03-15-2022 CHOL-HDL RATIO NORM SEE BELOW Normal [facility] Comment on above: Result Comment: 3.3 - 4.4 LOW RISK 4.4 - 7.1 AVERAGE RISK 7.1 - 11.0 MODERATE RISK >11.0 HIGH RISK Performed By: #### M ALBR #### [facility] [address] [place] [address] Dr. Cornell Sharma Cholesterol [Mass/Vol] 228 mg/dL Critically high <=200 [facility] Comment on above: Performed By: #### M ALBR #### [facility] [address] [place] [address] Dr. Cornell Sharma Cholesterol in HDL [Mass/Vol] 39 mg/dL Critically low 40-60 [facility] Comment on above: Performed By: #### M ALBR #### [facility] [address] [place] [address] Dr. Cornell Sharma Cholesterol in LDL [Mass/Vol] 143.6 mg/dL Normal [facility] Comment on above: Performed By: #### M ALBR #### [facility] [address] [place] [address] Dr. Cornell Sharma Cholesterol.total/Cho lesterol in HDL [Mass ratio] 5.8 {ratio} Normal [facility] Comment on above: Performed By: #### M ALBR #### [facility] [address] [address] [address] Cornell Sharma HDL NORMAL > or = 60 mg/dl - LOW CARDIOVASCULAR RISK <40 mg/dl - HIGH CARDIOVASCULAR RISK Normal [facility] Comment on above: Performed By: #### M ALBR #### [facility] [address] [address] [address] Cornell Sharma LDL CALC NORMAL SEE BELOW Normal [facility] Comment on above: Result Comment: <100 mg/dl OPTIMAL 100 - 129 mg/dl NEAR OR ABOVE OPTIMAL 130 - 159 mg/dl BORDERLINE HIGH 160 - 189 mg/dl HIGH >190 mg/dl VERY HIGH Performed By: #### M ALBR #### [facility] [address] [address] [address] Cornell Sharma Triglyceride [Mass/Vol] 227 mg/dL Critically high <=150 [facility] Comment on above: Performed By: #### M ALBR #### [facility] [address] [address] [address] Cornell Sharma VLDL CALC 45.4 mg/dL Normal [facility] Comment on above: Performed By: #### M ALBR #### [facility] [address] [address] [address] Cornell Sharma MICROALBUMIN, RAND URon - mALB <1.3 Normal <=30.0 [facility] Comment on above: Performed By: #### M ALBR #### [facility] [address] [address] [address] Cornell Sharma PROF 14(COMP METB)on 022 Albumin [Mass/Vol] 2.5 g/dL Critically low 3.4-5.0 [facility] Comment on above: Performed By: #### M ALBR #### [facility] [address] [address] [address] Cornell Sharma Albumin/Globulin [Mass ratio] 0.5 {ratio} Normal [facility] Comment on above: Performed By: #### M ALBR #### [facility] [address] [address] [address] Cornell Sharma ALP [Catalytic activity/Vol] 57 U/L Normal 46-116 [facility] Comment on above: Performed By: #### M ALBR #### [facility] [address] [address] [address] Cornell Sharma ALT [Catalytic activity/Vol] 55 U/L Normal 16-63 [facility] Comment on above: Performed By: #### M ALBR #### [facility] [address] [address] [address] Cornell Sharma Anion gap [Moles/Vol] 12.5 mmol/L Normal [facility] Comment on above: Performed By: #### M ALBR #### [facility] [address] [address] [address] Cornell Sharma AST [Catalytic activity/Vol] 14 U/L Critically low 15-37 [facility] Comment on above: Performed By: #### M ALBR #### [facility] [address] [address] [address] Cornell Sharma Bilirubin [Mass/Vol] 0.2 mg/dL Normal 0.2-1.0 [facility] Comment on above: Performed By: #### M ALBR #### [facility] [address] [address] [address] Cornell Sharma Calcium [Mass/Vol] 9.4 mg/dL Normal 8.5-10.1 [facility] Comment on above: Performed By: #### M ALBR #### [facility] [address] [address] [address] Cornell Sharma Chloride [Moles/Vol] 103 mmol/L Normal 98-107 [facility] Comment on above: Performed By: #### M ALBR #### [facility] [address] [address] [address] Cornell Sharma CO2 [Moles/Vol] 27.9 mmol/L Normal 21.0-32.0 [facility] Comment on above: Performed By: #### M ALBR #### [facility] [address] [address] [address] Cornell Sharma Creatinine [Mass/Vol] 0.74 mg/dL Normal 0.70-1.30 [facility] Comment on above: Performed By: #### M ALBR #### [facility] [address] [address] [address] Cornell Sharma EGFR-AF BENINESE >60 Normal >=60 [facility] Comment on above: Performed By: #### M ALBR #### [facility] [address] [address] [address] Cornell Sharma EGFR-NON AF BENINESE >60 Normal >=60 [facility] Comment on above: Performed By: #### M ALBR #### [facility] [address] [place] [address] Dr. Cornell Sharma Globulin (S) [Mass/Vol] 5.0 g/dL Normal [facility] Comment on above: Performed By: #### M ALBR #### [facility] [address] [place] [address] Dr. Cornell Sharma Potassium [Moles/Vol] 4.4 mmol/L Normal 3.5-5.1 [facility] Comment on above: Performed By: #### M ALBR #### [facility] [address] [place] [address] Dr. Cornell Sharma Protein [Mass/Vol] 7.5 g/dL Normal 6.4-8.2 [facility] Comment on above: Performed By: #### M ALBR #### [facility] [address] [place] [address] Dr. Cornell Sharma Sodium [Moles/Vol] 139 mmol/L Normal 136-145 [facility] Comment on above: Performed By: #### M ALBR #### [facility] [address] [place] [address] Dr. Cornell Sharma Urea nitrogen [Mass/Vol] 16.0 mg/dL Normal 7.0-18.0 [facility] Comment on above: Performed By: #### M ALBR #### [facility] [address] [place] [address] Dr. Cornell Sharma Urea nitrogen/Creatinine [Mass ratio] 21.6 mg/mg Normal [facility] Comment on above: Performed By: #### M ALBR #### [facility] [address] [place] [address] Dr. Cornell Sharma TSHon 03-15-2022 TSH 0.941 uIU/mL Normal 0.358-3.740 [facility] Comment on above: Performed By: #### M ALBR #### [facility] [address] [place] [address] Dr. Cornell Sharma TSH RANGE SEE BELOW Normal [facility] Comment on above: Result Comment: <0.3 4 UIU/ml HYPERTHYROID 0.34-5.60 UIU/ml EUTHYROID >5.60 UIU/ml HYPOTHYROID Performed By: #### M ALBR #### [facility] [address] [place] [address] Dr. Cornell Sharma UA RANDOM W/MICROSCOPICon BACTERIA NONE SEEN Normal NONE SEEN [facility] Comment on above: Performed By: #### U AMIC #### [facility] [address] [place] [address] Dr. Cornell Sharma Bilirubin Ql (U) Negative Normal NEGATIVE [facility] Comment on above: Performed By: #### U AMIC #### [facility] [address] [place] [address] Dr. Cornell Sharma CAST NONE SEEN Normal NONE SEEN [facility] Comment on above: Performed By: #### U AMIC #### [facility] [address] [place] [address] Dr. Cornell Sharma Clarity (U) CLEAR Normal CLEAR [facility] Comment on above: Performed By: #### U AMIC #### [facility] [address] [place] [address] Dr. Cornell Sharma Color (U) LT. YELLOW Normal YELLOW [facility] Comment on above: Performed By: #### U AMIC #### [facility] [address] [address] [address] Cornell Sharma Crystals LM Nom (Urine sed) NONE SEEN Normal NONE SEEN [facility] Comment on above: Performed By: #### U AMIC #### [facility] [address] [address] [address] Cornell Sharma Epithelial cells LM Ql (Urine sed) RARE Normal NONE SEEN /RARE [facility] Comment on above: Performed By: #### U AMIC #### [facility] [address] [address] [address] Cornell Sharma Glucose Ql (U) Negative Normal NEGATIVE [facility] Comment on above: Performed By: #### U AMIC #### [facility] [address] [place] [address] Dr. Cornell Sharma Hemoglobin Ql (U) Negative Normal NEGATIVE [facility] Comment on above: Performed By: #### U AMIC #### [facility] [address] [place] [address] Dr. Cornell Sharma Ketones Ql (U) Negative Normal NEGATIVE [facility] Comment on above: Performed By: #### U AMIC #### [facility] [address] [address] [address] Cornell Sharma LEUKOCYTES Negative Normal NEGATIVE [facility] Comment on above: Performed By: #### U AMIC #### [facility] [address] [place] [address] Dr. Cornell Sharma MUCOUS NONE SEEN Normal NONE SEEN [facility] Comment on above: Performed By: #### U AMIC #### [facility] [address] [place] [address] Dr. Cornell Sharma Nitrite Ql (U) Negative Normal NEGATIVE [facility] Comment on above: Performed By: #### U AMIC #### [facility] [address] [place] [address] Dr. Cornell Sharma pH (U) 6.0 [pH] Normal 5-9 [facility] Comment on above: Performed By: #### U AMIC #### [facility] [address] [place] [address] Dr. Cornell Sharma RBC 0-2 Normal 0-2 [facility] Comment on above: Performed By: #### U AMIC #### [facility] [address] [address] [address] Cornell Sharma SPEC GRAVITY 1.025 Normal 1.005-<=1.025 [facility] Comment on above: Performed By: #### U AMIC #### [facility] [address] [address] [address] Cornell Sharma UA PROTEIN Negative Normal NEGATIVE/ TRACE [facility] Comment on above: Performed By: #### U AMIC #### [facility] [address] [address] [address] Cornell Sharma Urobilinogen Qn (U) 0.2 {Ezequiel'U}/dL Normal 0.2 - 1. 0 [facility] Comment on above: Performed By: #### U AMIC #### [facility] [address] [place] [address] Dr. Cornell Sharma WBC NONE SEEN Normal NONE SEEN [facility] Comment on above: Performed By: #### U AMIC #### [facility] [address] [place] [address] Dr. Cornell Sharma Vital Signs Date Time Vital Sign Value Performing Clinician Zan flannery 01-24-2025 15:07-0400 Body mass index (BMI) [Ratio] 43.16 kg/m2 Trina Talley [employer]IST [employer] Work Phone: [facility] 01-24-2025 [id number] Body temperature 98.49 [degF] Trina Talley BACTERIOLOGIST [employer] Work Phone: [facility] 01-24-2025 [id number] Body weight 144.34 kg Trina Talley BACTERIOLOGIST [employer] Work Phone: [facility] 01-24-2025 15:07-040 Diastolic blood pressure 70 mm[Hg] Trina Talley BACTERIOLOGIST [employer] Work Phone: [facility] 01-24-2025 15:07-0400 Heart rate 90 /min Trina Talley BACTERIOLOGIST [employer] Work Phone: [facility] 01-24-2025 15:07-0400 Respiratory rate 18 /min Trina Aichholz BACTERIOLOGIST [employer] Work Phone: [facility] 01-24-2025 15:07-0400 SaO2% (BldA) [Mass fraction] 94 % Trina Aichholz BACTERIOLOGIST [employer] Work Phone: [facility] 01-24-2025 15:07-0400 Systolic blood pressure 128 mm[Hg] Trina Aichholz BACTERIOLOGIST [employer] Work Phone: [facility] 11-25-2024 15:03-0500 Body height 182.9 cm Trina Aichholz BACTERIOLOGIST [employer] Work Phone: [facility] 11-25-2024 15:03-0500 Body mass index (BMI) [Ratio] 42.15 kg/m2 Trina Aichholz BACTERIOLOGIST [employer] Work Phone: [facility] 11-25-2024 15:03-0500 Body temperature 98.71 [degF] Trina Aichholz BACTERIOLOGIST [employer] Work Phone: [facility] 11-25-2024 15:03-0500 Body weight 140.98 kg Trina Aichholz BACTERIOLOGIST [employer] Work Phone: [facility] 11-25-2024 15:03-0500 Diastolic blood pressure 88 mm[Hg] Trina Aichholz BACTERIOLOGIST [employer] Work Phone: [facility] 11-25-2024 15:03-0500 Heart rate 82 /min Trina Aichholz BACTERIOLOGIST [employer] Work Phone: [facility] 11-25-2024 15:03-0500 Respiratory rate 18 /min Trina Aichholz BACTERIOLOGIST [employer] Work Phone: [facility] 11-25-2024 15:03-0500 SaO2% (BldA) [Mass fraction] 95 % Trina Aichholz BACTERIOLOGIST [employer] Work Phone: [facility] 11-25-2024 15:03-0500 Systolic blood pressure 122 mm[Hg] Trina Aichholz BACTERIOLOGIST [employer] Work Phone: [facility] 08-25-2024 15:08-0500 Body height 182.9 cm Trina Talley BACTERIOLOGIST [employer] Work Phone: [facility] 08-25-2024 15:08-0500 Body mass index (BMI) [Ratio] 41.47 kg/m2 Trinazoey Costaz BACTERIOLOGIST [employer] Work Phone: [facility] 08-25-2024 15:08-0500 Body temperature 97.81 [degF] Trina Costaz BACTERIOLOGIST [employer] Work Phone: [facility] 08-25-2024 15:08-0500 Body weight 138.71 kg Trina Costaz BACTERIOLOGIST [employer] Work Phone: [facility] 08-25-2024 15:08-0500 Diastolic blood pressure 84 mm[Hg] Trina Costaz BACTERIOLOGIST [employer] Work Phone: [facility] 08-25-2024 15:08-0500 Heart rate 75 /min Trina Talley BACTERIOLOGIST [employer] Work Phone: [facility] 08-25-2024 15:08-0500 Respiratory rate 18 /min Trina Costaz BACTERIOLOGIST [employer] Work Phone: [facility] 08-25-2024 15:08-0500 SaO2% (BldA) [Mass fraction] 93 % Trina Talley BACTERIOLOGIST [employer] Work Phone: [facility] 08-25-2024 15:08-0500 Systolic blood pressure 122 mm[Hg] Trina Costaz BACTERIOLOGIST [employer] Work Phone: [facility] 07-14-2024 15:08-0400 Body height 182.9 cm Trina Costaz BACTERIOLOGIST [employer] Work Phone: [facility] 07-14-2024 15:08-0400 Body mass index (BMI) [Ratio] 41.88 kg/m2 Trinazoey Costaz BACTERIOLOGIST [employer] Work Phone: [facility] 07-14-2024 15:08-0400 Body temperature 98.8 [degF] Trina Aichholz BACTERIOLOGIST [employer] Work Phone: [facility] 07-14-2024 15:08-0400 Body weight 140.07 kg Trina Aichholz BACTERIOLOGIST [employer] Work Phone: [facility] 07-14-2024 15:08-0400 Diastolic blood pressure 74 mm[Hg] Trina Aichholz BACTERIOLOGIST [employer] Work Phone: [facility] 07-14-2024 15:08-0400 Heart rate 87 /min Trina Aichholz BACTERIOLOGIST [employer] Work Phone: [facility] 07-14-2024 15:08-0400 Respiratory rate 19 /min Trina Aichholz BACTERIOLOGIST [employer] Work Phone: [facility] 07-14-2024 15:08-0400 SaO2% (BldA) [Mass fraction] 94 % Trina Aichholz BACTERIOLOGIST [employer] Work Phone: [facility] 07-14-2024 15:08-0400 Systolic blood pressure 108 mm[Hg] Trina Aichholz BACTERIOLOGIST DAIRY Work Phone: [facility] Healthcare Encounters Encounter Date Encounter Type Care Provider Facility Start: 01-24-2025 End: 01-24-2025 Office outpatient visit 25 minutes Trina Aichholz BACTERIOLOGIST DAIRY Work Phone: [facility] Comment on above: Type 2 diabetes lele itus without complication, without long- term current use of insulin (Primary Dx); Primary hypertension (CMS/HCC); Gastroesophageal reflux disease without esophagitis; Morbid (severe) obesity due to excess calories (CMS/[facility]); Pre-diabetes Start: 01-24-2025 End: 01-24-2025 ambulatory TRINA AICHHOLZ Not Available Start: 01-24-2025 End: 01-24-2025 Bamboo flowsheet Trina Aichholz BACTERIOLOGIST [employer]Y Work Phone: [facility] Start: 01-24-2025 End: 01-24-2025 Bamboo flowsheet Trina Aichholz BACTERIOLOGIST DAIRY Work Phone: [facility] Start: 12-06-2024 End: 12-07-2024 Refill Trina Aichholz BACTERIOLOGIST DAIRY Work Phone: [facility] Comment on above: Primary hypertension ([facility]/HCC) Start: 11-25-2024 End: 11-25-2024 Office outpatient visit 25 minutes Trina Aichholz BACTERIOLOGIST DAIRY Work Phone: [facility] Comment on above: Pre-diabetes (Primar y Dx); Morbid (severe) obesity due to excess calories ([facility]/HCC); Body mass index (BMI) 40.0-44.9, adult ([facility]); Primary hypertension ([facility]/HCC); Gastroesophageal reflux disease without esophagitis; NORMAN (generalized anxiety disorder) ([facility]); Moderate episode of recurrent major depressive disorder ([facility]); Mixed hyperlipidemia ([facility]) Start: 11-25-2024 End: 11-25-2024 ambulatory TRINA AICHHOLZ Not Available Start: 11-25-2024 End: 11-25-2024 Bamboo flowsheet Trina Aichholz BACTERIOLOGIST [employer]IRY Work Phone: [facility] Start: 11-25-2024 End: 11-25-2024 Bamboo flowsheet Trina Aichholz BACTERIOLOGIST DAIRY Work Phone: [facility] Start: 11-13-2024 End: 11-14-2024 Refill Trina Aichholz BACTERIOLOGIST DAIRY Work Phone: [facility] Comment on above: Moderate episode of recurrent major depressive disorder (CMS/HCC) Start: 10-18-2024 End: 10-18-2024 Refill Trina Aichholz BACTERIOLOGIST DAIRY Work Phone: [facility] Comment on above: NORMAN (generalized anx iety disorder) ([facility]/HCC) Start: 10-11-2024 End: 10-14-2024 Refill Trina Aichholz BACTERIOLOGIST [employer]IRY Work Phone: [facility] Comment on above: Pre-diabetes Start: 09-23-2024 End: 09-23-2024 Refill Trina Aichholz BACTERIOLOGIST [employer] Work Phone: [facility] Comment on above: Pre-diabetes (Primar y Dx) Start: 08-29-2024 End: 08-30-2024 Refill Trina Aichholz BACTERIOLOGIST DAIRY Work Phone: [facility] Comment on above: Gastroesophageal ref lux disease without esophagitis Start: 08-25-2024 End: 08-25-2024 Office outpatient visit 25 minutes Trina Julissaz BACTERIOLOGIST [employer] Work Phone: [facility] Comment on above: Pre-diabetes (Primar y Dx); Morbid (severe) obesity due to excess calories (CMS/HCC); Body mass index (BMI) 40.0-44.9, adult (CMS/HCC); Primary hypertension (CMS/HCC); Gastroesophageal reflux disease without esophagitis; NORMAN (generalized anxiety disorder) (CMS/HCC); Mixed hyperlipidemia (CMS/HCC); Needs flu shot; Sciatica of left side Start: 08-25-2024 End: 08-25-2024 ambulatory TRINA AICHHOLZ Not Available Start: 08-25-2024 End: 08-25-2024 Bamboo flowsheet Trina Aichholz BACTERIOLOGIST [employer]IRY Work Phone: [facility] Start: 08-25-2024 End: 08-25-2024 Bamboo flowsheet Trina Aichholz BACTERIOLOGIST [employer]IRY Work Phone: [facility] Start: 08-23-2024 End: 08-23-2024 Refill Trina Aichholz BACTERIOLOGIST [employer]IRY Work Phone: [facility] Comment on above: Primary hypertension (CMS/HCC) Start: 08-22-2024 End: 08-23-2024 Refill Trina Aichholz BACTERIOLOGIST [employer]Y Work Phone: [facility] Comment on above: Pre-diabetes Start: 08-13-2024 End: 08-13-2024 Refill Trina Aichholz BACTERIOLOGIST DAIRY Work Phone: [facility] Comment on above: Pre-diabetes Start: 08-03-2024 End: 08-03-2024 Refill Trina Aichholz BACTERIOLOGIST DAIRY Work Phone: [facility] Comment on above: Moderate episode of recurrent major depressive disorder ([facility]) Start: 07-14-2024 End: 07-14-2024 Office outpatient visit 15 minutes Trina Aichholz BACTERIOLOGIST DAIRY Work Phone: [facility] Comment on above: Pre-diabetes (Primar y Dx); NORMAN (generalized anxiety disorder) ([facility]); Morbid (severe) obesity due to excess calories ([facility]); Body mass index (BMI) 40.0-44.9, adult ([facility]) Start: 07-14-2024 End: 07-14-2024 ambulatory TRINA AICHHOLZ Not Available Start: 07-14-2024 End: 07-14-2024 Bamboo flowsheet Trina Aichholz BACTERIOLOGIST [employer]IRY Work Phone: [facility] Start: 07-14-2024 End: 07-14-2024 Bamboo flowsheet Trina Aichholz BACTERIOLOGIST DAIRY Work Phone: [facility] Start: 05-25-2024 End: 05-25-2024 ambulatory TRINA AICHHOLZ Not Available Start: 04-20-2024 End: 04-20-2024 ambulatory TRINA AICHHOLZ Not Available Start: 02-25-2024 End: 02-25-2024 ambulatory TRINA AICHHOLZ Not Available Start: 07-06-2022 End: 07-07-2022 ambulatory [employer] SALES CONSULTANT TRINA AICHHOLZ Facility:[facility] Start: 05-06-2022 End: 05-07-2022 ambulatory SUR[employer] PRODUCT SALES CONSULTANT TRINA AICHHOLZ Facility:[facility] Start: 03-15-2022 End: 03-16-2022 ambulatory [employer] SALES CONSULTANT TRINA AICHHOLZ Facility:[facility] Procedures Date Procedure Procedure Detail Performing Clinician Start: 08-25-2024 Hemoglobin glycosyla diana a1c Trina Aichholz BACTERIOLOGIST [employer] Work Phone: Plan of Treatment Date Care Activity Detail Author Start: 01-24-2025 End: 01-24-2025 Patient encounter procedure [facility] Comment on above: Primary hypertension (CMS/HCC) (Primary Dx); Gastroesophageal reflux disease without esophagitis; Morbid (severe) obesity due to excess calories (CMS/HCC); Pre-diabetes Start: 01-24-2025 End: 01-24-2026 CBC W Auto Differential panel - Blood CBC and differential Lab Routine Gastroesophageal reflux disease without esophagitis Expected: 01/24/2025 (Approximate), Expires: 01/24/2026 [facility] Work Phone: Comment on above: Expected: 01/24/2025 (Approximate), Expires: 01/24/2026 Start: 01-24-2025 End: 01-24-2026 Comprehensive metabolic 2000 panel - Serum or Plasma Comprehensive metabolic panel Lab Routine Primary hypertension (CMS/HCC) Morbid (severe) obesity due to excess calories (CMS/HCC) Pre-diabetes Expected: 01/24/2025 (Approximate), Expires: 01/24/2026 [facility] Comment on above: Expected: 01/24/2025 (Approximate), Expires: 01/24/2026 Start: 01-24-2025 End: 01-24-2026 Hemoglobin A1c/Hemoglobin.total in Blood Hemoglobin A1c Lab Routine Pre-diabetes Expected: 01/24/2025 (Approximate), Expires: 01/24/2026 [facility] Comment on above: Expected: 01/24/2025 (Approximate), Expires: 01/24/2026 Start: 01-24-2025 End: 01-24-2026 Lipid 1996 panel - Serum or Plasma Lipid panel Lab Routine Pre-diabetes Expected: 01/24/2025 (Approximate), Expires: 01/24/2026 [facility] Comment on above: Expected: 01/24/2025 (Approximate), Expires: 01/24/2026 Start: 01-24-2025 End: 01-24-2026 Microalbumin/Creatinine panel in random Urine Microalbumin / creatinine, urine ratio Lab Routine Primary hypertension (CMS/HCC) Pre-diabetes Expected: 01/24/2025 (Approximate), Expires: 01/24/2026 [facility] Comment on above: Expected: 01/24/2025 (Approximate), Expires: 01/24/2026 Start: 01-24-2025 End: 01-24-2026 Urinalysis complete panel - Urine Urinalysis with reflex microscopic (clean catch) Lab Routine Primary hypertension (CMS/HCC) Pre-diabetes Expected: 01/24/2025 (Approximate), Expires: 01/24/2026 [facility] Comment on above: Expected: 01/24/2025 (Approximate), Expires: 01/24/2026 Start: 11-25-2024 End: 11-25-2024 Patient encounter procedure [facility] Comment on above: Primary hypertension (CMS/HCC) (Primary Dx); Morbid (severe) obesity due to excess calories (CMS/HCC); Body mass index (BMI) 40.0-44.9, adult (CMS/HCC); Gastroesophageal reflux disease without esophagitis; Pre-diabetes; NORMAN (generalized anxiety disorder) (CMS/HCC); Moderate episode of recurrent major depressive disorder (CMS/HCC) Start: 08-25-2024 End: 08-25-2024 Patient encounter procedure [facility] Comment on above: Tobacco dependence ( Primary Dx); Morbid (severe) obesity due to excess calories (CMS/HCC); Body mass index (BMI) 40.0-44.9, adult (CMS/HCC); Primary hypertension (CMS/HCC); Gastroesophageal reflux disease without esophagitis; Pre-diabetes; NORMAN (generalized anxiety disorder) (CMS/HCC); Mixed hyperlipidemia (CMS/HCC) Start: 07-14-2024 End: 07-14-2024 Patient encounter procedure 07/14/2024 3:00 PM EDT Office Visit [facility] [address] [place] [id number] Trina Talley NP [address] [place] [address] Arrived [facility] Comment on above: Arrived Payers Date Payer Category Payer Medicaid [employer] [place] [employer] [id number] 2023-Present [address] [place] [id number] 2023 Medicaid (Managed Care) [facility] MEDICAID [id number] 1989 Unknown [id number] 1989 Unknown [id number] 593 1989 Unknown [id number] 593 1989 Unknown [id number] 1259 1989 Unknown [id number] 1259 1989 Unknown [id number] 1259 1989 Unknown [id number]. 1259 1989 Unknown [id number]. 1259 1989 Unknown [id number]. 1259 1989 Unknown [id number] 1259 1959 Unknown [id number] Social History Date Type Detail Facility Start: 02-25-2024 Tobacco smoking status COIS Ex-smoke r [facility] End: 10-20-2021 History of tobacco use Current smoker [facility] End: 10-20-2021 History of tobacco use Cigarette Smoker [facility] Start: 02-25-2024 Tobacco use and exposure User of smokeless tobacco [facility] History of tobacco use Snuff User [facility] Start: 07-14-2024 End: 01-24-2025 Alcoholic beverage intake Lifetime non-drinker (finding) [facility] Start: 02-25-2024 End: 04-13-2024 [facility] of [facility] Start: 02-25-2024 End: 04-13-2024 [id number] Health Literacy [facility] How often do you nee d to have someone help you when you read instructions, pamphlets, or other written material from your doctor or pharmacy [SILS] Never [facility] Do you belong to any clubs or organizations such as pentecostal groups, unions, fraternal or athletic groups, or school groups? Yes [facility] Are you now , , , , never or living with a partner? [facility] How often to you hav e a drink containing alcohol? Monthly or less [facility] How many standard dr inks containing alcohol do you have on a typical day? 1 or 2 [facility] How often do you hav e 6 or more drinks on 1 occasion? Less than monthly [facility] Do you feel stress - tense, restless, nervous, or anxious, or unable to sleep at night because your mind is troubled all the time - these days [OSQ] To some extent [facility] (I/We) worried wheth er (my/our) food would run out before (I/we) got money to buy more. Never true [facility] In the past 12 month s, was there a time when you were not able to pay the mortgage or rent on time? No [facility] Start: 02-25-2024 Alcohol Comment caffine: 20oz coffee cup that is filled 5-7 times daily [facility] Start: 1990 Sex assigned at Not on file [facility] Medical Equipment Procedure Code Equipment Code Equipment Origin al Text Equipment Identifier Dates [id number], [id number] Start: 02-25-2024 End: 05-27-2025 Clinical Notes 07-14-2024 to 01-24-2025 Trina Talley NP - 01/24/2025 3:00 PM Beatrice Talley NP - 01/24/2025 3:00 PM Beatrice Talley NP - 01/24/2025 7:26 AM Beatrice Talley NP - 01/24/2025 7:26 AM EDTPatient Instructions Note Date & Type Note Facility 01-24-2025 History of Presen t illness Narrative Associated Problem(s): Type 2 diabetes mellitus without complication, without long-term current use of insulin Check blood sugars daily, notify if <70 [...] Current meds: asa, farxiga, statin, trulicity A1c: Images from the original note were not included. Jose Carey is a 35 y.o. male presents with chief complaint of No chief complaint on file. HPI: CGM reads 14 day average: 110, 99% time in range, GMI 5.9% 30 day average 112, 99% time in range, GMI 6% 90 day: average 118, 99% time in range, GMI 6.1% Hypertension This is a chronic problem. The current episode started more than 1 year ago. The problem is unchanged. The problem is controlled. Associated symptoms include anxiety. Pertinent negatives include no chest pain, headaches, malaise/fatigue, palpitations, peripheral edema or shortness of breath. There are no associated agents to hypertension. Risk factors for coronary artery disease include diabetes mellitus, dyslipidemia, male gender and obesity. Past treatments include angiotensin blockers. The current treatment provides significant improvement. There are no compliance problems. There is no history of kidney disease, heart failure or PVD. Depression Visit Type: follow-up Patient is not experiencing: anhedonia, decreased concentration, depressed mood, excessive worry, insomnia, irritability, muscle tension, nervousness/anxiety, palpitations, shortness of breath, suicidal ideas, suicidal planning, thoughts of and weight gain. Frequency of symptoms: occasionally Severity: mild Sleep quality: fair Nighttime awakenings: one to two Compliance with medications: 76-100% Anxiety Presents for follow-up visit. Patient reports no chest pain, decreased concentration, depressed mood, dizziness, excessive worry, insomnia, irritability, muscle tension, nervous/anxious behavior, palpitations, shortness of breath or suicidal ideas. Symptoms occur occasionally. The severity of symptoms is mild. The quality of sleep is fair. Nighttime awakenings: one to two. Compliance with medications is 76-100%. Diabetes He presents for his follow-up diabetic visit. He has type 2 diabetes mellitus. His disease course has been stable. Pertinent negatives for hypoglycemia include no dizziness, headaches, nervousness/anxiousness, seizures or tremors. Pertinent negatives for diabetes include no chest pain, no polydipsia, no polyphagia and no polyuria. Pertinent negatives for diabetic complications include no PVD. SUBJECTIVE: MEDICATIONS: Current Outpatient Medications Medication Instructions aspirin 81 mg, Daily atorvastatin (LIPITOR) 20 mg, Oral, Nightly buPROPion XL (WELLBUTRIN XL) 150 mg, Oral, Daily, Do not crush, chew, or split. Continuous Glucose Sensor (Dexcom G7 Sensor) misc 1 each, Daily dapagliflozin (FARXIGA) 5 mg, Oral, Daily FLUoxetine (PROZAC) 10 mg, Oral, Daily glucose blood (True Metrix Blood Glucose Test) test strip Daily. Use as instructed losartan (COZAAR) 50 mg, Oral, Daily omeprazole (PRILOSEC) 40 mg, Oral, Daily before breakfast pen needle 31G x 6 mm misc For daily use with victoza injection. Use as instructed Trulicity 1.5 mg, Subcutaneous, Every 7 days ALLERGIES: Allergies Allergen Reactions Penicillin V Rash REVIEW OF SYMPTOMS: Review of Systems Constitutional: Negative for activity change, appetite change, irritability, malaise/fatigue, unexpected weight change and weight gain. HENT: Negative for ear pain, nosebleeds, sneezing, trouble swallowing and voice change. Eyes: Negative for pain, discharge and visual disturbance. Respiratory: Negative for apnea, chest tightness, shortness of breath and wheezing. Cardiovascular: Negative for chest pain, palpitations and leg swelling. Gastrointestinal: Negative for abdominal distention, blood in stool, constipation and diarrhea. Genitourinary: Negative for decreased urine volume, difficulty urinating, dysuria and hematuria. Skin: Negative for color change. Neurological: Negative for dizziness, tremors, seizures and headaches. Psychiatric/Behavioral: Positive for depression. Negative for agitation, decreased concentration, hallucinations, self-injury and suicidal ideas. The patient is not nervous/anxious and does not have insomnia. Hematological: Negative for adenopathy. Does not bruise/bleed easily. Endocrine: Negative for cold intolerance, heat intolerance, polydipsia, polyphagia and polyuria. Allergic/Immunologic: Negative for environmental allergies and food allergies. PAST MEDICAL HISTORY History reviewed. No pertinent past medical history. Past Surgical History: Procedure Laterality Date CHOLECYSTECTOMY family history includes Diabetes in his father, maternal grandfather, maternal grandmother, mother, paternal grandfather, and paternal grandmother; Heart attack in his father and maternal grandfather; Hypertension in his father and maternal grandfather; bowel cancer in his maternal grandmother. OBJECTIVE: Visit Vitals BP 128/70 (BP Location: Left arm, Patient Position: Sitting, BP Cuff Size: Large adult) Pulse 90 Temp 98.5 F (Temporal) Resp 18 Wt 318 lb 3.2 oz SpO2 94% BMI 43.16 kg/m Smoking Status Former BSA 2.7 m Physical Exam Vitals and nursing note reviewed. Constitutional: Appearance: Normal appearance. HENT: Head: Normocephalic. Right Ear: External ear normal. Left Ear: External ear normal. Nose: Nose normal. Mouth/Throat: Mouth: Mucous membranes are moist. Pharynx: Oropharynx is clear. Eyes: Extraocular Movements: Extraocular movements intact. Conjunctiva/sclera: Conjunctivae normal. Neck: Vascular: No carotid bruit. Cardiovascular: Rate and Rhythm: Normal rate and regular rhythm. Pulses: Normal pulses. Heart sounds: Murmur heard. Pulmonary: Effort: Pulmonary effort is normal. Breath sounds: Normal breath sounds. No wheezing or rhonchi. Abdominal: General: Bowel sounds are normal. Palpations: Abdomen is soft. Musculoskeletal: Cervical back: Neck supple. Right lower leg: No edema. Left lower leg: No edema. Skin: General: Skin is warm and dry. Capillary Refill: Capillary refill takes 2 to 3 seconds. Neurological: General: No focal deficit present. Mental Status: He is alert. Psychiatric: Mood and Affect: Mood normal. Behavior: Behavior normal. Thought Content: Thought content normal. Judgment: Judgment normal. ASSESSMENT AND PLAN: Follow up in about 3 months (around 04/25/2025) for Recheck. Problem List Items Addressed This Visit Gastroesophageal reflux disease without esophagitis Omeprazole is working, cannot tolerated being off of the medication Recommendations: freq small meals, nothing to eat or drink at least 2 hours prior to bed, limit caffeine, alcohol, as well as spicy foods Meds to limit or avoid if possible: NSAIDS if possible Elevate HOB if possible Current med: omeprazole Relevant Orders CBC and differential Primary hypertension (CMS/HCC) - Primary Please check blood pressure daily and record DASH diet Limit caffeine Take medication as directed Contact office if chest pain, pressure, dizziness, shortness of breath, swelling legs Recommend slow position changes Current meds: losartan Relevant Orders Comprehensive metabolic panel Urinalysis with reflex microscopic (clean catch) Microalbumin / creatinine, urine ratio Morbid (severe) obesity due to excess calories (CMS/HCC) Discussed with patient their BMI (actual, verses recommended). We have also discussed lifestyle modifications: attempts to perform physical activity as chronic conditions allow, also to monitor dietary intake: increasing protein/fruits/veggies and lowering carb intake (unless contraindicated). Limit sodas, juices, and sugary drinks. Also discussed oral medications that can be utilized for weight loss, as well as surgical options for weight loss. Relevant Orders Comprehensive metabolic panel Type 2 diabetes mellitus without complication, without long-term current use of insulin Check blood sugars daily, notify if <70 [...] Current meds: asa, farxiga, statin, trulicity A1c: Relevant Medications Dulaglutide (Trulicity) 1.5 MG/0.5ML solution auto-injector Other Visit Diagnoses Pre-diabetes Relevant Orders Comprehensive metabolic panel Lipid panel Urinalysis with reflex microscopic (clean catch) Microalbumin / creatinine, urine ratio Hemoglobin A1c Associated Problem(s): NORMAN (generalized anxiety disorder) (CMS/[facility]) Current meds: wellbutrin as well as fluoxetine PHQ 9=3 NORMAN 7=3 Feels good on current regimine Associated Problem(s): Pre-diabetes (Deleted) Check blood sugars daily, notify if <70 [...] Current meds: asa, farxiga, statin, trulicity A1c: Associated Problem(s): Morbid (severe) obesity due to excess calories ([facility]) Discussed with patient their BMI (actual, verses recommended). We have also discussed lifestyle modifications: attempts to perform physical activity as chronic conditions allow, also to monitor dietary intake: increasing protein/fruits/veggies and lowering carb intake (unless contraindicated). Limit sodas, juices, and sugary drinks. Also discussed oral medications that can be utilized for weight loss, as well as surgical options for weight loss. Associated Problem(s): Gastroesophageal reflux disease without esophagitis Omeprazole is working, cannot tolerated being off of the medication Recommendations: freq small meals, nothing to eat or drink at least 2 hours prior to bed, limit caffeine, alcohol, as well as spicy foods Meds to limit or avoid if possible: NSAIDS if possible Elevate HOB if possible Current med: omeprazole Associated Problem(s): Primary hypertension (CMS/HCC) Please check blood pressure daily and record DASH diet Limit caffeine Take medication as directed Contact office if chest pain, pressure, dizziness, shortness of breath, swelling legs Recommend slow position changes Current meds: losartan documented in this encounter [facility] 01-24-2025 Instructions Trina Talley NP - 01/24/2025 3:00 PM EDT Check labs, fasting 8 hours We are going to increase the trulicity dose to 1.5mg dose documented in this encounter [facility] 11-25-2024 History of Presen t illness Narrative Images from the original note were not included. Jose Carey is a 34 y.o. male presents with chief complaint of pre diabetes HPI: Pre diabetes: on statin, farxiga, has been prescribed victoza, pharmacy cannot get it, insurance will not approve generic, metformin caused low blood sugars and made him feel poorly. Is tolerating farxiga CGM reads: 30-90 day average: 122, 98% in range 2% high (as high as 244) , 3 day average 124 96% range, 4% high (200-220) +freq thirst and urination Hypertension This is a chronic problem. The current episode started more than 1 year ago. The problem is unchanged. The problem is controlled. Associated symptoms include anxiety. Pertinent negatives include no chest pain, headaches, palpitations, peripheral edema or shortness of breath. There are no associated agents to hypertension. Risk factors for coronary artery disease include diabetes mellitus, dyslipidemia, male gender, obesity and sedentary lifestyle. Past treatments include angiotensin blockers. The current treatment provides significant improvement. There are no compliance problems. There is no history of kidney disease or CAD/NM. GERD He reports no chest pain, no dysphagia, no early satiety, no globus sensation, no hoarse voice, no sore throat, no tooth decay or no wheezing. This is a chronic problem. The current episode started more than 1 year ago. The problem occurs occasionally. The problem has been unchanged. Risk factors include obesity. He has tried a PPI for the symptoms. The treatment provided significant relief. Depression Visit Type: follow-up Patient presents with the following symptoms: depressed mood, irritability and nervousness/anxiety. Patient is not experiencing: anhedonia, decreased concentration, excessive worry, feelings of hopelessness, memory impairment, palpitations, shortness of breath, suicidal ideas, suicidal planning, thoughts of and weight gain. Frequency of symptoms: most days Severity: mild Compliance with medications: 76-100% Anxiety Presents for follow-up visit. Symptoms include depressed mood, irritability and nervous/anxious behavior. Patient reports no chest pain, decreased concentration, dizziness, excessive worry, palpitations, shortness of breath or suicidal ideas. Symptoms occur most days. The severity of symptoms is mild. Compliance with medications is 76-100%. SUBJECTIVE: MEDICATIONS: Current Outpatient Medications Medication Instructions aspirin 81 mg, Daily atorvastatin (LIPITOR) 20 mg, Oral, Nightly buPROPion XL (WELLBUTRIN XL) 150 mg, Oral, Daily, Do not crush, chew, or split. Continuous Glucose Sensor (Dexcom G7 Sensor) misc 1 each, Daily dapagliflozin (FARXIGA) 5 mg, Oral, Daily FLUoxetine (PROZAC) 10 mg, Oral, Daily glucose blood (True Metrix Blood Glucose Test) test strip Daily. Use as instructed losartan (COZAAR) 50 mg, Oral, Daily omeprazole (PRILOSEC) 40 mg, Oral, Daily before breakfast pen needle 31G x 6 mm misc For daily use with victoza injection. Use as instructed Trulicity 0.75 mg, Subcutaneous, Every 7 days ALLERGIES: Allergies Allergen Reactions Penicillin V Rash REVIEW OF SYMPTOMS: Review of Systems Constitutional: Positive for irritability. Negative for activity change, appetite change, unexpected weight change and weight gain. HENT: Negative for ear pain, hoarse voice, nosebleeds, sneezing, sore throat, trouble swallowing and voice change. Eyes: Negative for pain, discharge and visual disturbance. Respiratory: Negative for apnea, chest tightness, shortness of breath and wheezing. Cardiovascular: Negative for chest pain, palpitations and leg swelling. Gastrointestinal: Negative for abdominal distention, blood in stool, constipation, diarrhea and dysphagia. GERD Genitourinary: Negative for decreased urine volume, difficulty urinating, dysuria and hematuria. Skin: Negative for color change. Neurological: Negative for dizziness, tremors, seizures and headaches. Psychiatric/Behavioral: Positive for depression. Negative for agitation, decreased concentration, hallucinations, self-injury and suicidal ideas. The patient is nervous/anxious. Depression Hematological: Negative for adenopathy. Does not bruise/bleed easily. Endocrine: Positive for polydipsia and polyuria. Negative for cold intolerance and heat intolerance. Allergic/Immunologic: Negative for environmental allergies and food allergies. PAST MEDICAL HISTORY History reviewed. No pertinent past medical history. Past Surgical History: Procedure Laterality Date CHOLECYSTECTOMY family history includes Diabetes in his father, maternal grandfather, maternal grandmother, mother, paternal grandfather, and paternal grandmother; Heart attack in his father and maternal grandfather; Hypertension in his father and maternal grandfather; bowel cancer in his maternal grandmother. OBJECTIVE: Visit Vitals BP 122/88 (BP Location: Left arm, Patient Position: Sitting, BP Cuff Size: Large adult) Pulse 82 Temp 98.7 F (Temporal) Resp 18 Ht 6' Wt 310 lb 12.8 oz SpO2 95% BMI 42.15 kg/m Smoking Status Former BSA 2.68 m Physical Exam Vitals and nursing note reviewed. Constitutional: Appearance: Normal appearance. HENT: Head: Normocephalic. Right Ear: External ear normal. Left Ear: External ear normal. Nose: Nose normal. Mouth/Throat: Mouth: Mucous membranes are moist. Pharynx: Oropharynx is clear. Eyes: Extraocular Movements: Extraocular movements intact. Conjunctiva/sclera: Conjunctivae normal. Cardiovascular: Rate and Rhythm: Normal rate and regular rhythm. Pulses: Normal pulses. Heart sounds: Normal heart sounds. Pulmonary: Effort: Pulmonary effort is normal. Breath sounds: Normal breath sounds. Abdominal: General: Bowel sounds are normal. Palpations: Abdomen is soft. Musculoskeletal: Cervical back: Neck supple. Skin: General: Skin is warm and dry. Capillary Refill: Capillary refill takes 2 to 3 seconds. Neurological: General: No focal deficit present. Mental Status: He is alert. Psychiatric: Mood and Affect: Mood normal. Behavior: Behavior normal. Thought Content: Thought content normal. Judgment: Judgment normal. ASSESSMENT AND PLAN: Follow up in about 2 months (around 01/23/2025) for Recheck. Problem List Items Addressed This Visit NORMAN (generalized anxiety disorder) ([facility]) Current meds: wellbutrin as well as fluoxetine PHQ 9=3 NORMAN 7=3 Feels good on current regimine Relevant Medications FLUoxetine (PROzac) 10 MG capsule Gastroesophageal reflux disease without esophagitis Omeprazole is working, cannot tolerated being off of the medication Recommendations: freq small meals, nothing to eat or drink at least 2 hours prior to bed, limit caffeine, alcohol, as well as spicy foods Meds to limit or avoid if possible: NSAIDS if possible Elevate HOB if possible Current med: omeprazole Relevant Medications omeprazole (PriLOSEC) [address] capsule Mixed hyperlipidemia ([facility]) Relevant Medications atorvastatin (Lipitor) 20 MG tablet Primary hypertension ([facility]) Please check blood pressure daily and record DASH diet Limit caffeine Take medication as directed Contact office if chest pain, pressure, dizziness, shortness of breath, swelling legs Recommend slow position changes Current meds: losartan Relevant Medications losartan (Cozaar) 50 MG tablet Pre-diabetes - Primary Check blood sugars daily, notify if <70 [...] GLP 1 coverage A1c: 5.6 on 08/25/24 Relevant Medications Dulaglutide (Trulicity) 0.75 MG/0.5ML solution auto-injector dapagliflozin (Farxiga) 5 MG Morbid (severe) obesity due to excess calories (CMS/HCC) Discussed with patient their BMI (actual, verses [...] loss. Body mass index (BMI) 40.0-44.9, adult (CMS/HCC) Moderate episode of recurrent major depressive disorder (CMS/HCC) Current meds: fluoxetine and wellbutrin PHQ 9=3 NORMAN 7=3 No dose changes Relevant Medications buPROPion XL (Wellbutrin XL) 150 MG 24 hr tablet Associated Problem(s): Moderate episode of recurrent major depressive disorder (CMS/HCC) Current meds: fluoxetine and wellbutrin PHQ 9=3 NORMAN 7=3 No dose changes Associated Problem(s): NORMAN (generalized anxiety disorder) (CMS/HCC) Current meds: wellbutrin as well as fluoxetine PHQ 9=3 NORMAN 7=3 Feels good on current regimine Associated Problem(s): Pre-diabetes Check blood sugars daily, notify if <70 [...] GLP 1 coverage A1c: 5.6 on 08/25/24 Associated Problem(s): Morbid (severe) obesity due to excess calories (CMS/HCC) Discussed with patient their BMI (actual, verses recommended). We have also discussed lifestyle modifications: attempts to perform physical activity as chronic conditions allow, also to monitor dietary intake: increasing protein/fruits/veggies and lowering carb intake (unless contraindicated). Limit sodas, juices, and sugary drinks. Also discussed oral medications that can be utilized for weight loss, as well as surgical options for weight loss. Associated Problem(s): Gastroesophageal reflux disease without esophagitis Omeprazole is working, cannot tolerated being off of the medication Recommendations: freq small meals, nothing to eat or drink at least 2 hours prior to bed, limit caffeine, alcohol, as well as spicy foods Meds to limit or avoid if possible: NSAIDS if possible Elevate HOB if possible Current med: omeprazole Associated Problem(s): Primary hypertension (CMS/HCC) Please check blood pressure daily and record DASH diet Limit caffeine Take medication as directed Contact office if chest pain, pressure, dizziness, shortness of breath, swelling legs Recommend slow position changes Current meds: losartan documented in this encounter [facility] 11-25-2024 Instructions Trina Talley NP - 11/25/2024 3:00 PM EST Trulicity 0.75mg once a week Keep taking farxiga documented in this encounter [facility] 08-25-2024 History of Presen t illness Narrative Associated Problem(s): Sciatica of left side Ice to affected area 3-4 times daily for 20 minutes each NSAIDS and muscle relaxer Stretching exercises Associated Problem(s): Needs flu shot decline Associated Problem(s): NORMAN (generalized anxiety disorder) ([facility]) Continue wellbutrin and fluoxetine Pt has had lower back into left thigh pain now for a week that is ongoing and new. Pt does not recalling anything happening, pt states it hurts to do any basic activities, pt had tried tylenol however did not work and is not currently doing anything for pain Images from the original note were not included. Jose Carey is a 34 y.o. male presents with chief complaint of No chief complaint on file. HPI: Depression and anxiety; doing well on wellbutrin and fluoxetine, no SI/HI/hallucinations. Feels good on current dose. Sleep is good as well HTN: no chest pain,pressure/dyspnea, no edema, no side effects Diabetes: 120-130 average, no low blood sugar, +freq thirst and urination. Occ NT in feet, no open sores, eye exam scheduled end of August 2024. Low back pain: about a week, no injury, sharp, constant, left side radiates from buttock to back of knee. Does have some underlying NT mid calf down both leg for years. No cauda equina, any movement or prolonged sit/stand/walk. Tried: motrin, aleve, tylenol, . No dysuria, no constipation issues SUBJECTIVE: MEDICATIONS: Current Outpatient Medications Medication Instructions atorvastatin (LIPITOR) 20 mg, Oral, Nightly buPROPion XL (WELLBUTRIN XL) 150 mg, Oral, Daily, Do not crush, chew, or split. Continuous Glucose Tar Heat Exchanger Cleaner (Dexcom G7 Tar Heat Exchanger Cleaner) device 1 each, Does not apply, Daily Continuous Glucose Sensor (Dexcom G7 Sensor) misc 1 each, Daily dapagliflozin (FARXIGA) 5 mg, Oral, Daily FLUoxetine (PROZAC) 10 mg, Oral, Daily glucose blood (True Metrix Blood Glucose Test) test strip Daily. Use as instructed liraglutide (VICTOZA) 1.8 mg, Subcutaneous, Daily losartan (COZAAR) 50 mg, Oral, Daily naproxen (NAPROSYN) 500 mg, Oral, 2 times daily with meals, Take with food omeprazole (PRILOSEC) 40 mg, Oral, Daily before breakfast pen needle 31G x 6 mm misc For daily use with victoza injection. Use as instructed tiZANidine (ZANAFLEX) 4 mg, Oral, Every 12 hours PRN ALLERGIES: Allergies Allergen Reactions Penicillin V Rash REVIEW OF SYMPTOMS: Review of Systems Constitutional: Negative for activity change, appetite change and unexpected weight change. HENT: Negative for ear pain, nosebleeds, sneezing, trouble swallowing and voice change. Eyes: Negative for pain, discharge and visual disturbance. Respiratory: Negative for apnea, chest tightness and wheezing. Cardiovascular: Negative for leg swelling. Gastrointestinal: Negative for abdominal distention, blood in stool, constipation and diarrhea. Genitourinary: Negative for decreased urine volume, difficulty urinating, dysuria and hematuria. Musculoskeletal: Positive for back pain. Skin: Negative for color change. Neurological: Positive for numbness. Negative for dizziness, tremors and seizures. Psychiatric/Behavioral: Negative for agitation, decreased concentration, hallucinations, self-injury and suicidal ideas. The patient is nervous/anxious. Depression Hematological: Negative for adenopathy. Does not bruise/bleed easily. Endocrine: Negative for cold intolerance, heat intolerance, polydipsia and polyuria. Allergic/Immunologic: Negative for environmental allergies and food allergies. PAST MEDICAL HISTORY History reviewed. No pertinent past medical history. Past Surgical History: Procedure Laterality Date CHOLECYSTECTOMY family history includes Diabetes in his father, maternal grandfather, maternal grandmother, mother, paternal grandfather, and paternal grandmother; Heart attack in his father and maternal grandfather; Hypertension in his father and maternal grandfather; bowel cancer in his maternal grandmother. OBJECTIVE: Visit Vitals BP 122/84 (BP Location: Left arm, Patient Position: Sitting, BP Cuff Size: Adult long) Pulse 75 Temp 97.8 F (Temporal) Resp 18 Ht 6' Wt 305 lb 12.8 oz SpO2 93% BMI 41.47 kg/m Smoking Status Former BSA 2.66 m Physical Exam Constitutional: Appearance: Normal appearance. He is obese. HENT: Head: Normocephalic. Right Ear: External ear normal. Left Ear: External ear normal. Nose: Nose normal. Mouth/Throat: Mouth: Mucous membranes are moist. Pharynx: Oropharynx is clear. Eyes: Extraocular Movements: Extraocular movements intact. Conjunctiva/sclera: Conjunctivae normal. Cardiovascular: Rate and Rhythm: Normal rate and regular rhythm. Pulses: Normal pulses. Heart sounds: Normal heart sounds. Pulmonary: Effort: Pulmonary effort is normal. Breath sounds: Normal breath sounds. Abdominal: General: Bowel sounds are normal. There is no distension. Palpations: Abdomen is soft. Tenderness: There is no abdominal tenderness. Musculoskeletal: Cervical back: Neck supple. Comments: Tenderness to left lower lumbar, Mild +SLR on the left , - on the right MMT 5/5 bilat LE Flex: 30, ext 10, pain the left lower lumbar with rotation to the right >left And bending bilat increases lower lumbar Skin: General: Skin is warm and dry. Capillary Refill: Capillary refill takes 2 to 3 seconds. Neurological: General: No focal deficit present. Mental Status: He is alert. Psychiatric: Mood and Affect: Mood normal. Behavior: Behavior normal. Thought Content: Thought content normal. Judgment: Judgment normal. ASSESSMENT AND PLAN: Follow up in about 3 months (around 11/25/2024) for Recheck. Problem List Items Addressed This Visit NORMAN (generalized anxiety disorder) ([facility]) Continue wellbutrin and fluoxetine Gastroesophageal reflux disease without esophagitis Omeprazole is working, cannot tolerated being off of the medication Recommendations: freq small meals, nothing to eat or drink at least 2 hours prior to bed, limit caffeine, alcohol, as well as spicy foods Meds to limit or avoid if possible: NSAIDS if possible Elevate HOB if possible Mixed hyperlipidemia ([facility]) Relevant Medications atorvastatin (Lipitor) 20 MG tablet Primary hypertension ([facility]) Please check blood pressure daily and record DASH diet Limit caffeine Take medication as directed Contact office if chest pain, pressure, dizziness, shortness of breath, swelling legs Recommend slow position changes Pre-diabetes - Primary Check blood sugars daily, notify if <70 [...] Check A1c test in office today 5.6% Relevant Orders POCT glycosylated hemoglobin (Hb A1C) docked device Morbid (severe) obesity due to excess calories ([facility]) Discussed with patient their BMI (actual, verses [...] loss. Body mass index (BMI) 40.0-44.9, adult ([facility]) Needs flu shot decline Sciatica of left side Ice to affected area 3-4 times daily for 20 minutes each NSAIDS and muscle relaxer Stretching exercises Relevant Medications naproxen (Naprosyn) 500 MG tablet tiZANidine (Zanaflex) 4 MG tablet Associated Problem(s): Pre-diabetes Check blood sugars daily, notify if <70 [...] Check A1c test in office today 5.6% Associated Problem(s): Gastroesophageal reflux disease without esophagitis Omeprazole is working, cannot tolerated being off of the medication Recommendations: freq small meals, nothing to eat or drink at least 2 hours prior to bed, limit caffeine, alcohol, as well as spicy foods Meds to limit or avoid if possible: NSAIDS if possible Elevate HOB if possible Associated Problem(s): Primary hypertension (CMS/HCC) Please check blood pressure daily and record DASH diet Limit caffeine Take medication as directed Contact office if chest pain, pressure, dizziness, shortness of breath, swelling legs Recommend slow position changes Associated Problem(s): Morbid (severe) obesity due to excess calories (CMS/HCC) Discussed with patient their BMI (actual, verses recommended). We have also discussed lifestyle modifications: attempts to perform physical activity as chronic conditions allow, also to monitor dietary intake: increasing protein/fruits/veggies and lowering carb intake (unless contraindicated). Limit sodas, juices, and sugary drinks. Also discussed oral medications that can be utilized for weight loss, as well as surgical options for weight loss. Associated Problem(s): Tobacco dependence (Resolved 08/25/2024) The patient has been advised of the risks of continued smoking: stroke, NM, all forms of cancer, lung disease, and . Options for quitting smoking include: cold turkey, hypnosis, acupuncture, nicotine replacement meds (gum, lozenges, and patches), Buproprion, and Varenicline. At this time pt is encouraged to evaluate their goals for wanting to quit smoking, and reach out to provider when ready to start this process documented in this encounter [facility] 08-25-2024 Instructions Trina Talley NP - 08/25/2024 3:00 PM EST Ice to affected area 3-4 times daily for 20 minutes each Muscle relaxers, anti inflammatory as directed Stretching exercises as well Call office in 7-10 days if not better documented in this encounter [facility] 07-14-2024 History of Presen t illness Narrative Associated Problem(s): NORMAN (generalized anxiety disorder) ([facility]) Only currently on wellbutrin , will add back fluoxetine, and fu in 6 weeks Associated Problem(s): Pre-diabetes Continue victoza for another month Blood sugars have been running in the 110-120s Pt unable to get fluoxetine Images from the original note were not included. Jose Carey is a 34 y.o. male presents with chief complaint of No chief complaint on file. HPI: Here for a recheck. Sugars are doing well,less than 120. No low blood sugars. He is taking victoza at max dose , has some days not hungry, and then other days can't stop eating, no abd pain, no NVD. Has not had his fluoxetine in several weeks, is taking wellbutrin XL. No SI/HI/hallucinations. SUBJECTIVE: MEDICATIONS: Current Outpatient Medications Medication Instructions atorvastatin (LIPITOR) 20 mg, Oral, Nightly buPROPion XL (WELLBUTRIN XL) 150 mg, Oral, Daily, Do not crush, chew, or split. Continuous Glucose Tar Heat Exchanger Cleaner (Dexcom G7 Tar Heat Exchanger Cleaner) device 1 each, Does not apply, Daily Continuous Glucose Sensor (Dexcom G7 Sensor) misc 1 each, Other, Daily dapagliflozin (FARXIGA) 5 mg, Oral, Daily Easy Comfort Pen [place] 31G X 5 MM misc 1 each, Subcutaneous, Daily FLUoxetine (PROZAC) 10 mg, Oral, Daily glucose blood (True Metrix Blood Glucose Test) test strip Daily. Use as instructed liraglutide (Victoza) 18 MG/3ML injection Start with 0.6mg once a day for 7 days, then increase to 1.2mg for 7 days, then 1.8mg daily losartan (COZAAR) 50 mg, Oral, Daily omeprazole (PRILOSEC) 40 mg, Oral, Daily before breakfast pen needle 31G x 6 mm misc For daily use with victoza injection. Use as instructed ALLERGIES: Allergies Allergen Reactions Penicillin V Rash REVIEW OF SYMPTOMS: Review of Systems Constitutional: Negative for activity change, appetite change and unexpected weight change. HENT: Negative for ear pain, nosebleeds, sneezing, trouble swallowing and voice change. Eyes: Negative for pain, discharge and visual disturbance. Respiratory: Negative for apnea, chest tightness and wheezing. Cardiovascular: Negative for leg swelling. Gastrointestinal: Negative for abdominal distention, blood in stool, constipation and diarrhea. Genitourinary: Negative for decreased urine volume, difficulty urinating, dysuria and hematuria. Skin: Negative for color change. Neurological: Negative for dizziness, tremors and seizures. Psychiatric/Behavioral: Negative for agitation, decreased concentration, hallucinations, self-injury and suicidal ideas. The patient is nervous/anxious. Hematological: Negative for adenopathy. Does not bruise/bleed easily. Endocrine: Negative for cold intolerance, heat intolerance, polydipsia and polyuria. Allergic/Immunologic: Negative for environmental allergies and food allergies. PAST MEDICAL HISTORY History reviewed. No pertinent past medical history. Past Surgical History: Procedure Laterality Date CHOLECYSTECTOMY family history includes Diabetes in his father, maternal grandfather, maternal grandmother, mother, paternal grandfather, and paternal grandmother; Heart attack in his father and maternal grandfather; Hypertension in his father and maternal grandfather; bowel cancer in his maternal grandmother. OBJECTIVE: Visit Vitals BP 108/74 (BP Location: Left arm, Patient Position: Sitting, BP Cuff Size: Adult long) Pulse 87 Temp 98.8 F (Temporal) Resp 19 Ht 6' Wt 308 lb 12.8 oz SpO2 94% BMI 41.88 kg/m Smoking Status Former BSA 2.67 m Physical Exam Vitals and nursing note reviewed. Constitutional: Appearance: Normal appearance. HENT: Head: Normocephalic. Right Ear: External ear normal. Left Ear: External ear normal. Nose: Nose normal. Mouth/Throat: Mouth: Mucous membranes are moist. Pharynx: Oropharynx is clear. Eyes: Extraocular Movements: Extraocular movements intact. Conjunctiva/sclera: Conjunctivae normal. Cardiovascular: Rate and Rhythm: Normal rate and regular rhythm. Pulses: Normal pulses. Heart sounds: Normal heart sounds. Pulmonary: Effort: Pulmonary effort is normal. Breath sounds: Normal breath sounds. Abdominal: General: Bowel sounds are normal. Palpations: Abdomen is soft. Musculoskeletal: Cervical back: Neck supple. Skin: General: Skin is warm and dry. Capillary Refill: Capillary refill takes 2 to 3 seconds. Neurological: General: No focal deficit present. Mental Status: He is alert. Psychiatric: Mood and Affect: Mood normal. Behavior: Behavior normal. Thought Content: Thought content normal. Judgment: Judgment normal. ASSESSMENT AND PLAN: No follow-ups on file. Problem List Items Addressed This Visit NORMAN (generalized anxiety disorder) (CMS/HCC) Only currently on wellbutrin , will add back fluoxetine, and fu in 6 weeks Relevant Medications FLUoxetine (PROzac) 10 MG capsule Pre-diabetes - Primary Continue victoza for another month Morbid (severe) obesity due to excess calories (CMS/HCC) Body mass index (BMI) 40.0-44.9, adult (CMS/[facility]) documented in this encounter [facility] Evaluation note Diagnosis Other chest pain- Primary Primary hypertension ([facility]/HCC) Unspecified essential hypertension Pre-diabetes Other abnormal glucose Obesity (BMI 30-39.9) Tobacco dependence Tobacco use disorder Mixed hyperlipidemia ([facility]/HCC) Mixed hyperlipidemia JAKOB (obstructive sleep apnea) Obstructive sleep apnea (adult) (pediatric) NORMAN (generalized anxiety disorder) ([facility]) Generalized anxiety disorder NORMAN (generalized anxiety disorder) ([facility])- Primary Generalized anxiety disorder Mixed hyperlipidemia ([facility]) Mixed hyperlipidemia Nausea and vomiting, unspecified vomiting type Leukocytosis, unspecified type Pre-diabetes Other abnormal glucose Obesity (BMI 30-39.9) Moderate episode of recurrent major depressive disorder ([facility])- Primary Morbid (severe) obesity due to excess calories ([facility]) Body mass index (BMI) 40.0-44.9, adult ([facility]) Mixed hyperlipidemia ([facility]) Mixed hyperlipidemia Pre-diabetes Other abnormal glucose Hypoglycemia Hypoglycemia, unspecified NORMAN (generalized anxiety disorder) ([facility]) Generalized anxiety disorder Pre-diabetes- Primary Other abnormal glucose NORMAN (generalized anxiety disorder) ([facility]) Generalized anxiety disorder Morbid (severe) obesity due to excess calories ([facility]) Body mass index (BMI) 40.0-44.9, adult ([facility]) Moderate episode of recurrent major depressive disorder ([facility]) documented in this encounter [facility] HealthcareEvaluation note* Diagnosis Other chest pain- Primary Primary hypertension ([facility]) Unspecified essential hypertension Pre-diabetes Other abnormal glucose Obesity (BMI 30-39.9) Tobacco dependence Tobacco use disorder Mixed hyperlipidemia ([facility]) Mixed hyperlipidemia JAKOB (obstructive sleep apnea) Obstructive sleep apnea (adult) (pediatric) NORMAN (generalized anxiety disorder) ([facility]) Generalized anxiety disorder NORMAN (generalized anxiety disorder) ([facility])- Primary Generalized anxiety disorder Mixed hyperlipidemia ([facility]) Mixed hyperlipidemia Nausea and vomiting, unspecified vomiting type Leukocytosis, unspecified type Pre-diabetes Other abnormal glucose Obesity (BMI 30-39.9) Moderate episode of recurrent major depressive disorder ([facility])- Primary Morbid (severe) obesity due to excess calories ([facility]) Body mass index (BMI) 40.0-44.9, adult ([facility]) Mixed hyperlipidemia ([facility]) Mixed hyperlipidemia Pre-diabetes Other abnormal glucose Hypoglycemia Hypoglycemia, unspecified NORMAN (generalized anxiety disorder) ([facility]) Generalized anxiety disorder Pre-diabetes- Primary Other abnormal glucose NORMAN (generalized anxiety disorder) ([facility]) Generalized anxiety disorder Morbid (severe) obesity due to excess calories ([facility]) Body mass index (BMI) 40.0-44.9, adult ([facility]) Pre-diabetes Other abnormal glucose documented in this encounter [facility] HealthcareEvaluation note* Diagnosis Other chest pain- Primary Primary hypertension ([facility]) Unspecified essential hypertension Pre-diabetes Other abnormal glucose Obesity (BMI 30-39.9) Tobacco dependence Tobacco use disorder Mixed hyperlipidemia ([facility]) Mixed hyperlipidemia JAKOB (obstructive sleep apnea) Obstructive sleep apnea (adult) (pediatric) NORMAN (generalized anxiety disorder) ([facility]) Generalized anxiety disorder NORMAN (generalized anxiety disorder) ([facility])- Primary Generalized anxiety disorder Mixed hyperlipidemia ([facility]) Mixed hyperlipidemia Nausea and vomiting, unspecified vomiting type Leukocytosis, unspecified type Pre-diabetes Other abnormal glucose Obesity (BMI 30-39.9) Moderate episode of recurrent major depressive disorder ([facility])- Primary Morbid (severe) obesity due to excess calories ([facility]) Body mass index (BMI) 40.0-44.9, adult ([facility]) Mixed hyperlipidemia ([facility]) Mixed hyperlipidemia Pre-diabetes Other abnormal glucose Hypoglycemia Hypoglycemia, unspecified NORMAN (generalized anxiety disorder) ([facility]) Generalized anxiety disorder Pre-diabetes- Primary Other abnormal glucose NORMAN (generalized anxiety disorder) ([facility]) Generalized anxiety disorder Morbid (severe) obesity due to excess calories ([facility]) Body mass index (BMI) 40.0-44.9, adult ([facility]) Pre-diabetes Other abnormal glucose documented in this encounter [facility] note* Diagnosis Other chest pain- Primary Primary hypertension ([facility]) Unspecified essential hypertension Pre-diabetes Other abnormal glucose Obesity (BMI 30-39.9) Tobacco dependence Tobacco use disorder Mixed hyperlipidemia ([facility]) Mixed hyperlipidemia JAKOB (obstructive sleep apnea) Obstructive sleep apnea (adult) (pediatric) NORMAN (generalized anxiety disorder) ([facility]) Generalized anxiety disorder NORMAN (generalized anxiety disorder) ([facility])- Primary Generalized anxiety disorder Mixed hyperlipidemia ([facility]) Mixed hyperlipidemia Nausea and vomiting, unspecified vomiting type Leukocytosis, unspecified type Pre-diabetes Other abnormal glucose Obesity (BMI 30-39.9) Moderate episode of recurrent major depressive disorder (CMS/HCC)- Primary Morbid (severe) obesity due to excess calories ([facility]) Body mass index (BMI) 40.0-44.9, adult ([facility]) Mixed hyperlipidemia ([facility]) Mixed hyperlipidemia Pre-diabetes Other abnormal glucose Hypoglycemia Hypoglycemia, unspecified NORMAN (generalized anxiety disorder) ([facility]) Generalized anxiety disorder Pre-diabetes- Primary Other abnormal glucose NORMAN (generalized anxiety disorder) ([facility]) Generalized anxiety disorder Morbid (severe) obesity due to excess calories ([facility]) Body mass index (BMI) 40.0-44.9, adult ([facility]) Primary hypertension ([facility]) Unspecified essential hypertension documented in this encounter [facility]* Diagnosis Other chest pain- Primary Primary hypertension ([facility]) Unspecified essential hypertension Pre-diabetes Other abnormal glucose Obesity (BMI 30-39.9) Tobacco dependence Tobacco use disorder Mixed hyperlipidemia ([facility]) Mixed hyperlipidemia JAKOB (obstructive sleep apnea) Obstructive sleep apnea (adult) (pediatric) NORMAN (generalized anxiety disorder) ([facility]) Generalized anxiety disorder NORMAN (generalized anxiety disorder) ([facility])- Primary Generalized anxiety disorder Mixed hyperlipidemia ([facility]) Mixed hyperlipidemia Nausea and vomiting, unspecified vomiting type Leukocytosis, unspecified type Pre-diabetes Other abnormal glucose Obesity (BMI 30-39.9) Moderate episode of recurrent major depressive disorder ([facility])- Primary Morbid (severe) obesity due to excess calories ([facility]) Body mass index (BMI) 40.0-44.9, adult ([facility]) Mixed hyperlipidemia ([facility]) Mixed hyperlipidemia Pre-diabetes Other abnormal glucose Hypoglycemia Hypoglycemia, unspecified NORMAN (generalized anxiety disorder) ([facility]) Generalized anxiety disorder Pre-diabetes- Primary Other abnormal glucose NORMAN (generalized anxiety disorder) ([facility]) Generalized anxiety disorder Morbid (severe) obesity due to excess calories ([facility]) Body mass index (BMI) 40.0-44.9, adult ([facility]) Pre-diabetes- Primary Other abnormal glucose Morbid (severe) obesity due to excess calories ([facility]) Body mass index (BMI) 40.0-44.9, adult ([facility]) Primary hypertension ([facility] Unspecified essential hypertension Gastroesophageal reflux disease without esophagitis Esophageal reflux NORMAN (generalized anxiety disorder) ([facility] Generalized anxiety disorder Mixed hyperlipidemia ([facility]) Mixed hyperlipidemia Needs flu shot Need for prophylactic vaccination and inoculation against influenza Sciatica of left side documented in this encounter [facility] HealthcareEvaluation note* Diagnosis Other chest pain- Primary Primary hypertension ([facility]) Unspecified essential hypertension Pre-diabetes Other abnormal glucose Obesity (BMI 30-39.9) Tobacco dependence Tobacco use disorder Mixed hyperlipidemia ([facility]) Mixed hyperlipidemia JAKOB (obstructive sleep apnea) Obstructive sleep apnea (adult) (pediatric) NORMAN (generalized anxiety disorder) ([facility] Generalized anxiety disorder NORMAN (generalized anxiety disorder) ([facility] Primary Generalized anxiety disorder Mixed hyperlipidemia ([facility]) Mixed hyperlipidemia Nausea and vomiting, unspecified vomiting type Leukocytosis, unspecified type Pre-diabetes Other abnormal glucose Obesity (BMI 30-39.9) Moderate episode of recurrent major depressive disorder ([facility])- Primary Morbid (severe) obesity due to excess calories ([facility]) Body mass index (BMI) 40.0-44.9, adult ([facility]) Mixed hyperlipidemia ([facility]) Mixed hyperlipidemia Pre-diabetes Other abnormal glucose Hypoglycemia Hypoglycemia, unspecified NORMAN (generalized anxiety disorder) ([facility]) Generalized anxiety disorder Pre-diabetes- Primary Other abnormal glucose NORMAN (generalized anxiety disorder) ([facility]) Generalized anxiety disorder Morbid (severe) obesity due to excess calories ([facility]) Body mass index (BMI) 40.0-44.9, adult ([facility]) Pre-diabetes- Primary Other abnormal glucose Morbid (severe) obesity due to excess calories ([facility]) Body mass index (BMI) 40.0-44.9, adult ([facility]) Primary hypertension ([facility]) Unspecified essential hypertension Gastroesophageal reflux disease without esophagitis Esophageal reflux NORMAN (generalized anxiety disorder) ([facility] Generalized anxiety disorder Mixed hyperlipidemia ([facility]) Mixed hyperlipidemia Needs flu shot Need for prophylactic vaccination and inoculation against influenza Sciatica of left side Gastroesophageal reflux disease without esophagitis Esophageal reflux documented in this encounter [facility] HealthcareEvaluation note* Diagnosis Other chest pain- Primary Primary hypertension ([facility]) Unspecified essential hypertension Pre-diabetes Other abnormal glucose Obesity (BMI 30-39.9) Tobacco dependence Tobacco use disorder Mixed hyperlipidemia ([facility]) Mixed hyperlipidemia JAKOB (obstructive sleep apnea) Obstructive sleep apnea (adult) (pediatric) NORMAN (generalized anxiety disorder) ([facility]) Generalized anxiety disorder NORMAN (generalized anxiety disorder) ([facility])- Primary Generalized anxiety disorder Mixed hyperlipidemia ([facility]) Mixed hyperlipidemia Nausea and vomiting, unspecified vomiting type Leukocytosis, unspecified type Pre-diabetes Other abnormal glucose Obesity (BMI 30-39.9) Moderate episode of recurrent major depressive disorder ([facility])- Primary Morbid (severe) obesity due to excess calories ([facility]) Body mass index (BMI) 40.0-44.9, adult ([facility]) Mixed hyperlipidemia ([facility]) Mixed hyperlipidemia Pre-diabetes Other abnormal glucose Hypoglycemia Hypoglycemia, unspecified NORMAN (generalized anxiety disorder) ([facility]) Generalized anxiety disorder Pre-diabetes- Primary Other abnormal glucose NORMAN (generalized anxiety disorder) ([facility]) Generalized anxiety disorder Morbid (severe) obesity due to excess calories ([facility]) Body mass index (BMI) 40.0-44.9, adult ([facility]) Pre-diabetes- Primary Other abnormal glucose Morbid (severe) obesity due to excess calories ([facility]) Body mass index (BMI) 40.0-44.9, adult ([facility]) Primary hypertension ([facility]) Unspecified essential hypertension Gastroesophageal reflux disease without esophagitis Esophageal reflux NORMAN (generalized anxiety disorder) ([facility]) Generalized anxiety disorder Mixed hyperlipidemia ([facility]) Mixed hyperlipidemia Needs flu shot Need for prophylactic vaccination and inoculation against influenza Sciatica of left side Pre-diabetes- Primary Other abnormal glucose documented in this encounter [facility] HealthcareEvaluation note* Diagnosis Pre-diabetes- Primary Other abnormal glucose NORMAN (generalized anxiety disorder) ([facility]) Generalized anxiety disorder Morbid (severe) obesity due to excess calories ([facility]) Body mass index (BMI) 40.0-44.9, adult ([facility]) documented in this encounter [facility] HealthcareEvaluation note* Diagnosis Other chest pain- Primary Primary hypertension ([facility]) Unspecified essential hypertension Pre-diabetes Other abnormal glucose Obesity (BMI 30-39.9) Tobacco dependence Tobacco use disorder Mixed hyperlipidemia ([facility]) Mixed hyperlipidemia JAKOB (obstructive sleep apnea) Obstructive sleep apnea (adult) (pediatric) NORMAN (generalized anxiety disorder) ([facility]) Generalized anxiety disorder NORMAN (generalized anxiety disorder) ([facility] Primary Generalized anxiety disorder Mixed hyperlipidemia ([facility]) Mixed hyperlipidemia Nausea and vomiting, unspecified vomiting type Leukocytosis, unspecified type Pre-diabetes Other abnormal glucose Obesity (BMI 30-39.9) Moderate episode of recurrent major depressive disorder ([facility])- Primary Morbid (severe) obesity due to excess calories ([facility]) Body mass index (BMI) 40.0-44.9, adult ([facility]) Mixed hyperlipidemia ([facility]) Mixed hyperlipidemia Pre-diabetes Other abnormal glucose Hypoglycemia Hypoglycemia, unspecified NORMAN (generalized anxiety disorder) ([facility]) Generalized anxiety disorder Pre-diabetes- Primary Other abnormal glucose NORMAN (generalized anxiety disorder) ([facility]) Generalized anxiety disorder Morbid (severe) obesity due to excess calories ([facility]) Body mass index (BMI) 40.0-44.9, adult ([facility]) Pre-diabetes- Primary Other abnormal glucose Morbid (severe) obesity due to excess calories ([facility]) Body mass index (BMI) 40.0-44.9, adult ([facility]) Primary hypertension ([facility] Unspecified essential hypertension Gastroesophageal reflux disease without esophagitis Esophageal reflux NORMAN (generalized anxiety disorder) ([facility]) Generalized anxiety disorder Mixed hyperlipidemia ([facility]) Mixed hyperlipidemia Needs flu shot Need for prophylactic vaccination and inoculation against influenza Sciatica of left side Pre-diabetes Other abnormal glucose documented in this encounter [facility]* Diagnosis Other chest pain- Primary Primary hypertension ([facility]) Unspecified essential hypertension Pre-diabetes Other abnormal glucose Obesity (BMI 30-39.9) Tobacco dependence Tobacco use disorder Mixed hyperlipidemia ([facility]) Mixed hyperlipidemia JAKOB (obstructive sleep apnea) Obstructive sleep apnea (adult) (pediatric) NORMAN (generalized anxiety disorder) ([facility] Generalized anxiety disorder NORMAN (generalized anxiety disorder) ([facility])- Primary Generalized anxiety disorder Mixed hyperlipidemia ([facility]) Mixed hyperlipidemia Nausea and vomiting, unspecified vomiting type Leukocytosis, unspecified type Pre-diabetes Other abnormal glucose Obesity (BMI 30-39.9) Moderate episode of recurrent major depressive disorder ([facility])- Primary Morbid (severe) obesity due to excess calories ([facility]) Body mass index (BMI) 40.0-44.9, adult ([facility]) Mixed hyperlipidemia ([facility]) Mixed hyperlipidemia Pre-diabetes Other abnormal glucose Hypoglycemia Hypoglycemia, unspecified NORMAN (generalized anxiety disorder) ([facility]) Generalized anxiety disorder Pre-diabetes- Primary Other abnormal glucose NORMAN (generalized anxiety disorder) ([facility]) Generalized anxiety disorder Morbid (severe) obesity due to excess calories ([facility]) Body mass index (BMI) 40.0-44.9, adult ([facility]) Pre-diabetes- Primary Other abnormal glucose Morbid (severe) obesity due to excess calories ([facility]) Body mass index (BMI) 40.0-44.9, adult ([facility]) Primary hypertension ([facility] Unspecified essential hypertension Gastroesophageal reflux disease without esophagitis Esophageal reflux NORMAN (generalized anxiety disorder) ([facility]) Generalized anxiety disorder Mixed hyperlipidemia ([facility]) Mixed hyperlipidemia Needs flu shot Need for prophylactic vaccination and inoculation against influenza Sciatica of left side Pre-diabetes Other abnormal glucose documented in this encounter [facility]* Diagnosis Other chest pain- Primary Primary hypertension ([facility]) Unspecified essential hypertension Pre-diabetes Other abnormal glucose Obesity (BMI 30-39.9) Tobacco dependence Tobacco use disorder Mixed hyperlipidemia ([facility]) Mixed hyperlipidemia JAKOB (obstructive sleep apnea) Obstructive sleep apnea (adult) (pediatric) NORMAN (generalized anxiety disorder) ([facility]) Generalized anxiety disorder NORMAN (generalized anxiety disorder) ([facility] Primary Generalized anxiety disorder Mixed hyperlipidemia ([facility]) Mixed hyperlipidemia Nausea and vomiting, unspecified vomiting type Leukocytosis, unspecified type Pre-diabetes Other abnormal glucose Obesity (BMI 30-39.9) Moderate episode of recurrent major depressive disorder ([facility])- Primary Morbid (severe) obesity due to excess calories ([facility]) Body mass index (BMI) 40.0-44.9, adult ([facility]) Mixed hyperlipidemia ([facility]) Mixed hyperlipidemia Pre-diabetes Other abnormal glucose Hypoglycemia Hypoglycemia, unspecified NORMAN (generalized anxiety disorder) ([facility]) Generalized anxiety disorder Pre-diabetes- Primary Other abnormal glucose NORMAN (generalized anxiety disorder) ([facility]) Generalized anxiety disorder Morbid (severe) obesity due to excess calories ([facility]) Body mass index (BMI) 40.0-44.9, adult ([facility]) Pre-diabetes- Primary Other abnormal glucose Morbid (severe) obesity due to excess calories ([facility]) Body mass index (BMI) 40.0-44.9, adult ([facility]) Primary hypertension ([facility]) Unspecified essential hypertension Gastroesophageal reflux disease without esophagitis Esophageal reflux NORMAN (generalized anxiety disorder) ([facility] Generalized anxiety disorder Mixed hyperlipidemia ([facility]) Mixed hyperlipidemia Needs flu shot Need for prophylactic vaccination and inoculation against influenza Sciatica of left side NORMAN (generalized anxiety disorder) ([facility]) Generalized anxiety disorder documented in this encounter [facility]* Diagnosis Other chest pain- Primary Primary hypertension ([facility]) Unspecified essential hypertension Pre-diabetes Other abnormal glucose Obesity (BMI 30-39.9) Tobacco dependence Tobacco use disorder Mixed hyperlipidemia ([facility]) Mixed hyperlipidemia JAKOB (obstructive sleep apnea) Obstructive sleep apnea (adult) (pediatric) NORMAN (generalized anxiety disorder) ([facility] Generalized anxiety disorder NORMAN (generalized anxiety disorder) ([facility])- Primary Generalized anxiety disorder Mixed hyperlipidemia ([facility]) Mixed hyperlipidemia Nausea and vomiting, unspecified vomiting type Leukocytosis, unspecified type Pre-diabetes Other abnormal glucose Obesity (BMI 30-39.9) Moderate episode of recurrent major depressive disorder ([facility])- Primary Morbid (severe) obesity due to excess calories ([facility]) Body mass index (BMI) 40.0-44.9, adult ([facility]) Mixed hyperlipidemia ([facility]) Mixed hyperlipidemia Pre-diabetes Other abnormal glucose Hypoglycemia Hypoglycemia, unspecified NORMAN (generalized anxiety disorder) ([facility]) Generalized anxiety disorder Pre-diabetes- Primary Other abnormal glucose NORMAN (generalized anxiety disorder) ([facility]) Generalized anxiety disorder Morbid (severe) obesity due to excess calories ([facility]) Body mass index (BMI) 40.0-44.9, adult ([facility]) Pre-diabetes- Primary Other abnormal glucose Morbid (severe) obesity due to excess calories ([facility]) Body mass index (BMI) 40.0-44.9, adult ([facility]) Primary hypertension ([facility] Unspecified essential hypertension Gastroesophageal reflux disease without esophagitis Esophageal reflux NORMAN (generalized anxiety disorder) ([facility] Generalized anxiety disorder Mixed hyperlipidemia ([facility]) Mixed hyperlipidemia Needs flu shot Need for prophylactic vaccination and inoculation against influenza Sciatica of left side Moderate episode of recurrent major depressive disorder ([facility]) documented in this encounter [facility] HealthcareEvaluation note* Diagnosis Other chest pain- Primary Primary hypertension ([facility]) Unspecified essential hypertension Pre-diabetes Other abnormal glucose Obesity (BMI 30-39.9) Tobacco dependence Tobacco use disorder Mixed hyperlipidemia ([facility]) Mixed hyperlipidemia JAKOB (obstructive sleep apnea) Obstructive sleep apnea (adult) (pediatric) NORMAN (generalized anxiety disorder) ([facility] Generalized anxiety disorder NROMAN (generalized anxiety disorder) ([facility])- Primary Generalized anxiety disorder Mixed hyperlipidemia ([facility]) Mixed hyperlipidemia Nausea and vomiting, unspecified vomiting type Leukocytosis, unspecified type Pre-diabetes Other abnormal glucose Obesity (BMI 30-39.9) Moderate episode of recurrent major depressive disorder ([facility])- Primary Morbid (severe) obesity due to excess calories ([facility]) Body mass index (BMI) 40.0-44.9, adult ([facility]) Mixed hyperlipidemia ([facility]) Mixed hyperlipidemia Pre-diabetes Other abnormal glucose Hypoglycemia Hypoglycemia, unspecified NORMAN (generalized anxiety disorder) ([facility]) Generalized anxiety disorder Pre-diabetes- Primary Other abnormal glucose NORMAN (generalized anxiety disorder) ([facility]) Generalized anxiety disorder Morbid (severe) obesity due to excess calories ([facility]) Body mass index (BMI) 40.0-44.9, adult ([facility]) Pre-diabetes- Primary Other abnormal glucose Morbid (severe) obesity due to excess calories ([facility]) Body mass index (BMI) 40.0-44.9, adult ([facility]) Primary hypertension ([facility]) Unspecified essential hypertension Gastroesophageal reflux disease without esophagitis Esophageal reflux NORMAN (generalized anxiety disorder) ([facility]) Generalized anxiety disorder Mixed hyperlipidemia ([facility]) Mixed hyperlipidemia Needs flu shot Need for prophylactic vaccination and inoculation against influenza Sciatica of left side Pre-diabetes- Primary Other abnormal glucose Morbid (severe) obesity due to excess calories ([facility]) Body mass index (BMI) 40.0-44.9, adult ([facility]) Primary hypertension ([facility]) Unspecified essential hypertension Gastroesophageal reflux disease without esophagitis Esophageal reflux NORMAN (generalized anxiety disorder) ([facility]) Generalized anxiety disorder Moderate episode of recurrent major depressive disorder ([facility]) Mixed hyperlipidemia ([facility]) Mixed hyperlipidemia documented in this encounter [facility] Diagnosis Other chest pain- Primary Primary hypertension ([facility]) Unspecified essential hypertension Pre-diabetes Other abnormal glucose Obesity (BMI 30-39.9) Tobacco dependence Tobacco use disorder Mixed hyperlipidemia ([facility]) Mixed hyperlipidemia JAKOB (obstructive sleep apnea) Obstructive sleep apnea (adult) (pediatric) NORMAN (generalized anxiety disorder) ([facility]) Generalized anxiety disorder NORMAN (generalized anxiety disorder) ([facility])- Primary Generalized anxiety disorder Mixed hyperlipidemia ([facility]) Mixed hyperlipidemia Nausea and vomiting, unspecified vomiting type Leukocytosis, unspecified type Pre-diabetes Other abnormal glucose Obesity (BMI 30-39.9) Moderate episode of recurrent major depressive disorder ([facility])- Primary Morbid (severe) obesity due to excess calories ([facility]) Body mass index (BMI) 40.0-44.9, adult ([facility]) Mixed hyperlipidemia ([facility]) Mixed hyperlipidemia Pre-diabetes Other abnormal glucose Hypoglycemia Hypoglycemia, unspecified NORMAN (generalized anxiety disorder) ([facility]) Generalized anxiety disorder Pre-diabetes- Primary Other abnormal glucose NORMAN (generalized anxiety disorder) ([facility]) Generalized anxiety disorder Morbid (severe) obesity due to excess calories ([facility]) Body mass index (BMI) 40.0-44.9, adult ([facility]) Pre-diabetes- Primary Other abnormal glucose Morbid (severe) obesity due to excess calories ([facility]) Body mass index (BMI) 40.0-44.9, adult ([facility]) Primary hypertension ([facility]) Unspecified essential hypertension Gastroesophageal reflux disease without esophagitis Esophageal reflux NORMAN (generalized anxiety disorder) ([facility]) Generalized anxiety disorder Mixed hyperlipidemia ([facility]) Mixed hyperlipidemia Needs flu shot Need for prophylactic vaccination and inoculation against influenza Sciatica of left side Pre-diabetes- Primary Other abnormal glucose Morbid (severe) obesity due to excess calories ([facility]) Body mass index (BMI) 40.0-44.9, adult ([facility]) Primary hypertension ([facility]) Unspecified essential hypertension Gastroesophageal reflux disease without esophagitis Esophageal reflux NORMAN (generalized anxiety disorder) ([facility]) Generalized anxiety disorder Moderate episode of recurrent major depressive disorder ([facility] Mixed hyperlipidemia ([facility] Mixed hyperlipidemia Primary hypertension ([facility]) Unspecified essential hypertension documented in this encounter [facility]* Diagnosis Other chest pain- Primary Primary hypertension ([facility]) Unspecified essential hypertension Pre-diabetes Other abnormal glucose Obesity (BMI 30-39.9) Tobacco dependence Tobacco use disorder Mixed hyperlipidemia ([facility]) Mixed hyperlipidemia JAKOB (obstructive sleep apnea) Obstructive sleep apnea (adult) (pediatric) NORMAN (generalized anxiety disorder) ([facility] Generalized anxiety disorder NORMAN (generalized anxiety disorder) ([facility])- Primary Generalized anxiety disorder Mixed hyperlipidemia ([facility]) Mixed hyperlipidemia Nausea and vomiting, unspecified vomiting type Leukocytosis, unspecified type Pre-diabetes Other abnormal glucose Obesity (BMI 30-39.9) Moderate episode of recurrent major depressive disorder ([facility])- Primary Morbid (severe) obesity due to excess calories ([facility]) Body mass index (BMI) 40.0-44.9, adult ([facility]) Mixed hyperlipidemia ([facility]) Mixed hyperlipidemia Pre-diabetes Other abnormal glucose Hypoglycemia Hypoglycemia, unspecified NORMAN (generalized anxiety disorder) ([facility]) Generalized anxiety disorder Pre-diabetes- Primary Other abnormal glucose NORMAN (generalized anxiety disorder) ([facility]) Generalized anxiety disorder Morbid (severe) obesity due to excess calories ([facility]) Body mass index (BMI) 40.0-44.9, adult ([facility]) Pre-diabetes- Primary Other abnormal glucose Morbid (severe) obesity due to excess calories ([facility]) Body mass index (BMI) 40.0-44.9, adult ([facility]) Primary hypertension ([facility]) Unspecified essential hypertension Gastroesophageal reflux disease without esophagitis Esophageal reflux NORMAN (generalized anxiety disorder) ([facility]) Generalized anxiety disorder Mixed hyperlipidemia ([facility]) Mixed hyperlipidemia Needs flu shot Need for prophylactic vaccination and inoculation against influenza Sciatica of left side Pre-diabetes- Primary Other abnormal glucose Morbid (severe) obesity due to excess calories ([facility]) Body mass index (BMI) 40.0-44.9, adult ([facility]) Primary hypertension ([facility]) Unspecified essential hypertension Gastroesophageal reflux disease without esophagitis Esophageal reflux NORMAN (generalized anxiety disorder) ([facility]) Generalized anxiety disorder Moderate episode of recurrent major depressive disorder ([facility]) Mixed hyperlipidemia ([facility]) Mixed hyperlipidemia Type 2 diabetes mellitus without complication, without long-term current use of insulin- Primary Primary hypertension ([facility]) Unspecified essential hypertension Gastroesophageal reflux disease without esophagitis Esophageal reflux Morbid (severe) obesity due to excess calories ([facility]) Pre-diabetes Other abnormal glucose documented in this encounter [facility] Summary Purpose Family History No Family History Records FoundNo Family History Records Found Advance Directives No Advanced Directives Records FoundNo Advanced Directives Records Found Additional Source Comments (unrecognized sect ion and content) No Status Records FoundNo Status Records Found INFORMATION SOURCE (unrecogn ized section and content) DATE CREATED AUTHOR 07/20/2022 [facility] DATE CREATED AUTHOR AUTHOR'S ORGANIZ ATION 01/25/2025 [facility] EPIC Reason for Visit (unrecogniz ed section and content) Reason Comments Med Refill Reason Onset Date Comments Med Refill 08/22/2024 Reason Onset Date Comments Med Refill 08/29/2024 Reason Onset Date Comments Med Refill 11/13/2024 Reason Comments pre diabetes Reason Onset Date Comments Med Refill 12/06/2024 Care Teams (unrecognized sec tion and content) Websphere Administrator Relationship Specialty Start Date End Date Too Head MD [address] [place] [address] PCP - General Family Medicine 02/25/24 Trina Talley NP [address] [place] [address] Referring Physician Nurse Practitioner 05/12/23 Trina Talley NP [address] [place] [address] Nurse Practitioner Family Medicine 02/25/24 Websphere Administrator Relationship Specialty Start Date End Date Too Head MD [address] [place] [address] PCP - General Family Medicine 02/25/24 Trina Talley NP [address] [place] [address] Referring Physician Nurse Practitioner 05/12/23 Trina Talley NP [address] [place] [address] Nurse Practitioner Family Medicine 02/25/24 Websphere Administrator Relationship Specialty Start Date End Date Too Head MD [address] [place] [address] PCP - General Family [facility] 02/25/24 Trina Talley NP [address] [place] [address] PCP - [facility] 07/20/24 Trina Talley NP [address] [place] [address] Referring Physician Nurse Practitioner 05/12/23 Trina Talley NP [address] [place] [address] Nurse Practitioner Family [facility] 02/25/24 Websphere Administrator Relationship Specialty Start Date End Date Too Head MD [address] [place] [address] PCP - [facility] 02/25/24 Trina Talley NP [address] [place] [address] PCP - [facility] 07/20/24 Trina Talley NP [address] [place] [address] Referring Physician Nurse Practitioner 05/12/23 Trina Talley NP [address] [place] [address] Nurse Practitioner Family Medicine 02/25/24 Websphere Administrator Relationship Specialty Start Date End Date Too Head MD [address] [place] [address] PCP - General Family [facility] 02/25/24 Trina Talley NP [address] [place] [address] PCP - [facility] 07/20/24 Trina Talley NP [address] [place] [address] Referring Physician Nurse Practitioner 05/12/23 Trina Talley NP [address] [place] [address] Nurse Practitioner Family [facility] 02/25/24 Websphere Administrator Relationship Specialty Start Date End Date Too Head MD [address] [place] [address] PCP - General [facility] 02/25/24 Trina Talley NP [address] [place] [address] PCP - [facility] 07/20/24 Trina Talley NP [address] [place] [address] Referring Physician Nurse Practitioner 05/12/23 Trina Talley NP [address] [place] [address] Nurse Practitioner Family Medicine 02/25/24 Websphere Administrator Relationship Specialty Start Date End Date Too Head MD [address] [place] [address] PCP - General Family Medicine 02/25/24 Trina Talley NP [address] [place] [address] Referring Physician Nurse Practitioner 05/12/23 Trina Talley NP [address] [place] [address] Nurse Practitioner Family Medicine 02/25/24 Websphere Administrator Relationship Specialty Start Date End Date Too Head MD [address] [place] [address] PCP - General Family Medicine 02/25/24 Trina Talley NP [address] [place] [address] Referring Physician Nurse Practitioner 05/12/23 Trina Talley NP [address] [place] [address] Nurse Practitioner Family Medicine 02/25/24 Websphere Administrator Relationship Specialty Start Date End Date Too Head MD [address] [place] [address] PCP - General Family Medicine 02/25/24 Trina Talley NP [address] [place] [address] PCP - [facility] 07/20/24 Trina Talley NP [address] [place] [address] Referring Physician Nurse Practitioner 05/12/23 Trina Talley NP [address] [place] [address] Nurse Practitioner Family Medicine 02/25/24 Websphere Administrator Relationship Specialty Start Date End Date Too Head MD [address] [place] [address]198[address] PCP - [facility] 02/25/24 Trina Talley NP [address] [place] [address] [facility] 07/20/24 Trina Talley NP [address] [place] [address] Referring Physician Nurse Practitioner 05/12/23 Trina Talley NP [address] [place] [address] Nurse Practitioner Family Medicine 02/25/24 Websphere Administrator Relationship Specialty Start Date End Date Too Head MD [address] [place] [address] PCP - General Family Medicine 02/25/24 Trina Talley NP [address] [place] [address] PCP - [facility] 07/20/24 Trina Talley NP [address] [place] [address] Referring Physician Nurse Practitioner 05/12/23 Trina Talley NP [address] [place] [address] Nurse Practitioner Family [facility] 02/25/24 Websphere Administrator Relationship Specialty Start Date End Date Too Head MD [address] [place] [address] PCP - General Family [facility] 02/25/24 Trina Talley NP [address] [place] [address] PCP - [facility] 07/20/24 Trina Talley NP [address] [place] [address] Referring Physician Nurse Practitioner 05/12/23 Trina Talley NP [address] [place] [address] Nurse Practitioner Family Medicine 02/25/24 Websphere Administrator Relationship Specialty Start Date End Date Too Head MD [address] [place] [address] PCP - General Family Medicine 02/25/24 Trina Talley NP [address] [place] [address] PCP - [facility] 07/20/24 Trina Talley NP [address] [place] [address] Referring Physician Nurse Practitioner 05/12/23 Trina Talley NP [address] [place] [address] Nurse Practitioner Family Medicine 02/25/24 Websphere Administrator Relationship Specialty Start Date End Date Too Head MD [address] [place] [address]10[address] PCP - General Family [facility] 02/25/24 Trina Talley NP [address] [place] [address] PCP - [facility] 07/20/24 Trina Talley NP [address] [place] [address] Referring Physician Nurse Practitioner 05/12/23 Trina Talley NP [address] [place] [address] Nurse Practitioner Family Medicine 02/25/24 Websphere Administrator Relationship Specialty Start Date End Date Too Head MD [address] [place] [address]10[address] PCP - General Family [facility] 02/25/24 Trina Talley NP [address] [place] [address] PCP - [facility] 07/20/24 Trina Talley NP [address] [place] [address] Referring Physician Nurse Practitioner 05/12/23 Trina Talley NP [address] [place] [address] Nurse Practitioner Family [facility] 02/25/24 Websphere Administrator Relationship Specialty Start Date End Date Too Head MD [address] [place] [address] PCP - [facility] 02/25/24 Trina Talley NP [address] [place] [address] PCP - [facility] 07/20/24 Trina Talley NP [address] [place] [address] Referring Physician Nurse Practitioner 05/12/23 Trina Talley NP [address] [place] [address] Nurse Practitioner Family Medicine 02/25/24 Websphere Administrator Relationship Specialty Start Date End Date Too Head MD [address] [place] [address]10[address]1002 PCP - General Family [facility] 02/25/24 Trina Talley NP [address] [place] [address] PCP - [facility] 07/20/24 Trina Talley NP [address] [place] [address] Referring Physician Nurse Practitioner 05/12/23 Trina Talley NP [address] [place] [address] Nurse Practitioner Family Medicine 02/25/24 FOR RECORDS PERTAINING TO PATIENTS WHO ARE [...] BE BASED ON THE PRIMARY CLINICAL RECORDS. [facility]. provides no warranty or guarantee of the accuracy or completeness of information in this document.
[2025-03-25 17:07] LABS: Bilirubin Urine SMALL (NEGATIVE); Blood Urine NEGATIVE (NEGATIVE); Clarity Urine CLEAR (CLEAR); Color Urine YELLOW (YELLOW); Glucose Urine UA 250 mg/dL (NEGATIVE); Ketones Urine TRACE mg/dL (NEGATIVE); Leukocyte Esterase Urine NEGATIVE (NEGATIVE); Nitrite Urine NEGATIVE (NEGATIVE); Protein Urine TRACE mg/dL (NEG/TRACE); Specific Gravity Urine >=1.030 (1.005-1.025); Urobilinogen Urine 0.2 EU/dL (0.2-1.0)
[2025-03-25 17:08] LABS: Basophils Absolute Auto 0.1 10^3/uL (0.0-0.1); Basophils Percent Auto 0.5 % (0.2-2.0); Eosinophils Absolute Auto 0.1 10^3/uL (0.0-0.7); Eosinophils Percent Auto 0.5 % (0.9-7.0); Hematocrit 44.8 % (42.0-54.0); Hemoglobin 15.8 g/dL (14.0-18.0); Immature Granulocytes Abs Auto 0.04 10^3/uL (0.00-0.03); Immature Granulocytes Pct Auto 0.3 % (0.0-0.5); Lymphocytes Absolute Auto 2.5 10^3/uL (1.2-3.8); Lymphocytes Percent Auto 18.9 % (20.5-60.0); Mean Corpuscular HGB Conc 35.3 g/dL (29.9-35.2); Mean Corpuscular Hemoglobin 30.4 pg (25.9-34.0); Mean Corpuscular Volume 86.2 fL (80.0-94.0); Mean Platelet Volume 9.5 fL (9.5-13.5); Monocytes Absolute Auto 0.8 10^3/uL (0.3-0.8); Monocytes Percent Auto 6.1 % (1.7-12.0); Neutrophils Absolute Auto 9.8 10^3/uL (1.4-6.5); Neutrophils Percent Auto 73.7 % (43.0-75.0); Platelet Count 356 10^3/uL (150-450); Red Cell Distribution Width 12.6 % (11.0-15.0); White Blood Count 13.3 10^3/uL (4.0-11.0)
[2025-03-25 17:13] LABS: Urine Microscopic Indicated NO
[2025-03-25 17:15] LABS: Creatinine Urine Random 328.34 mg/dL (20.00-300.00); Microalbum Creatinine Ratio Ur 5.1 mg/g (0.0-29.9); Microalbumin Urine Random 1.7 mg/dL (<=30.0)
[2025-03-25 17:17] LABS: Estimated Average Glucose 111 mg/dL; Glycohemoglobin A1C 5.5 % (4.5-6.2)
[2025-03-25 17:20] LABS: Alanine Aminotransferase 63 U/L (16-63); Albumin Level 3.9 g/dL (3.4-5.0); Alkaline Phosphatase 92 U/L (46-116); Anion Gap 16.6; Aspartate Amino Transferase 17 U/L (15-37); BUN Creatinine Ratio 21.2; Bilirubin Total 0.5 mg/dL (0.2-1.0); Calcium 9.6 mg/dL (8.5-10.1); Chloride 99 mmol/L (98-107); Chol HDL Ratio 3.3; Cholesterol 152 mg/dL (<=200); Estimated GFR (African America >60 (>=60 mL/min/1.73m^2); Estimated GFR (Non-African Ame >60 (>=60 mL/min/1.73m^2); Globulin 4.1 g/dL; Glucose 93 mg/dL (74-106); HDL Cholesterol 46 mg/dL (40-60); LDL Cholesterol Calculated 88.6 mg/dL; Potassium 3.6 mmol/L (3.5-5.1); Sodium 139 mmol/L (136-145); Triglycerides 87 mg/dL (<=150); VLDL CHOLESTEROL 17.4 mg/dL
== END 2025-03-25 16:47 | disposition home or self-care (01) ==
LOC: LAB 16:48
PROVIDERS: PCP Nurse Practitioner; Visit Provider Nurse Practitioner
DX: K21.9 Gastro-esophageal reflux disease without esophagitis (principal); I10 Essential (primary) hypertension; E66.01 Morbid (severe) obesity due to excess calories; R73.03 Prediabetes
CPT/HCPCS: 36415; 80053; 80061; 81003; 82043; 82570; 83036; 85025

== ENCOUNTER 2025-04-12 10:38 | Emergency (ER) | payer OTHER, SELFPAY ==
[2025-04-12] VITALS (13 sets, daily range): BP systolic 124–151; BP diastolic 72–97; PULSE 65–94; TEMP 36.9; O2SAT 95–100; BMI 42.0
--- OUTSIDE RECORDS SUMMARY | 2025-04-12 10:44 | XMS_ITS | Encounter Summary ---
Author Organization [facility] Address [address] [place] [address] Care Team Providers Care Rad Tech Name Role Phone Trina Talley REFINERY OPERATOR [employer] Unavailable [phone] Head MD Primary Care Provider [phone] Trina Talley REFINERY OPERATOR [employer] Unavailable [phone] Trina Talley REFINERY OPERATOR [employer] Unavailable [phone] Reason for Visit * Reason Onset Date Comments Med Refill 06/22/2024 Encounter Details Date Type Department Care Team (Late st Contact Info) Description 06/22/2024 Refill [facility] [address] [place] [address] Trina Talley REFINERY OPERATOR [employer] [address] [place] [address] NORMAN (generalized anxiety disorder) Social History Tobacco Use Types Packs/Day Years [...] often do you attend chur ch or orthodoxy services? 1 to 4 times per year 04/13/2024 Do you belong to any clubs o r organizations such as tenriism groups, unions, fraternal or athletic groups, or [...] and heating? Not hard at all 04/13/2024 [facility] - Occupational Stress [...] [facility] the [facility] were you [facility] or living in a long term (including now)? No 04/13/2024 Sex and Gender [...] Office Visit [facility] [address] [place] [address] Trina Talley NP [address] [place] [address] documented as of this encounter Visit Diagnoses Diagnosis NORMAN (generalized anxiety disorder) Generalized anxiety disorder documented in this encounter Care Teams Rad Tech Relationship Specialty Start Date End Date Too Head MD [address] [place] [address] PCP - General Family Medicine 02/25/24 Trina Talley NP [address] [place] [address] PCP - [facility] 07/20/24 Trina Talley NP [address] [place] [address] Referring Physician Nurse Practitioner 05/12/23 Trina Talley NP [address] [place] [address] Nurse Practitioner Family Medicine 02/25/24 documented as of this encounter
--- OUTSIDE RECORDS SUMMARY | 2025-04-12 10:44 | XMS_ITS | Encounter Summary ---
Author Organization [facility] Address [address] [place] [address] Care Team Providers Care Mixer Wet Pour Name Role Phone Trina Talley MANAGER E [employer] Unavailable [phone] Head MD Primary Care Provider [phone] Trina Talley MANAGER E [employer] Unavailable [phone] Trina Talley NP Unavailable [phone] Reason for Visit * Reason Comments Med Refill Encounter Details Date Type Department Care Team (Late st Contact Info) Description 06/23/2024 Refill [facility] [address] [place] [address] Trina Talley NP [address] [place] [address] NORMAN (generalized anxiety disorder) Social History Tobacco [...] How often do you attend chur or gnosticism services? 1 to 4 times per year 04/13/2024 Do you belong to any clubs o r organizations such as temple groups, unions, fraternal or athletic groups, or [...] and heating? Not hard at all 04/13/2024 [facility] - Occupational Stress [...] time in the past 12 m [facility], were you homeless or living in a prison (including now)? No 04/13/2024 Sex and Gender [...] Office Visit [facility] [address] [place] [address] Trina Talley NP [address] [place] [address] documented as of this encounter Visit Diagnoses Diagnosis NORMAN (generalized anxiety disorder) Generalized anxiety disorder documented in this encounter Care Teams Mixer Wet Pour Relationship Specialty Start Date End Date Too Head MD [address] [place] [address] PCP - General Family Medicine 02/25/24 Trina Talley NP [address] [place] [address] PCP - [facility] 07/20/24 Trina Talley NP [address] [place] [address] Referring Physician Nurse Practitioner 05/12/23 Trina Talley NP [address] [place] [address] Nurse Practitioner Family Medicine 02/25/24 documented as of this encounter
--- OUTSIDE RECORDS SUMMARY | 2025-04-12 10:44 | XMS_ITS | Encounter Summary ---
Author Organization [facility] Address [address] [place] [address] Care Team Providers Care Piler Name Role Phone Trina Talley PAPER CUTTING MACHINE OPERATOR Unavailable [phone] Head MD Primary Care Provider [phone] Trina Talley PAPER CUTTING MACHINE OPERATOR Unavailable [phone] Trina Talley NP Unavailable [phone] Reason for Visit * Reason Comments Med Refill Encounter Details Date Type Department Care Team (Late st Contact Info) Description 08/30/2024 Refill [facility] [address] [place] [address] Trina Talley NP [address] [place] [address] Gastroesophageal reflux disease without esophagitis Social History [...] How often do you attend chur or taoist services? 1 to 4 times per year 04/13/2024 Do you belong to any clubs o r organizations such as anabaptist groups, unions, fraternal or athletic groups, or [...] and heating? Not hard at all 04/13/2024 [facility] [place] of Occupat ional Health - Occupational Stress [...] any time in the past 12 m [facility], were you homeless or living in a nursing home (including now)? No 04/13/2024 Sex and Gender Information Value Date Recorded Sex Assigned at Not on file Legal Sex Male 6:44 PM EDT Gender Identity Not on file Sexual Orientation Not on file documented as of this encounter Plan of Treatment Upcoming Encounters Date Type Department Care Team (Late st Contact Info) Description 04/26/2025 3:00 PM EDT [facility] [address] [place] [address] Trina Talley NP [address] [place] [address] documented as of this encounter Visit Diagnoses Diagnosis Gastroesophageal reflux disease without esophagitis Esophageal reflux documented in this encounter Care Teams Piler Relationship Specialty Start Date End Date Too Head MD [address] [place] [address] PCP - General Family Medicine 02/25/24 Trina Talley NP [address] [place] [address] PCP - [facility] 07/20/24 Trina Talley NP [address] [place] [address] Referring Physician Nurse Practitioner 05/12/23 Trina Talley NP [address] [place] [address] Nurse Practitioner Family Medicine 02/25/24 documented as of this encounter
--- OUTSIDE RECORDS SUMMARY | 2025-04-12 10:44 | XMS_ITS | Clinical Summary ---
Author Organization [facility] Address [address] [place] [address] Care Team Providers Care Filler Shaker Name Role Phone Tiara Arcos MD Primary [...] on file Type:Not on file [address] Care Teams Filler Shaker Relationship Specialty Start Date End Date Tiara Arcos MD [address] [place] [address] PCP - General 01/20/17
--- OUTSIDE RECORDS SUMMARY | 2025-04-12 10:44 | XMS_ITS | Encounter Summary ---
Author Organization [facility] Address [address] [place] [address] Care Team Providers Care Supervisor Intermediates Name Role Phone Trina Talley DISPATCH ASSOCIATE Unavailable [phone] Head MD Primary Care Provider [phone] Trina Talley DISPATCH ASSOCIATE Unavailable [phone] Trina Talley DISPATCH ASSOCIATE Unavailable [phone] Reason for Visit * Reason Comments Med Refill Encounter Details Date Type Department Care Team (Late Contact Info) Description 02/26/2024 Refill [facility] [address] [place] [address] Trina Talley, DISPATCH ASSOCIATE [address] [place] [address] Social History Tobacco Use Types Packs/Day Years [...] Upcoming Encounters Date Type Department Care Team ([facility] Contact Info) Description 04/26/2025 3:00 PM EDT Office Visit [facility] [address] [place] [address] Trina Talley NP [address] [place] [address] documented as of this encounter Visit Diagnoses Not on filedocumented in this encounter Care Teams Supervisor Intermediates Relationship Specialty Start Date End Date Too Head MD [address] [place] [address] PCP - General Family [facility] 02/25/24 Trina Talley NP [address] [place] [address] PCP - [facility] 07/20/24 Trina Talley NP [address] [place] [address] Referring Physician Nurse Practitioner 05/12/23 Trina Talley NP [address] [place] [address] Nurse Practitioner Family Medicine 02/25/24 documented as of this encounter
--- OUTSIDE RECORDS SUMMARY | 2025-04-12 10:44 | XMS_ITS | Encounter Summary ---
Author Organization [facility] Address [address] [place] [address] Care Team Providers Care Auditor Name Role Phone Trina Talley NP Unavailable [phone] Head MD Primary Care Provider [phone] Trina Talley INSTRUCTIONAL MATERIALS DIRECTOR Unavailable [phone] Trina Talley NP Unavailable [phone] Encounter Details Date Type Department Care Team (Late st Contact Info) Description 04/26/2024 Orders Only [facility] [address] [place] [address] Trina Talley NP [address] [place] [address] Social History Tobacco Use Types Packs/Day Years [...] often do you attend chur ch or protestant services? 1 to 4 times per year [...] and heating? Not hard at all 04/13/2024 [facility] of Occupat ional Health - Occupational Stress [...] time in the past 12 m [facility], were you homeless or living in a retirement (including now)? No 04/13/2024 Sex and Gender [...] Visit [facility] [address] [place] [address] Trina Talley NP [address] [facility] [place] [address] documented as of this encounter Procedures Procedure [...] on filedocumented in this encounter Care Teams Auditor Relationship Specialty Start Date End Date Too Head MD [address] [place] [address] PCP - General Family Medicine 02/25/24 Trina Talley NP [address] [place] [address] [facility] 07/20/24 Trina Talley NP [address] [place] [address] Referring Physician Nurse Practitioner 05/12/23 Trina Talley NP [address] [place] [address] Nurse Practitioner Family Medicine 02/25/24 documented as of this encounter
--- OUTSIDE RECORDS SUMMARY | 2025-04-12 10:44 | XMS_ITS | Encounter Summary ---
Author Organization [facility] Address [address] [place] [address] Care Team Providers Care Slate Mixer Name Role Phone Trina Talley HEAD OF MATHEMATICS Unavailable [phone] Head MD Primary Care Provider [phone] Trina Talley HEAD OF MATHEMATICS Unavailable [phone] Trina Talley NP Unavailable [phone] Reason for Visit * Reason Comments Med Change Request Encounter Details Date Type Department Care Team (Late st Contact Info) Description 10/11/2024 Refill [facility] [address] [place] [address] Trina Talley NP [address] [place] [address] Pre-diabetes Social History Tobacco Use Types Packs/Day [...] often do you attend chur ch or anabaptism services? 1 to 4 times per year 04/13/2024 Do you belong to any clubs o r organizations such as christian groups, unions, fraternal or athletic groups, or [...] 04/13/2024 [facility] [place] of Occupat ional Health - Occupational Stress [...] any time in the past 12 m [facility], were you homeless or living in [...] 04/26/2025 3:00 PM EDT [facility] [address] [place] [address] Trina Talley NP [address] [place] [address] documented as of this encounter Visit Diagnoses Diagnosis Pre-diabetes Other abnormal glucose documented in this encounter Care Teams Slate Mixer Relationship Specialty Start Date End Date Too Head MD [address] [place] [address] PCP - General Family Medicine 02/25/24 Trina Talley NP [address] [place] [address] PCP - [facility] 07/20/24 Trina Talley NP [address] [place] [address] Referring Physician Nurse Practitioner 05/12/23 Trina Talley NP [address] [place] [address] Nurse Practitioner Family Medicine 02/25/24 documented as of this encounter
--- OUTSIDE RECORDS SUMMARY | 2025-04-12 10:44 | XMS_ITS | Encounter Summary ---
Author Organization [facility] Address [address] [place] [address] Care Team Providers Care Crts Name Role Phone Trina Talley NP Unavailable [phone] Head MD Primary Care Provider [phone] Trina Talley LANDSC[employer] MAINTENANCE INTERNSHIP Unavailable [phone] Trina Talley NP Unavailable [phone] Encounter Details Date Type Department Care Team (Late st Contact Info) Description 04/23/2024 Clinisync Result Encounter [facility] External Department Unsolicited Trina Talley, [employer]NA[employer] [address] [place] [address] Social History Tobacco Use Types Packs/Day Years [...] often do you attend chur ch or taoism services? 1 to 4 times per year 04/13/2024 Do you belong to any clubs o r organizations such as episcopal groups, unions, fraternal or athletic groups, or [...] and heating? Not hard at all 04/13/2024 [facility] of Occupat ional Health - Occupational [...] any time in the past 12 m [facility], were you homeless or living in a [...] Office Visit [facility] [address] [place] [address] Trina Talley NP [address] [place] [address] documented as of this encounter Procedures Procedure Name Priority Date/Time Associated Diagnosis Comments CA ECHO DOPPLER COMPLETE 04/23/2024 8:22 PM EDT documented in this encounter Results * CA ECHO DOPPLER COMPLETE (04/23/2024 8:22 PM EDT) Anatomical Region Laterality Modality Other 04/23/2024 8:22 PM EDT Narrative 04/23/2024 8:23 PM EDT The [address] [address] Cardiology Report Signed Patient: DRAGAN CAREY MR#: [id number] : 1990 Acct:[id number] Age/Sex: 34 / M ADM Date: 04/23/24 Loc: CARD Attending Dr: Trina Talley NP Ordering Physician: Trina Talley NP Date of Service: 04/23/24 Procedure(s): CA echo doppler complete Accession Number(s): [id number] cc: Trina Talley NP Patient Name: DRAGAN CAREY MR#: [id number] : 1990 Exam Date: 04/23/2024 Ordering Doctor: [...] BECKHAM Signed By: 04/23/242022 DD/ 21 TD/TT: Produce Field Merchandiser: Procedure Note Radiology, Radiologist, MD - 04/23/2024 [place] [address] Cardiology Report Signed Patient: DRAGAN CAREY [facility]#: [id number] : 1990Acct:[id number] Age/Sex: 34 / MADM Date: 04/23/24 Loc: CARD Attending Dr: Trina Talley NP Ordering Physician: Trina Talley NP Date of Service: 04/23/24 Procedure(s): CA echo doppler complete Accession Number(s): [id number] cc: Trina Talley NP Patient Name: DRAGAN CAREY MR#: [id number] : 1990 Exam Date: 04/23/2024 Ordering Doctor: [...] ALYSSA BECKHAM Signed By:04/23/242022 DD/ 21 TD/TT: Produce Field Merchandiser: us Trina Talley LANDSCAPE MAINTENANCE INTERNSHIP [facility] Final Result documented in this encounter Visit Diagnoses Not on filedocumented in this encounter Care Teams Crts Relationship Specialty Start Date End Date Too Head MD [address] [place] [address] PCP - General Family Medicine 02/25/24 Trina Talley NP [address] [place] [address] PCP - [facility] 07/20/24 Trina Talley NP [address] [place] [address] Referring Physician Nurse Practitioner 05/12/23 Trina Talley NP [address] [place] [address] Nurse Practitioner Family Medicine 02/25/24 documented as of this encounter
--- OUTSIDE RECORDS SUMMARY | 2025-04-12 10:44 | XMS_ITS | Clinical Summary ---
Author Organization [facility] Address [address] [place] [address] Care Team Providers Care Wastewater Treatment Plant Attendant Name Role Phone Trina Talley NP Unavailable [phone] Head MD Primary Care Provider [phone] Trina Talley HYDRAULIC PRESS IN OPERATOR Unavailable [phone] Tirna Talley NP Unavailable [phone] Allergies Active Allergy Reactions Criticality Noted Date Comments Penicillin V Rash Low 02/25/2024 Medications pen needle 31G x 6 mm miscIndications:Pr e-diabetes For daily use with victoza injection. Use as instructed 100 each 3 4 025 Active Continuous Glucose Sensor (Dexcom G7 Sensor) misc 1 each by Other route Daily 4 Active aspirin 81 MG EC tablet Take 81 mg by mouth Daily Active atorvastatin (Lipitor) 20 MG tabletIndications: Mixed hyperlipidemia Take 1 tablet (20 mg) by mouth at bedtime 90 tablet 1 5 Active buPROPion XL (Wellbutrin XL) 150 MG 24 hr tabletIndications: Moderate episode of recurrent major depressive disorder (HCC) Take 1 tablet (150 mg) by mouth Daily Do not crush, chew, or split. 90 tablet 1 5 Active dapagliflozin (Farxiga) 5 MGIndications:Pre- diabetes Take 1 tablet (5 mg) by mouth Daily 90 tablet 1 5 Active FLUoxetine (PROzac) 10 MG capsuleIndications :NORMAN (generalized anxiety disorder) Take 1 capsule (10 mg) by mouth Daily 90 capsule 1 5 Active omeprazole (PriLOSEC) [address] capsuleIndications :Gastroesophageal reflux disease without esophagitis Take 1 capsule (40 mg) by mouth in the morning. Take before meals. 90 capsule 1 5 Active losartan (Cozaar) 50 MG tabletIndications: Primary hypertension Take 1 tablet (50 mg) by mouth Daily 90 tablet 1 5 Active Dulaglutide (Trulicity) 1.5 MG/0.5ML solution auto-injectorIndic ations:Type 2 diabetes mellitus without complication, without long-term current use of insulin (HCC) Inject 1.5 mg under the skin every 7 (seven) days for 28 days 2 mL 3 5 Active Active Problems Problem Noted Date Diagnosed Date [...] Strong family hx of CAD and early OK Pt is also smoker, DM not taking [...] BY TRINA TALLEY NP Continue with farxiga, appears to be tolerating well Insurance will [...] of the risks of continued smoking: stroke, OK, all forms of cancer, lung disease, and [...] Encounters Date Type Department Care Team Description 03/25/2025 Clinisync Result Encounter [facility] External Department Unsolicited Trina Talley NP 01/24/2025 3:00 PM EDT Office Visit [facility] [address] [place] [address] Trina Talley NP Type 2 diabetes mellitus without complication, without long-term current use of insulin (HCC) (Primary Dx); Primary hypertension ; Gastroesophageal reflux disease without esophagitis; Morbid (severe) obesity due to excess calories ([facility]-HCC); Pre-diabetes 01/24/2025 Bamboo flowsheet [facility] [address] [place] [address] Trina Talley NP 01/19/2025 Travel from Last [...] any clubs o r organizations such as amish groups, unions, fraternal or athletic groups, or [...] and heating? Not hard at all 04/13/2024 [facility] [place] of Occupat ional Health - Occupational Stress [...] any time in the past 12 m [facility], were you homeless or living in a intermediate (including now)? No 04/13/2024 Sex and Gender [...] 3:00 PM EDT Office Visit [facility] [address] [place] [address] Trina Talley NP [address] [place] [address] Health Maintenance Due Date Last Done Comments Diabetes: Retinopathy Screening 1999 Diabetes: Hemoglobin A1C 06/25/2025 03/25/2025, 11/0 03/2024 Diabetes: Urine Protein Screening 03/25/2026 025 Influenza Vaccine Discontinued Procedures Procedure Name Priority Date/Time Associated Diagnosis Comments ALL LIPID PROFILE (FASTING) Routine 03/25/2025 4:57 PM EDT [facility] CMP (CMP) (FOR REMOTE [facility] USE) Routine 03/25/2025 4:57 PM EDT MLR HEMOGLOBIN A1C Routine 03/25/2025 4: 57 PM EDT ALL CBC WITH AUTO DIFF Routine 03/25/2025 4:57 PM EDT TBH MICROALB CREAT RATIO RANDOM Routine 03/25/2025 4:54 PM EDT TBH UA (CLEAN/CATCH) MICROSCOPIC IF INDICATE Routine 03/25/2025 4:54 PM EDT POCT GLYCOSYLATED HEMOGLOBIN (HGB A1C) Routine 08/25/2024 5:08 PM EST Pre-diabetes from Last 3 Months or Most Recently Relevant to Health Maintenance Results * MLR HEMOGLOBIN A1C (03/25/2025 4:57 PM EDT) GLYCOHEMOGLOBIN A1C 5.5 4.5 - 6.2 % TB Comment: ADA RECOMMENDED LIMIT 4.0 - 6.0 ADA THERAPEUTIC TARGET < 7.0 ACTION SUGGESTED > 7.0 ESTIMATED AVERAGE GLUCOSE 111 mg/dL TB 03/25/2025 4:57 PM EDT 03/25/2025 4:57 PM EDT Narrative CLINISYNC - 03/25/2025 5:23 PM EDT us Trina Talley NP [facility] Final Result [facility] * CCF CMP (CMP) (FOR REMOTE [facility] USE) (03/25/2025 4:57 PM EDT) SODIUM 139 136 - 145 mmol/L TBH POTASSIUM 3.6 3.5 - 5.1 mmol/L TBH CHLORIDE 99 98 - 107 mmol/L TBH CARBON DIOXIDE 27.0 21.0 - 32.0 mmol/L TBH ANION GAP 16.6 TBH GLUCOSE 93 74 - 106 mg/dL TBH BLOOD UREA NITROGEN 17.0 7.0 - 18.0 mg/dL TBH CREATININE 0.80 0.70 - 1.30 mg/dL TBH TBH EGFR-AF PANAMANIAN >60 >=60 mL/min/1. 73m 2 TBH TBH EGFR-NON AF PANAMANIAN >60 >=60 mL/min/1. 73m 2 TBH BUN CREATININE RATIO 21.2 TBH CALCIUM 9.6 8.5 - 10.1 mg/dL TBH BILIRUBIN TOTAL 0.5 0.2 - 1.0 mg/dL TBH ASPARTATE AMINO TRANSFERASE 17 15 - 37 U/L TBH ALANINE AMINOTRANSFERASE 63 16 - 63 U/L TBH ALKALINE PHOSPHATASE 92 46 - 116 U/L TBH TOTAL PROTEIN 8.0 6.4 - 8.2 g/dL TBH ALBUMIN LEVEL 3.9 3.4 - 5.0 g/dL TBH GLOBULIN 4.1 g/dL TB ALBUMIN GLOBULIN RATIO 1.0 TB 03/25/2025 4:57 PM EDT 03/25/2025 4:57 PM EDT Narrative CLINISYNC - 03/25/2025 5:23 PM EDT Trina Talley NP CLINISYNC Final Result Performing Organization Address [facility]/ZIP Co de Phone Number [facility] * ALL LIPID PROFILE (FASTING) (03/25/2025 4:57 PM EDT) TRIGLYCERIDES 87 <=150 mg/dL TBH CHOLESTEROL 152 <=200 mg/dL TB HDL CHOLESTEROL 46 40 - 60 mg/dL TB Comment: > or =60 mg/dl - LOW CARDIOVASCULAR RISK <40 mg/dl - HIGH CARDIOVASCULAR RISK LDL CHOLESTEROL CALCULATED 88.6 mg/dL TB Comment: <100 mg/dl OPTIMAL 100-129 mg/dl NEAR OR ABOVE OPTIMAL 130-159 mg/dl BORDERLINE HIGH 160-189 mg/dl HIGH >190 mg/dl VERY HIGH VLDL CHOLESTEROL 17.4 mg/dL TB CHOL HDL RATIO 3.3 TB Comment: 3.3 - 4.4 LOW RISK 4.4 - 7.1 AVERAGE RISK 7.1 - 11.0 MODERATE RISK >11.0 HIGH RISK 03/25/2025 4:57 PM EDT 03/25/2025 4:57 PM EDT Narrative CLINISYNC - 03/25/2025 5:23 PM EDT Trina Talley NP CLIN[facility]NC Final Result [facility] * (ABNORMAL) ALL CBC WITH AUTO DIFF (03/25/2025 4:57 PM EDT) TB WBC 13.3(H) 4.0 - 11.0 10 3/uL TBH TBH RBC 5.20 4.70 - 6.10 10 6/uL TBH TBH HGB 15.8 14.0 - 18.0 g/dL TBH TBH HCT 44.8 42.0 - 54.0 % TBH TBH MCV 86.2 80.0 - 94.0 fL TBH TBH MCH 30.4 25.9 - 34.0 pg TBH TBH MCHC 35.3(H) 29.9 - 35.2 g/dL TBH TBH RDW 12.6 11.0 - 15.0 % TBH TBH PLT 356 150 - 450 10 3/uL TBH TBH MPV 9.5 9.5 - 13.5 fL TBH NEUTROPHILS PERCENT AUTO 73.7 43.0 - 75.0 % TBH LYMPHOCYTES PERCENT AUTO 18.9(L) 20.5 - 60.0 % TBH MONOCYTES PERCENT AUTO 6.1 1.7 - 12.0 % TBH TBH EO % 0.5(L) 0.9 - 7.0 % TBH BASOPHILS PERCENT AUTO 0.5 0.2 - 2.0 % TBH IMMATURE GRANULOCYTES PCT AUTO 0.3 0.0 - 0.5 % TBH NEUTROPHILS ABSOLUTE AUTO 9.8(H) 1.4 - 6.5 10 3/uL TBH LYMPHOCYTES ABSOLUTE AUTO 2.5 1.2 - 3.8 10 3/uL TBH MONOCYTES ABSOLUTE AUTO 0.8 0.3 - 0.8 10 3/uL TBH TBH EO # 0.1 0.0 - 0.7 10 3/uL TBH BASOPHILS ABSOLUTE AUTO 0.1 0.0 - 0.1 10 3/uL TBH IMMATURE GRANULOCYTES ABS AUTO 0.04(H) 0.00 - 0.03 10 3/uL TBH 03/25/2025 4:57 PM EDT 03/25/2025 4:57 PM EDT Narrative CLINISYNC - 03/25/2025 5:12 PM EDT us Trina Talley NP CLINISYNC Final Result CLINISYNC TBH * (ABNORMAL) TBH UA (CLEAN/CATCH) MICROSCOPIC IF INDICATE (03/25/2025 4:54 PM EDT) COLOR URINE YELLOW YELLOW TBH CLARITY URINE CLEAR CLEAR TBH SPECIFIC GRAVITY URINE >=1.030(A) 1.005 - 1.025 TBH PH URINE 6.0 5.0 - 9.0 TBH PROTEIN URINE TRACE NEG/TRACE mg/dL TBH GLUCOSE URINE UA 250(A) NEGATIVE mg/dL TBH BILIRUBIN URINE SMALL(A) NEGATIVE TBH KETONES URINE TRACE(A) NEGATIVE mg/dL TBH BLOOD URINE NEGATIVE NEGATIVE TBH NITRITE URINE NEGATIVE NEGATIVE TBH UROBILINOGEN URINE 0.2 0.2 - 1.0 EU/dL TBH LEUKOCYTE ESTERASE URINE NEGATIVE NEGATIVE TBH URINE MICROSCOPIC INDICATED NO TBH 03/25/2025 4:54 PM EDT 03/25/2025 5:01 PM EDT Narrative CLINISYNC - 03/25/2025 5:13 PM EDT us Trina Talley NP CLINISYNC Final Result Performing Organization Address [facility] Co de Phone Number CLINISYKS TB * (ABNORMAL) TB MICROALB CREAT RATIO RANDOM (03/25/2025 4:54 PM EDT) MICROALBUMIN URINE RANDOM 1.7 <=30.0 mg/dL TB CREATININE URINE RANDOM 328.34(H) 20.00 - 300.00 mg/dL TB MICROALBUM CREATININE RATIO UR 5.1 0.0 - 29.9 mg/g TB Comment: NO MICROALBUMINURIA 0-29 MG/G CLINICAL MICROALBUMINURIA 30-300 MG/G MACROALBUMINURIA >300 MG/G 03/25/2025 4:54 PM EDT 03/25/2025 5:01 PM EDT Narrative CLINISYNC - 03/25/2025 5:22 PM EDT Trina Talley NP CLINISYNC Final Result CLINISYKS TB * POCT glycosylated hemoglobin (Hb A1C) docked device (08/25/2024 5:08 PM EST) Hemoglobin A1C 5.6 Blood Venous blood specimen / Unknown 08/25/2024 5:08 PM EST Trina Talley HYDRAULIC PRESS IN OPERATOR POINT OF CARE TEST ENTER/EDIT O RDERABLES Final Result from Last 3 Months or Most Recently Relevant to Health Maintenance Insurance [employer] Care Teams Wastewater Treatment Plant Attendant Relationship Specialty Start Date End Date Too Head MD [address] [place] [address] PCP - General Family Medicine 02/25/24 Trina Talley NP [address] [place] [address] PCP - [facility] 07/20/24 Trina Talley NP [address] [place] [address] Referring Physician Nurse Practitioner 05/12/23 Trina Talley NP [address] [place] [address] Nurse Practitioner Family Medicine 02/25/24
--- NOTE | 2025-04-12 11:11 | ECG_ITS ---
[facility] Test Date: 2025-04-12 Pat Name: DRAGAN MATSON Department: Room: - Gender: Male [employer] [employer]: : 1990 Requested By: [id number] Order Number: [id number] Reading MD: ALYSSA ESPINO M.D. Measurements Intervals [place] Rate: 85 P: 30 SD: 152 QRS: 14 QRSD: 94 T: 26 QT: 342 QTc: 384 Interpretive Statements 1100 Sinus rhythm 9110 normal ECG No previous ECG available for comparison Electronically Signed On 04-12-2025 21:54:11 EDT by ALYSSA ESPINO M.D.
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
[2025-04-12 11:55] LABS: ABG PCO2 40.2 mmHg (35.0-45.0); HCO3 ABG 27.9 mmol/L (22.0-26.0)
[2025-04-12 11:56] LABS: Allen Test POSITIVE (POSITIVE); Carboxyhemoglobin <1.0 % (1.5-4.9); Methemoglobin ABG <1.0 % (1.1-1.9); Oxygen Saturation ABG >100.0 %
[2025-04-12 11:57] LABS: Fractionated Inspired Oxygen 100 %; Liters per Minute 15; O2 Mode NRB; Puncture Site RR
[2025-04-12] MEDS: ACETAMINOPHEN 325 MG TABLET 650 MG PO (12:09)
== END 2025-04-12 12:49 | disposition home or self-care (01) ==
PROVIDERS: Emergency Provider Emergency Medicine; PCP Nurse Practitioner
DX: T59.891A Toxic effect of other specified gases, fumes and vapors, accidental (unintentional), initial encounter (principal); R06.02 Shortness of breath; Y92.69 Other specified industrial and construction area as the place of occurrence of the external cause
CPT/HCPCS: 36600; 82375; 82805; 83050; 93005; 99284

== ENCOUNTER 2025-04-13 10:12 | Emergency (ER) | payer OTHER, SELFPAY ==
[2025-04-13] VITALS (8 sets, daily range): BP systolic 154; BP diastolic 91; PULSE 72–82; TEMP 36.5; O2SAT 95–98; BMI 42.0
--- OUTSIDE RECORDS SUMMARY | 2025-04-13 10:24 | XMS_ITS | Encounter Summary ---
Author Organization [facility] Address [address] [place] [address] Care Team Providers Care Legal Support Analyst Name Role Phone Trina Talley ELEVATOR RUNNER Unavailable [phone] Head MD Primary Care Provider [phone] Trina Talley ELEVATOR RUNNER Unavailable [phone] Trina Talley ELEVATOR RUNNER Unavailable [phone] Reason for Visit * Reason Comments Med Refill Encounter Details Date Type Department Care Team (Late Contact Info) Description 02/26/2024 Refill [facility] [address] [place] [address] Trina Talley, ELEVATOR RUNNER [address] [place] [address] Social History Tobacco Use Types Packs/Day Years [...] Upcoming Encounters Date Type Department Care Team ([facility] Contact Info) Description 04/26/2025 3:00 PM EDT Office Visit [facility] [address] [place] [address] Trina Talley NP [address] [place] [address] documented as of this encounter Visit Diagnoses Not on filedocumented in this encounter Care Teams Legal Support Analyst Relationship Specialty Start Date End Date Too Head MD [address] [place] [address] PCP - General Family [facility] 02/25/24 Trina Talley NP [address] [place] [address] PCP - [facility] 07/20/24 Trina Talley NP [address] [place] [address] Referring Physician Nurse Practitioner 05/12/23 Trina Talley NP [address] [place] [address] Nurse Practitioner Family Medicine 02/25/24 documented as of this encounter
--- OUTSIDE RECORDS SUMMARY | 2025-04-13 10:24 | XMS_ITS | Encounter Summary ---
Author Organization [facility] Address [address] [place] [address] Care Team Providers Care Tax Accounting Manager Name Role Phone Trina Talley NP Unavailable [phone] Head MD Primary Care Provider [phone] Trina Talley CUSTOMIZER Unavailable [phone] Trina Talley NP Unavailable [phone] Encounter Details Date Type Department Care Team (Late st Contact Info) Description 04/12/2025 Abstract [facility] [address] [place] [address] Trina Talley NP [address] [place] [address] Social History Tobacco Use Types Packs/Day Years [...] often do you attend chur ch or christian services? 1 to 4 times per year 04/13/2024 Do you belong to any clubs o r organizations such as taoism groups, unions, fraternal or athletic groups, or [...] and heating? Not hard at all 04/13/2024 [facility] of Occupat ional Health - Occupational [...] any time in the past 12 m [facility], were you homeless or living in a [place] health care facility (including now)? No 04/13/2024 Sex and Gender Information Value Date Recorded Sex Assigned at Not on file Legal Sex Male 6:44 PM EDT Gender Identity Not on file Sexual Orientation Not on file documented as of this encounter Plan of Treatment Upcoming Encounters Date Type Department Care Team (Late st Contact Info) Description 04/26/2025 3:00 PM EDT [facility] [address] [place] [address] Trina Talley NP [address] [place] [address] documented as of this encounter Visit Diagnoses Not on filedocumented in this encounter Care Teams Tax Accounting Manager Relationship Specialty Start Date End Date Too Head MD [address] [place] [address] PCP - General Family Medicine 02/25/24 Trina Talley NP [address] [place] [address] PCP - [facility] 07/20/24 Trina Talley NP [address] [place] [address] Referring Physician Nurse Practitioner 05/12/23 Trina Talley NP [address] [facility] [place] [address] Nurse Practitioner Family Medicine 02/25/24 documented as of this encounter
--- OUTSIDE RECORDS SUMMARY | 2025-04-13 10:24 | XMS_ITS | Encounter Summary ---
Author Organization [facility] Address [address] [place] [address] Care Team Providers Care Recreation Therapy Director Name Role Phone Trina Talley C4 PLANNER Unavailable [phone] Head MD Primary Care Provider [phone] Trina Talley C4 PLANNER Unavailable [phone] Trina Talley NP Unavailable [phone] Reason for Visit * Reason Comments Med Refill Encounter Details Date Type Department Care Team (Late st Contact Info) Description 06/23/2024 Refill [facility] [address] [place] [address] Trina Talley NP [address] [place] [address] NORMAN (generalized anxiety disorder) Social History Tobacco [...] How often do you attend chur or roman catholic services? 1 to 4 times per year 04/13/2024 Do you belong to any clubs o r organizations such as judaism groups, unions, fraternal or athletic groups, or [...] and heating? Not hard at all 04/13/2024 [facility] [place] of Occupat ional Health - Occupational Stress [...] any time in the past 12 m [facility], were you homeless or living in a group home (including now)? No 04/13/2024 Sex and [...] Visit [facility] [address] [place] [address] Trina Talley NP [address] [place] [address] documented as of this encounter Visit Diagnoses Diagnosis NORMAN (generalized anxiety disorder) Generalized anxiety disorder documented in this encounter Care Teams Recreation Therapy Director Relationship Specialty Start Date End Date Too Head MD [address] [place] [address] PCP - General Family Medicine 02/25/24 Trina Talley NP [address] [place] [address] PCP - [facility] 07/20/24 Trina Talley NP [address] [place] [address] Referring Physician Nurse Practitioner 05/12/23 Trina Talley NP [address] [place] [address] Nurse Practitioner Family Medicine 02/25/24 documented as of this encounter
--- OUTSIDE RECORDS SUMMARY | 2025-04-13 10:24 | XMS_ITS | Encounter Summary ---
Author Organization [facility] Address [address] [place] [address] Care Team Providers Care Senior Sales Operations Analyst Name Role Phone Trina Talley DUMPER OPERATOR Unavailable [phone] Head MD Primary Care Provider [phone] Trina Talley DUMPER OPERATOR Unavailable [phone] Trina Talley NP Unavailable [phone] Reason for Visit * Reason Comments Med Change Request Encounter Details Date Type Department Care Team (Late st Contact Info) Description 10/11/2024 Refill [facility] [address] [place] [address] Trina Talley NP [address] [place] [address] Pre-diabetes Social History Tobacco Use Types Packs/Day [...] often do you attend chur ch or caodaism services? 1 to 4 times per year 04/13/2024 Do you belong to any clubs o r organizations such as sikh groups, unions, fraternal or athletic groups, or [...] and heating? Not hard at all 04/13/2024 [facility] [place] of Occupat ional Health - Occupational Stress [...] any time in the past 12 m [facility], were you homeless or living in [...] 04/26/2025 3:00 PM EDT [facility] [address] [place] [address] Trina Talley NP [address] [place] [address] documented as of this encounter Visit Diagnoses Diagnosis Pre-diabetes Other abnormal glucose documented in this encounter Care Teams Senior Sales Operations Analyst Relationship Specialty Start Date End Date Too Head MD [address] [place] [address] PCP - General Family Medicine 02/25/24 Trina Talley NP [address] [place] [address] PCP - [facility] 07/20/24 Trina Talley NP [address] [place] [address] Referring Physician Nurse Practitioner 05/12/23 Trina Talley NP [address] [place] [address] Nurse Practitioner Family Medicine 02/25/24 documented as of this encounter
--- OUTSIDE RECORDS SUMMARY | 2025-04-13 10:24 | XMS_ITS | Encounter Summary ---
Author Organization [facility] Address [address] [place] [address] Care Team Providers Care Shredder/Granulator Operator Name Role Phone Trina Talley NP Unavailable [phone] Head MD Primary Care Provider [phone] Trina Talley LOG BUNCHER Unavailable [phone] Trina Talley NP Unavailable [phone] Encounter Details Date Type Department Care Team (Late st Contact Info) Description 04/23/2024 Clinisync Result Encounter [facility] External Department Unsolicited Trina Talley, LOG BUNCHER [address] [place] [address] Social History Tobacco Use Types Packs/Day Years [...] any clubs o r organizations such as jainism groups, unions, fraternal or athletic groups, or [...] and heating? Not hard at all 04/13/2024 [facility] of Occupat ional Health - Occupational [...] any time in the past [address] [facility], were you homeless or living [...] Office Visit [facility] [address] [place] [address] Trina Talley NP [address] [place] [address] documented as of this encounter Procedures Procedure Name Priority Date/Time Associated Diagnosis Comments CA ECHO DOPPLER COMPLETE 04/23/2024 8:22 PM EDT documented in this encounter Results * CA ECHO DOPPLER COMPLETE (04/23/2024 8:22 PM EDT) Anatomical Region Laterality Modality Other 04/23/2024 8:22 PM EDT Narrative 04/23/2024 8:23 PM EDT The [address] [address] Cardiology Report Signed Patient: JOSE CAREY MR#: [id number] : 1990 Acct:[id number] Age/Sex: 34 / M ADM Date: 04/23/24 Loc: CARD Attending Dr: Trina Talley NP Ordering Physician: Trina Talley NP Date of Service: 04/23/24 Procedure(s): CA echo doppler complete Accession Number(s): [id number] cc: Trina Talley NP Patient Name: JOSE CAREY MR#: [id number] : 1990 Exam Date: 04/23/2024 Ordering Doctor: [...] BECKHAM Signed By: 04/23/242022 DD/ 21 TD/TT: Machine Guide Base Winder: Procedure Note Radiology, Radiologist, MD - 04/23/2024 [place] [address] Cardiology Report Signed Patient: JOSE CAREY [facility]#: [id number] : 1990Acct:[id number] Age/Sex: 34 / MADM Date: 04/23/24 Loc: CARD Attending Dr: Trina Talley NP Ordering Physician: Trina Talley NP Date of Service: 04/23/24 Procedure(s): CA echo doppler complete Accession Number(s): [id number] cc: Trina Talley NP Patient Name: JOSE CAREY MR#: [id number] : 1990 Exam Date: 04/23/2024 Ordering Doctor: [...] ALYSSA BECKHAM Signed By:04/23/242022 DD/ 21 TD/TT: Machine Guide Base Winder: us Trina Talley LOG BUNCHER [facility] Final Result documented in this encounter Visit Diagnoses Not on filedocumented in this encounter Care Teams Shredder/Granulator Operator Relationship Specialty Start Date End Date Too Head MD [address] [place] [address] PCP - General Family Medicine 02/25/24 Trina Talley NP [address] [place] [address] PCP - [facility] 07/20/24 Trina Talley NP [address] [place] [address] Referring Physician Nurse Practitioner 05/12/23 Trina Talley NP [address] [place] [address] Nurse Practitioner Family Medicine 02/25/24 documented as of this encounter
--- OUTSIDE RECORDS SUMMARY | 2025-04-13 10:24 | XMS_ITS | Clinical Summary ---
Author Organization [facility] Address [address] [place] [address] Care Team Providers Care Operations Boardman Name Role Phone Trina Talley NP Unavailable [phone] Head MD Primary Care Provider [phone] Trina Talley COMPANY DOCTOR Unavailable [phone] Trina Talley NP Unavailable [phone] Allergies Active Allergy Reactions Criticality Noted [...] 5 Active FLUoxetine (PROzac) 10 MG capsuleIndications :NROMAN (generalized anxiety disorder) Take 1 capsule (10 [...] Strong family hx of CAD and early MS Pt is also smoker, DM not taking [...] of the risks of continued smoking: stroke, MS, all forms of cancer, lung disease, and [...] Encounters Date Type Department Care Team Description 04/12/2025 Abstract [facility] [address] [place] [address] Trina Talley NP 03/25/2025 Clinisync Result Encounter [facility] External Department Unsolicited Trina Talley NP 01/24/2025 3:00 PM EDT Office Visit [facility] [address] [place] [address] Trina Talley NP Type 2 diabetes mellitus without complication, without long-term current use of insulin ([facility]) (Primary Dx); Primary hypertension ; Gastroesophageal reflux disease without esophagitis; Morbid (severe) obesity due to excess calories ([facility]); Pre-diabetes 01/24/2025 Olyao flowsheet [facility] [address] [place] [address] Trina Talley NP 01/19/2025 Travel from Last [...] often do you attend chur ch or church services? 1 to 4 times per year 04/13/2024 Do you belong to any clubs o r organizations such as restorationism groups, unions, fraternal or athletic groups, or [...] and heating? Not hard at all 04/13/2024 [facility] of Occupat ional [facility] - Occupational Stress Questionnaire Answer Date Recorded [...] any time in the past 12 m [facility], were you homeless or living in a halfway (including now)? No 04/13/2024 Sex and Gender [...] EDT Office Visit [facility] [address] [place] [address] Trina Talley NP [address] [place] [address] Health Maintenance Due Date Last Done Comments Diabetes: Retinopathy Screening 1999 Diabetes: Hemoglobin A1C 06/25/2025 03/25/2025, 11/0 03/2024 Diabetes: Urine Protein Screening 03/25/2026 025 Influenza Vaccine Discontinued Procedures Procedure Name Priority Date/Time Associated Diagnosis Comments ALL LIPID PROFILE (FASTING) Routine 03/25/2025 4:57 PM EDT [facility] CMP (CMP) (FOR REMOTE [facility] USE) Routine 03/25/2025 4:57 PM EDT MLR [...] Trina Talley NP [facility] Final Result [facility] * [facility] CMP (CMP) (FOR REMOTE [facility] USE) (03/25/2025 4:57 PM EDT) SODIUM 139 136 - 145 mmol/L [facility] POTASSIUM 3.6 3.5 - 5.1 mmol/L [facility] CHLORIDE 99 98 - 107 mmol/L [facility] CARBON DIOXIDE 27.0 21.0 - 32.0 mmol/L [facility] ANION GAP 16.6 [facility] GLUCOSE 93 74 - 106 mg/dL TB BLOOD UREA NITROGEN 17.0 7.0 - 18.0 mg/dL [facility] CREATININE 0.80 0.70 - 1.30 mg/dL TBH TBH EGFR-AF JORDANIAN >60 >=60 mL/min/1. 73m 2 TBH TBH EGFR-NON AF JORDANIAN >60 >=60 mL/min/1. 73m 2 TB BUN CREATININE RATIO 21.2 TBH CALCIUM 9.6 [...] - 5.0 g/dL [facility] GLOBULIN 4.1 g/dL [facility] ALBUMIN GLOBULIN RATIO 1.0 TB 03/25/2025 4:57 PM EDT 03/25/2025 4:57 PM EDT Narrative [facility] - 03/25/2025 5:23 PM EDT us Trina Talley NP [facility] Final Result Performing Organization Address City/[facility]/ZIP Co de Phone Number [facility] * ALL LIPID PROFILE (FASTING) (03/25/2025 4:57 [...] NP [facility] Final Result Performing Organization Address City/[facility]/ZIP Co de Phone Number [facility] * (ABNORMAL) ALL CBC WITH AUTO DIFF (03/25/2025 4:57 PM EDT) [facility] WBC 13.3(H) 4.0 - 11.0 10 3/uL [...] us Trina Talley NP [facility] Final Result [facility] * (ABNORMAL) [facility] UA (CLEAN/CATCH) MICROSCOPIC IF [...] Trina Talley NP [facility] Final Result [facility] * (ABNORMAL) TB MICROALB CREAT RATIO [...] Narrative [facility] - 03/25/2025 5:22 PM EDT us Trina Talley NP [facility] Final Result Performing Organization Address City/[facility]/ZIP Co de Phone Number [facility] TB * POCT glycosylated hemoglobin (Hb A1C) docked device (08/25/2024 5:08 PM EST) Hemoglobin A1C 5.6 Blood Venous blood specimen / Unknown 08/25/2024 5:08 PM EST Trina Talley COMPANY DOCTOR POINT OF CARE TEST ENTER/EDIT O RDERABLES Final Result from Last 3 Months or Most Recently Relevant to Health Maintenance Insurance [employer] Care Teams Operations [place] Relationship Specialty Start Date End Date Too Head MD [address] [place] [address] PCP - General Family Medicine 02/25/24 Trina Talley NP [address] [place] [address] PCP - [facility] 07/20/24 Trina Talley NP [address] [place] [address] Referring Physician Nurse Practitioner 05/12/23 Trina Talley NP [address] [place] [address] Nurse Practitioner Family Medicine 02/25/24
--- OUTSIDE RECORDS SUMMARY | 2025-04-13 10:24 | XMS_ITS | Encounter Summary ---
Author Organization [facility] Address [address] [place] [address] Care Team Providers Care Program Specialist Name Role Phone Trina Talley NP Unavailable [phone] Head MD Primary Care Provider [phone] Trina Talley CONSUMER STUDIES PROFESSOR Unavailable [phone] Trina Talley NP Unavailable [phone] Encounter Details Date Type Department Care Team (Late st Contact Info) Description 04/26/2024 Orders Only [facility] [address] [place] [address] Trina Talley NP [address] [place] [address] Social History Tobacco Use Types Packs/Day Years [...] often do you attend chur ch or evangelical services? 1 to 4 times per year 04/13/2024 Do you belong to any clubs o r organizations such as restoration groups, unions, fraternal or athletic groups, or [...] and heating? Not hard at all 04/13/2024 [facility] of Occupat ional Health - [...] any time in the past 12 m [facility], were you homeless or living in a [...] Visit [facility] [address] [place] [address] Trina Talley NP [address] [facility] [place] [address] documented as of this encounter Procedures Procedure [...] on filedocumented in this encounter Care Teams Program Specialist Relationship Specialty Start Date End Date Too Head MD [address] [place] [address] PCP - General Family Medicine 02/25/24 Trina Talley NP [address] [place] [address] [facility] 07/20/24 Trina Talley NP [address] [place] [address] Referring Physician Nurse Practitioner 05/12/23 Trina Talley NP [address] [place] [address] Nurse Practitioner Family Medicine 02/25/24 documented as of this encounter
--- OUTSIDE RECORDS SUMMARY | 2025-04-13 10:24 | XMS_ITS | Clinical Summary ---
Author Organization [facility] Address [address] [place] [address] Care Team Providers Care Desizing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 Head End Name Role Phone Tiara Arcos MD Primary [...] on file Type:Not on file [address] Care Teams Desizing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 Head End Relationship Specialty Start Date End Date Tiara Arcos MD [address] [place] [address] PCP - General 01/20/17
--- OUTSIDE RECORDS SUMMARY | 2025-04-13 10:24 | XMS_ITS | Encounter Summary ---
Author Organization [facility] Address [address] [place] [address] Care Team Providers Care Human Resources Admin Name Role Phone Trina Talley CUT OFF SAW SET UP OPERATOR Unavailable [phone] Head MD Primary Care Provider [phone] Trina Talley CUT OFF SAW SET UP OPERATOR Unavailable [phone] Trina Talley NP Unavailable [phone] Reason for Visit * Reason Comments Med Refill Encounter Details Date Type Department Care Team (Late st Contact Info) Description 08/30/2024 Refill [facility] [address] [place] [address] Trina Talley NP [address] [place] [address] Gastroesophageal reflux disease without esophagitis Social History [...] How often do you attend chur or mandaen services? 1 to 4 times per year 04/13/2024 Do you belong to any clubs o r organizations such as mandaeism groups, unions, fraternal or athletic groups, or [...] and heating? Not hard at all 04/13/2024 [facility] - Occupational Stress [...] any time in the past 12 m [facility], were you homeless or living in a senior care (including now)? No 04/13/2024 Sex and Gender Information Value Date Recorded Sex Assigned at Not on file Legal Sex Male 6:44 PM EDT Gender Identity Not on file Sexual Orientation Not on file documented as of this encounter Plan of Treatment Upcoming Encounters Date Type Department Care Team (Late st Contact Info) Description 04/26/2025 3:00 PM EDT [facility] [address] [place] [phone] Trina Talley NP [address] [place] [phone] documented as of this encounter Visit Diagnoses Diagnosis Gastroesophageal reflux disease without esophagitis Esophageal reflux documented in this encounter Care Teams Human Resources Admin Relationship Specialty Start Date End Date Too Head MD [address] [place] [phone] PCP - General Family Medicine 02/25/24 Trina Talley NP [address] [place] [phone] PCP - [facility] 07/20/24 Trina Talley NP [address] [place] [address] Referring Physician Nurse Practitioner 05/12/23 Trina Talley NP [address] [place] [phone] Nurse Practitioner Family Medicine 02/25/24 documented as of this encounter
--- OUTSIDE RECORDS SUMMARY | 2025-04-13 10:24 | XMS_ITS | Encounter Summary ---
Author Organization [facility] Address [address] [place] [address] Care Team Providers Care Water Safety Instructor Name Role Phone Trina Talley FARM TECHNICIAN Unavailable [phone] Head MD Primary Care Provider [phone] Trina Talley FARM TECHNICIAN Unavailable [phone] Trina Talley FARM TECHNICIAN Unavailable [phone] Reason for Visit * Reason Onset Date Comments Med Refill 06/22/2024 Encounter Details Date Type Department Care Team (Late st Contact Info) Description 06/22/2024 [facility]ill [facility] [address] [place] [address] Trina Talley FARM TECHNICIAN [address] [place] [phone] NORMAN (generalized anxiety disorder) Social History Tobacco [...] any clubs o r organizations such as mormon groups, unions, fraternal or athletic groups, or [...] and heating? Not hard at all 04/13/2024 [facility] - [...] time in the past 12 m [facility], were you homeless or living in a long-term (including now)? No 04/13/2024 Sex and Gender [...] Office Visit [facility] [address] [place] [address] Trina Talley NP [address] [place] [phone] documented as of this encounter Visit Diagnoses Diagnosis NORMAN (generalized anxiety disorder) Generalized anxiety disorder documented in this encounter Care Teams Water Safety Instructor Relationship Specialty Start Date End Date Too Head MD [address] [phone] PCP - General Family Medicine 02/25/24 Trina Talley NP [address] [place] [phone] PCP - [facility] 07/20/24 Trina Talley NP [address] [place] [phone] Referring Physician Nurse Practitioner 05/12/23 Trina Talley NP [address] [place] [address] Nurse Practitioner Family Medicine 02/25/24 documented as of this encounter
--- NOTE | 2025-04-13 10:30 | PC.NURSE ---
poor effort with lung assessment
--- NOTE | 2025-04-13 10:33 | CT_ITS ---
The [address] [address] Patient Name: DRAGAN MATSON MRN: [id number] date: 1990 Sex: M Assigned Patient Location: ER Current Patient Location: ER Accession/Order Number: [id number] Exam Date: 04/13/2025 11:41 Report Date: 04/13/2025 11:47 At the request of: COLTEN PALACIO MD Procedure: CT head/brain wo con CT BRAIN WITHOUT CONTRAST: CLINICAL HISTORY: dizzy, lightheaded, nausea and shortness of breath. Propane exposure yesterday. COMPARISON: None TECHNIQUE: Contiguous axial unenhanced images were obtained through the brain. This CT exam was performed using one or more following dose reduction techniques: Automated exposure control, adjustment of the mA and/or kV according to patient size, or use of iterative reconstruction technique. FINDINGS: The ventricles are normal in size and position. Cha-white differentiation is maintained. There is no evidence of recent infarction. No intracranial hemorrhage, mass effect or significant extra-axial collections are noted. There may be partial empty sella. The imaged paranasal sinuses and mastoid air cells are clear. CT/CT head/brain wo con IMPRESSION: NO ACUTE INTRACRANIAL ABNORMALITY. Impression dictated by: Jessica Bill M.D. 04/13/2025 11:47 AM Dictation Location: [place] [address] Electronically authenticated by: [id number] Y Date: 04/13/2025 11:47
--- NOTE | 2025-04-13 10:33 | ECG_ITS ---
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 Measurements Intervals [place] Rate: 76 P: 39 VA: 144 QRS: 34 QRSD: 96 T: 20 QT: 360 QTc: 391 Interpretive Statements 1100 Sinus rhythm 1102 Sinus arrhythmia 9110 normal ECG Compared to ECG 04/12/2025 10:50:48 No significant changes Electronically Signed On 04-13-2025 19:59:57 EDT by ALYSSA ESPINO M.D.
--- NOTE | 2025-04-13 10:33 | XR_ITS ---
The [place] [id number] Patient Name: DRAGAN MATSON MRN: [id number] date: 1990 Sex: M Assigned Patient Location: ER Current Patient Location: ER Accession/Order Number: [id number] Exam Date: 04/13/2025 11:39 Report Date: 04/13/2025 11:40 At the request of: COLTEN PALACIO MD Procedure: XR chest 1V PORTABLE AP ERECT CHEST 1029 hours CLINICAL HISTORY: Shortness of breath, nausea and lightheadedness COMPARISON: None Assessment is slightly limited by large body habitus. The heart is within normal limits. There is no vascular congestion. No consolidation is noted. There is no effusion or pneumothorax. The osseous structures are intact. XR/XR chest 1V IMPRESSION: NO ACUTE FINDINGS Impression dictated by: Jessica Bill M.D. 04/13/2025 11:40 AM Dictation Location: [place] [address] Electronically authenticated by: [id number] Y Date: 04/13/2025 11:40
--- NOTE | 2025-04-13 10:34 | ED_ITS ---
HPI HPI - General Adult General Chief complaint: Nausea/Vomiting/Diarrhea Stated complaint: NAUSEA, HEADACHE - [facility] Time Seen by Provider: 04/13/25 10:14 Source: patient Mode of arrival: walk-in History of Present Illness HPI narrative: 35-year-old male presents because he does not feel well. He is complaining of dizziness and a headache. He was seen here yesterday after being exposed to propane at work. He had an immeasurable carbon monoxide level. No fever and he slept well last night. Related Data Home Medications ?Medication ?Instructions ?Recorded ?Confirmed atorvastatin 20 mg tablet 20 mg PO QPM 04/13/25 bupropion HCl 150 mg 24 hr tablet, 150 mg PO DAILY 04/13/25 extended release dapagliflozin propanediol 5 mg 5 mg PO DAILY 04/13/25 04/13/25 tablet (Farxiga) dulaglutide 1.5 mg/0.5 mL 1.5 mg subcut QWEEK 04/13/25 04/13/25 subcutaneous pen injector ([facility] [address] [facility]) fluoxetine 10 mg capsule 10 mg PO DAILY 04/13/2503/21 losartan 50 mg tablet 50 mg PO DAILY 04/13/2503/21 omeprazole 40 mg capsule,delayed 40 mg PO QAM 04/13/25 04/13/25 release Previous Rx's ?Medication ?Instructions ?Recorded ondansetron 4 mg disintegrating 4 mg PO Q6H PRN nausea and 04/13/25 tablet vomiting #20 tabs Allergies Allergy/AdvReac Type Severity Reaction Status Date / Time Penicillins Allergy Severe Rash Verified 04/12/25 10:41 Opioid HPI Opioid Management Most Recent Opioid Data: Last Pain Scale 3 04/12/25, 12:09 Last DEC Pain Assessment 04/12/25, 12:09 Review of Systems ROS Narrative A ten point review of systems is negative except as noted above. PFSH PFSH Social History Little interest or pleasure in doing things: not at all Feeling down, depressed, or hopeless: not at all Exam Narrative Exam Narrative: Nurses note and vital signs reviewed and patient is not hypoxic. General: The patient appears well and in no apparent distress. Patient is resting comfortably on cart. Skin: Warm, dry, no pallor noted. There is no rash noted. Head: Normocephalic, atraumatic Eye: Normal conjunctiva, no drainage, EOMI. PERRL Ears, Nose, Mouth, and Throat: oral mucosa is moist. Nares patent. Cardiovascular: Regular Rate and Rhythm Respiratory: Patient is in no distress, no accessory muscle use, lungs are clear to auscultation, no wheezing, rales or rhonchi Back: non-tender GI: Soft and nontender Musculoskeletal: The patient has no evidence of calf tenderness, no pitting edema, symmetrical pulses noted bilaterally Neurological: A&O, normal speech Psychiatric: Cooperative Constitutional Vital Signs, click to edit/add: Last Vital Signs Temp 97.7 F 04/13/25 10:18 Pulse 72 04/13/25 11:20 Resp 11 L 04/13/25 11:20 BP 154/91 H 04/13/25 10:18 Pulse Ox 97 04/13/25 10:50 O2 Del Method Room Air 04/13/25 10:29 Course Vital Signs Vital signs: Vital Signs Temperature 97.7 F 04/13/25 10:18 Pulse Rate 82 04/13/25 10:18 Respiratory Rate 16 04/13/25 10:18 Blood Pressure 154/91 H 04/13/25 10:18 Pulse Oximetry 95 04/13/25 10:18 Oxygen Delivery Method Room Air 04/13/25 10:18 Temperature 97.7 F 04/13/25 10:18 Pulse Rate 72 04/13/25 11:20 Respiratory Rate 11 L 04/13/25 11:20 Blood Pressure 154/91 H 04/13/25 10:18 Pulse Oximetry 97 04/13/25 10:50 Oxygen Delivery Method Room Air 04/13/25 10:29 Medical Decision Making [facility] Narrative Medical decision making narrative: His workup here including CT brain is negative. His nausea is improved and he is discharged home with a prescription for Zofran and referral to neurology. Treatment diagnosis and follow-up were discussed with the patient. Differential Diagnosis Differential Diagnosis: Noxious inhalation, pneumonitis, intracranial hemorrhage Lab Data Lab results reviewed: Yes I reviewed the patient's lab results Labs: Lab Results 04/13/25 Range/Units 10:45 WBC 9.1 (4.0-11.0) 10^3/uL RBC 5.29 (4.70-6.10) 10^6/uL Hgb 15.7 (14.0-18.0) g/dL Hct 46.0 (42.0-54.0) % MCV 87.0 (80.0-94.0) fL MCH 29.7 (25.9-34.0) pg MCHC 34.1 (29.9-35.2) g/dL RDW 12.9 (11.0-15.0) % Plt Count 308 (150-450) 10^3/uL MPV 9.6 (9.5-13.5) fL Neut % (Auto) 65.2 (43.0-75.0) % Lymph % (Auto) 25.6 (20.5-60.0) % [place] % (Auto) 7.1 (1.7-12.0) % Eos % (Auto) 0.9 (0.9-7.0) % Baso % (Auto) 0.7 (0.2-2.0) % Neut # (Auto) 5.9 (1.4-6.5) 10^3/uL Lymph # (Auto) 2.3 (1.2-3.8) 10^3/uL [place] # (Auto) 0.7 (0.3-0.8) 10^3/uL Eos # (Auto) 0.1 (0.0-0.7) 10^3/uL Baso # (Auto) 0.1 (0.0-0.1) 10^3/uL Abs Immat Gran (auto) 0.05 H (0.00-0.03) 10^3/uL Imm/Tot Granulo (auto) 0.5 (0.0-0.5) % Sodium 140 (136-145) mmol/L Potassium 3.7 (3.5-5.1) mmol/L Chloride 102 (98-107) mmol/L Carbon Dioxide 30.7 (21.0-32.0) mmol/L Anion Gap 11.0 BUN 14.0 (7.0-18.0) mg/dL Creatinine 0.79 (0.70-1.30) mg/dL Est GFR ( Amer) >60 (>=60 mL/min/1.73m^2) Est GFR (Non-Af Amer) >60 (>=60 mL/min/1.73m^2) BUN/Creatinine Ratio 17.7 Glucose 93 (74-106) mg/dL Calcium 9.5 (8.5-10.1) mg/dL Imaging Data CT scan - head: Radiologist's impression: ITS Impressions Chest X-Ray 04/13/25 10:33 IMPRESSION: NO ACUTE FINDINGS Impression dictated by: Jessica Bill M.D. 04/13/2025 11:40 AM Dictation Location: [facility] Electronically authenticated by: [id number] Y Date: 04/13/2025 11:[address] 04/13/25 10:33 IMPRESSION: NO ACUTE INTRACRANIAL ABNORMALITY. Impression dictated by: Jessica Bill M.D. 04/13/2025 11:47 AM Dictation Location: [facility] Electronically authenticated by: [id number] Y Date: 04/13/2025 11:47 ECG Data Attestation: I personally reviewed and interpreted this ECG as follows: (EKG on my interpretation shows sinus rhythm with a rate of 76 and no acute change) Discharge Plan Discharge Chief Complaint: Nausea/Vomiting/Diarrhea Clinical Impression: Inhalation of gaseous substance Patient Disposition: Home, Self-Care Time of Disposition Decision: 12:19 Condition: Good Mode of Transportation: Private Vehicle Prescriptions / Home Meds: New ondansetron 4 mg tablet,disintegrating 4 mg PO Q6H PRN (Reason: nausea and vomiting) Qty: 20 0RF No Action atorvastatin 20 mg tablet 20 mg PO QPM bupropion HCl 150 mg tablet extended release 24 hr 150 mg PO DAILY dapagliflozin propanediol [Farxiga] 5 mg tablet 5 mg PO DAILY Trulicity 1.5 mg/0.5 mL pen injector 1.5 mg SUBCUT QWEEK fluoxetine 10 mg capsule 10 mg PO DAILY losartan 50 mg tablet 50 mg PO DAILY omeprazole 40 mg capsule,delayed release(DR/EC) 40 mg PO QAM Print Language: Tamazight Instructions: Dizziness (ED) Referrals: Trina Talley NP [Primary Care Provider, Family Practice] - 1 week Saskia Hurtado DO [Physician, Neurology] - 1 week
--- OUTSIDE RECORDS SUMMARY | 2025-04-13 10:36 | XMS_ITS | CCD ---
Author Organization [facility] Care Team Providers Care Power Ballast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 Name Role Phone AICHHOLZ, 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 TRINA Consulting Unavailable AICHHOLZ, 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 TRINA Primary Care Unavailable AICHHOLZ, 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 TRINA Admitting Unavailable AICHHOLZ, 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 TRINA Attending Unavailable AICHHOLZ, 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 TRINA Consulting Unavailable AICHHOLZ, 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 TRINA Admitting Unavailable JERRELL ARZATE Primary Care Unavailable AICHHOLZ, 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 TRINA Referring Unavailable AICHHOLZ, 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 TRINA Attending Unavailable AICHHOLZ, 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 TRINA Consulting Unavailable AICHHOLZ, 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 TRINA Primary Care Unavailable AICHHOLZ, 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 TRINA Admitting Unavailable AICHHOLZ, 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 TRINA Attending Unavailable Aichholz COMPRESSOR ASSEMBLER, Trina Unavailable Too Head MD Primary Care Provider [phone] Aichholz COMPRESSOR ASSEMBLER, Trina Unavailable Aichholz COMPRESSOR ASSEMBLER, Trina Unavailable AICHHOLZ, TRINA Attending Unavailable AICHHOLZ, TRINA Attending Unavailable AICHHOLZ, TRINA Attending Unavailable AICHHOLZ, TRINA Attending Unavailable AICHHOLZ, TRINA Attending Unavailable AICHHOLZ, TRINA Attending Unavailable AICHHOLZ, TRINA Attending Unavailable Allergies Allergy Classification Reported Allergen(s) Allergy Type Date of Onset Reaction(s) Facility (1 source) Penicillin Drug Allergy 03-15-2013 [facility] Repository (20 sources) Penicillin V Drug Allergy 02-25-2024 [facility] [employer] Work Phone: Medications Current Medications Medication Drug Class(es) Dates Sig (Normalized) Sig (Original) aspirin 81 mg delayed release oral tablet (7 sources) Platelet Aggregation Inhibitor, Nonsteroidal Anti-inflammatory Drug [...] mouth at bedtime 90 tablet 1 11/25/2024 Active 24 hr buPROPion hydrochloride 150 mg extended release oral tablet (20 sources) Aminoketone Start: 11-14-2024 End: 02-23-2025 take 1 tablet by mouth once daily buPROPion XL (Wellbutrin XL) 150 MG 24 hr tablet Indications: Moderate episode of recurrent major depressive disorder (CMS/HCC) Take 1 tablet (150 mg) by mouth Daily Do not crush, chew, or split. 90 tablet 1 11/25/2024 Active Start: 05-25-2024 End: 09-02-2024 take 1 [...] by mouth Daily 90 tablet 1 11/25/2024 Active Start: 05-27-2024 take 1 tablet by clinton th once daily dapagliflozin (Farxiga) 5 MG Indications: Pre-diabetes Take 1 tablet (5 mg) by mouth Daily 30 tablet 2 05/27/2024 Active 0.5 ml dulaglutide 3 mg/ml auto-injector (9 sources) GLP-1 Receptor Agonist Start: 01-24-2025 End: 02-21-2025 Dulaglutide (Trulicity) 1.5 MG/0.5ML solution auto-injector Indications: Type 2 diabetes mellitus without complication, without long-term current use of insulin Inject 1.5 mg under the skin every 7 (seven) days for 28 days 2 mL 3 01/24/2025 Active Start: 11-25-2024 End: 01-24-2025 Dulaglutide (Trulicity) [...] by mouth Daily 90 capsule 1 11/25/2024 Active losartan potassium 50 mg oral tablet (20 sources) Angiotensin 2 Receptor Willem Start: 05-27-2024 End: 03-07-2025 take 1 tablet by mouth once daily losartan (Cozaar) 50 MG tablet Indications: Primary hypertension (CMS/HCC) Take 1 tablet (50 mg) by mouth Daily 90 tablet 1 12/07/2024 Active naproxen 500 mg oral tablet (3 [...] Take before meals. 90 capsule 1 11/25/2024 Active Completed/Discontinued Medications Medication Drug Class(es) Dates Sig (Normalized) Sig (Original) Continuous Glucose Security Door Installer (Dexcom G7 Security Door Installer) device (11 sources) Start: 05-25-2024 End: 09-02-2024 Continuous Glucose Security Door Installer (Dexcom G7 Security Door Installer) device Indications: Pre-diabetes , Hypoglycemia 1 each Daily 1 each 1 05/25/2024 09/02/2024 Start: 05-25-2024 End: 09-02-2024 Continuous Glucose Security Door Installer (Dexcom G7 Security Door Installer) device Indications: Pre-diabetes , Hypoglycemia 1 each [...] 03-25-2022 02-25-2024 Chronic Diabetes mellitus without complication (6 sources) Type 2 diabetes mellitus without complications; [...] Episodic/Chronic Immunizations and screening for infectious disease (18 sources) Needs influenza immunization; Translations: [Encounter for [...] Spondylosis; intervertebral disc disorders; other back problems (18 sources) Disorder of left sciatic nerve; 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, left side] Onset: 08-25-2024 08-25-2024 Episodic Substance-related disorders (20 sources) Tobacco dependence syndrome; Translations: [Nicotine dependence, unspecified, uncomplicated] Onset: 02-25-2024 Resolved: 08-25-2024 02-25-2024 Chronic Results Test Name Value Interpretation Reference Range Facility ALL CBC WITH AUTO DIFFon BASOPHILS ABSOLUTE AUTO 0.1 [facility] Basophils/100 WBC (Bld) 0.5 % 0.2 - 2.0 % [facility] Eosinophils/100 WBC (Bld) 0.5 % Low 0.9 - 7.0 % [facility] Erythrocyte distribution width (RBC) [Ratio] 12.6 % 11.0 - 15.0 % [facility] Hematocrit (Bld) [Volume fraction] 44.8 % 42.0 - 54.0 % [facility] Hemoglobin (Bld) [Mass/Vol] 15.8 g/dL 14.0 - 18.0 g/dL [facility] IMMATURE GRANULOCYTES ABS AUTO 0.04 High [facility] Immature granulocytes/100 WBC (Bld) 0.3 % 0.0 - 0.5 % [facility] Interpretation and review of laboratory results Abnormal [facility] LYMPHOCYTES ABSOLUTE AUTO 2.5 [facility] Lymphocytes/100 WBC (Bld) 18.9 % Low 20.5 - 60.0 % [facility] MCH (RBC) [Entitic mass] 30.4 pg 25.9 - 34.0 pg [facility] MCHC (RBC) [Mass/Vol] 35.3 g/dL High 29.9 - 35.2 g/dL [facility] MCV (RBC) [Entitic vol] 86.2 fL 80.0 - 94.0 fL [facility] MONOCYTES ABSOLUTE AUTO 0.8 [facility] Monocytes/100 WBC (Bld) 6.1 % 1.7 - 12.0 % [facility] NEUTROPHILS ABSOLUTE AUTO 9.8 High [facility] Neutrophils/100 WBC (Bld) 73.7 % 43.0 - 75.0 % [facility] Platelet mean volume (Bld) [Entitic vol] 9.5 fL 9.5 - 13.5 fL [facility] EO # 0.1 [facility] TB PLT 356 [facility] TB RBC 5.2 [facility] WBC 13.3 High [facility] ALL LIPID PROFILE (FASTING)o n 03-25-2025 CHOL HDL RATIO 3.3 [facility] Comment on above: 3.3 - 4.4 LOW RISK 4.4 - 7.1 AVERAGE RISK 7.1 - 11.0 MODERATE RISK >11.0 HIGH [facility]ISK Cholesterol [Mass/Vol] 152 mg/dL NINF - 200 mg/dL [facility] Cholesterol in HDL [Mass/Vol] 46 mg/dL 40 - 60 mg/dL [facility] Comment on above: > or =60 mg/dl - LOW CARDIOVASCULAR RISK <40 mg/dl - HIGH CARDIOVASCULAR RISK Magnesium [Mass/Vol] 88.6 mg/dL [facility] Comment on above: <100 mg/dl OPTIMAL 100-129 mg/dl NEAR OR ABOVE OPTIMAL 130-159 mg/dl BORDERLINE HIGH 160-189 mg/dl HIGH >190 mg/dl VERY HIGH Magnesium [Mass/Vol] 17.4 mg/dL [facility] Triglyceride [Mass/Vol] 87 mg/dL NINF - 150 mg/dL [facility] CCF CMP (CMP) (FOR REMOTE FH C USE)on 03-25-2025 Albumin [Mass/Vol] 3.9 g/dL 3.4 - 5.0 g/dL [facility] ALBUMIN GLOBULIN RATIO 1 [facility] ALP [Catalytic activity/Vol] 92 U/L 46 - 116 U/L [facility] ALT [Catalytic activity/Vol] 63 U/L 16 - 63 U/L [facility] Anion gap [Moles/Vol] 16.6 mmol/L [facility] AST [Catalytic activity/Vol] 17 U/L 15 - 37 U/L [facility] Bilirubin [Mass/Vol] 0.5 mg/dL 0.2 - 1 .0 mg/dL [facility] Calcium [Mass/Vol] 9.6 mg/dL 8.5 - 10. 1 mg/dL [facility] Chloride [Moles/Vol] 99 mmol/L 98 - 10 7 mmol/L [facility] CO2 [Moles/Vol] 27 mmol/L 21.0 - 32.0 mmol/L [facility] Creatinine [Mass/Vol] 0.8 mg/dL 0.70 - 1.30 mg/dL [facility] GFR/1.73 sq M.predicted CKD-EPI (S/P/Bld) [Vol rate/Area] >60 >=60 mL/min/1.73m 2 [facility] Globulin (S) [Mass/Vol] 4.1 g/dL [facility] Glucose [Mass/Vol] 93 mg/dL 74 - 106 mg/dL NO [facility] Potassium [Moles/Vol] 3.6 mmol/L 3.5 - 5.1 mmol/L [facility] Protein [Mass/Vol] 8 g/dL 6.4 - 8.2 g/dL NO [facility] Sodium [Moles/Vol] 139 mmol/L 136 - 145 mmol/L [facility] EGFR-NON AF MACANESE >60 >=60 mL/min/1.73m 2 [facility] Urea nitrogen [Mass/Vol] 17 mg/dL 7.0 - 18.0 mg/dL [facility] Urea nitrogen/Creatinine [Mass ratio] 21.2 mg/mg [facility] MLR HEMOGLOBIN A1Con 025 Glucose [Mass/Vol] 111 mg/dL [facility] HbA1c (Bld) [Mass fraction] 5.5 % 4.5 - 6.2 % [facility] Comment on above: ADA RECOMMENDED LIMI T 4.0 - 6.0 ADA THERAPEUTIC TARGET < 7.0 ACTION SUGGESTED > 7.0 No Panel Informationon 03-25 [facility] MICROALB CREAT RATIO RAN DOMon 03-25-2025 CREATININE URINE RANDOM 328.34 mg/dL High 20.00 - 300.00 mg/dL [facility] Interpretation and review of laboratory results Abnormal [facility] MICROALBUM CREATININE RATIO UR 5.1 mg/g 0.0 - 29.9 mg/g [facility] Comment on above: NO MICROALBUMINURIA 0-29 MG/G CLINICAL MICROALBUMINURIA 30-300 MG/G MACROALBUMINURIA >300 MG/G MICROALBUMIN URINE RANDOM 1.7 mg/dL NINF - 30.0 mg/dL [facility] TB UA (CLEAN/CATCH) MICROSC OPIC IF INDICATEon 03-25-2025 BILIRUBIN URINE SMALL Abnormal NEGATIVE [facility] BLOOD URINE Negative NEGATIVE [facility] Clarity (U) CLEAR CLEAR [facility] Color (U) YELLOW YELLOW [facility] GLUCOSE URINE UA 250 mg/dL Abnormal NEGATIVE [facility] Interpretation and review of laboratory results Abnormal [facility] Ketones Ql (U) TRACE Abnormal NEGATIVE mg/dL [facility] Leukocyte esterase Test strip Ql (U) Negative NEGATIVE [facility] NITRITE URINE Negative NEGATIVE [facility] pH (U) 6.0 [pH] 5.0 - 9.0 [facility] PROTEIN URINE TRACE NEG/TRACE mg/dL [facility] SPECIFIC GRAVITY URINE >=1.030 Abnormal 1.005 - 1.025 [facility] URINE MICROSCOPIC INDICATED NO [facility] UROBILINOGEN URINE 0.2 EU/dL 0.2 - 1.0 EU/dL [facility] HbA1c (Bld) [Mass fraction]o n 08-25-2024 Interpretation and review of laboratory results Normal [facility] - Hematology and Cell countson 08-25-2024 HbA1c (Bld) [Mass fraction] 5.6 % [facility] GLUCOSE BLOODon 07-06-2022 Glucose [Mass/Vol] 105 mg/dL Normal 74-106 [facility] Comment on above: Performed By: #### A ST, GLUC, ALT, LIPID #### [facility] [address] [address] [address] Cornell Sharma GLYCOHEMOGLOBIN A1Con 2021 ADA RECOMMENDATION SEE BELOW Normal [facility] Comment on above: Result Comment: ADA RECOMMENDED LIMIT 4.0 - 6.0 ADA THERAPEUTIC TARGET < 7.0 ACTION SUGGESTED > 7.0 Performed By: #### A 1C #### [facility] [address] [address] [address] Cornell Sharma Glucose [Mass/Vol] 114 mg/dL Normal [facility] Comment on above: Performed By: #### A 1C #### [facility] [address] [address] [address] Cornell Sharma HbA1c (Bld) [Mass fraction] 5.6 % Normal 4.5-6.2 [facility] Comment on above: Performed By: #### A 1C #### [facility] [address] [address] [address] Cornell Sharma LIPID PROFILEon 07-06-2022 CHOL-HDL RATIO NORM SEE BELOW Normal [facility] Comment on above: Result Comment: 3.3 - 4.4 LOW RISK 4.4 - 7.1 AVERAGE RISK 7.1 - 11.0 MODERATE RISK >11.0 HIGH RISK Performed By: #### A ST, GLUC, ALT, LIPID #### [facility] [address] [address] [address] Cornell Sharma Cholesterol [Mass/Vol] 197 mg/dL Normal <=200 [facility] Comment on above: Performed By: #### A ST, GLUC, ALT, LIPID #### [facility] [address] [address] [address] Cornell Sharma Cholesterol in HDL [Mass/Vol] 53 mg/dL Normal 40-60 [facility] Comment on above: Performed By: #### A ST, GLUC, ALT, LIPID #### [facility] [address] [address] [address] Cornell Sharma Cholesterol in LDL [Mass/Vol] 118.2 mg/dL Normal [facility] Comment on above: Performed By: #### A ST, GLUC, ALT, LIPID #### [facility] [address] [address] [address] Cornell Sharma Cholesterol.total/Ch olesterol in HDL [Mass ratio] 3.7 {ratio} Normal [facility] Comment on above: Performed By: #### A ST, GLUC, ALT, LIPID #### [facility] [address] [address] [address] Cornell Sharma HDL NORMAL > or = 60 mg/dl - LO W CARDIOVASCULAR RISK <40 mg/dl - HIGH CARDIOVASCULAR RISK Normal [facility] Comment on above: Performed By: #### A ST, GLUC, ALT, LIPID #### [facility] [address] [address] [address] Cornell Sharma LDL CALC NORMAL SEE BELOW Normal [facility] Comment on above: Result Comment: <100 mg/dl OPTIMAL 100 - 129 mg/dl NEAR OR ABOVE OPTIMAL 130 - 159 mg/dl BORDERLINE HIGH 160 - 189 mg/dl HIGH >190 mg/dl VERY HIGH Performed By: #### A ST, GLUC, ALT, LIPID #### [facility] [address] [address] [address] Cornell Sharma Triglyceride [Mass/Vol] 129 mg/dL Normal <=150 [facility] Comment on above: Performed By: #### A ST, GLUC, ALT, LIPID #### [facility] [address] [address] [address] Cornell Sharma VLDL CALC 25.8 mg/dL Normal [facility] Comment on above: Performed By: #### A ST, GLUC, ALT, LIPID #### [facility] [address] [address] [address] Cornell Sharma SGOTon 07-06-2022 AST [Catalytic activity/Vol] 15 U/L Normal 15-37 [facility] Comment on above: Performed By: #### A ST, GLUC, ALT, LIPID #### [facility] [address] [place] [address] Dr. [facility] ALT [Catalytic activity/Vol] 50 U/L Normal 16-63 [facility] Comment on above: Performed By: #### A ST, GLUC, ALT, LIPID #### [facility] [address] [address] [address] Cornell Sharma LIPID PROFILEon 05-06-2022 CHOL-HDL RATIO NORM SEE BELOW Normal [facility] Comment on above: Result Comment: 3.3 - 4.4 LOW RISK 4.4 - 7.1 AVERAGE RISK 7.1 - 11.0 MODERATE RISK >11.0 HIGH RISK Performed By: #### L IPID, LIVER #### [facility] [address] [place] [address] Dr. Cornell Sharma Cholesterol [Mass/Vol] 181 mg/dL Normal <=200 [facility] Comment on above: Performed By: #### L IPID, LIVER #### [facility] [address] [place] [address] Dr. Cornell Sharma Cholesterol in HDL [Mass/Vol] 39 mg/dL Critically low 40-60 [facility] Comment on above: Performed By: #### L IPID, LIVER #### [facility] [address] [address] [address] Cornell Sharma Cholesterol in LDL [Mass/Vol] 81.6 mg/dL Normal [facility] Comment on above: Performed By: #### L IPID, LIVER #### [facility] [address] [place] [address] Dr. Cornell Sharma Cholesterol.total/Ch olesterol in HDL [Mass ratio] 4.6 {ratio} Normal [facility] Comment on above: Performed By: #### L IPID, LIVER #### [facility] [address] [place] [address] Dr. Cornell Sharma HDL NORMAL > or = 60 mg/dl - LO W CARDIOVASCULAR RISK <40 mg/dl - HIGH CARDIOVASCULAR RISK Normal [facility] Comment on above: Performed By: #### L IPID, LIVER #### [facility] [address] [place] [address] Dr. Cornell Sharma LDL CALC NORMAL SEE BELOW Normal [facility] Comment on above: Result Comment: <100 mg/dl OPTIMAL 100 - 129 mg/dl NEAR OR ABOVE OPTIMAL 130 - 159 mg/dl BORDERLINE HIGH 160 - 189 mg/dl HIGH >190 mg/dl VERY HIGH Performed By: #### L IPID, LIVER #### [facility] [address] [place] [address] Dr. Cornell Sharma Triglyceride [Mass/Vol] 302 mg/dL Critically high <=150 [facility] Comment on above: Performed By: #### L IPID, LIVER #### [facility] [address] [place] [address] Dr. Cornell Sharma VLDL CALC 60.4 mg/dL Normal [facility] Comment on above: Performed By: #### L IPID, LIVER #### [facility] [address] [address] [address] Cornell Sharma LIVER PROFILEon 05-06-2022 Albumin [Mass/Vol] 3.6 g/dL Normal 3.4-5.0 [facility] Comment on above: Performed By: #### L IPID, LIVER #### [facility] [address] [place] [address] Dr. Cornell Sharma Albumin/Globulin [Mass ratio] 0.9 {ratio} Normal [facility] Comment on above: Performed By: #### L IPID, LIVER #### [facility] [address] [place] [address] Dr. Cornell Sharma ALP [Catalytic activity/Vol] 56 U/L Normal 46-116 [facility] Comment on above: Performed By: #### L IPID, LIVER #### [facility] [address] [address] [address] Cornell Sharma ALT [Catalytic activity/Vol] 46 U/L Normal 16-63 [facility] Comment on above: Performed By: #### L IPID, LIVER #### [facility] [address] [place] [address] Dr. Cornell Sharma AST [Catalytic activity/Vol] 17 U/L Normal 15-37 [facility] Comment on above: Performed By: #### L IPID, LIVER #### [facility] [address] [place] [address] Dr. Cornell Sharma BILI, CONJUGATED 0.1 mg/dL Normal 0.0-0.2 [facility] Comment on above: Performed By: #### L IPID, LIVER #### [facility] [address] [place] [address] Dr. Cornell Sharma Bilirubin [Mass/Vol] 0.3 mg/dL Normal 0.2-1.0 [facility] Comment on above: Performed By: #### L IPID, LIVER #### [facility] [address] [place] [address] Dr. Cornell Sharma Globulin (S) [Mass/Vol] 3.9 g/dL Normal [facility] Comment on above: Performed By: #### L IPID, LIVER #### [facility] [address] [place] [address] Dr. Cornell Sharma Protein [Mass/Vol] 7.5 g/dL Normal 6.4-8.2 [facility] Comment on above: Performed By: #### L IPID, LIVER #### [facility] [address] [place] [address] Dr. Cornell Sharma CBC AUTO DIFFon 03-15-2022 BASO # 0.0 103/ul Normal 0.0-0.1 [facility] Comment on above: Performed By: #### C BC #### [facility] [address] [place] [address] Dr. Cornell Sharma Basophils/100 WBC (Bld) 0.5 % Normal 0.2-2.0 [facility] Comment on above: Performed By: #### C BC #### [facility] [address] [place] [address] Dr. Cornell Sharma EO # 0.1 103/ul Normal 0.0-0.7 [facility] Comment on above: Performed By: #### C BC #### [facility] [address] [place] [address] Dr. Cornell Sharma Eosinophils/100 WBC (Bld) 1.1 % Normal 0.9-7.0 [facility] Comment on above: Performed By: #### C BC #### [facility] [address] [place] [address] Dr. Cornell Sharma Erythrocyte distribution width (RBC) [Ratio] 13.2 % Normal 11.0-15.0 [facility] Comment on above: Performed By: #### C BC #### [facility] [address] [place] [address] Dr. Cornell Sharma Hematocrit (Bld) [Volume fraction] 44.7 % Normal 42.0-54.0 [facility] Comment on above: Performed By: #### C BC #### [facility] [address] [place] [address] Dr. Cornell Sharma Hemoglobin (Bld) [Mass/Vol] 14.4 g/dL Normal 14.0-18.0 [facility] Comment on above: Performed By: #### C BC #### [facility] [address] [place] [address] Dr. Cornell Sharma IG # 0.02 10e3/ul Normal 0.00-0.03 [facility] Comment on above: Performed By: #### C BC #### [facility] [address] [place] [address] Dr. Cornell Sharma IG % 0.3 % Normal 0.0-0.5 [facility] Comment on above: Performed By: #### C BC #### [facility] [address] [place] [address] Dr. Cornell Sharma LYMPH # 2.2 103/ul Normal 1.2-3.8 [facility] Comment on above: Performed By: #### C BC #### [facility] [address] [place] [address] Dr. Cornell Sharma Lymphocytes/100 WBC (Bld) 28.8 % Normal 20.5-60.0 [facility] Comment on above: Performed By: #### C BC #### [facility] [address] [place] [address] Dr. Cornell Sharma MANUAL DIFF REQ NO Normal [facility] Comment on above: Performed By: #### C BC #### [facility] [address] [place] [address] Dr. Cornell Sharma MCH (RBC) [Entitic mass] 29.4 pg Normal 25.9-34.0 [facility] Comment on above: Performed By: #### C BC #### [facility] [address] [place] [address] Dr. Cornell Sharma MCHC (RBC) [Mass/Vol] 32.2 g/dL Normal 29.9-35.2 [facility] Comment on above: Performed By: #### C BC #### [facility] [address] [place] [address] Dr. Cornell Sharma MCV (RBC) [Entitic vol] 91.2 fL Normal 80.0-94.0 [facility] Comment on above: Performed By: #### C BC #### [facility] [address] [place] [address] Dr. Cornell Sharma MONO # 0.7 103/ul Normal 0.3-0.8 [facility] [facility] Comment on above: Performed By: #### C BC #### [facility] [address] [place] [address] Dr. Cornell Sharma Monocytes/100 WBC (Bld) 9.1 % Normal 1.7-12.0 [facility] Comment on above: Performed By: #### C BC #### [facility] [address] [place] [address] Dr. Cornell Sharma NEUT # 4.6 103/ul Normal 1.4-6.5 [facility] Comment on above: Performed By: #### C BC #### [facility] [address] [place] [address] Dr. Cornell Sharma Neutrophils/100 WBC (Bld) 60.2 % Normal 43.0-75.0 [facility] Comment on above: Performed By: #### C BC #### [facility] [address] [place] [address] Dr. Cornell Sharma Platelet mean volume (Bld) [Entitic vol] 9.9 fL Normal 9.5-13.5 [facility] Comment on above: Performed By: #### C BC #### [facility] [address] [place] [address] Dr. Cornell Sharma PLT 294 103/ul Normal 150-450 [facility] Comment on above: Performed By: #### C BC #### [facility] [address] [place] [address] Dr. Cornell Sharma RBC 4.90 106/ul Normal 4.70-6.10 [facility] Comment on above: Performed By: #### C BC #### [facility] [address] [place] [address] Dr. Cornell Sharma WBC 7.6 103/ul Normal 4.0-11.0 [facility] Comment on above: Performed By: #### C BC #### [facility] [address] [place] [address] Dr. Cornell Sharma FREE T4on 03-15-2022 Free T4 [Mass/Vol] 0.83 ng/dL Normal 0.76-1.46 [facility] Comment on above: Performed By: #### M ALBR #### [facility] [address] [place] [address] Dr. Cornell Sharma GLYCOHEMOGLOBIN A1Con 2021 ADA RECOMMENDATION SEE BELOW Normal [facility] Comment on above: Result Comment: ADA RECOMMENDED LIMIT 4.0 - 6.0 ADA THERAPEUTIC TARGET < 7.0 ACTION SUGGESTED > 7.0 Performed By: #### M ALBR #### [facility] [address] [place] [address] Dr. Cornell Sharma Glucose [Mass/Vol] 120 mg/dL Critically high 74-106 [facility] Comment on above: Performed By: #### M ALBR #### [facility] [address] [place] [address] Dr. Cornell Sharma HbA1c (Bld) [Mass fraction] 5.8 % Normal 4.5-6.2 [facility] Comment on above: Performed By: #### M ALBR #### [facility] [address] [place] [address] Dr. Cornell Sharma LIPID PROFILEon 03-15-2022 CHOL-HDL RATIO NORM SEE BELOW Normal [facility] Comment on above: Result Comment: 3.3 - 4.4 LOW RISK 4.4 - 7.1 AVERAGE RISK 7.1 - 11.0 MODERATE RISK >11.0 HIGH RISK Performed By: #### M ALBR #### [facility] [address] [place] [address] Dr. Cornell Sharma Cholesterol [Mass/Vol] 228 mg/dL Critically high <=200 [facility] Comment on above: Performed By: #### M ALBR #### [facility] [address] [place] [address] Dr. Cornell Sharma Cholesterol in HDL [Mass/Vol] 39 mg/dL Critically low 40-60 [facility] Comment on above: Performed By: #### M ALBR #### [facility] [address] [address] [address] Cornell Sharma Cholesterol in LDL [Mass/Vol] 143.6 mg/dL Normal [facility] Comment on above: Performed By: #### M ALBR #### [facility] [address] [place] [address] Dr. Cornell Sharma Cholesterol.total/Ch olesterol in HDL [Mass ratio] 5.8 {ratio} Normal [facility] Comment on above: Performed By: #### M ALBR #### [facility] [address] [address] [address] Cornell Sharma HDL NORMAL > or = 60 mg/dl - LO W CARDIOVASCULAR RISK <40 mg/dl - HIGH CARDIOVASCULAR RISK Normal [facility] Comment on above: Performed By: #### M ALBR #### [facility] [address] [place] [address] Dr. Cornell Sharma LDL CALC NORMAL SEE BELOW Normal [facility] Comment on above: Result Comment: <100 mg/dl OPTIMAL 100 - 129 mg/dl NEAR OR ABOVE OPTIMAL 130 - 159 mg/dl BORDERLINE HIGH 160 - 189 mg/dl HIGH >190 mg/dl VERY HIGH Performed By: #### M ALBR #### [facility] [address] [place] [address] Dr. Cornell Sharma Triglyceride [Mass/Vol] 227 mg/dL Critically high <=150 [facility] Comment on above: Performed By: #### M ALBR #### [facility] [address] [place] [address] Dr. Cornell Sharma VLDL CALC 45.4 mg/dL Normal [facility] Comment on above: Performed By: #### M ALBR #### [facility] [address] [place] [address] Dr. Cornell Sharma MICROALBUMIN, RAND URon 02-18 mALB <1.3 Normal <=30.0 [facility] Comment on above: Performed By: #### M ALBR #### [facility] [address] [place] [address] Dr. Cornell Sharma PROF 14(COMP METB)on 022 Albumin [Mass/Vol] 2.5 g/dL Critically low 3.4-5.0 [facility] Comment on above: Performed By: #### M ALBR #### [facility] [address] [place] [address] Dr. Cornell Sharma Albumin/Globulin [Mass ratio] 0.5 {ratio} Normal [facility] Comment on above: Performed By: #### M ALBR #### [facility] [address] [address] [address] Cornell Sharma ALP [Catalytic activity/Vol] 57 U/L Normal 46-116 [facility] Comment on above: Performed By: #### M ALBR #### [facility] [address] [address] [address] Cornell Sharma ALT [Catalytic activity/Vol] 55 U/L Normal 16-63 [facility] Comment on above: Performed By: #### M ALBR #### [facility] [address] [address] [address] Cornell Sharma Anion gap [Moles/Vol] 12.5 mmol/L Normal [facility] Comment on above: Performed By: #### M ALBR #### [facility] [address] [address] [address] Cornell Sharma AST [Catalytic activity/Vol] 14 U/L Critically low 15-37 [facility] Comment on above: Performed By: #### M ALBR #### [facility] [address] [address] [address] Cornell Sharma Bilirubin [Mass/Vol] 0.2 mg/dL Normal 0.2-1.0 [facility] Comment on above: Performed By: #### M ALBR #### [facility] [address] [address] [address] Cornell Sharma Calcium [Mass/Vol] 9.4 mg/dL Normal 8.5-10.1 [facility] Comment on above: Performed By: #### M ALBR #### [facility] [address] [address] [address] Cornell Sharma Chloride [Moles/Vol] 103 mmol/L Normal 98-107 [facility] Comment on above: Performed By: #### M ALBR #### [facility] [address] [address] [address] Cornell Sharma CO2 [Moles/Vol] 27.9 mmol/L Normal 21.0-32.0 [facility] Comment on above: Performed By: #### M ALBR #### [facility] [address] [place] [address] Dr. Cornell Sharma Creatinine [Mass/Vol] 0.74 mg/dL Normal 0.70-1.30 [facility] Comment on above: Performed By: #### M ALBR #### [facility] [address] [place] [address] Dr. Cornell Sharma EGFR-AF MACANESE >60 Normal >=60 [facility] Comment on above: Performed By: #### M ALBR #### [facility] [address] [place] [address] Dr. Cornell Sharma EGFR-NON AF MACANESE >60 Normal >=60 [facility] Comment on above: Performed By: #### M ALBR #### [facility] [address] [place] [address] Dr. Cornell Sharma Globulin (S) [Mass/Vol] 5.0 g/dL Normal [facility] Comment on above: Performed By: #### M ALBR #### [facility] [address] [place] [address] Dr. Cornell Sharma Potassium [Moles/Vol] 4.4 mmol/L Normal 3.5-5.1 [facility] Comment on above: Performed By: #### M ALBR #### [facility] [address] [place] [address] Dr. Cornell Sharma Protein [Mass/Vol] 7.5 g/dL Normal 6.4-8.2 [facility] Comment on above: Performed By: #### M ALBR #### [facility] [address] [place] [address] Dr. Cornell Sharma Sodium [Moles/Vol] 139 mmol/L Normal 136-145 [facility] Comment on above: Performed By: #### M ALBR #### [facility] [address] [place] [address] Dr. Cornell Sharma Urea nitrogen [Mass/Vol] 16.0 mg/dL Normal 7.0-18.0 [facility] Comment on above: Performed By: #### M ALBR #### [facility] [address] [place] [address] Dr. Cornell Sharma Urea nitrogen/Creatinine [Mass ratio] 21.6 mg/mg Normal [facility] Comment on above: Performed By: #### M ALBR #### [facility] [address] [place] [address] Dr. Cornell Sharma TSHon 03-15-2022 TSH 0.941 uIU/mL Normal 0.358-3.740 [facility] Comment on above: Performed By: #### M ALBR #### [facility] [address] [place] [address] Dr. Cornell Sharma TSH RANGE SEE BELOW Normal [facility] Comment on above: Result Comment: <0.3 4 UIU/ml HYPERTHYROID 0.34-5.60 UIU/ml EUTHYROID >5.60 UIU/ml HYPOTHYROID Performed By: #### M ALBR #### [facility] [address] [place] [address] Dr. Cornell Sharma UA RANDOM W/MICROSCOPICon BACTERIA NONE SEEN Normal NONE SEEN [facility] Comment on above: Performed By: #### U AMIC #### [facility] [address] [place] [address] Dr. Cornell Sharma Bilirubin Ql (U) Negative Normal NEGATIVE [facility] Comment on above: Performed By: #### U AMIC #### [facility] [address] [place] [address] Dr. Cornell Sharma CAST NONE SEEN Normal NONE SEEN [facility] Comment on above: Performed By: #### U AMIC #### [facility] [address] [place] [address] Dr. Cornell Sharma Clarity (U) CLEAR Normal CLEAR [facility] Comment on above: Performed By: #### U AMIC #### [facility] [address] [place] [address] Dr. Cornell Sharma Color (U) LT. YELLOW Normal YELLOW [facility] Comment on above: Performed By: #### U AMIC #### [facility] [address] [place] [address] Dr. Cornell Sharma Crystals LM Nom (Urine sed) NONE SEEN Normal NONE SEEN [facility] Comment on above: Performed By: #### U AMIC #### [facility] [address] [address] [address] Cornell Sharma Epithelial cells LM Ql (Urine sed) RARE Normal NONE SEEN /RARE [facility] Comment on above: Performed By: #### U AMIC #### [facility] [address] [address] [address] Cornell Sharma Glucose Ql (U) Negative Normal NEGATIVE [facility] Comment on above: Performed By: #### U AMIC #### [facility] [address] [address] [address] Cornell Sharma Hemoglobin Ql (U) Negative Normal NEGATIVE [facility] Comment on above: Performed By: #### U AMIC #### [facility] [address] [address] [address] Cronell Sharma Ketones Ql (U) Negative Normal NEGATIVE [facility] Comment on above: Performed By: #### U AMIC #### [facility] [address] [address] [address] Cornell Sharma LEUKOCYTES Negative Normal NEGATIVE [facility] Comment on above: Performed By: #### U AMIC #### [facility] [address] [address] [address] Cornell Sharma MUCOUS NONE SEEN Normal NONE SEEN [facility] Comment on above: Performed By: #### U AMIC #### [facility] [address] [address] [address] Cornell Sharma Nitrite Ql (U) Negative Normal NEGATIVE [facility] Comment on above: Performed By: #### U AMIC #### [facility] [address] [address] [address] Cornell Sharma pH (U) 6.0 [pH] Normal 5-9 [facility] Comment on above: Performed By: #### U AMIC #### [facility] [address] [place] [address] Dr. Cornell Sharma RBC 0-2 Normal 0-2 [facility] Comment on above: Performed By: #### U AMIC #### [facility] [address] [address] [address] Cornell Sharma SPEC GRAVITY 1.025 Normal 1.005-<=1.025 [facility] Comment on above: Performed By: #### U AMIC #### [facility] [address] [address] [address] Cornell Sharma UA PROTEIN Negative Normal NEGATIVE/ TRACE [facility] Comment on above: Performed By: #### U AMIC #### [facility] [address] [address] [address] Cornell Sharma Urobilinogen Qn (U) 0.2 {Ezequiel'U}/dL Normal 0.2 - 1. 0 [facility] Comment on above: Performed By: #### U AMIC #### [facility] [address] [address] [address] Cornell Sharma WBC NONE SEEN Normal NONE SEEN [facility] Comment on above: Performed By: #### U AMIC #### [facility] [address] [address] [address] Cornell Sharma Vital Signs Date Time Vital Sign Value Performing Clinician Zan flannery 01-24-2025 15:07-0400 Body mass index (BMI) [Ratio] 43.16 kg/m2 Trina Talley [employer] Work Phone: [facility] 01-24-2025 15:07-0400 Body temperature 98.49 [degF] Trina Talley [employer] Work Phone: [facility] 01-24-2025 15:07-0400 Body weight 144.34 kg Trina Talley [employer] Work Phone: [facility] 01-24-2025 15:07-0400 Diastolic blood pressure 70 mm[Hg] Trina Talley [employer] Work Phone: [facility] 01-24-2025 15:07-0400 Heart rate 90 /min Trina Talley [employer] Work Phone: [facility] 01-24-2025 15:07-0400 Respiratory rate 18 /min Trina Aichholz [employer] Work Phone: [facility] 01-24-2025 15:07-0400 SaO2% (BldA) [Mass fraction] 94 % Trinazoey Costaz [employer] Work Phone: [facility] 01-24-2025 15:07-0400 Systolic blood pressure 128 mm[Hg] Trina Desmondholz [employer] Work Phone: [facility] 11-25-2024 15:03-0500 Body height 182.9 cm Trina Desmondholz [employer] Work Phone: [facility] 11-25-2024 15:03-0500 Body mass index (BMI) [Ratio] 42.15 kg/m2 Trina Desmondholz [employer] Work Phone: [facility] 11-25-2024 15:03-0500 Body temperature 98.71 [degF] Trinazoey Loganholz [employer] Work Phone: [facility] 11-25-2024 15:03-0500 Body weight 140.98 kg Trinazoey Loganholz [employer] Work Phone: [facility] 11-25-2024 15:03-0500 Diastolic blood pressure 88 mm[Hg] Trinazoey Costaz [employer] Work Phone: [facility] 11-25-2024 15:03-0500 Heart rate 82 /min Trina Desmondholz [employer] Work Phone: [facility] 11-25-2024 15:03-0500 Respiratory rate 18 /min Trina Desmondholz [employer] Work Phone: [facility] 11-25-2024 15:03-0500 SaO2% (BldA) [Mass fraction] 95 % Trina Desmondholz [employer] Work Phone: [facility] 11-25-2024 15:03-0500 Systolic blood pressure 122 mm[Hg] Trina Desmondholz [employer] Work Phone: [facility] 11-06-2024 15:08-0500 Body height 182.9 cm Trina Talley [employer] Work Phone: [facility] 08-25-2024 15:08-0500 Body mass index (BMI) [Ratio] 41.47 kg/m2 Trina Costaz [employer] Work Phone: [facility] 08-25-2024 15:08-0500 Body temperature 97.81 [degF] Trina Costaz [employer] Work Phone: [facility] 08-25-2024 15:08-0500 Body weight 138.71 kg Trinazoey Costaz [employer] Work Phone: [facility] 08-25-2024 15:08-0500 Diastolic blood pressure 84 mm[Hg] Trina Costaz [employer] Work Phone: [facility] 08-25-2024 15:08-0500 Heart rate 75 /min Trina Costaz [employer] Work Phone: [facility] 08-25-2024 15:08-0500 Respiratory rate 18 /min Trinazoey Costaz [employer] Work Phone: [facility] 08-25-2024 15:08-0500 SaO2% (BldA) [Mass fraction] 93 % Trina Costaz [employer] Work Phone: [facility] 08-25-2024 15:08-0500 Systolic blood pressure 122 mm[Hg] Trina Costaz [employer] Work Phone: [facility] 07-14-2024 15:08-0400 Body height 182.9 cm Trinazoey Costaz [employer] Work Phone: [facility] 07-14-2024 15:08-0400 Body mass index (BMI) [Ratio] 41.88 kg/m2 Trinazoey Costaz [employer] Work Phone: [facility] 07-14-2024 15:08-0400 Body temperature 98.8 [degF] Trina Costaz [employer] Work Phone: [facility] 07-14-2024 15:08-0400 Body weight 140.07 kg Trina Aichholz [employer] Work Phone: [facility] 07-14-2024 15:08-0400 Diastolic blood pressure 74 mm[Hg] Trina Aichholz [employer] Work Phone: [facility] 07-14-2024 15:08-0400 Heart rate 87 /min Trina Aichholz [employer] Work Phone: [facility] 07-14-2024 15:08-0400 Respiratory rate 19 /min Trina Aichholz [employer] Work Phone: [facility] 07-14-2024 15:08-0400 SaO2% (BldA) [Mass fraction] 94 % Trina Aichholz [employer] Work Phone: [facility] 07-14-2024 15:08-0400 Systolic blood pressure 108 mm[Hg] Trina Aichholz [employer] Work Phone: [facility] Healthcare Encounters Encounter Date Encounter Type Care Provider Facility Start: 03-25-2025 End: 03-25-2025 Clinisync Result Encounter Trina Aichholz [employer] Work Phone: [facility] External Department Unsolicited Start: 03-25-2025 End: 03-25-2025 Clinisync Result Encounter Trina Aichholz [employer] Work Phone: [facility] External Department Unsolicited Start: 01-24-2025 End: 01-24-2025 Office outpatient visit 25 minutes Trina Aichholz [employer] Work Phone: [facility] Comment on above: Type 2 diabetes lele itus without complication, without long- term current use of insulin (Primary Dx); Primary hypertension (CMS/HCC); Gastroesophageal reflux disease without esophagitis; Morbid (severe) obesity due to excess calories (CMS/HCC); Pre-diabetes Start: 01-24-2025 End: 01-24-2025 ambulatory TRINA AICHHOLZ Not Available Start: 01-24-2025 End: 01-24-2025 Bamboo flowsheet Trina Mayank [employer] Work Phone: [facility] Start: 01-24-2025 End: 01-24-2025 Bamboo flowsheet Trina Desmondholz [employer] Work Phone: [facility] Start: 12-06-2024 End: 12-07-2024 Refill Trina Aicnicholasholz [employer] Work Phone: [facility] Comment on above: Primary hypertension (CMS/HCC) Start: 11-25-2024 End: 11-25-2024 Office outpatient visit 25 minutes Trina Talley [employer] Work Phone: [facility] Comment on above: Pre-diabetes (Primar y Dx); Morbid (severe) obesity due to excess calories (CMS/HCC); Body mass index (BMI) 40.0-44.9, adult (CMS/HCC); Primary hypertension (CMS/HCC); Gastroesophageal reflux disease without esophagitis; NORMAN (generalized anxiety disorder) (CMS/HCC); Moderate episode of recurrent major depressive disorder (CMS/HCC); Mixed hyperlipidemia (CMS/HCC) Start: 11-25-2024 End: 11-25-2024 ambulatory TRINA AICHHOLZ Not Available Start: 11-25-2024 End: 11-25-2024 Bamboo flowsheet Trina Julissaz [employer] Work Phone: [facility] Start: 11-25-2024 End: 11-25-2024 Bamboo flowsheet Trina Desmondholz [employer] Work Phone: [facility] Start: 11-13-2024 End: 11-14-2024 Refill Trina Aichholz [employer] Work Phone: [facility] Comment on above: Moderate episode of recurrent major depressive disorder (CMS/HCC) Start: 10-18-2024 End: 10-18-2024 Refill Trina Aichholz [employer] Work Phone: [facility] Comment on above: NORMAN (generalized anx iety disorder) (CMS/HCC) Start: 10-11-2024 End: 10-14-2024 Refill Trina Aichholz [employer] Work Phone: [facility] Comment on above: Pre-diabetes Start: 09-23-2024 End: 09-23-2024 Refill Trina Aichholz [employer] Work Phone: [facility] Comment on above: Pre-diabetes (Primar y Dx) Start: 08-29-2024 End: 08-30-2024 Refill Trina Aichholz [employer] Work Phone: [facility] Comment on above: Gastroesophageal ref lux disease without esophagitis Start: 08-25-2024 End: 08-25-2024 Office outpatient visit 25 minutes Trina Aicnicholasholz [employer] Work Phone: [facility] Comment on above: Pre-diabetes (Primar y Dx); Morbid (severe) obesity due to excess calories ([facility]); Body mass index (BMI) 40.0-44.9, adult ([facility]); Primary hypertension (CMS/[facility]); Gastroesophageal reflux disease without esophagitis; NORMAN (generalized anxiety disorder) ([facility]); Mixed hyperlipidemia ([facility]); Needs flu shot; Sciatica of left side Start: 08-25-2024 End: 08-25-2024 ambulatory TRINA AICHHOLZ Not Available Start: 08-25-2024 End: 08-25-2024 Bamboo flowsheet Trina Aichholz [employer] Work Phone: [facility] Start: 08-25-2024 End: 08-25-2024 Bamboo flowsheet Trina Aichholz [employer] Work Phone: [facility] Start: 08-23-2024 End: 08-23-2024 Refill Trina Aichholz [employer] Work Phone: [facility] Comment on above: Primary hypertension (CMS/HCC) Start: 08-22-2024 End: 08-23-2024 Refill Trina Aichholz [employer] Work Phone: [facility] Comment on above: Pre-diabetes Start: 08-13-2024 End: 08-13-2024 Refill Trina Aichholz [employer]PRESSOR [employer]SEMBLER Work Phone: [facility] Comment on above: Pre-diabetes Start: 08-03-2024 End: 08-03-2024 Refill Trina Aichholz COMPRESSOR ASSEMBLER Work Phone: [facility] Comment on above: Moderate episode of recurrent major depressive disorder ([facility]/HCC) Start: 07-14-2024 End: 07-14-2024 Office outpatient visit 15 minutes Trina Aichholz COMPRESSOR ASSEMBLER Work Phone: [facility] Comment on above: Pre-diabetes (Primar y Dx); NORMAN (generalized anxiety disorder) ([facility]); Morbid (severe) obesity due to excess calories ([facility]); Body mass index (BMI) 40.0-44.9, adult ([facility]) Start: 07-14-2024 End: 07-14-2024 ambulatory TRINA AICHHOLZ Not Available Start: 07-14-2024 End: 07-14-2024 Bamboo flowsheet Trina Aichholz COMPRESSOR ASSEMBLER Work Phone: [facility] Start: 07-14-2024 End: 07-14-2024 Bamboo flowsheet Trina Aichholz COMPRESSOR ASSEMBLER Work Phone: [facility] Start: 05-25-2024 End: 05-25-2024 ambulatory TRINA AICHHOLZ Not Available Start: 04-20-2024 End: 04-20-2024 ambulatory TRINA AICHHOLZ Not Available Start: 02-25-2024 End: 02-25-2024 ambulatory TRINA AICHHOLZ Not Available Start: 07-06-2022 End: 07-07-2022 ambulatory 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 TRINA AICHHOLZ Facility:H1 Start: 05-06-2022 End: 05-07-2022 ambulatory 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 TRINA AICHHOLZ Facility:[facility]1 Start: 03-15-2022 End: 03-16-2022 ambulatory 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 TRINA AICHHOLZ Facility:[facility]1 Procedures Date Procedure Procedure Detail Performing Clinician Start: 03-25-2025 ALL CBC WITH AUTO DIFF Trina Mayank COMPRESSOR ASSEMBLER Work Phone: Start: 03-25-2025 ALL LIPID PROFILE (FASTING) Trina Mayank COMPRESSOR ASSEMBLER Work Phone: Start: 03-25-2025 CCF CMP (CMP) (FOR R [facility] USE) Trina Mayank COMPRESSOR ASSEMBLER Work Phone: Start: 03-25-2025 MLR HEMOGLOBIN A1C Trina Mayank COMPRESSOR ASSEMBLER Work Phone: Start: 03-25-2025 TB MICROALB CREAT R ATIO RANDOM Trinazoey Talley COMPRESSOR ASSEMBLER Work Phone: Start: 03-25-2025 TB UA (CLEAN/CATCH) MICROSCOPIC IF INDICATE Trina Talley COMPRESSOR ASSEMBLER Work Phone: Start: 08-25-2024 Hemoglobin glycosyla diana a1c Trina Talley COMPRESSOR ASSEMBLER Work Phone: Plan of Treatment Date Care Activity Detail Author Start: 04-26-2025 End: 04-26-2025 Patient encounter procedure 04/26/2025 3:00 PM EDT Office Visit [facility] [address] [place] [address] Trina Talley NP [address] [place] [id number] [facility] Start: 02-24-2025 Urine screening for protein Diabetes: Urine Protein Screening [facility] Start: 01-24-2025 End: 01-24-2025 Patient encounter procedure [facility] Comment on above: Primary hypertension (CMS/HCC) (Primary Dx); Gastroesophageal reflux disease without esophagitis; Morbid (severe) obesity due to excess calories (CMS/HCC); Pre-diabetes Start: 01-24-2025 End: 01-24-2026 CBC W Auto Differential panel - Blood CBC and differential Lab Routine Gastroesophageal reflux disease without esophagitis Expected: 01/24/2025 (Approximate), Expires: 01/24/2026 [facility] Work Phone: Comment on above: Expected: 01/24/2025 (Approximate), Expires: 01/24/2026 Start: 01-24-2025 End: 01-24-2026 Comprehensive metabolic 2000 panel - Serum or Plasma Comprehensive metabolic panel Lab Routine Primary hypertension (CMS/HCC) Morbid (severe) obesity due to excess calories (CMS/HCC) Pre-diabetes Expected: 01/24/2025 (Approximate), Expires: 01/24/2026 [facility] Comment on above: Expected: 01/24/2025 (Approximate), Expires: 01/24/2026 Start: 01-24-2025 End: 01-24-2026 Hemoglobin A1c/Hemoglobin.total in Blood Hemoglobin A1c Lab Routine Pre-diabetes Expected: 01/24/2025 (Approximate), Expires: 01/24/2026 [facility] Comment on above: Expected: 01/24/2025 (Approximate), Expires: 01/24/2026 Start: 01-24-2025 End: 01-24-2026 Lipid 1996 panel - Serum or Plasma Lipid panel Lab Routine Pre-diabetes Expected: 01/24/2025 (Approximate), Expires: 01/24/2026 [facility] Comment on above: Expected: 01/24/2025 (Approximate), Expires: 01/24/2026 Start: 01-24-2025 End: 01-24-2026 Microalbumin/Creatinine panel in random Urine Microalbumin / creatinine, urine ratio Lab Routine Primary hypertension (CMS/HCC) Pre-diabetes Expected: 01/24/2025 (Approximate), Expires: 01/24/2026 [facility] Comment on above: Expected: 01/24/2025 (Approximate), Expires: 01/24/2026 Start: 01-24-2025 End: 01-24-2026 Urinalysis complete panel - Urine Urinalysis with reflex microscopic (clean catch) Lab Routine Primary hypertension (CMS/HCC) Pre-diabetes Expected: 01/24/2025 (Approximate), Expires: 01/24/2026 [facility] Comment on above: Expected: 01/24/2025 (Approximate), Expires: 01/24/2026 Start: 11-25-2024 End: 11-25-2024 Patient encounter procedure [facility] Comment on above: Primary hypertension ([facility]/HCC) (Primary Dx); Morbid (severe) obesity due to excess calories ([facility]/HCC); Body mass index (BMI) 40.0-44.9, adult ([facility]); Gastroesophageal reflux disease without esophagitis; Pre-diabetes; NORMAN (generalized anxiety disorder) ([facility]); Moderate episode of recurrent major depressive disorder ([facility]) Start: 11-25-2024 Hemoglobin A1c measurement Diabetes: Hemoglobin A1C [facility] Start: 08-25-2024 End: 08-25-2024 Patient encounter procedure [facility] Comment on above: Tobacco dependence ( Primary Dx); Morbid (severe) obesity due to excess calories ([facility]/HCC); Body mass index (BMI) 40.0-44.9, adult ([facility]/HCC); Primary hypertension ([facility]/HCC); Gastroesophageal reflux disease without esophagitis; Pre-diabetes; NORMAN (generalized anxiety disorder) ([facility]); Mixed hyperlipidemia ([facility]) Start: 07-14-2024 End: 07-14-2024 Patient encounter procedure 07/14/2024 3:00 PM EDT Office Visit [facility] [address] [place] [id number] Trina Talley NP [address] [place] [address] Arrived [facility] Comment on above: Arrived Start: 1999 Glaucoma screening Diabetes: R etinopathy Screening [facility] Healthcare Payers Date Payer Category Payer Medicaid [employer] [place] [employer] [id number] 2023-Present [address] [place] [id number] 2023 Medicaid (Managed Care) [employer] [id number] 1989 Unknown [id number] 1989 Unknown [id number] 593 1989 Unknown [id number] 593 1989 Unknown [id number] 1259 1989 Unknown [id number] 1259 1989 Unknown [id number] 1259 1989 Unknown [id number] 1259 1989 Unknown [id number] 1259 1989 Unknown [id number] 1259 1989 Unknown [id number] 1259 1959 Unknown [id number] Social History Date Type Detail Facility Start: 02-25-2024 Tobacco smoking status CTIS Ex-smoke r [facility] End: 10-20-2021 History of tobacco use Current smoker [facility] End: 10-20-2021 History of tobacco use Cigarette Smoker [facility] Start: 02-25-2024 Tobacco use and exposure User of smokeless tobacco [facility] History of tobacco use Snuff User [facility] Start: 07-14-2024 End: 01-24-2025 Alcoholic beverage intake Lifetime non-drinker (finding) [facility] Start: 04-13-2024 End: 01-24-2025 History of Social function [facility] Start: 04-13-2024 End: 01-24-2025 [id number] Health Literacy [facility] How often do you nee d to have someone help you when you read instructions, pamphlets, or other written material from your doctor or pharmacy [SILS] Never [facility] Do you belong to any clubs or organizations such as episcopalian groups, unions, fraternal or athletic groups, or [...] at Not on file [facility] How often do you nee d to have someone help you when you read instructions, pamphlets, or other written material from your doctor or pharmacy [SILS] Never [facility] Medical Equipment Procedure Code Equipment Code Equipment Origin al Text Equipment Identifier Dates [id number], [id number] Start: 02-25-2024 End: 05-27-2025 Clinical Notes 07-14-2024 to 01-24-2025 Trina Talley NP - 01/24/2025 3:00 PM Beatrice Talley NP - 01/24/2025 3:00 PM Beatrice Talley NP - 01/24/2025 7:26 AM Beatrcie Talley NP - 01/24/2025 7:26 AM EDTPatient [...] A1c Associated Problem(s): NORMAN (generalized anxiety disorder) ([facility]) Current meds: wellbutrin as well as fluoxetine [...] Morbid (severe) obesity due to excess calories ([facility]) Discussed with patient their BMI (actual, verses [...] Current meds: losartan documented in this encounter [facility] 01-24-2025 Instructions Trina Talley NP - 01/24/2025 3:00 PM EDT Check labs, fasting 8 hours We are going to increase the trulicity dose to 1.5mg dose documented in this encounter [facility] 11-25-2024 History of Presen t [...] Addressed This Visit NORMAN (generalized anxiety disorder) ([facility]) Current meds: wellbutrin as well as fluoxetine [...] (PriLOSEC) [address] capsule Mixed hyperlipidemia ([facility]) Relevant Medications atorvastatin (Lipitor) 20 MG tablet Primary hypertension ([facility]) Please check blood pressure daily and record [...] Morbid (severe) obesity due to excess calories (CMS/[facility]) Discussed with patient their BMI (actual, verses [...] loss. Body mass index (BMI) 40.0-44.9, adult ([facility]) Moderate episode of recurrent major depressive disorder ([facility]) Current meds: fluoxetine and wellbutrin PHQ 9=3 NORMAN 7=3 No dose changes Relevant Medications buPROPion XL (Wellbutrin XL) 150 MG 24 hr tablet Associated Problem(s): Moderate episode of recurrent major depressive disorder ([facility]/HCC) Current meds: fluoxetine and wellbutrin PHQ 9=3 NORMAN 7=3 No dose changes Associated Problem(s): NORMAN (generalized anxiety disorder) ([facility]) Current meds: wellbutrin as well as fluoxetine [...] Current meds: losartan documented in this encounter [facility] 11-25-2024 Instructions Trina Talley NP - 11/25/2024 3:00 PM EST Trulicity 0.75mg once a week Keep taking farxiga documented in this encounter [facility] 08-25-2024 History of Presen t illness Narrative Associated Problem(s): Sciatica of left side Ice to affected area 3-4 times daily for 20 minutes each NSAIDS and muscle relaxer Stretching exercises Associated Problem(s): Needs flu shot decline Associated Problem(s): NORMAN (generalized anxiety disorder) ([facility]) Continue wellbutrin and fluoxetine Pt has had [...] not crush, chew, or split. Continuous Glucose Security Door Installer (Dexcom G7 Security Door Installer) device 1 each, Does not apply, Daily [...] Addressed This Visit NORMAN (generalized anxiety disorder) ([facility]) Continue wellbutrin and fluoxetine Gastroesophageal reflux disease without esophagitis Omeprazole is working, cannot tolerated being off of the medication Recommendations: freq small meals, nothing to eat or drink at least 2 hours prior to bed, limit caffeine, alcohol, as well as spicy foods Meds to limit or avoid if possible: NSAIDS if possible Elevate HOB if possible Mixed hyperlipidemia ([facility]) Relevant Medications atorvastatin (Lipitor) 20 MG tablet Primary hypertension ([facility]) Please check blood pressure daily and record [...] Morbid (severe) obesity due to excess calories ([facility]) Discussed with patient their BMI (actual, verses [...] loss. Body mass index (BMI) 40.0-44.9, adult ([facility]) Needs flu shot decline Sciatica of left [...] start this process documented in this encounter [facility] 08-25-2024 Instructions Trina Talley NP - 08/25/2024 3:00 PM EST Ice to affected area 3-4 times daily for 20 minutes each Muscle relaxers, anti inflammatory as directed Stretching exercises as well Call office in 7-10 days if not better documented in this encounter [facility] 07-14-2024 History of Presen t illness Narrative Associated Problem(s): NORMAN (generalized anxiety disorder) ([facility]) Only currently on wellbutrin , will add [...] not crush, chew, or split. Continuous Glucose Security Door Installer (Dexcom G7 Security Door Installer) device 1 each, Does not apply, Daily Continuous Glucose Sensor (Dexcom G7 Sensor) misc 1 each, Other, Daily dapagliflozin (FARXIGA) 5 mg, Oral, Daily Easy Comfort Pen [place] 31G X 5 MM misc 1 each, [...] (CMS/HCC) Body mass index (BMI) 40.0-44.9, adult ([facility]) documented in this encounter [facility] Evaluation note Diagnosis Other chest pain- Primary Primary hypertension ([facility]/HCC) Unspecified essential hypertension Pre-diabetes Other abnormal glucose Obesity (BMI 30-39.9) Tobacco dependence Tobacco use disorder Mixed hyperlipidemia (CMS/HCC) Mixed hyperlipidemia JAKOB (obstructive sleep apnea) Obstructive sleep apnea (adult) (pediatric) NORMAN (generalized anxiety disorder) ([facility]/HCC) Generalized anxiety disorder NORMAN (generalized anxiety disorder) ([facility])- Primary Generalized anxiety disorder Mixed hyperlipidemia ([facility]) Mixed hyperlipidemia Nausea and vomiting, unspecified vomiting type Leukocytosis, unspecified type Pre-diabetes Other abnormal glucose Obesity (BMI 30-39.9) Moderate episode of recurrent major depressive disorder ([facility])- Primary Morbid (severe) obesity due to excess calories ([facility]) Body mass index (BMI) 40.0-44.9, adult ([facility] Mixed hyperlipidemia ([facility]) Mixed hyperlipidemia Pre-diabetes Other abnormal glucose Hypoglycemia Hypoglycemia, unspecified NORMAN (generalized anxiety disorder) ([facility]) Generalized anxiety disorder Pre-diabetes- Primary Other abnormal glucose NORMAN (generalized anxiety disorder) ([facility]) Generalized anxiety disorder Morbid (severe) obesity due to excess calories ([facility]) Body mass index (BMI) 40.0-44.9, adult ([facility]) Moderate episode of recurrent major depressive disorder ([facility]) [facility]* Diagnosis Other chest pain- Primary Primary hypertension ([facility]) Unspecified essential hypertension Pre-diabetes Other abnormal glucose Obesity (BMI 30-39.9) Tobacco dependence Tobacco use disorder Mixed hyperlipidemia ([facility]) Mixed hyperlipidemia JAKOB (obstructive sleep apnea) Obstructive sleep apnea (adult) (pediatric) NORMAN (generalized anxiety disorder) ([facility]) Generalized anxiety disorder NORMAN (generalized anxiety disorder) ([facility])- Primary Generalized anxiety disorder Mixed hyperlipidemia ([facility]) Mixed hyperlipidemia Nausea and vomiting, unspecified vomiting type Leukocytosis, unspecified type Pre-diabetes Other abnormal glucose Obesity (BMI 30-39.9) Moderate episode of recurrent major depressive disorder ([facility])- Primary Morbid (severe) obesity due to excess calories ([facility]) Body mass index (BMI) 40.0-44.9, adult ([facility] Mixed hyperlipidemia ([facility]) Mixed hyperlipidemia Pre-diabetes Other abnormal glucose Hypoglycemia Hypoglycemia, unspecified NORMAN (generalized anxiety disorder) ([facility]) Generalized anxiety disorder Pre-diabetes- Primary Other abnormal glucose NORMAN (generalized anxiety disorder) ([facility]) Generalized anxiety disorder Morbid (severe) obesity due to excess calories ([facility]) Body mass index (BMI) 40.0-44.9, adult ([facility]) Pre-diabetes Other abnormal glucose documented in this encounter [facility]* Diagnosis Other chest pain- Primary Primary hypertension ([facility]) Unspecified essential hypertension Pre-diabetes Other abnormal glucose Obesity (BMI 30-39.9) Tobacco dependence Tobacco use disorder Mixed hyperlipidemia ([facility]) Mixed hyperlipidemia JAKOB (obstructive sleep apnea) Obstructive sleep apnea (adult) (pediatric) NORMAN (generalized anxiety disorder) ([facility]) Generalized anxiety disorder NORMAN (generalized anxiety disorder) ([facility])- Primary Generalized anxiety disorder Mixed hyperlipidemia ([facility]) Mixed hyperlipidemia Nausea and vomiting, unspecified vomiting type Leukocytosis, unspecified type Pre-diabetes Other abnormal glucose Obesity (BMI 30-39.9) Moderate episode of recurrent major depressive disorder ([facility])- Primary Morbid (severe) obesity due to excess calories ([facility]) Body mass index (BMI) 40.0-44.9, adult ([facility]) Mixed hyperlipidemia ([facility]) Mixed hyperlipidemia Pre-diabetes Other abnormal glucose Hypoglycemia Hypoglycemia, unspecified NORMAN (generalized anxiety disorder) ([facility]) Generalized anxiety disorder Pre-diabetes- Primary Other abnormal glucose NORMAN (generalized anxiety disorder) ([facility]) Generalized anxiety disorder Morbid (severe) obesity due to excess calories ([facility]) Body mass index (BMI) 40.0-44.9, adult ([facility]) Pre-diabetes Other abnormal glucose documented in this encounter [facility] Healthcare[facility]* Diagnosis Other chest pain- Primary Primary hypertension ([facility]) Unspecified essential hypertension Pre-diabetes Other abnormal glucose Obesity (BMI 30-39.9) Tobacco dependence Tobacco use disorder Mixed hyperlipidemia ([facility]) Mixed hyperlipidemia JAKOB (obstructive sleep apnea) Obstructive sleep apnea (adult) (pediatric) NORMAN (generalized anxiety disorder) ([facility]) Generalized anxiety disorder NORMAN (generalized anxiety disorder) ([facility])- Primary Generalized anxiety disorder Mixed hyperlipidemia ([facility]) Mixed hyperlipidemia Nausea and vomiting, unspecified vomiting type Leukocytosis, unspecified type Pre-diabetes Other abnormal glucose Obesity (BMI 30-39.9) Moderate episode of recurrent major depressive disorder ([facility])- Primary Morbid (severe) obesity due to excess calories ([facility]) Body mass index (BMI) 40.0-44.9, adult ([facility] [place] Mixed hyperlipidemia ([facility]) Mixed hyperlipidemia Pre-diabetes Other abnormal glucose Hypoglycemia Hypoglycemia, unspecified NORMAN (generalized anxiety disorder) ([facility]) Generalized anxiety disorder Pre-diabetes- Primary Other abnormal glucose NORMAN (generalized anxiety disorder) ([facility]) Generalized anxiety disorder Morbid (severe) obesity due to excess calories ([facility]) Body mass index (BMI) 40.0-44.9, adult ([facility]) Primary hypertension ([facility]) Unspecified essential hypertension documented in this encounter [facility] HealthcareEvaluation note* Diagnosis Other chest pain- Primary Primary hypertension ([facility]) Unspecified essential hypertension Pre-diabetes Other abnormal glucose Obesity (BMI 30-39.9) Tobacco dependence Tobacco use disorder Mixed hyperlipidemia ([facility]) Mixed hyperlipidemia JAKOB (obstructive sleep apnea) Obstructive sleep apnea (adult) (pediatric) NORMAN (generalized anxiety disorder) ([facility]) Generalized anxiety disorder NORMAN (generalized anxiety disorder) ([facility])- Primary Generalized anxiety disorder Mixed hyperlipidemia ([facility]) Mixed hyperlipidemia Nausea and vomiting, unspecified vomiting type Leukocytosis, unspecified type Pre-diabetes Other abnormal glucose Obesity (BMI 30-39.9) Moderate episode of recurrent major depressive disorder ([facility])- Primary Morbid (severe) obesity due to excess calories ([facility]) Body mass index (BMI) 40.0-44.9, adult ([facility] Mixed hyperlipidemia ([facility]) Mixed hyperlipidemia Pre-diabetes Other abnormal glucose Hypoglycemia Hypoglycemia, unspecified NORMAN (generalized anxiety disorder) ([facility]) Generalized anxiety disorder Pre-diabetes- Primary Other abnormal glucose NORMAN (generalized anxiety disorder) ([facility] Generalized anxiety disorder Morbid (severe) obesity due to excess calories ([facility]) Body mass index (BMI) 40.0-44.9, adult ([facility]) Pre-diabetes- Primary Other abnormal glucose Morbid (severe) obesity due to excess calories ([facility]) Body mass index (BMI) 40.0-44.9, adult ([facility]) Primary hypertension ([facility]) Unspecified essential hypertension Gastroesophageal reflux disease without esophagitis Esophageal reflux NORMAN (generalized anxiety disorder) ([facility]) Generalized anxiety disorder Mixed hyperlipidemia ([facility]) Mixed hyperlipidemia Needs flu shot Need for prophylactic vaccination and inoculation against influenza Sciatica of left side documented in this encounter [facility] HealthcareEvaluation note* Diagnosis Other chest pain- Primary Primary hypertension ([facility]) Unspecified essential hypertension Pre-diabetes Other abnormal glucose Obesity (BMI 30-39.9) Tobacco dependence Tobacco use disorder Mixed hyperlipidemia ([facility]) Mixed hyperlipidemia JAKOB (obstructive sleep apnea) Obstructive sleep apnea (adult) (pediatric) NORMAN (generalized anxiety disorder) ([facility]) Generalized anxiety disorder NORMAN (generalized anxiety disorder) ([facility])- Primary Generalized anxiety disorder Mixed hyperlipidemia ([facility]) Mixed hyperlipidemia Nausea and vomiting, unspecified vomiting type Leukocytosis, unspecified type Pre-diabetes Other abnormal glucose Obesity (BMI 30-39.9) Moderate episode of recurrent major depressive disorder ([facility])- Primary Morbid (severe) obesity due to excess calories ([facility]) Body mass index (BMI) 40.0-44.9, adult ([facility]) Mixed hyperlipidemia ([facility]) Mixed hyperlipidemia Pre-diabetes Other abnormal glucose Hypoglycemia Hypoglycemia, unspecified NORMAN (generalized anxiety disorder) ([facility]) Generalized anxiety disorder Pre-diabetes- Primary Other abnormal glucose NORMAN (generalized anxiety disorder) ([facility]) Generalized anxiety disorder Morbid (severe) obesity due to excess calories ([facility]) Body mass index (BMI) 40.0-44.9, adult ([facility]) Pre-diabetes- Primary Other abnormal glucose Morbid (severe) obesity due to excess calories ([facility]) Body mass index (BMI) 40.0-44.9, adult ([facility]) Primary hypertension ([facility]) Unspecified essential hypertension Gastroesophageal reflux disease without esophagitis Esophageal reflux NORMAN (generalized anxiety disorder) ([facility]) Generalized anxiety disorder Mixed hyperlipidemia ([facility]) Mixed hyperlipidemia Needs flu shot Need for prophylactic vaccination and inoculation against influenza Sciatica of left side Gastroesophageal reflux disease without esophagitis Esophageal reflux documented in this encounter [facility]Evaluation note* Diagnosis Other chest pain- Primary Primary hypertension ([facility]) Unspecified essential hypertension Pre-diabetes Other abnormal glucose Obesity (BMI 30-39.9) Tobacco dependence Tobacco use disorder Mixed hyperlipidemia ([facility]) Mixed hyperlipidemia JAKOB (obstructive sleep apnea) Obstructive sleep apnea (adult) (pediatric) NORMAN (generalized anxiety disorder) ([facility]) Generalized anxiety disorder NORMAN (generalized anxiety disorder) ([facility])- Primary Generalized anxiety disorder Mixed hyperlipidemia ([facility]) Mixed hyperlipidemia Nausea and vomiting, unspecified vomiting type Leukocytosis, unspecified type Pre-diabetes Other abnormal glucose Obesity (BMI 30-39.9) Moderate episode of recurrent major depressive disorder ([facility])- Primary Morbid (severe) obesity due to excess calories ([facility]) Body mass index (BMI) 40.0-44.9, adult ([facility]) Mixed hyperlipidemia ([facility]) Mixed hyperlipidemia Pre-diabetes Other abnormal glucose Hypoglycemia Hypoglycemia, unspecified NORMAN (generalized anxiety disorder) ([facility]) Generalized anxiety disorder Pre-diabetes- Primary Other abnormal glucose NORMAN (generalized anxiety disorder) ([facility]) Generalized anxiety disorder Morbid (severe) obesity due to excess calories ([facility]) Body mass index (BMI) 40.0-44.9, adult ([facility]) Pre-diabetes- Primary Other abnormal glucose Morbid (severe) obesity due to excess calories ([facility]) Body mass index (BMI) 40.0-44.9, adult ([facility]) Primary hypertension ([facility] Unspecified essential hypertension Gastroesophageal reflux disease without esophagitis Esophageal reflux NORMAN (generalized anxiety disorder) ([facility]) Generalized anxiety disorder Mixed hyperlipidemia ([facility]) Mixed hyperlipidemia Needs flu shot Need for prophylactic vaccination and inoculation against influenza Sciatica of left side Pre-diabetes- Primary Other abnormal glucose documented in this encounter [facility] HealthcareEvaluation note* Diagnosis Pre-diabetes- Primary Other abnormal glucose NORMAN (generalized anxiety disorder) ([facility]) Generalized anxiety disorder Morbid (severe) obesity due to excess calories ([facility]) Body mass index (BMI) 40.0-44.9, adult ([facility]) documented in this encounter [facility] HealthcareEvaluation note* Diagnosis Other chest pain- Primary Primary hypertension ([facility]) Unspecified essential hypertension Pre-diabetes Other abnormal glucose Obesity (BMI 30-39.9) Tobacco dependence Tobacco use disorder Mixed hyperlipidemia ([facility]) Mixed hyperlipidemia JAKOB (obstructive sleep apnea) Obstructive sleep apnea (adult) (pediatric) NORMAN (generalized anxiety disorder) ([facility]) Generalized anxiety disorder NORMAN (generalized anxiety disorder) ([facility])- Primary Generalized anxiety disorder Mixed hyperlipidemia ([facility]) Mixed hyperlipidemia Nausea and vomiting, unspecified vomiting type Leukocytosis, unspecified type Pre-diabetes Other abnormal glucose Obesity (BMI 30-39.9) Moderate episode of recurrent major depressive disorder ([facility])- Primary Morbid (severe) obesity due to excess calories ([facility]) Body mass index (BMI) 40.0-44.9, adult ([facility] Mixed hyperlipidemia ([facility]) Mixed hyperlipidemia Pre-diabetes Other abnormal glucose Hypoglycemia Hypoglycemia, unspecified NORMAN (generalized anxiety disorder) ([facility]) Generalized anxiety disorder Pre-diabetes- Primary Other abnormal glucose NORMAN (generalized anxiety disorder) ([facility]) Generalized anxiety disorder Morbid (severe) obesity due to excess calories ([facility]) Body mass index (BMI) 40.0-44.9, adult ([facility]) Pre-diabetes- Primary Other abnormal glucose Morbid (severe) obesity due to excess calories ([facility]) Body mass index (BMI) 40.0-44.9, adult ([facility]) Primary hypertension ([facility]) Unspecified essential hypertension Gastroesophageal reflux disease without esophagitis Esophageal reflux NORMAN (generalized anxiety disorder) ([facility]) Generalized anxiety disorder Mixed hyperlipidemia ([facility]) Mixed hyperlipidemia Needs flu shot Need for prophylactic vaccination and inoculation against influenza Sciatica of left side Pre-diabetes Other abnormal glucose documented in this encounter [facility] HealthcareEvaluation note* Diagnosis Other chest pain- Primary Primary hypertension ([facility]) Unspecified essential hypertension Pre-diabetes Other abnormal glucose Obesity (BMI 30-39.9) Tobacco dependence Tobacco use disorder Mixed hyperlipidemia ([facility]) Mixed hyperlipidemia JAKOB (obstructive sleep apnea) Obstructive sleep apnea (adult) (pediatric) NORMAN (generalized anxiety disorder) ([facility]) Generalized anxiety disorder NORMAN (generalized anxiety disorder) ([facility])- Primary Generalized anxiety disorder Mixed hyperlipidemia ([facility]) Mixed hyperlipidemia Nausea and vomiting, unspecified vomiting type Leukocytosis, unspecified type Pre-diabetes Other abnormal glucose Obesity (BMI 30-39.9) Moderate episode of recurrent major depressive disorder ([facility])- Primary Morbid (severe) obesity due to excess calories ([facility]) Body mass index (BMI) 40.0-44.9, adult ([facility] Mixed hyperlipidemia ([facility]) Mixed hyperlipidemia Pre-diabetes Other abnormal glucose Hypoglycemia Hypoglycemia, unspecified NORMAN (generalized anxiety disorder) ([facility]) Generalized anxiety disorder Pre-diabetes- Primary Other abnormal glucose NORMAN (generalized anxiety disorder) ([facility]) Generalized anxiety disorder Morbid (severe) obesity due to excess calories ([facility]) Body mass index (BMI) 40.0-44.9, adult ([facility]) Pre-diabetes- Primary Other abnormal glucose Morbid (severe) obesity due to excess calories ([facility]) Body mass index (BMI) 40.0-44.9, adult ([facility]) Primary hypertension ([facility]) Unspecified essential hypertension Gastroesophageal reflux disease without esophagitis Esophageal reflux NORMAN (generalized anxiety disorder) ([facility]) Generalized anxiety disorder Mixed hyperlipidemia ([facility]) Mixed hyperlipidemia Needs flu shot Need for prophylactic vaccination and inoculation against influenza Sciatica of left side Pre-diabetes Other abnormal glucose documented in this encounter [facility] HealthcareEvaluation note* Diagnosis Other chest pain- Primary Primary hypertension ([facility]) Unspecified essential hypertension Pre-diabetes Other abnormal glucose Obesity (BMI 30-39.9) Tobacco dependence Tobacco use disorder Mixed hyperlipidemia ([facility]) Mixed hyperlipidemia JAKOB (obstructive sleep apnea) Obstructive sleep apnea (adult) (pediatric) NORMAN (generalized anxiety disorder) ([facility]) Generalized anxiety disorder NORMAN (generalized anxiety disorder) ([facility])- Primary Generalized anxiety disorder Mixed hyperlipidemia ([facility]) Mixed hyperlipidemia Nausea and vomiting, unspecified vomiting type Leukocytosis, unspecified type Pre-diabetes Other abnormal glucose Obesity (BMI 30-39.9) Moderate episode of recurrent major depressive disorder ([facility])- Primary Morbid (severe) obesity due to excess calories ([facility]) Body mass index (BMI) 40.0-44.9, adult ([facility] Mixed hyperlipidemia ([facility]) Mixed hyperlipidemia Pre-diabetes Other abnormal glucose Hypoglycemia Hypoglycemia, unspecified NORMAN (generalized anxiety disorder) ([facility]) Generalized anxiety disorder Pre-diabetes- Primary Other abnormal glucose NORMAN (generalized anxiety disorder) ([facility] Generalized anxiety disorder Morbid (severe) obesity due to excess calories ([facility]) Body mass index (BMI) 40.0-44.9, adult ([facility]) Pre-diabetes- Primary Other abnormal glucose Morbid (severe) obesity due to excess calories ([facility]) Body mass index (BMI) 40.0-44.9, adult ([facility]) Primary hypertension ([facility]) Unspecified essential hypertension Gastroesophageal reflux disease without esophagitis Esophageal reflux NORMAN (generalized anxiety disorder) ([facility]) Generalized anxiety disorder Mixed hyperlipidemia ([facility]) Mixed hyperlipidemia Needs flu shot Need for prophylactic vaccination and inoculation against influenza Sciatica of left side NORMAN (generalized anxiety disorder) ([facility]) Generalized anxiety disorder documented in this encounter [facility]* Diagnosis Other chest pain- Primary Primary hypertension ([facility]) Unspecified essential hypertension Pre-diabetes Other abnormal glucose Obesity (BMI 30-39.9) Tobacco dependence Tobacco use disorder Mixed hyperlipidemia (CMS/HCC) Mixed hyperlipidemia JAKOB (obstructive sleep apnea) Obstructive sleep apnea (adult) (pediatric) NORMAN (generalized anxiety disorder) ([facility]) Generalized anxiety disorder NORMAN (generalized anxiety disorder) ([facility])- Primary Generalized anxiety disorder Mixed hyperlipidemia ([facility]) Mixed hyperlipidemia Nausea and vomiting, unspecified vomiting type Leukocytosis, unspecified type Pre-diabetes Other abnormal glucose Obesity (BMI 30-39.9) Moderate episode of recurrent major depressive disorder ([facility])- Primary Morbid (severe) obesity due to excess calories ([facility]) Body mass index (BMI) 40.0-44.9, adult ([facility] Mixed hyperlipidemia ([facility]) Mixed hyperlipidemia Pre-diabetes Other abnormal glucose Hypoglycemia Hypoglycemia, unspecified NORMAN (generalized anxiety disorder) ([facility]) Generalized anxiety disorder Pre-diabetes- Primary Other abnormal glucose NORMAN (generalized anxiety disorder) ([facility] Generalized anxiety disorder Morbid (severe) obesity due to excess calories ([facility]) Body mass index (BMI) 40.0-44.9, adult ([facility]) Pre-diabetes- Primary Other abnormal glucose Morbid (severe) obesity due to excess calories ([facility]) Body mass index (BMI) 40.0-44.9, adult ([facility]) Primary hypertension ([facility] Unspecified essential hypertension Gastroesophageal reflux disease without esophagitis Esophageal reflux NORMAN (generalized anxiety disorder) ([facility] Generalized anxiety disorder Mixed hyperlipidemia ([facility]) Mixed hyperlipidemia Needs flu shot Need for prophylactic vaccination and inoculation against influenza Sciatica of left side Moderate episode of recurrent major depressive disorder ([facility]) documented in this encounter [facility]* Diagnosis Other chest pain- Primary Primary hypertension ([facility]) Unspecified essential hypertension Pre-diabetes Other abnormal glucose Obesity (BMI 30-39.9) Tobacco dependence Tobacco use disorder Mixed hyperlipidemia ([facility]) Mixed hyperlipidemia JAKOB (obstructive sleep apnea) Obstructive sleep apnea (adult) (pediatric) NORMAN (generalized anxiety disorder) ([facility]) Generalized anxiety disorder NORMAN (generalized anxiety disorder) ([facility])- Primary Generalized anxiety disorder Mixed hyperlipidemia ([facility]) Mixed hyperlipidemia Nausea and vomiting, unspecified vomiting type Leukocytosis, unspecified type Pre-diabetes Other abnormal glucose Obesity (BMI 30-39.9) Moderate episode of recurrent major depressive disorder ([facility])- Primary Morbid (severe) obesity due to excess calories ([facility]) Body mass index (BMI) 40.0-44.9, adult ([facility] Mixed hyperlipidemia ([facility]) Mixed hyperlipidemia Pre-diabetes Other abnormal glucose Hypoglycemia Hypoglycemia, unspecified NORMAN (generalized anxiety disorder) ([facility]) Generalized anxiety disorder Pre-diabetes- Primary Other abnormal glucose NORMAN (generalized anxiety disorder) ([facility]) Generalized anxiety disorder Morbid (severe) obesity due to excess calories ([facility]) Body mass index (BMI) 40.0-44.9, adult ([facility]) Pre-diabetes- Primary Other abnormal glucose Morbid (severe) obesity due to excess calories ([facility]) Body mass index (BMI) 40.0-44.9, adult ([facility]) Primary hypertension ([facility]) Unspecified essential hypertension Gastroesophageal reflux disease without esophagitis Esophageal reflux NORMAN (generalized anxiety disorder) ([facility]) Generalized anxiety disorder Mixed hyperlipidemia ([facility]) Mixed hyperlipidemia Needs flu shot Need for prophylactic vaccination and inoculation against influenza Sciatica of left side Pre-diabetes- Primary Other abnormal glucose Morbid (severe) obesity due to excess calories ([facility]) Body mass index (BMI) 40.0-44.9, adult ([facility]) Primary hypertension ([facility]) Unspecified essential hypertension Gastroesophageal reflux disease without esophagitis Esophageal reflux NORMAN (generalized anxiety disorder) ([facility]) Generalized anxiety disorder Moderate episode of recurrent major depressive disorder ([facility]) Mixed hyperlipidemia ([facility]) Mixed hyperlipidemia documented in this encounter [facility]* Diagnosis Other chest pain- Primary Primary hypertension ([facility]) Unspecified essential hypertension Pre-diabetes Other abnormal glucose Obesity (BMI 30-39.9) Tobacco dependence Tobacco use disorder Mixed hyperlipidemia ([facility]) Mixed hyperlipidemia JAKOB (obstructive sleep apnea) Obstructive sleep apnea (adult) (pediatric) NORMAN (generalized anxiety disorder) ([facility]) Generalized anxiety disorder NORMAN (generalized anxiety disorder) ([facility])- Primary Generalized anxiety disorder Mixed hyperlipidemia ([facility]) Mixed hyperlipidemia Nausea and vomiting, unspecified vomiting type Leukocytosis, unspecified type Pre-diabetes Other abnormal glucose Obesity (BMI 30-39.9) Moderate episode of recurrent major depressive disorder ([facility])- Primary Morbid (severe) obesity due to excess calories ([facility]) Body mass index (BMI) 40.0-44.9, adult ([facility] Mixed hyperlipidemia ([facility]) Mixed hyperlipidemia Pre-diabetes Other abnormal glucose Hypoglycemia Hypoglycemia, unspecified NORMAN (generalized anxiety disorder) ([facility]) Generalized anxiety disorder Pre-diabetes- Primary Other abnormal glucose NORMAN (generalized anxiety disorder) ([facility]) Generalized anxiety disorder Morbid (severe) obesity due to excess calories ([facility]) Body mass index (BMI) 40.0-44.9, adult ([facility]) Pre-diabetes- Primary Other abnormal glucose Morbid (severe) obesity due to excess calories ([facility]) Body mass index (BMI) 40.0-44.9, adult ([facility]) Primary hypertension ([facility]) Unspecified essential hypertension Gastroesophageal reflux disease without esophagitis Esophageal reflux NORMAN (generalized anxiety disorder) ([facility]) Generalized anxiety disorder Mixed hyperlipidemia ([facility]) Mixed hyperlipidemia Needs flu shot Need for prophylactic vaccination and inoculation against influenza Sciatica of left side Pre-diabetes- Primary Other abnormal glucose Morbid (severe) obesity due to excess calories ([facility]) Body mass index (BMI) 40.0-44.9, adult ([facility]) Primary hypertension ([facility]) Unspecified essential hypertension Gastroesophageal reflux disease without esophagitis Esophageal reflux NORMAN (generalized anxiety disorder) ([facility]) Generalized anxiety disorder Moderate episode of recurrent major depressive disorder ([facility] Mixed hyperlipidemia ([facility]) Mixed hyperlipidemia Primary hypertension ([facility]) Unspecified essential hypertension documented in this encounter [facility]* Diagnosis Other chest pain- Primary Primary hypertension ([facility]) Unspecified essential hypertension Pre-diabetes Other abnormal glucose Obesity (BMI 30-39.9) Tobacco dependence Tobacco use disorder Mixed hyperlipidemia ([facility]) Mixed hyperlipidemia JAKOB (obstructive sleep apnea) Obstructive sleep apnea (adult) (pediatric) NORMAN (generalized anxiety disorder) ([facility]) Generalized anxiety disorder NORMAN (generalized anxiety disorder) ([facility])- Primary Generalized anxiety disorder Mixed hyperlipidemia ([facility]) Mixed hyperlipidemia Nausea and vomiting, unspecified vomiting type Leukocytosis, unspecified type Pre-diabetes Other abnormal glucose Obesity (BMI 30-39.9) Moderate episode of recurrent major depressive disorder ([facility])- Primary Morbid (severe) obesity due to excess calories ([facility]) Body mass index (BMI) 40.0-44.9, adult ([facility] Mixed hyperlipidemia ([facility]) Mixed hyperlipidemia Pre-diabetes Other abnormal glucose Hypoglycemia Hypoglycemia, unspecified NORMAN (generalized anxiety disorder) ([facility]) Generalized anxiety disorder Pre-diabetes- Primary Other abnormal glucose NORMAN (generalized anxiety disorder) ([facility]) Generalized anxiety disorder Morbid (severe) obesity due to excess calories ([facility]) Body mass index (BMI) 40.0-44.9, adult ([facility]) Pre-diabetes- Primary Other abnormal glucose Morbid (severe) obesity due to excess calories ([facility]) Body mass index (BMI) 40.0-44.9, adult ([facility]) Primary hypertension ([facility]) Unspecified essential hypertension Gastroesophageal reflux disease without esophagitis Esophageal reflux NORMAN (generalized anxiety disorder) ([facility]) Generalized anxiety disorder Mixed hyperlipidemia ([facility]) Mixed hyperlipidemia Needs flu shot Need for prophylactic vaccination and inoculation against influenza Sciatica of left side Pre-diabetes- Primary Other abnormal glucose Morbid (severe) obesity due to excess calories ([facility]) Body mass index (BMI) 40.0-44.9, adult ([facility]) Primary hypertension ([facility]) Unspecified essential hypertension Gastroesophageal reflux disease without esophagitis Esophageal reflux NORMAN (generalized anxiety disorder) ([facility] Generalized anxiety disorder Moderate episode of recurrent major depressive disorder ([facility]) Mixed hyperlipidemia ([facility]) Mixed hyperlipidemia Type 2 diabetes mellitus without complication, without long-term current use of insulin- Primary Primary hypertension ([facility]) Unspecified essential hypertension Gastroesophageal reflux disease without esophagitis Esophageal reflux Morbid (severe) obesity due to excess calories ([facility]) Pre-diabetes Other abnormal glucose documented in this encounter [facility] Purpose Family History No Family History Records FoundNo Family History Records Found Advance Directives No Advanced Directives Records FoundNo Advanced Directives Records Found Additional Source Comments (unrecognized sect ion and content) No Status Records FoundNo Status Records Found INFORMATION SOURCE (unrecogn ized section and content) DATE CREATED AUTHOR 07/20/2022 [employer] DATE CREATED AUTHOR AUTHOR'S ORGANIZ ATION 01/25/2025 [facility] Reason for Visit (unrecogniz ed section and content) Reason Comments Med Refill Reason Onset Date Comments Med Refill 08/22/2024 Reason Onset Date Comments Med Refill 08/29/2024 Reason Onset Date Comments Med Refill 11/13/2024 Reason Comments pre diabetes Reason Onset Date Comments Med Refill 12/06/2024 Care Teams (unrecognized sec tion and content) [employer]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 Start Date End Date Too Head MD [address] [place] [phone] PCP - General Family Medicine 02/25/24 Trina Talley NP [address] [place] [phone] Referring Physician Nurse Practitioner 05/12/23 Trina Talley NP [address] [place] [address] Nurse Practitioner Family Medicine 02/25/24 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 Start Date End Date Too Head MD [address] [place] [phone] PCP - General Family Medicine 02/25/24 Trina Talley NP [address] [place] [address] Referring Physician Nurse Practitioner 05/12/23 Trina Talley NP [address] [place] [address] Nurse Practitioner Family Medicine 02/25/24 [employer]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 Start Date End Date Too eHad MD [address] [place] [phone] PCP - General Family Medicine 02/25/24 Trina Talley NP [address] [place] [address] PCP - [facility] 07/20/24 Trina Talley NP [address] [place] [phone] Referring Physician Nurse Practitioner 05/12/23 Trina Talley NP [address] [place] [address] Nurse Practitioner Family Medicine 02/25/24 [employer]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 Start Date End Date Too Head MD [address] [place] [phone] PCP - General [facility] 02/25/24 Trina Talley NP [address] [place] [address] PCP - [facility] 07/20/24 Trina Talley NP [address] [place] [phone] Referring Physician Nurse Practitioner 05/12/23 Trina Talley NP [address] [place] [address] Nurse Practitioner Family Medicine 02/25/24 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 Start Date End Date Too Head MD [address] [place] [phone] PCP - General [facility] 02/25/24 Trina Talley NP [address] [place] [address] PCP - [facility] 07/20/24 Trina Talley NP [address] [place] [address] Referring Physician Nurse Practitioner 05/12/23 Trina Talley NP [address] [place] [address] Nurse Practitioner [facility] 02/25/24 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 Start Date End Date Too Head MD [address] [place] [address] PCP - General [facility] 02/25/24 Trina Talley NP [address] [place] [address] PCP - [facility] 07/20/24 Trina Talley NP [address] [place] [address]29010-1002 Referring Physician Nurse Practitioner 05/12/23 Trina Talley NP [address] [place] [address] Nurse Practitioner Family Medicine 02/25/24 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 Start Date End Date Too Head MD [address] [place] [address] PCP - General Family Medicine 02/25/24 Trina Talley NP [address] [place] [address] Referring Physician Nurse Practitioner 05/12/23 Trina Talley NP [address] [place] [address] Nurse Practitioner Family Medicine 02/25/24 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 Start Date End Date Too Head MD [address] [place] [address] PCP - General Family Medicine 02/25/24 Trina Talley NP [address] [place] [address] Referring Physician Nurse Practitioner 05/12/23 Trina Talley NP [address] [place] [address] Nurse Practitioner Family Medicine 02/25/24 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 Start Date End Date Too Head MD [address] [place] [address] PCP - General Family Medicine 02/25/24 Trina Talley NP [address] [place] [address] PCP - [facility] 07/20/24 Trina Talley NP [address] [place] [address] Referring Physician Nurse Practitioner 05/12/23 Trina Talley NP [address] [place] [address] Nurse Practitioner Family Medicine 02/25/24 Power [employer]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 Start Date End Date Too Head MD [address] [place] [address] PCP - General Family [facility] 02/25/24 Trina Talley NP [address] [place] [address] [facility] - [facility] 07/20/24 Trina Talley NP [address] [place] [address] Referring Physician Nurse Practitioner 05/12/23 Trina Talley NP [address] [place] [address]1002 Nurse Practitioner Family Medicine 02/25/24 Power [employer]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 Start Date End Date Too Head MD [address] [place] [address] PCP - General Family Medicine 02/25/24 Trina Talley NP [address] [place] [address]10[address]1002 PCP - [facility] 07/20/24 Trina Talley NP [address] [place] [address]1810[address]1002 Referring Physician Nurse Practitioner 05/12/23 Trina Talley NP [address] [place] [address]1610[address] Nurse Practitioner Family [facility] 02/25/24 Power [employer]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 Start Date End Date Too Head MD [address] [place] [address]79110[address]1002 PCP - General [facility] 02/25/24 Trina Talley NP [address] [place] [address] PCP - [facility] 07/20/24 Trina Talley NP [address] [place] [address] Referring Physician Nurse Practitioner 05/12/23 Trina Talley NP [address] [place] [address] Nurse Practitioner Family Medicine 02/25/24 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 Start Date End Date Too Head MD [address] [place] [phone] PCP - General Family Medicine 02/25/24 Trina Talley NP [address] [place] [address] PCP - [facility] 07/20/24 Trina Talley NP [address] [place] [address] Referring Physician Nurse Practitioner 05/12/23 Trina Talley NP [address] [place] [address]1610[address] Nurse Practitioner Family Medicine 02/25/24 [employer]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 Start Date End Date Too Head MD [address] [place] [address] PCP - General Family [facility] 02/25/24 Trina Talley NP [address] [place] [address] PCP - [facility] 07/20/24 Trina Talley NP [address] [place] [address]1002 Referring Physician Nurse Practitioner 05/12/23 Trina Talley NP [address] [place] [address] Nurse Practitioner Family Medicine 02/25/24 Power [employer]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 Start Date End Date Too Head MD [address] [place] [address] PCP - General Family Medicine 02/25/24 Trina Talley NP [address] [place] [address] PCP - [facility] 07/20/24 Trina Talley NP [address] [place] [address]6410-1002 Referring Physician Nurse Practitioner 05/12/23 Trina Talley NP [address] [place] [address] Nurse Practitioner Family Medicine 02/25/24 Power [employer]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 Start Date End Date Too Head MD [address] [place] [address]10[address] PCP - General [facility] 02/25/24 Trina Talley NP [address] [place] [address]70910-1002 PCP - [facility] 07/20/24 Trina Talley NP [address] [place] [address]95610-1002 Referring Physician Nurse Practitioner 05/12/23 Trina Talley NP [address] [place] [address]-114010[address]1002 Nurse Practitioner Family Medicine 02/25/24 Power [employer]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 Start Date End Date Too Head MD [address] [place] [address]-730410-1002 PCP - General [facility] 02/25/24 Trina Talley NP [address] [place] [address]2510-1002 PCP - [facility] 07/20/24 Trina Talley NP [address] [place] [address]7510-1002 Referring Physician Nurse Practitioner 05/12/23 Trina Talley NP [address] [place] [address]8710[address] Nurse Practitioner [facility] 02/25/24 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 Start Date End Date Too Head MD [address] [place] [address]1002 PCP - General [facility] 02/25/24 Trina Talley NP [address] [place] [address]1002 PCP - [facility] 07/20/24 Trina Talley NP [address] [place] [address]-916610-1002 Referring Physician Nurse Practitioner 05/12/23 Trina Talley NP [address] [place] [address]11810-[address] Nurse Practitioner Family Medicine 02/25/24 FOR RECORDS [...] BE BASED ON THE PRIMARY CLINICAL RECORDS. [facility] provides no warranty or guarantee of the accuracy or completeness of information in this document.
[2025-04-13] MEDS: ONDANSETRON PF 4 MG/2 ML VIAL IV (10:48)
[2025-04-13] MEDS: 0.9 % SODIUM CHLORIDE 1,000 ML 1000 ML IV (10:48)
[2025-04-13 10:59] LABS: Basophils Absolute Auto 0.1 10^3/uL (0.0-0.1); Basophils Percent Auto 0.7 % (0.2-2.0); Eosinophils Absolute Auto 0.1 10^3/uL (0.0-0.7); Eosinophils Percent Auto 0.9 % (0.9-7.0); Hemoglobin 15.7 g/dL (14.0-18.0); Immature Granulocytes Abs Auto 0.05 10^3/uL (0.00-0.03); Immature Granulocytes Pct Auto 0.5 % (0.0-0.5); Lymphocytes Absolute Auto 2.3 10^3/uL (1.2-3.8); Lymphocytes Percent Auto 25.6 % (20.5-60.0); Mean Corpuscular HGB Conc 34.1 g/dL (29.9-35.2); Mean Corpuscular Hemoglobin 29.7 pg (25.9-34.0); Mean Platelet Volume 9.6 fL (9.5-13.5); Monocytes Absolute Auto 0.7 10^3/uL (0.3-0.8); Monocytes Percent Auto 7.1 % (1.7-12.0); Neutrophils Absolute Auto 5.9 10^3/uL (1.4-6.5); Neutrophils Percent Auto 65.2 % (43.0-75.0); Platelet Count 308 10^3/uL (150-450); Red Blood Count 5.29 10^6/uL (4.70-6.10); Red Cell Distribution Width 12.9 % (11.0-15.0); White Blood Count 9.1 10^3/uL (4.0-11.0)
[2025-04-13 11:07] LABS: BUN Creatinine Ratio 17.7; Calcium 9.5 mg/dL (8.5-10.1); Carbon Dioxide 30.7 mmol/L (21.0-32.0); Chloride 102 mmol/L (98-107); Estimated GFR (African America >60 (>=60 mL/min/1.73m^2); Estimated GFR (Non-African Ame >60 (>=60 mL/min/1.73m^2); Glucose 93 mg/dL (74-106); Potassium 3.7 mmol/L (3.5-5.1); Sodium 140 mmol/L (136-145)
== END 2025-04-13 12:29 | disposition home or self-care (01) ==
PROVIDERS: Emergency Provider Emergency Medicine; PCP Nurse Practitioner
DX: T59.891A Toxic effect of other specified gases, fumes and vapors, accidental (unintentional), initial encounter (principal); R42 Dizziness and giddiness; R51.9 Headache, unspecified
CPT/HCPCS: 36415; 70450; 71045; 80048; 85025; 93005; 96361; 96374; 99285; J2405

== ENCOUNTER 2025-09-01 16:50 | Outpatient (RCR) | payer OTHER, SELFPAY | END 2025-09-17 16:44 | disposition home or self-care (01) | LOC: PT 16:50 | PROVIDERS: PCP Nurse Practitioner; Visit Provider Nurse Practitioner | DX: M25.512 Pain in left shoulder (principal) | CPT/HCPCS: 97010; 97014; 97110; 97112; 97162 ==